=== PATIENT | male | born 1940 | race Caucasian/White ===

== ENCOUNTER 2019-05-12 21:13 | Inpatient (IN) ==
[2019-05-12] MEDS ORDERED: 0.9 % SODIUM CHLORIDE 1,000 ML IV ONE ×2 (21:25→21:49)
--- NOTE | 2019-05-12 21:29 | Emergency Department Note ---
Weakness HPI - General Chief complaint: Weakness Stated complaint: Sudden change is ability to walk Time Seen by Provider: 05/12/19 21:25 - History of Present Illness HPI Narrative: 78-year-old male presents via private vehicle with daughter and spouse. They were eating dinner when he started to have some bizarre behavior. They state he is always kind of sleepy kind of shuffles his gait, and does not move around or get around much. They state all of a sudden it seemed to be worse than usual. Seem to have a little bit of confusion. No weakness. No slurred speech. No facial drooping. Only ate very little of his dinner. Patient states he had 3 beers at dinner but the family states he only had a half of a beer. Denies any drug or marijuana use. Denies tobacco use. No recent cough, cold, or illness. No chest pain or shortness of breath. No abdominal pain. No cold symptoms. Has been eating and drinking as usual although they do state that he does not eat much. Patient feels sleepy but other than that he has no complaints. No dysuria or frequency. No foul odor to urine. - Related Data Home Medications Medication Instructions Recorded Confirmed RX: Aspirin [Adult Low Dose 81 mg PO DAILY 05/12/19 05/13/19 Aspirin EC] RX: Hydrochlorothiazide [Oretic] 25 mg PO DAILY 05/12/19 05/13/19 RX: Memantine HCl 10 mg PO BID 05/12/19 05/13/19 RX: Potassium Chloride [Kdur] 20 meq PO DAILY 05/12/19 05/13/19 RX: QUEtiapine [Seroquel] 100 mg PO DAILY 05/12/19 05/13/19 RX: Tamsulosin [Flomax] 0.4 mg PO DAILY 05/12/19 05/13/19 RX: Vitamin D3 1,000 unit PO DAILY 05/12/19 05/13/19 RX: amLODIPine BESYLATE/BENAZEPRIL 1 cap PO DAILY 05/12/19 05/13/19 [Amlodipine-Benazepril 5-10 mg] RX: cloNIDine HCL [Catapres] 0.1 mg PO BID 05/12/19 05/13/19 RX: metFORMIN HCL [Metformin HCl 1,500 mg PO HS 05/12/19 05/13/19 ER] RX: metFORMIN HCL [Metformin HCl 750 mg PO DAILY 05/12/19 05/13/19 ER] Previous Rx's Medication Instructions Recorded RX: Cephalexin [Keflex] 500 mg PO BID #10 cap 05/14/19 RX: Magnesium Oxide 400 mg PO BID #60 tab 05/14/19 RX: Thiamine HCl 100 mg PO DAILY #100 tab 05/14/19 Allergies Allergy/AdvReac Type Severity Reaction Status Date / Time No Known Drug Allergies Allergy Verified 05/13/19 01:24 Review of Systems All systems ED: reviewed and negative except as stated. Past Medical History - Past Medical History Source: other (Poor historian, limited past medical history available at this time.) - Social History smoking status: Former smoker Alcohol use: Reports: Daily Drug use: Reports: none Physical Exam General appearance: alert (That will be sleepy but easily awakens, opens eyes his eyes to voice and is oriented to person, place, time, and situation.) Head: atraumatic, normocephalic, normal inspection Eye: Present: normal appearance, PERRL, EOMI, conjunctival injection, visual padron intact. Absent: nystagmus ENT: normal exam, normal oropharynx, mucous membranes moist, TM's normal bilaterally, normal external ear exam Neck: Present: normal inspection, trachea midline. Absent: tenderness, lymp hadenopathy Chest: Present: symmetric chest wall rise Respiratory: Present: normal lung sounds bilaterally. Absent: respiratory distress, rales/crackles, wheezes, accessory muscle use Cardiovascular: Present: tachycardia, normal heart sounds Abdominal: Present: soft, normal bowel sounds. Absent: distention, tenderness, guarding, rebound, mass Extremities: Present: normal inspection. Absent: pedal edema Neurological: Present: alert, oriented X3, CN II-XII intact. Absent: motor sensory deficit Psychiatric: Present: normal affect, normal mood Skin: Present: warm, dry, intact, normal color. Absent: rash, diaphoresis, erythema Course Course Narrative: At [address] Naqvi, supervising ER physician who assumes care due to shift change Vital Signs Pulse Rate 126 H 05/12/19 21:15 Respiratory Rate 26 H 05/12/19 21:15 Blood Pressure 95/72 05/12/19 21:15 Pulse Oximetry (%) 91 05/12/19 21:15 Temperature 98 F 05/14/19 14:50 Pulse Rate 99 H 05/14/19 14:50 Respiratory Rate 18 05/14/19 14:50 Blood Pressure 118/91 05/14/19 14:50 Pulse Oximetry (%) 95 05/14/19 14:50 Weakness - Lab Data Result diagrams: 05/14/19 03:45 05/14/19 03:45 Lab Results 05/12/19 05/12/19 05/12/19 Range/Units 21:30 21:30 21:30 WBC 11.6 H (4.5-11.0) K/mcL RBC 4.79 (4.50-5.90) M/mcL Hgb 13.2 L (13.5-16.5) g/dL Hct 40.7 L (41.0-55.0) % POC Hct 40.0 L (41.0-55.0) % MCV 85.1 (80.0-100.0) fL MCH 27.6 (26.0-34.0) pg MCHC 32.4 (31.0-36.0) g/dL RDW 16.2 H (11.5-14.5) % Plt Count 288 (140-440) K/mcL MPV 8.6 (7.4-10.4) fL Gran % 81.5 H (38.0-78.0) % Lymph % (Auto) 10.4 L (15.5-49.0) % [place] % (Auto) 6.5 (1.0-12.0) % Eos % (Auto) 0.9 (0.0-7.0) % Baso % (Auto) 0.7 (0.0-2.0) % Gran # 9.4 H (1.8-8.0) K/mcL Lymph # (Auto) 1.2 L (1.5-4.8) K/mcL [place] # (Auto) 0.8 (0.1-0.9) K/mcL Eos # (Auto) 0.1 (0.0-0.7) K/mcL Baso # (Auto) 0.1 (0.0-0.3) K/mcL D-Dimer (0.00-0.40) ug/ml VBG Lactic Acid 5.9 H* (0.5-2.0) mmol/L POC Sodium 136 (133-145) mmol/L Sodium 135 (133-145) mmol/L POC Potassium 3.5 (3.3-5.1) mmol/L Potassium 3.7 (3.3-5.1) mmol/L POC Chloride 101 (96-108) mmol/L Chloride 94 L (96-108) mmol/L Carbon Dioxide 16 L (22-30) mmol/L POC Total CO2 19 L (22-30) mmol/L Anion Gap 25.0 H (8-16) POC BUN 29 H (8-23) mg/dl BUN 27 H (8-23) mg/dl Creatinine 1.7 H (0.7-1.2) mg/dl POC Creatinine 1.8 H (0.7-1.2) mg/dl GFR Calculation 38 Glucose 214 H (70-105) mg/dL POC Glucose 212 H (70-105) mg/dL Calcium 9.2 (8.6-10.4) mg/dl POC WB Ioniz Calcium 1.16 (1.16-1.32) mmol/L Total Bilirubin 0.3 (0.0-1.0) mg/dL AST 8 (0-37) U/l ALT 7 (0-40) U/l Alkaline Phosphatase 62 (39-117) U/L Total Creatine Kinase (24-195) IU/L CK-MB (CK-2) (0-4.9) ng/ml Troponin T (0-0.03) ng/ml Total Protein 6.6 (5.9-8.4) gm/dL Albumin 3.7 (3.2-5.2) gm/dL Globulin 2.9 (2.2-3.7) gm/dL Albumin/Globulin Ratio 1.3 (1.0-2.3) Urine Color Urine Appearance Urine pH (5.0-9.0) Ur Specific [place] (1.000-1.035) Urine Protein (NEG) mg/dL Urine Glucose (UA) (NEG) mg/dL Urine Ketones (NEG) mg/dL Urine Occult Blood (<0.03) mg/dL Urine Nitrate (NEG) Urine Bilirubin (NEG) mg/dL Urine Urobilinogen (NEG) mg/dL Ur Leukocyte Esterase (NEG) /uL Urine RBC (0-1) /hpf Urine WBC (0-4) /hpf Ur Squamous Epith Cells (0-4) /hpf Ur Transition Epith Cell (0-2) /hpf Amorphous Crystals (0) /hpf Urine Bacteria (0) /hpf Hyaline Casts (0-2) /lpf Urine Mucus (0) /hpf Ur Culture Indicated? 05/12/19 05/12/19 05/12/19 Range/Units 21:30 21:30 21:30 WBC (4.5-11.0) K/mcL RBC (4.50-5.90) M/mcL Hgb (13.5-16.5) g/dL Hct (41.0-55.0) % POC Hct (41.0-55.0) % MCV (80.0-100.0) fL MCH (26.0-34.0) pg MCHC (31.0-36.0) g/dL RDW (11.5-14.5) % Plt Count (140-440) K/mcL MPV (7.4-10.4) fL Gran % (38.0-78.0) % Lymph % (Auto) (15.5-49.0) % [place] % (Auto) (1.0-12.0) % Eos % (Auto) (0.0-7.0) % Baso % (Auto) (0.0-2.0) % Gran # (1.8-8.0) K/mcL Lymph # (Auto) (1.5-4.8) K/mcL [place] # (Auto) (0.1-0.9) K/mcL Eos # (Auto) (0.0-0.7) K/mcL Baso # (Auto) (0.0-0.3) K/mcL D-Dimer 1.49 H (0.00-0.40) ug/ml VBG Lactic Acid (0.5-2.0) mmol/L POC Sodium (133-145) mmol/L Sodium (133-145) mmol/L POC Potassium (3.3-5.1) mmol/L Potassium (3.3-5.1) mmol/L POC Chloride (96-108) mmol/L Chloride (96-108) mmol/L Carbon Dioxide (22-30) mmol/L POC Total CO2 (22-30) mmol/L Anion Gap (8-16) POC BUN (8-23) mg/dl BUN (8-23) mg/dl Creatinine (0.7-1.2) mg/dl POC Creatinine (0.7-1.2) mg/dl GFR Calculation Glucose (70-105) mg/dL POC Glucose (70-105) mg/dL Calcium (8.6-10.4) mg/dl POC WB Ioniz Calcium (1.16-1.32) mmol/L Total Bilirubin (0.0-1.0) mg/dL AST (0-37) U/l ALT (0-40) U/l Alkaline Phosphatase (39-117) U/L Total Creatine Kinase 28 (24-195) IU/L CK-MB (CK-2) < 1.0 (0-4.9) ng/ml Troponin T < 0.01 (0-0.03) ng/ml Total Protein (5.9-8.4) gm/dL Albumin (3.2-5.2) gm/dL Globulin (2.2-3.7) gm/dL Albumin/Globulin Ratio (1.0-2.3) Urine Color Urine Appearance Urine pH (5.0-9.0) Ur Specific [place] (1.000-1.035) Urine Protein (NEG) mg/dL Urine Glucose (UA) (NEG) mg/dL Urine Ketones (NEG) mg/dL Urine Occult Blood (<0.03) mg/dL Urine Nitrate (NEG) Urine Bilirubin (NEG) mg/dL Urine Urobilinogen (NEG) mg/dL Ur Leukocyte Esterase (NEG) /uL Urine RBC (0-1) /hpf Urine WBC (0-4) /hpf Ur Squamous Epith Cells (0-4) /hpf Ur Transition Epith Cell (0-2) /hpf Amorphous Crystals (0) /hpf Urine Bacteria (0) /hpf Hyaline Casts (0-2) /lpf Urine Mucus (0) /hpf Ur Culture Indicated? 05/12/19 Range/Units 22:23 WBC (4.5-11.0) K/mcL RBC (4.50-5.90) M/mcL Hgb (13.5-16.5) g/dL Hct (41.0-55.0) % POC Hct (41.0-55.0) % MCV (80.0-100.0) fL MCH (26.0-34.0) pg MCHC (31.0-36.0) g/dL RDW (11.5-14.5) % Plt Count (140-440) K/mcL MPV (7.4-10.4) fL Gran % (38.0-78.0) % Lymph % (Auto) (15.5-49.0) % [place] % (Auto) (1.0-12.0) % Eos % (Auto) (0.0-7.0) % Baso % (Auto) (0.0-2.0) % Gran # (1.8-8.0) K/mcL Lymph # (Auto) (1.5-4.8) K/mcL [place] # (Auto) (0.1-0.9) K/mcL Eos # (Auto) (0.0-0.7) K/mcL Baso # (Auto) (0.0-0.3) K/mcL D-Dimer (0.00-0.40) ug/ml VBG Lactic Acid (0.5-2.0) mmol/L POC Sodium (133-145) mmol/L Sodium (133-145) mmol/L POC Potassium (3.3-5.1) mmol/L Potassium (3.3-5.1) mmol/L POC Chloride (96-108) mmol/L Chloride (96-108) mmol/L Carbon Dioxide (22-30) mmol/L POC Total CO2 (22-30) mmol/L Anion Gap (8-16) POC BUN (8-23) mg/dl BUN (8-23) mg/dl Creatinine (0.7-1.2) mg/dl POC Creatinine (0.7-1.2) mg/dl GFR Calculation Glucose (70-105) mg/dL POC Glucose (70-105) mg/dL Calcium (8.6-10.4) mg/dl POC WB Ioniz Calcium (1.16-1.32) mmol/L Total Bilirubin (0.0-1.0) mg/dL AST (0-37) U/l ALT (0-40) U/l Alkaline Phosphatase (39-117) U/L Total Creatine Kinase (24-195) IU/L CK-MB (CK-2) (0-4.9) ng/ml Troponin T (0-0.03) ng/ml Total Protein (5.9-8.4) gm/dL Albumin (3.2-5.2) gm/dL Globulin (2.2-3.7) gm/dL Albumin/Globulin Ratio (1.0-2.3) Urine Color Yellow Urine Appearance Clear Urine pH 5.0 (5.0-9.0) Ur Specific [place] 1.017 (1.000-1.035) Urine Protein 30 A (NEG) mg/dL Urine Glucose (UA) Negative (NEG) mg/dL Urine Ketones Neg (NEG) mg/dL Urine Occult Blood 0.03 A (<0.03) mg/dL Urine Nitrate Pos A (NEG) Urine Bilirubin Neg (NEG) mg/dL Urine Urobilinogen Neg (NEG) mg/dL Ur Leukocyte Esterase 250 A (NEG) /uL Urine RBC 1 (0-1) /hpf Urine WBC 18 H (0-4) /hpf Ur Squamous Epith Cells 0 (0-4) /hpf Ur Transition Epith Cell < 1 (0-2) /hpf Amorphous Crystals Few A (0) /hpf Urine Bacteria Mod A (0) /hpf Hyaline Casts 8 H (0-2) /lpf Urine Mucus Mod (0) /hpf Ur Culture Indicated? Yes Disposition Pt seen by APPEALS WRITER/PA only: No Clinical Impression: Complicated UTI (urinary tract infection), Sepsis due to urinary tract infection Disposition: Xfer As Inpt ([facility]) Condition: Fair
[2019-05-12 21:46] LABS: POC Blood Urea Nitrogen 29 mg/dl (8-23); POC CO2 19 mmol/L (22-30); POC Calcium, Ionized 1.16 mmol/L (1.16-1.32); POC Chloride 101 mmol/L (96-108); POC Creatinine 1.8 mg/dl (0.7-1.2); POC Glucose, Random 212 mg/dL (70-105); POC Potassium 3.5 mmol/L (3.3-5.1); POC Sodium 136 mmol/L (133-145)
[2019-05-12] MEDS ORDERED: PIPERACILLIN SODIUM/TAZOBACTAM 3.375 GM in DEXTROSE 5% IN WATER 50 ML IV ONE (21:48)
[2019-05-12 22:32] LABS: Basophils # (Auto) 0.1 K/mcL (0.0-0.3); Basophils % (Auto) 0.7 % (0.0-2.0); Eosinophils # (Auto) 0.1 K/mcL (0.0-0.7); Eosinophils % (Auto) 0.9 % (0.0-7.0); Granulocytes % (Auto) 81.5 % (38.0-78.0); Hematocrit 40.7 % (41.0-55.0); Hemoglobin 13.2 g/dL (13.5-16.5); Lymphocytes # (Auto) 1.2 K/mcL (1.5-4.8); Lymphocytes % (Auto) 10.4 % (15.5-49.0); Mean Cell Volume 85.1 fL (80.0-100.0); Mean Corpuscular HGB Conc 32.4 g/dL (31.0-36.0); Mean Platelet Volume 8.6 fL (7.4-10.4); Monocytes # (Auto) 0.8 K/mcL (0.1-0.9); Monocytes % (Auto) 6.5 % (1.0-12.0); Platelet Count 288 K/mcL (140-440); RBC 4.79 M/mcL (4.50-5.90); Red Cell Distribution Width 16.2 % (11.5-14.5); WBC 11.6 K/mcL (4.5-11.0)
[2019-05-12 22:57] LABS: Creatine Kinase MB < 1.0 ng/ml (0-4.9)
[2019-05-12 22:58] LABS: Creatine Kinase 28 IU/L (24-195)
[2019-05-12 22:59] LABS: ALT/SGPT 7 U/l (0-40); AST/SGOT 8 U/l (0-37); Albumin 3.7 gm/dL (3.2-5.2); Albumin/Globulin Ratio 1.3 (1.0-2.3); Alkaline Phosphatase 62 U/L (39-117); Bilirubin,Total 0.3 mg/dL (0.0-1.0); Blood Urea Nitrogen 27 mg/dl (8-23); Calcium 9.2 mg/dl (8.6-10.4); Carbon Dioxide 16 mmol/L (22-30); Chloride 94 mmol/L (96-108); Globulin 2.9 gm/dL (2.2-3.7); Glomerular Filtration Rate 38; Glucose 214 mg/dL (70-105); Potassium 3.7 mmol/L (3.3-5.1); Sodium 135 mmol/L (133-145)
[2019-05-12] MEDS ORDERED: LACTATED RINGERS 1,000 ML IV ONE (23:04)
[2019-05-12 23:37] LABS: Appearance,Urine CLEAR; Bacteria,Urine MOD /hpf (0); Bilirubin,Urine NEG (NEG); Color,Urine YELLOW; Culture Indicated,Urine YES; Glucose,Urine (UA) NEGATIVE (NEG); Ketones,Urine NEG (NEG); Leukocyte Esterase,Urine 250 /uL (NEG); Mucus,Urine MOD /hpf (0); Nitrate,Urine POS (NEG); Protein,Urine 30 mg/dL (NEG); Specific Gravity,Urine 1.017 (1.000-1.035); Urine Amorphous Crystals FEW /hpf (0); Urine Blood 0.03 mg/dL (<0.03); Urine Hyaline Cast 8 /lpf (0-2); Urine RBC 1 /hpf (0-1); Urine Squamous Epithelial Cell 0 /hpf (0-4); Urine Transitional Epi Cells < 1 /hpf (0-2); Urine WBC 18 /hpf (0-4); Urobilinogen,Urine NEG (NEG)
--- NOTE | 2019-05-12 23:50 | Internal Med History&Physical ---
Medical - H&P: HPI Patient information: Note initiated : 05/12/19 at 11:42 pm Service Date, if different from initiated Date: [] Patient: Kassidy Anthony a 78 y/o M admitted on for Sudden change is ability to walk. Chief Complaint: [] History of present illness: Mr. Anthony is a 78 year old M with history of diabetes dementia, presented to the emergency room today accompanied by his and daughter for evaluation of altered mental status and sudden onset weakness. According to the who provided most of the history the patient was at his baseline status later this afternoon. He usually does not do much activity and is in bed noting that it is always cold. Covering himself with a blanket. They went out for supper this evening, while at supper the patient was noted to be weak, did have some nausea and subjective sensation of throwing up. He drank after beer, was not able to tolerate p.o. diet well, and did not eat much he was unable to walk back to his car at which time he was brought to the hospital. There is no report of any headache and is in vision, any difficulty in swallowing is reported by the , there is no cough reported no chest pain he would did appear short of breath while walking, there was no abdominal pain reported no problems with urination no diarrhea reported, no new joint pains or skin rashes reported. On presenting to the emergency room patient was confused, tachycardic blood pressure as low as 76/62 tachypneic with a respiration around 26 saturating 90% on room air Cultures were done, patient resuscitated with fluids and antibiotics administered, patient's blood pressure improved to more than 100 systolic. Labs show hemoglobin of 13.2, WBC 11.6 platelets 288 sodium 135 potassium 3.5 anion gap 25 bicarbonate 16 creatinine 1.7 glucose 214 troponin is negative ABG shows pH of 7.36 PCO2 30 PO2 61 lactic acid 6.1 on room air Chest x-rays negative for acute infiltrate UA suggestive of a UTI CT chest abdomen pelvis was done, I do not see any acute height on the CT scan All systems: reviewed and no additional remarkable complaints except as stated (As per HPI rest negative) Medical - H&P: PMH Medical history: Chronic kidney disease follows with Dr. Herron Baseline creatinine of 1.6 Diabetes Hypertension Chronic lower extremity edema GERD Obesity Dementia Prostate hypertrophy Chronic tremors Chronic gout Pertinent family history: Mother had a history of Parkinson's disease Social history: Ex-smoker Drinks 3 beers a day Denies any recreational drug Lives with Medical - H&P: Meds Home Medications Medication Instructions Recorded Confirmed Type Aspirin [Adult Low Dose Aspirin EC] 81 mg PO DAILY 05/12/19 05/12/19 History Hydrochlorothiazide [Oretic] 25 mg PO DAILY 05/12/19 05/12/19 History Memantine HCl 10 mg PO BID 05/12/19 05/12/19 History Potassium Chloride [Kdur] 20 meq PO DAILY 05/12/19 05/12/19 History QUEtiapine [SEROquel] 100 mg PO DAILY 05/12/19 05/12/19 History Tamsulosin [Flomax] 0.4 mg PO DAILY 05/12/19 05/12/19 History Vitamin D3 1,000 unit PO DAILY 05/12/19 05/12/19 History amLODIPine BESYLATE/BENAZEPRIL 1 cap PO DAILY 05/12/19 05/12/19 History [Amlodipine-Benazepril 5-10 mg] cloNIDine HCL [Catapres] 0.1 mg PO BID 05/12/19 05/12/19 History metFORMIN HCL [Metformin HCl ER] 1,500 mg PO HS 05/12/19 05/12/19 History metFORMIN HCL [Metformin HCl ER] 750 mg PO DAILY 05/12/19 05/12/19 History Allergies Allergy/AdvReac Type Severity Reaction Status Date / Time No Known Drug Allergies Allergy Verified 05/12/19 21:24 Medical - H&P: Exam - Constitutional Vitals: Pulse Resp BP Pulse Ox 106 H 23 H 106/80 90 05/12/19 22:31 05/12/19 22:31 05/12/19 22:31 05/12/19 22:31 Exam: GENERAL: The patient is a well-developed, well-nourished in no apparent distress. Is alert and oriented x2. VITAL SIGNS: Reviewed and as noted elsewhere. HEENT: Head is normocephalic and atraumatic. Extraocular muscles are intact. Pupils are equal, round, and reactive to light. Nares appeared normal. Mouth appears any without lesions. Mucous membranes are dry. NECK: Normal to inspection, Supple, No lymphadenopathy or thyromegaly. LUNGS: Air entry equal on both sides, no wheezing, crackles or rhonchi noted. No accessory muscles of respiration HEART: Regular rate and rhythm normal, S1 and S2 heard, no Gallop, S3 or Rub Noted, No Gross murmur heard. ABDOMEN: Soft, nontender, and nondistended. Positive bowel sounds. No hepatosplenomegaly was noted. no cva tenderness EXTREMITIES: No cyanosis, clubbing, rash, lesions or edema. NEUROLOGIC: Cranial nerves II through XII are grossly intact. Motor and Sensory System Grossly Intact, no spinal tenderness PSYCHIATRIC: Normal affect, Normal Mood. Appropriate Behavior. SKIN: No ulceration or wounds noted, No jaundice, No rash noted. Medical - H&P: Reslt - Labs CBC & Chem 7: 05/12/19 21:30 05/12/19 21:30 Labs: Short CBC 05/12/19 Range/Units 21:30 WBC 11.6 H (4.5-11.0) K/mcL Hgb 13.2 L (13.5-16.5) g/dL Hct 40.7 L (41.0-55.0) % Plt Count 288 (140-440) K/mcL BMP 05/12/19 21:30 Sodium 135 Potassium 3.7 Chloride 94 L Carbon Dioxide 16 L BUN 27 H Creatinine 1.7 H Glucose 214 H Calcium 9.2 Cardiac Enzymes 05/12/19 05/12/19 Range/Units 21:30 21:30 Total Creatine Kinase 28 (24-195) IU/L CK-MB (CK-2) < 1.0 (0-4.9) ng/ml Troponin T < 0.01 (0-0.03) ng/ml Liver Function 05/12/19 Range/Units 21:30 Total Bilirubin 0.3 (0.0-1.0) mg/dL AST 8 (0-37) U/l ALT 7 (0-40) U/l Alkaline Phosphatase 62 (39-117) U/L Albumin 3.7 (3.2-5.2) gm/dL Urine 05/12/19 Range/Units 22:23 Urine Color Yellow Urine Appearance Clear Urine pH 5.0 (5.0-9.0) Ur Specific [place] 1.017 (1.000-1.035) Urine Protein 30 A (NEG) mg/dL Urine Glucose (UA) Negative (NEG) mg/dL - EKG Data Rate: normal (left axis, low voltage), tachycardia - Impressions cxr neg to acute infiltrate Medical - H&P: A/P - Narrative A/P Narrative: A/P Severe sepsis -qsofa score > 2 -Aggresive fluid resuscitation -IV vancomycin and zosyn for now till culture results are back -Admit to ICU Lactic acidosis -due to sepsis -Fluids, trend lactate Complicated UTI -Broad spectrum coverage for now -I am concerned about rapid progression/decline in patients condition within few hours, CT ordered, did not see any obvious hydronephrosis DM -SSI insulin for glucose control, HTN -Given low bp on presentation, hold bp meds, -resume once bp is stable x 24 hrs HLD -resume home meds once verified, pt on statin Dementia -high risk of delirium, conservative management Chr Gout Obesity BMI 31.9 Tremors -outpatient follow up DVT hep sq Diet carb consistent Full code spent > 60 mins rendering critical care to the patient, yenni gayle, care coordination, family counselling and education.
[2019-05-13] MEDS ORDERED: DEXTROSE 31 GM ORAL.SUSP PO PRN ×3 (00:07→11:04)
[2019-05-13] MEDS ORDERED: DEXTROSE 50% 50 ML VIAL IV PRN ×3 (00:07→11:04)
[2019-05-13] MEDS ORDERED: THIAMINE 100 MG in 0.9 % SODIUM CHLORIDE 50 ML IV ONE ×2 (00:15→00:23)
[2019-05-13] MEDS ORDERED: LACTATED RINGERS 1,000 ML IV ONE (00:23)
[2019-05-13] MEDS ORDERED: HYDROmorphone 2 MG/ML VIAL IV PRN ×2 (00:23→11:04)
[2019-05-13] MEDS ORDERED: ACETAMINOPHEN 325 MG TABLET PO PRN ×2 (00:23→11:04)
[2019-05-13] MEDS ORDERED: NALOXONE HCL 0.4 MG/ML VIAL IV PRN ×2 (00:23→11:04)
[2019-05-13] MEDS ORDERED: VANCOMYCIN PER PHARMACY IV ONE (00:23)
[2019-05-13] MEDS ORDERED: ALBUTEROL SULFATE 2.5 MG/3 ML NEBULIZER NEB PRN ×2 (00:23→11:04)
[2019-05-13] MEDS ORDERED: ONDANSETRON 4 MG/2 ML VIAL IV PRN ×2 (00:23→11:04)
[2019-05-13] MEDS ORDERED: VANCOMYCIN 1,000 MG in 0.9 % SODIUM CHLORIDE 250 ML IV ONE (00:23)
[2019-05-13] MEDS: PIPERACILLIN SODIUM/TAZOBACTAM 3.375 GM in DEXTROSE 5% IN WATER 50 ML IV SCH ×5 (00:59→23:20)
[2019-05-13] MEDS: LACTATED RINGERS 1,000 ML IV SCH ×2 (01:50→10:23)
[2019-05-13 05:40] LABS: Basophils # (Auto) 0 K/mcL (0.0-0.3); Basophils % (Auto) 0.4 % (0.0-2.0); Eosinophils # (Auto) 0 K/mcL (0.0-0.7); Eosinophils % (Auto) 0.5 % (0.0-7.0); Granulocytes % (Auto) 75.6 % (38.0-78.0); Hemoglobin 11.4 g/dL (13.5-16.5); Lymphocytes # (Auto) 1.7 K/mcL (1.5-4.8); Lymphocytes % (Auto) 16.4 % (15.5-49.0); Mean Cell Volume 86.3 fL (80.0-100.0); Mean Corpuscular HGB Conc 32.4 g/dL (31.0-36.0); Mean Platelet Volume 9.1 fL (7.4-10.4); Monocytes # (Auto) 0.7 K/mcL (0.1-0.9); Monocytes % (Auto) 7.1 % (1.0-12.0); Platelet Count 257 K/mcL (140-440); RBC 4.06 M/mcL (4.50-5.90); WBC 10.2 K/mcL (4.5-11.0)
[2019-05-13 05:44] LABS: Prothrombin Time 13.5 sec (11.9-14.5)
[2019-05-13] MEDS ORDERED: 0.9 % SODIUM CHLORIDE 10 ML SYRINGE IV SCH (06:00)
--- NOTE | 2019-05-13 06:00 | Cat Scan Report ---
CLINICAL INFORMATION: Fever. Sepsis. TECHNIQUE: Noncontrast enhanced CT scan of the chest, abdomen, pelvis. Sagittal and coronal reformatted images. MIP reformatted images of the chest COMPARISON: Chest x-ray dated 05/12/2019 FINDINGS: CHEST: No focal pulmonary parenchymal consolidation. No evidence for pneumonia. No centrilobular or paraseptal emphysema. There is no honeycombing. There is no reticular change. Moderate hiatal hernia is present. There is mild diffuse esophageal wall thickening. No discrete mediastinal mass identified. Preeti are negative. There is no pleural fluid. There is no pericardial fluid. There is coronary artery calcification. No axillary or supraclavicular adenopathy. Thoracic spine is negative. No compression fractures. No evidence for discitis. No paraspinal soft tissue mass. ABDOMEN AND PELVIS: Liver is negative. Note focal intrahepatic abnormality. No evidence for hepatic abscess. Gallbladder is present. No calcified gallstones. No dilated bile ducts. There are scattered small calcifications within the pancreas. Some of these may be vascular. Mild chronic pancreatitis is likely. No pancreatitis. No peripancreatic inflammatory change. No pancreatic mass. Negative spleen. There is no splenomegaly. Negative adrenal glands. There is a probable left mid pole cyst. This measures 2 cm. Ultrasound is recommended to exclude a solid mass. There is no hydronephrosis. There are no obstructing or nonobstructing calculi. There is no hydroureter. There is no ureteral stone. Bladder is present. There is a Ty catheter within the urinary bladder. Colon is negative. There is no diverticulitis. No detectable colonic mass. There is no appendicitis. Fecal material somewhat prominent consistent with constipation. No evidence for impaction. There is no pneumatosis. Small bowel is negative. No mechanical small bowel obstruction. There is no retroperitoneal or mesenteric lymphadenopathy. There is calcification of the abdominal aorta. There is no abdominal aortic aneurysm. There is degenerative disc disease in the lumbar spine. No lumbar compression fractures. No evidence for discitis. Sacrum is negative. No sacral or pelvic fracture. Examination was initially interpreted by [facility] IMPRESSION: 1. Moderate hiatal hernia. Generalized esophageal wall thickening may be secondary to reflux 2. Scattered small calcifications within the pancreas suggest chronic pancreatitis. No acute pancreatitis 3. 2 cm low-density mass in the left kidney. This is probably a cyst but ultrasound is recommended to exclude a solid mass 4. Probable constipation Interpreted and Authenticated by: Shaun Johnson 05/13/19
--- NOTE | 2019-05-13 06:04 | XRay Report ---
INDICATION: Weakness. Altered level of consciousness. TECHNIQUE: AP chest x-ray,portable semiupright COMPARISON: None FINDINGS:Lungs are negative. No parenchymal infiltrate or mass. No focal pulmonary parenchymal abnormalities. Heart size and vascularity are normal. Preeti and mediastinum are negative. No acute abnormality. IMPRESSION: Negative AP chest x-ray Interpreted and Authenticated by: Shaun Johnson 05/13/19
--- NOTE | 2019-05-13 06:06 | Cat Scan Report ---
CLINICAL INFORMATION: Altered level of consciousness COMPARISON: None. TECHNIQUE: Axial noncontrast-enhanced images through the brain. Sagittal and coronal reformatted images FINDINGS: No acute intracranial hemorrhage. There is no subdural hematoma. There is no subarachnoid hemorrhage. Basilar cisterns are normal. No intra-axial hemorrhage. No focal intra-axial attenuation abnormality or localized mass effect. There is cerebral atrophy. There are enlarged superficial subarachnoid spaces and enlarged cerebral ventricles. No acute or focal abnormality. No calvarial fracture. There is no lytic lesion. Temporal bones are negative. IMPRESSION: Negative noncontrast enhanced brain CT scan The exam was performed using radiation dose optimization techniques including, but not limited to, automated exposure control, adjustment of the mA and/or kV according to patient size and use of iterative reconstruction technique. Interpreted and Authenticated by: Shaun Johnson 05/13/19
[2019-05-13 06:14] LABS: ALT/SGPT 5 U/l (0-40); AST/SGOT 8 U/l (0-37); Albumin 2.9 gm/dL (3.2-5.2); Albumin/Globulin Ratio 1.1 (1.0-2.3); Alkaline Phosphatase 51 U/L (39-117); Bilirubin,Direct < 0.2 mg/dL (0.0-0.3); Bilirubin,Total 0.3 mg/dL (0.0-1.0); Blood Urea Nitrogen 23 mg/dl (8-23); Calcium 8.4 mg/dl (8.6-10.4); Carbon Dioxide 20 mmol/L (22-30); Chloride 103 mmol/L (96-108); Globulin 2.7 gm/dL (2.2-3.7); Glomerular Filtration Rate 48; Glucose 126 mg/dL (70-105); Lactate Dehydrogenase 152 U/L (94-250); Magnesium 1.2 mg/dL (1.6-2.5); Phosphorous 2.3 mg/dL (2.7-4.5); Potassium 3.5 mmol/L (3.3-5.1); Sodium 139 mmol/L (133-145); Triglycerides 95 mg/dl (<150); Uric Acid 7.3 mg/dL (2.5-8.0)
[2019-05-13] MEDS ORDERED: VANCOMYCIN PER PHARMACY IV SCH (06:15)
[2019-05-13] MEDS ORDERED: INSULIN LISPRO 1 UNIT/0.01 ML UNIT SQ SCH ×2 (07:30)
[2019-05-13] MEDS ORDERED: MAGNESIUM SULFATE 2 GM/50 ML BAG IV ONE (07:49)
--- NOTE | 2019-05-13 08:38 | Emergency Department Note ---
General Adult HPI - General Chief complaint: Weakness Stated complaint: Sudden change is ability to walk Time Seen by Provider: 05/12/19 21:25 - Related Data Home Medications Medication Instructions Recorded Confirmed Aspirin [Adult Low Dose Aspirin EC] 81 mg PO DAILY 05/12/19 05/13/19 Hydrochlorothiazide [Oretic] 25 mg PO DAILY 05/12/19 05/13/19 Memantine HCl 10 mg PO BID 05/12/19 05/13/19 Potassium Chloride [Kdur] 20 meq PO DAILY 05/12/19 05/13/19 QUEtiapine [SEROquel] 100 mg PO DAILY 05/12/19 05/13/19 Tamsulosin [Flomax] 0.4 mg PO DAILY 05/12/19 05/13/19 Vitamin D3 1,000 unit PO DAILY 05/12/19 05/13/19 amLODIPine BESYLATE/BENAZEPRIL 1 cap PO DAILY 05/12/19 05/13/19 [Amlodipine-Benazepril 5-10 mg] cloNIDine HCL [Catapres] 0.1 mg PO BID 05/12/19 05/13/19 metFORMIN HCL [Metformin HCl ER] 1,500 mg PO HS 05/12/19 05/13/19 metFORMIN HCL [Metformin HCl ER] 750 mg PO DAILY 05/12/19 05/13/19 Allergies Allergy/AdvReac Type Severity Reaction Status Date / Time No Known Drug Allergies Allergy Verified 05/13/19 01:24 Past Medical History - Social History smoking status: Never smoker Alcohol use: Reports: Daily Drug use: Reports: none Physical Exam General appearance: alert (That will be sleepy but easily awakens, opens eyes his eyes to voice and is oriented to person, place, time, and situation.) Course Vital Signs Pulse Rate 126 H 05/12/19 21:15 Respiratory Rate 26 H 05/12/19 21:15 Blood Pressure 95/72 05/12/19 21:15 Pulse Oximetry (%) 91 05/12/19 21:15 Temperature 99.0 F 05/13/19 08:01 Pulse Rate 91 H 05/13/19 07:01 Respiratory Rate 20 05/13/19 08:01 Blood Pressure 130/94 05/13/19 08:01 Pulse Oximetry (%) 93 05/13/19 08:01 Medical Decision Making - [facility] Narrative Medical decision making narrative: Patient's white count was elevated at 11,600 to hemoglobin 13.2 hematocrit of 40.7 the lactic acid was elevated at 5.9 sodium is 136 and a potassium 3.7 goes to 14 did show 18 WBCs per high-power field. contacted and patient to be admitted for sepsis blood cultures have been drawn and antibiotics started Zosyn - Lab Data Result diagrams: 05/13/19 03:29 05/13/19 03:35 Lab Results 05/12/19 05/12/19 05/12/19 Range/Units 21:30 21:30 21:30 WBC 11.6 H (4.5-11.0) K/mcL RBC 4.79 (4.50-5.90) M/mcL Hgb 13.2 L (13.5-16.5) g/dL Hct 40.7 L (41.0-55.0) % POC Hct 40.0 L (41.0-55.0) % MCV 85.1 (80.0-100.0) fL MCH 27.6 (26.0-34.0) pg MCHC 32.4 (31.0-36.0) g/dL RDW 16.2 H (11.5-14.5) % Plt Count 288 (140-440) K/mcL MPV 8.6 (7.4-10.4) fL Gran % 81.5 H (38.0-78.0) % Lymph % (Auto) 10.4 L (15.5-49.0) % [place] % (Auto) 6.5 (1.0-12.0) % Eos % (Auto) 0.9 (0.0-7.0) % Baso % (Auto) 0.7 (0.0-2.0) % Gran # 9.4 H (1.8-8.0) K/mcL Lymph # (Auto) 1.2 L (1.5-4.8) K/mcL [place] # (Auto) 0.8 (0.1-0.9) K/mcL Eos # (Auto) 0.1 (0.0-0.7) K/mcL Baso # (Auto) 0.1 (0.0-0.3) K/mcL D-Dimer (0.00-0.40) ug/ml VBG Lactic Acid 5.9 H* (0.5-2.0) mmol/L POC Sodium 136 (133-145) mmol/L Sodium 135 (133-145) mmol/L POC Potassium 3.5 (3.3-5.1) mmol/L Potassium 3.7 (3.3-5.1) mmol/L POC Chloride 101 (96-108) mmol/L Chloride 94 L (96-108) mmol/L Carbon Dioxide 16 L (22-30) mmol/L POC Total CO2 19 L (22-30) mmol/L Anion Gap 25.0 H (8-16) POC BUN 29 H (8-23) mg/dl BUN 27 H (8-23) mg/dl Creatinine 1.7 H (0.7-1.2) mg/dl POC Creatinine 1.8 H (0.7-1.2) mg/dl GFR Calculation 38 Glucose 214 H (70-105) mg/dL POC Glucose 212 H (70-105) mg/dL Calcium 9.2 (8.6-10.4) mg/dl POC WB Ioniz Calcium 1.16 (1.16-1.32) mmol/L Total Bilirubin 0.3 (0.0-1.0) mg/dL AST 8 (0-37) U/l ALT 7 (0-40) U/l Alkaline Phosphatase 62 (39-117) U/L Total Creatine Kinase (24-195) IU/L CK-MB (CK-2) (0-4.9) ng/ml Troponin T (0-0.03) ng/ml Total Protein 6.6 (5.9-8.4) gm/dL Albumin 3.7 (3.2-5.2) gm/dL Globulin 2.9 (2.2-3.7) gm/dL Albumin/Globulin Ratio 1.3 (1.0-2.3) Urine Color Urine Appearance Urine pH (5.0-9.0) Ur Specific [place] (1.000-1.035) Urine Protein (NEG) mg/dL Urine Glucose (UA) (NEG) mg/dL Urine Ketones (NEG) mg/dL Urine Occult Blood (<0.03) mg/dL Urine Nitrate (NEG) Urine Bilirubin (NEG) mg/dL Urine Urobilinogen (NEG) mg/dL Ur Leukocyte Esterase (NEG) /uL Urine RBC (0-1) /hpf Urine WBC (0-4) /hpf Ur Squamous Epith Cells (0-4) /hpf Ur Transition Epith Cell (0-2) /hpf Amorphous Crystals (0) /hpf Urine Bacteria (0) /hpf Hyaline Casts (0-2) /lpf Urine Mucus (0) /hpf Ur Culture Indicated? 05/12/19 05/12/19 05/12/19 Range/Units 21:30 21:30 21:30 WBC (4.5-11.0) K/mcL RBC (4.50-5.90) M/mcL Hgb (13.5-16.5) g/dL Hct (41.0-55.0) % POC Hct (41.0-55.0) % MCV (80.0-100.0) fL MCH (26.0-34.0) pg MCHC (31.0-36.0) g/dL RDW (11.5-14.5) % Plt Count (140-440) K/mcL MPV (7.4-10.4) fL Gran % (38.0-78.0) % Lymph % (Auto) (15.5-49.0) % [place] % (Auto) (1.0-12.0) % Eos % (Auto) (0.0-7.0) % Baso % (Auto) (0.0-2.0) % Gran # (1.8-8.0) K/mcL Lymph # (Auto) (1.5-4.8) K/mcL [place] # (Auto) (0.1-0.9) K/mcL Eos # (Auto) (0.0-0.7) K/mcL Baso # (Auto) (0.0-0.3) K/mcL D-Dimer 1.49 H (0.00-0.40) ug/ml VBG Lactic Acid (0.5-2.0) mmol/L POC Sodium (133-145) mmol/L Sodium (133-145) mmol/L POC Potassium (3.3-5.1) mmol/L Potassium (3.3-5.1) mmol/L POC Chloride (96-108) mmol/L Chloride (96-108) mmol/L Carbon Dioxide (22-30) mmol/L POC Total CO2 (22-30) mmol/L Anion Gap (8-16) POC BUN (8-23) mg/dl BUN (8-23) mg/dl Creatinine (0.7-1.2) mg/dl POC Creatinine (0.7-1.2) mg/dl GFR Calculation Glucose (70-105) mg/dL POC Glucose (70-105) mg/dL Calcium (8.6-10.4) mg/dl POC WB Ioniz Calcium (1.16-1.32) mmol/L Total Bilirubin (0.0-1.0) mg/dL AST (0-37) U/l ALT (0-40) U/l Alkaline Phosphatase (39-117) U/L Total Creatine Kinase 28 (24-195) IU/L CK-MB (CK-2) < 1.0 (0-4.9) ng/ml Troponin T < 0.01 (0-0.03) ng/ml Total Protein (5.9-8.4) gm/dL Albumin (3.2-5.2) gm/dL Globulin (2.2-3.7) gm/dL Albumin/Globulin Ratio (1.0-2.3) Urine Color Urine Appearance Urine pH (5.0-9.0) Ur Specific [place] (1.000-1.035) Urine Protein (NEG) mg/dL Urine Glucose (UA) (NEG) mg/dL Urine Ketones (NEG) mg/dL Urine Occult Blood (<0.03) mg/dL Urine Nitrate (NEG) Urine Bilirubin (NEG) mg/dL Urine Urobilinogen (NEG) mg/dL Ur Leukocyte Esterase (NEG) /uL Urine RBC (0-1) /hpf Urine WBC (0-4) /hpf Ur Squamous Epith Cells (0-4) /hpf Ur Transition Epith Cell (0-2) /hpf Amorphous Crystals (0) /hpf Urine Bacteria (0) /hpf Hyaline Casts (0-2) /lpf Urine Mucus (0) /hpf Ur Culture Indicated? 05/12/19 Range/Units 22:23 WBC (4.5-11.0) K/mcL RBC (4.50-5.90) M/mcL Hgb (13.5-16.5) g/dL Hct (41.0-55.0) % POC Hct (41.0-55.0) % MCV (80.0-100.0) fL MCH (26.0-34.0) pg MCHC (31.0-36.0) g/dL RDW (11.5-14.5) % Plt Count (140-440) K/mcL MPV (7.4-10.4) fL Gran % (38.0-78.0) % Lymph % (Auto) (15.5-49.0) % [place] % (Auto) (1.0-12.0) % Eos % (Auto) (0.0-7.0) % Baso % (Auto) (0.0-2.0) % Gran # (1.8-8.0) K/mcL Lymph # (Auto) (1.5-4.8) K/mcL [place] # (Auto) (0.1-0.9) K/mcL Eos # (Auto) (0.0-0.7) K/mcL Baso # (Auto) (0.0-0.3) K/mcL D-Dimer (0.00-0.40) ug/ml VBG Lactic Acid (0.5-2.0) mmol/L POC Sodium (133-145) mmol/L Sodium (133-145) mmol/L POC Potassium (3.3-5.1) mmol/L Potassium (3.3-5.1) mmol/L POC Chloride (96-108) mmol/L Chloride (96-108) mmol/L Carbon Dioxide (22-30) mmol/L POC Total CO2 (22-30) mmol/L Anion Gap (8-16) POC BUN (8-23) mg/dl BUN (8-23) mg/dl Creatinine (0.7-1.2) mg/dl POC Creatinine (0.7-1.2) mg/dl GFR Calculation Glucose (70-105) mg/dL POC Glucose (70-105) mg/dL Calcium (8.6-10.4) mg/dl POC WB Ioniz Calcium (1.16-1.32) mmol/L Total Bilirubin (0.0-1.0) mg/dL AST (0-37) U/l ALT (0-40) U/l Alkaline Phosphatase (39-117) U/L Total Creatine Kinase (24-195) IU/L CK-MB (CK-2) (0-4.9) ng/ml Troponin T (0-0.03) ng/ml Total Protein (5.9-8.4) gm/dL Albumin (3.2-5.2) gm/dL Globulin (2.2-3.7) gm/dL Albumin/Globulin Ratio (1.0-2.3) Urine Color Yellow Urine Appearance Clear Urine pH 5.0 (5.0-9.0) Ur Specific [place] 1.017 (1.000-1.035) Urine Protein 30 A (NEG) mg/dL Urine Glucose (UA) Negative (NEG) mg/dL Urine Ketones Neg (NEG) mg/dL Urine Occult Blood 0.03 A (<0.03) mg/dL Urine Nitrate Pos A (NEG) Urine Bilirubin Neg (NEG) mg/dL Urine Urobilinogen Neg (NEG) mg/dL Ur Leukocyte Esterase 250 A (NEG) /uL Urine RBC 1 (0-1) /hpf Urine WBC 18 H (0-4) /hpf Ur Squamous Epith Cells 0 (0-4) /hpf Ur Transition Epith Cell < 1 (0-2) /hpf Amorphous Crystals Few A (0) /hpf Urine Bacteria Mod A (0) /hpf Hyaline Casts 8 H (0-2) /lpf Urine Mucus Mod (0) /hpf Ur Culture Indicated? Yes Disposition Pt seen by WOOD TYPE CUTTER/PA only: No Clinical Impression: Complicated UTI (urinary tract infection), Sepsis due to urinary tract infection Disposition: Xfer As Inpt ([facility]) Condition: Fair
[2019-05-13] MEDS ORDERED: POLYETHYLENE GLYCOL 3350 17 GM PACKET PO ONE (08:50)
[2019-05-13] MEDS ORDERED: HEPARIN 5,000 UNIT/ML VIAL SQ SCH (09:00)
[2019-05-13] MEDS ORDERED: QUEtiapine 100 MG TABLET PO SCH ×2 (09:00)
[2019-05-13] MEDS ORDERED: MAGNESIUM OXIDE 400 MG TABLET PO SCH (09:00)
[2019-05-13] MEDS ORDERED: ASPIRIN 81 MG TAB.CHEW PO SCH (09:00)
[2019-05-13] MEDS ORDERED: NON FORMULARY MEDICATION 1 DOSE MISCELL (Aspirin [Adult Low Dose Aspirin Ec] 81 MG) PO SCH (09:00)
[2019-05-13] MEDS ORDERED: TAMSULOSIN 0.4 MG CAPSULE PO SCH ×2 (09:00)
[2019-05-13] MEDS ORDERED: POTASSIUM CHLORIDE 10 MEQ TABLET PO SCH ×2 (09:00)
[2019-05-13] MEDS ORDERED: THIAMINE 100 MG in 0.9 % SODIUM CHLORIDE 50 ML IV SCH (09:00)
[2019-05-13] MEDS ORDERED: POTASSIUM PHOSPHATE 40 MEQ in DEXTROSE 5% IN WATER 500 ML IV ONE (09:00)
[2019-05-13] MEDS ORDERED: MEMANTINE 10 MG TABLET PO SCH ×2 (09:00)
[2019-05-13] MEDS ORDERED: VITAMIN D3 1,000 UNIT TABLET PO SCH ×2 (09:00)
[2019-05-13] MEDS ORDERED: SENNOSIDES/DOCUSATE SODIUM 1 TAB TABLET PO SCH (09:00)
[2019-05-13] MEDS ORDERED: VANCOMYCIN 1,000 MG in 0.9 % SODIUM CHLORIDE 250 ML IV SCH (10:00)
--- NOTE | 2019-05-13 10:56 | Internal Med Progress Note ---
Medical - PN: Subj Patient information: Note initiated : 05/13/19 at 10:53 am Service Date, if different from initiated Date: [] Patient: Kassidy Anthony 78 y/o M admitted on 05/13/19 for Sudden change is ability to walk. Chief Complaint: [] Interval history: Mr. Anthony is a 78 year old M with history of diabetes dementia, presented to the emergency room today accompanied by his and daughter for evaluation of altered mental status and sudden onset weakness. According to the who provided most of the history the patient was at his baseline status later this afternoon. He usually does not do much activity and is in bed noting that it is always cold. Covering himself with a blanket. They went out for supper this evening, while at supper the patient was noted to be weak, did have some nausea and subjective sensation of throwing up. He drank after beer, was not able to tolerate p.o. diet well, and did not eat much he was unable to walk back to his car at which time he was brought to the hospital. There is no report of any headache and is in vision, any difficulty in swallowing is reported by the , there is no cough reported no chest pain he would did appear short of breath while walking, there was no abdominal pain reported no problems with urination no diarrhea reported, no new joint pains or skin rashes reported. On presenting to the emergency room patient was confused, tachycardic blood pressure as low as 76/62 tachypneic with a respiration around 26 saturating 90% on room air Cultures were done, patient resuscitated with fluids and antibiotics administered, patient's blood pressure improved to more than 100 systolic. Labs show hemoglobin of 13.2, WBC 11.6 platelets 288 sodium 135 potassium 3.5 anion gap 25 bicarbonate 16 creatinine 1.7 glucose 214 troponin is negative ABG shows pH of 7.36 PCO2 30 PO2 61 lactic acid 6.1 on room air Chest x-rays negative for acute infiltrate UA suggestive of a UTI CT chest abdomen pelvis was done, I do not see any acute height on the CT scan 05/13 Patient seen and examined, sitting comfortably in chair, family at the bedside. Patient is doing much better compared to yesterday, lactic acidosis has resolved blood pressure is stable patient is tolerating p.o. diet very well. Urine culture is growing gram-negative bacillus Transfer to [facility], discontinue vancomycin. DC Ty Pertinent ROS: Denies headache, dizziness Denies chest pain, palpitations Denies cough or shortness of breath Denies abdominal pain, nausea or vomiting. - Constitutional Vitals: Vital Signs Temp Pulse Resp BP Pulse Ox 99.0 F 109 H 19 137/102 96 05/13/19 08:01 05/13/19 10:01 05/13/19 10:01 05/13/19 10:01 05/13/19 10:01 Period Temp Pulse Resp BP Sys/Petty Pulse Ox Last 24 Hr 99.0 F-99.4 F 91-126 15-42 76-139/62-102 90-96 Intake and Output 05/12/19 05/13/19 05/13/19 21:59 05:59 13:59 Intake Total 4351 751 Output Total 1625 1020 Balance 2726 -269 Weight 216 lb 213 lb 12.8 oz 213 lb 12.8 oz Patient Weight 05/14/19 05:59 Weight 213 lb 12.8 oz Intake & Output: Intake & Output 05/12/19 05/13/19 05/13/19 21:59 05:59 13:59 Intake Total 4351 751 Output Total 1625 1020 Balance 2726 -269 Weight 216 lb 213 lb 12.8 oz 213 lb 12.8 oz Intake: IV 4351 151 Sodium Chloride 0.9% 1,000 ml @ 2000 Wide Open IV BOLUS ONE Rx#: [id number] Lactated Ringers 1,000 ml @ 2000 Wide Open IV BOLUS ONE Rx#: [id number] Zosyn 3.375 gm In Dextrose 5% 50 50 in Water 50 ml @ 100 mls/hr IV Q6H [facility] Rx#:[id number] Vitamin B1 100 mg In Sodium 51 51 Chloride 0.9% 50 ml @ 50 mls/hr IV DAILY [facility] Rx#:[id number] Vancomycin 1,000 mg In Sodium 250 Chloride 0.9% 250 ml @ 250 mls/ hr IV ONCE ONE Rx#:[id number] Oral 600 Output: Urine Catheter Amount 1625 1020 Other: Meal Breakfast Percent of Meal Consumed 100% Feeding Ability Independent Urine Appearance Clear Uretheral (Ty) Clear Urine Color Pale Uretheral (Ty) Light Rupa Pale Exam: Constitutional; Afebrile, cooperative, alert, not in distress. Respiratory system: Air Entry equal on both sides, No crackles or wheezing, no rhonchi. CVS- Rate rhythm regular, S1,S2 heard, no gallop, no rub. 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 Medical - PN: Obj Da - Labs CBC & Chem 7: 05/13/19 03:29 05/13/19 03:35 Labs: Abnormal Lab Results 05/13/19 05/13/19 05/12/19 03:35 03:29 22:23 WBC RBC 4.06 L Hgb 11.4 L Hct 35.0 L POC Hct RDW 17.0 H Gran % Lymph % (Auto) Gran # Lymph # (Auto) D-Dimer VBG Lactic Acid Chloride Carbon Dioxide 20 L POC Total CO2 Anion Gap POC BUN BUN Creatinine 1.4 H POC Creatinine Glucose 126 H POC Glucose Calcium 8.4 L Phosphorus 2.3 L Magnesium 1.2 L Total Protein 5.6 L Albumin 2.9 L Urine Protein 30 A Urine Occult Blood 0.03 A Urine Nitrate Pos A Ur Leukocyte Esterase 250 A Urine WBC 18 H Amorphous Crystals Few A Urine Bacteria Mod A Hyaline Casts 8 H 05/12/19 05/12/19 05/12/19 21:30 21:30 21:30 WBC RBC Hgb Hct POC Hct 40.0 L RDW Gran % Lymph % (Auto) Gran # Lymph # (Auto) D-Dimer 1.49 H VBG Lactic Acid 5.9 H* Chloride 94 L Carbon Dioxide 16 L POC Total CO2 19 L Anion Gap 25.0 H POC BUN 29 H BUN 27 H Creatinine 1.7 H POC Creatinine 1.8 H Glucose 214 H POC Glucose 212 H Calcium Phosphorus Magnesium Total Protein Albumin Urine Protein Urine Occult Blood Urine Nitrate Ur Leukocyte Esterase Urine WBC Amorphous Crystals Urine Bacteria Hyaline Casts 05/12/19 21:30 WBC 11.6 H RBC Hgb 13.2 L Hct 40.7 L POC Hct RDW 16.2 H Gran % 81.5 H Lymph % (Auto) 10.4 L Gran # 9.4 H Lymph # (Auto) 1.2 L D-Dimer VBG Lactic Acid Chloride Carbon Dioxide POC Total CO2 Anion Gap POC BUN BUN Creatinine POC Creatinine Glucose POC Glucose Calcium Phosphorus Magnesium Total Protein Albumin Urine Protein Urine Occult Blood Urine Nitrate Ur Leukocyte Esterase Urine WBC Amorphous Crystals Urine Bacteria Hyaline Casts Meds: Medications Acetaminophen (Tylenol) 650 mg PO Q4-6HP PRN PRN Reason: PAIN/FEVER > 101 Albuterol Sulfate (Ventolin) 2.5 mg NEB Q4HP PRN PRN Reason: Wheezing/short of breath Aspirin (Aspirin) 81 mg PO DAILY [facility] Last Admin: 05/13/19 09:16 Dose: 81 mg Documented by: Dextrose (Dextrose 50%) 0 ml IV UD PRN PRN Reason: Hypoglycemia Diagnostic Test (Pha) (Accu-Chek) 1 each FS ACHS [facility] Last Admin: 05/13/19 07:59 Dose: 1 each Documented by: Famotidine (Pepcid) 20 mg IV HS [facility] Glucose (Insta-Glucose) 15 gm PO PRN PRN PRN Reason: Hypoglycemia Heparin Sodium (Porcine) (Heparin) 5,000 unit SQ Q12 [facility] Last Admin: 05/13/19 09:16 Dose: 5,000 unit Documented by: Hydromorphone HCl (Dilaudid) 0.5 mg IV Q2HP PRN PRN Reason: PAIN LEVEL > 6 Thiamine HCl 100 mg/ Sodium (Chloride) 51 mls @ 50 mls/hr IV DAILY [facility] Stop: 05/15/19 10:02 Last Infusion: 05/13/19 10:22 Dose: Infused Documented by: Lactated Ringer's (Lactated Ringers) 1,000 mls @ 100 mls/hr IV .Q10H [facility] Stop: 05/13/19 20:22 Last Admin: 05/13/19 10:23 Dose: Not Given Documented by: Piperacillin Sod/Tazobactam (Sod 3.375 gm/ Dextrose) 50 mls @ 100 mls/hr IV Q6H [facility]; Protocol Last Infusion: 05/13/19 06:24 Dose: Infused Documented by: Vancomycin HCl 1,000 mg/ (Sodium Chloride) 250 mls @ 250 mls/hr IV Q12H [facility] Last Admin: 05/13/19 09:15 Dose: 250 mls/hr Documented by: Potassium Phosphate 40 meq/ (Dextrose) 509.0909 mls @ 127.273 mls/hr IV ONCE ONE Stop: 05/13/19 12:59 Last Admin: 05/13/19 09:15 Dose: 127.273 mls/hr Documented by: Insulin Human Lispro (Humalog) 0 unit SQ ACHS [facility]; Protocol Last Admin: 05/13/19 07:59 Dose: Not Given Documented by: Magnesium Oxide (Magnesium Oxide) 400 mg PO BID [facility] Last Admin: 05/13/19 09:16 Dose: 400 mg Documented by: Memantine (Namenda) 10 mg PO BID [facility] Last Admin: 05/13/19 09:17 Dose: 10 mg Documented by: Naloxone HCl (Narcan) 0.1 mg IV Q2MIN PRN PRN Reason: Opiate Reversal Ondansetron HCl (Zofran) 4 mg IV Q4-6HP PRN PRN Reason: Nausea And Vomiting Potassium Chloride (Kdur) 20 meq PO DAILY [facility] Last Admin: 05/13/19 09:16 Dose: 20 meq Documented by: Quetiapine Fumarate (Seroquel) 100 mg PO DAILY [facility] Last Admin: 05/13/19 09:17 Dose: 100 mg Documented by: Senna/Docusate Sodium (Senna Plus Tablet) 1 tab PO BID [facility] Last Admin: 05/13/19 09:17 Dose: 1 tab Documented by: Sodium Chloride (Saline Flush) 10 ml IV Q8 [facility] Last Admin: 05/13/19 05:50 Dose: 10 ml Documented by: Tamsulosin HCl (Flomax) 0.4 mg PO DAILY [facility] Last Admin: 05/13/19 09:16 Dose: 0.4 mg Documented by: Vancomycin HCl (Vancomycin Per Pharmacy) 1 order IV UD [facility]; Protocol Vitamin D (Vitamin D3) 1,000 unit PO DAILY [facility] Last Admin: 05/13/19 09:16 Dose: 1,000 unit Documented by: Medical - PN: A/P - Time Spent With Patient Total time spent is greater than 50% in coordination of care (as documented) at patient's floor/unit and/or counseling patient: - Narrative A/P Narrative: A/P Severe sepsis -qsofa score > 2 -Aggresive fluid resuscitation -BP is stable, now, syndrome resolved - Lactic acidosis -due to sepsis -lactate back to baseline, Complicated UTI -CT neg for hydro, -urine is gram neg bacillus, d/c vanco, continue zosyn DM -SSI insulin for glucose control, HTN -Given low bp on presentation, hold bp meds, -resume once bp is stable x 24 hrs HLD -resume home meds once verified, pt on statin Dementia -high risk of delirium, conservative management Chr Gout Obesity BMI 31.9 Tremors -outpatient follow up DVT hep sq Diet carb consistent Full code xfer med surg status Medical - PN: Qual - VTE Deep Vein Thrombosis/Pulmonary Embolism Present on Admission: No
[2019-05-13] MEDS ORDERED: LACTATED RINGERS 1,000 ML IV SCH (11:04)
[2019-05-13] MEDS: INSULIN LISPRO 1 UNIT/0.01 ML UNIT SQ SCH ×3 (11:45→20:47)
[2019-05-13] MEDS: 0.9 % SODIUM CHLORIDE 10 ML SYRINGE IV SCH ×2 (13:54→20:48)
[2019-05-13] MEDS: MAGNESIUM OXIDE 400 MG TABLET PO SCH (20:47)
[2019-05-13] MEDS: HEPARIN 5,000 UNIT/ML VIAL SQ SCH (20:47)
[2019-05-13] MEDS: MEMANTINE 10 MG TABLET PO SCH (20:48)
[2019-05-13] MEDS: SENNOSIDES/DOCUSATE SODIUM 1 TAB TABLET PO SCH (20:48)
[2019-05-13] MEDS ORDERED: FAMOTIDINE/PF 20 MG/2 ML VIAL IV SCH ×2 (21:00)
[2019-05-14] MEDS ORDERED: VANCOMYCIN PER PHARMACY IV ONE (02:01)
[2019-05-14] MEDS ORDERED: VANCOMYCIN 1,000 MG in 0.9 % SODIUM CHLORIDE 250 ML IV ONE (02:01)
[2019-05-14] MEDS: PIPERACILLIN SODIUM/TAZOBACTAM 3.375 GM in DEXTROSE 5% IN WATER 50 ML IV SCH ×2 (05:21→12:54)
[2019-05-14] MEDS: 0.9 % SODIUM CHLORIDE 10 ML SYRINGE IV SCH ×3 (05:25→12:55)
[2019-05-14 05:26] LABS: Basophils # (Auto) 0 K/mcL (0.0-0.3); Basophils % (Auto) 0.4 % (0.0-2.0); Eosinophils # (Auto) 0.1 K/mcL (0.0-0.7); Eosinophils % (Auto) 1.2 % (0.0-7.0); Granulocytes % (Auto) 69.9 % (38.0-78.0); Hematocrit 35.7 % (41.0-55.0); Hemoglobin 11.7 g/dL (13.5-16.5); Lymphocytes # (Auto) 1.7 K/mcL (1.5-4.8); Lymphocytes % (Auto) 18.9 % (15.5-49.0); Mean Cell Volume 85.9 fL (80.0-100.0); Mean Corpuscular HGB Conc 32.9 g/dL (31.0-36.0); Mean Platelet Volume 8.8 fL (7.4-10.4); Monocytes # (Auto) 0.8 K/mcL (0.1-0.9); Monocytes % (Auto) 9.6 % (1.0-12.0); Platelet Count 257 K/mcL (140-440); RBC 4.15 M/mcL (4.50-5.90); Red Cell Distribution Width 17.3 % (11.5-14.5); WBC 8.9 K/mcL (4.5-11.0)
[2019-05-14 06:09] LABS: ALT/SGPT 6 U/l (0-40); AST/SGOT 8 U/l (0-37); Albumin 3.1 gm/dL (3.2-5.2); Albumin/Globulin Ratio 1.1 (1.0-2.3); Alkaline Phosphatase 51 U/L (39-117); Bilirubin,Direct < 0.2 mg/dL (0.0-0.3); Bilirubin,Total 0.6 mg/dL (0.0-1.0); Blood Urea Nitrogen 18 mg/dl (8-23); Calcium 8.4 mg/dl (8.6-10.4); Carbon Dioxide 23 mmol/L (22-30); Chloride 101 mmol/L (96-108); Globulin 2.8 gm/dL (2.2-3.7); Glomerular Filtration Rate 53; Glucose 113 mg/dL (70-105); Lactate Dehydrogenase 159 U/L (94-250); Magnesium 1.5 mg/dL (1.6-2.5); Phosphorous 2.5 mg/dL (2.7-4.5); Potassium 3.4 mmol/L (3.3-5.1); Sodium 137 mmol/L (133-145); Triglycerides 75 mg/dl (<150)
[2019-05-14] MEDS ORDERED: VANCOMYCIN PER PHARMACY IV SCH (07:15)
[2019-05-14] MEDS: INSULIN LISPRO 1 UNIT/0.01 ML UNIT SQ SCH ×2 (07:16→13:01)
[2019-05-14] MEDS ORDERED: VANCOMYCIN 500 MG in 0.9 % SODIUM CHLORIDE 100 ML IV ONE (08:00)
[2019-05-14] MEDS ORDERED: POTASSIUM CHLORIDE 10 MEQ TABLET PO SCH (08:00)
[2019-05-14] MEDS: HEPARIN 5,000 UNIT/ML VIAL SQ SCH (08:12)
[2019-05-14] MEDS: SENNOSIDES/DOCUSATE SODIUM 1 TAB TABLET PO SCH (08:13)
[2019-05-14] MEDS: MAGNESIUM OXIDE 400 MG TABLET PO SCH (08:13)
[2019-05-14] MEDS: MEMANTINE 10 MG TABLET PO SCH (08:14)
[2019-05-14] MEDS ORDERED: POTASSIUM CHLORIDE 20 MEQ PACKET PO ONE (08:52)
[2019-05-14] MEDS ORDERED: MAGNESIUM SULFATE 32.48 MEQ in DEXTROSE 5% IN WATER 100 ML IV ONE (08:52)
[2019-05-14] MEDS ORDERED: MAGNESIUM SULFATE 4 GM/100 ML BAG IV ONE (09:00)
[2019-05-14] MEDS ORDERED: QUEtiapine 100 MG TABLET PO SCH (09:00)
[2019-05-14] MEDS ORDERED: VITAMIN D3 1,000 UNIT TABLET PO SCH (09:00)
[2019-05-14] MEDS ORDERED: TAMSULOSIN 0.4 MG CAPSULE PO SCH (09:00)
[2019-05-14] MEDS ORDERED: ASPIRIN 81 MG TAB.CHEW PO SCH (09:00)
[2019-05-14] MEDS ORDERED: THIAMINE 100 MG in 0.9 % SODIUM CHLORIDE 50 ML IV SCH (09:00)
--- NOTE | 2019-05-14 12:04 | Discharge Summary ---
Medical - DS: Prov Patient information: Note initiated : 05/14/19 at 12:02 pm Service Date, if different from initiated Date: [] Patient: Kassidy Anthony 78 y/o M admitted on 05/13/19 for Sudden change is ability to walk. Chief Complaint: [] Date of admission: 05/13/19 00:09 Discharge date: 05/14/19 Primary care physician: Suzie Duncan Consults: 05/12/19 Consult to Physician [CONS] Stat Comment: Consulting Provider: Solitario Fonseca Reason For Exam: Physician to Consult Discharging clinician: Solitario Fonseca Medical - DS: Meds - Discharge Medications Prescriptions: Cephalexin [Keflex] 500 mg PO BID #10 cap Magnesium Oxide 400 mg PO BID #60 tab Thiamine HCl 100 mg PO DAILY #100 tab Active and Home Medications: Home Medications Aspirin [Adult Low Dose Aspirin EC] 81 mg PO DAILY 05/12/19 [History Confirmed 05/13/19 Last Taken 05/12/19 08:00] Hydrochlorothiazide [Oretic] 25 mg PO DAILY 05/12/19 [History Confirmed 05/13/19 Last Taken 05/12/19 08:00] Memantine HCl 10 mg PO BID 05/12/19 [History Confirmed 05/13/19 Last Taken 05/12/19 19:45] Potassium Chloride [Kdur] 20 meq PO DAILY 05/12/19 [History Confirmed 05/13/19 Last Taken 05/12/19 08:00] QUEtiapine [SEROquel] 100 mg PO DAILY 05/12/19 [History Confirmed 05/13/19 Last Taken 05/12/19 19:45] Tamsulosin [Flomax] 0.4 mg PO DAILY 05/12/19 [History Confirmed 05/13/19 Last Taken 05/12/19 08:00] Vitamin D3 1,000 unit PO DAILY 05/12/19 [History Confirmed 05/13/19 Last Taken 05/12/19 08:00] amLODIPine BESYLATE/BENAZEPRIL [Amlodipine-Benazepril 5-10 mg] 1 cap PO DAILY 05/12/19 [History Confirmed 05/13/19 Last Taken 05/12/19 08:00] cloNIDine HCL [Catapres] 0.1 mg PO BID 05/12/19 [History Confirmed 05/13/19 Last Taken 05/12/19 19:45] metFORMIN HCL [Metformin HCl ER] 1,500 mg PO HS 05/12/19 [History Confirmed 05/13/19 Last Taken 05/12/19 19:45] metFORMIN HCL [Metformin HCl ER] 750 mg PO DAILY 05/12/19 [History Confirmed 05/13/19 Last Taken 05/12/19 08:00] Medical - DS: Hosp Hospital course: Mr. Anthony is a 78 year old M with history of diabetes dementia, presented to the emergency room today accompanied by his and daughter for evaluation of altered mental status and sudden onset weakness. According to the who provided most of the history the patient was at his baseline status later this afternoon. He usually does not do much activity and is in bed noting that it is always cold. Covering himself with a blanket. They went out for supper this evening, while at supper the patient was noted to be weak, did have some nausea and subjective sensation of throwing up. He drank after beer, was not able to tolerate p.o. diet well, and did not eat much he was unable to walk back to his car at which time he was brought to the hospital. There is no report of any headache and is in vision, any difficulty in swallowing is reported by the , there is no cough reported no chest pain he would did appear short of breath while walking, there was no abdominal pain reported no problems with urination no diarrhea reported, no new joint pains or skin rashes reported. On presenting to the emergency room patient was confused, tachycardic blood pressure as low as 76/62 tachypneic with a respiration around 26 saturating 90% on room air Cultures were done, patient resuscitated with fluids and antibiotics administered, patient's blood pressure improved to more than 100 systolic. Labs show hemoglobin of 13.2, WBC 11.6 platelets 288 sodium 135 potassium 3.5 anion gap 25 bicarbonate 16 creatinine 1.7 glucose 214 troponin is negative ABG shows pH of 7.36 PCO2 30 PO2 61 lactic acid 6.1 on room air Chest x-rays negative for acute infiltrate UA suggestive of a UTI CT chest abdomen pelvis was done, I do not see any acute height on the CT scan 05/13 Patient seen and examined, sitting comfortably in chair, family at the bedside. Patient is doing much better compared to yesterday, lactic acidosis has resolved blood pressure is stable patient is tolerating p.o. diet very well. Urine culture is growing gram-negative bacillus Transfer to [facility] status, discontinue vancomycin. REG Ty 05/14 Patient seen and examined, sitting comfortably in the chair, tolerated breakfast fine no complaints or concerns. His blood culture was positive for gram-positive cocci in 1 bottle. Spoke with the lab this is staph epidermidis, patient was given additional dose of vancomycin, repeat blood cultures were sent, I believe that this is a contaminant. I spoke with the lab only one bottle was positive and no growth on the repeat portals that was sent. Urine culture is growing E. coli which is pansensitive. Patient is stable for discharge at home, will start the patient on p.o. Keflex 500 mg twice a day for another 5 days I will also start the patient on magnesium oxide as the patient has had low magnesium levels in the hospital 400 mg twice a day for a month. Given the patient's dementia and difficulty in walking I am also starting the patient on thiamine supplement 100 mg once a day The patient will continue his home medications as scheduled Discharge diagnosis: severe sepsis, UTI - Time Spent with Patient Total time spent providing and/or coordinating discharge services: Greater than 30 minutes Medical - DS: Exam - Constitutional Vitals: Vital Signs Temp Pulse Pulse Resp BP BP Pulse Ox 05/14/19 07:08 99 F 20 142/107 97 05/14/19 03:17 99.6 F H 94 H 22 155/103 95 05/13/19 23:55 99.7 F H 101 H 20 146/100 94 05/13/19 18:57 100.4 F H 102 H 24 H 155/89 96 05/13/19 16:00 98.9 F 110 H 20 151/99 96 05/13/19 12:03 98.1 F 102 H 18 134/93 93 Intake and Output 05/13/19 05/14/19 05/14/19 21:59 05:59 13:59 Intake Total 239.0909 1250 411 Output Total 2024 1850 750 Balance -1785.9091 -600 -339 Intake: IV 239.0909 1100 51 Zosyn 3.375 gm In Dextrose 5% 50 100 in Water 50 ml @ 100 mls/hr IV Q6H REPLACED BY [facility] Rx#:[id number] Vitamin B1 100 mg In Sodium 51 Chloride 0.9% 50 ml @ 50 mls/hr IV DAILY MICHAEL Rx#:[id number] Oral 150 360 Output: Urine Catheter Amount 1250 Void Amount 775 1850 750 # of times incontinent of urine 0 Other: Meal Dinner Breakfast Percent of Meal Consumed 75% 100% Feeding Ability Independent Urine Appearance Clear Clear Clear Urine Color Pale Pale Pale Uretheral (Ty) Pale Urine Odor Normal Normal Stool Size Moderate Stool Color Brown Stool Consistency Formed # Voids 0 # Bowel Movements 1 # of times incontinent of 0 Bowels Weight 214 lb 4.8 oz Additional comments: Constitutional; Afebrile, cooperative, alert, not in distress. Respiratory system: Air Entry equal on both sides, No crackles or wheezing, no rhonchi. CVS- Rate rhythm regular, S1,S2 heard, no gallop, no rub. Abdomen- Soft nontender abdomen, no organomegaly, no tenderness, no guarding or rigidity, BALLING HEAD TENDER- AOOx3, moving all extremities, no gross focal deficit noted. Medical - DS: Data Labs on day of discharge: Labs from last 24 hours 05/14/19 05/14/19 03:45 03:45 WBC 8.9 RBC 4.15 L Hgb 11.7 L Hct 35.7 L MCV 85.9 MCH 28.2 MCHC 32.9 RDW 17.3 H Plt Count 257 MPV 8.8 Gran % 69.9 Lymph % (Auto) 18.9 [place] % (Auto) 9.6 Eos % (Auto) 1.2 Baso % (Auto) 0.4 Gran # 6.2 Lymph # (Auto) 1.7 [place] # (Auto) 0.8 Eos # (Auto) 0.1 Baso # (Auto) 0 Sodium 137 Potassium 3.4 Chloride 101 Carbon Dioxide 23 Anion Gap 13.0 BUN 18 Creatinine 1.3 H GFR Calculation 53 Glucose 113 H Uric Acid 5.0 Calcium 8.4 L Phosphorus 2.5 L Magnesium 1.5 L Total Bilirubin 0.6 Direct Bilirubin < 0.2 GGT 19 AST 8 ALT 6 Alkaline Phosphatase 51 Lactate Dehydrogenase 159 Total Protein 5.9 Albumin 3.1 L Globulin 2.8 Albumin/Globulin Ratio 1.1 Triglycerides 75 Preliminary micro results at discharge 05/12/19 21:32 Blood Culture - Preliminary Blood Gram positive cocci 07/02/19 21:59 Blood Culture - Preliminary Blood Medical - DS: A/P - Patient/Caregiver Discharge Instructions Activity: increase activity as tolerated Diet: Cardiac, Consistent Carbohydrate Additional Instructions: You were admitted to the hospital with a urinary tract infection. Take cephalexin 500 mg twice a day for 5 more days. He also had low magnesium levels while in the hospital I am starting you on magnesium oxide 400 mg twice a day for 1 month to replete your stores. I am also starting you on thiamine supplement 100 mg once a day this is a vitamin, may help you with your memory I have made no changes to the medications prescribed by her regular provider please take them as before. Go to the emergency room if you have fever chills or any other acute concern Follow-up with your primary care provider in 1 week - Follow up Plan Follow up with: Suzie Duncan ARNP [Primary Care Provider] - Disposition: Home, Self-Care Prognosis: Fair Rehab Potential: Fair I certify that the patient requires SNF services: No Overall status at discharge: patient is progressing back to baseline Medical - DS: Qual - VTE Deep Vein Thrombosis/Pulmonary Embolism Present on Admission: No
[2019-05-14] MEDS ORDERED: VANCOMYCIN 1,500 MG in 0.9 % SODIUM CHLORIDE 500 ML IV SCH (21:00)
== END 2019-05-14 15:15 | disposition home or self-care (01) | DRG 872 ==
LOC: ED 21:13 → ICU 05-13 00:09
PROVIDERS: ADMIT Internal Medicine; ATTEND Internal Medicine

== ENCOUNTER 2020-07-18 08:51 | Inpatient (IN) ==
[2020-07-18] MEDS ORDERED: 0.9 % SODIUM CHLORIDE 1,000 ML IV ONE ×2 (08:56→09:45)
[2020-07-18] MEDS ORDERED: cefTRIAXone 1 GM VIAL IV ONE (09:07)
--- NOTE | 2020-07-18 09:20 | Emergency Department Note ---
Altered Mental Status HPI General Chief Complaint: Altered Mental Status Stated Complaint: altered mental status, dementia Time Seen by Provider: 07/18/20 09:07 Source: patient and EMS Mode of arrival: EMS Limitations: altered mental status History of Present Illness HPI Narrative: 79-year-old patient presenting to the emergency department the chief complaint of not feeling well/generally ill. Patient with onset of symptoms at least a week prior to arrival. There are no exacerbating or ameliorating factors for this issue. The symptoms are gradual and progressive with recent visit to the emergency department and gradual decline in functionality over the past week or so. Patient claims altered mentation obtundation, denies warm, flushed skin, cool extremities, cyanosis, mottling, decreased urine output, and restlessness. Patient claims fever and feeling systemically ill, denies cough, dysuria, abdominal pain. Related Data Home Medications Medication Instructions Recorded Confirmed cholecalciferol (vitamin D3) 125 mcg PO DAILY 05/12/19 07/18/20 clonidine HCl 0.1 mg PO QHS 05/12/19 07/18/20 hydrochlorothiazide 25 mg PO DAILY 05/12/19 07/18/20 memantine 10 mg PO BID 05/12/19 07/18/20 metformin 1,500 mg PO QCC 05/12/19 07/18/20 metformin 750 mg PO [facility] 05/12/19 07/18/20 potassium chloride 20 meq PO [facility] 05/12/19 07/18/20 quetiapine 100 mg PO HS 05/12/19 07/18/20 tamsulosin 0.4 mg PO DAILY 05/12/19 07/18/20 amlodipine-benazepril 1 cap PO DAILY 06/18/19 07/18/20 clonazepam 0.5 mg PO QHS 07/16/20 07/18/20 liraglutide [Victoza 2-Tung] 0.6 mg SUBCUT QDAY 07/16/20 07/18/20 sertraline 50 mg PO BID 07/16/20 07/18/20 aspirin [Imelda Chewable Aspirin] 81 mg PO QDAY 07/18/20 07/18/20 magnesium 400 mg PO BID 07/18/20 07/18/20 Previous Rx's Medication Instructions Recorded thiamine HCl (vitamin B1) 100 mg PO DAILY #100 tab 05/14/19 doxycycline hyclate 100 mg PO QDAY #10 tab 07/17/20 Allergies Allergy/AdvReac Type Severity Reaction Status Date / Time No Known Drug Allergies Allergy Verified 07/18/20 08:54 Review of Systems ROS ROS Narrative: Narrative: All systems ED: reviewed and negative except as stated. [facility] Narrative Patient History Narrative: Narrative: Medical/Surgical/Family History All Active Problems (Updated 07/18/20 @ 11:38 by Chano Cartagena MD) Weakness (Acute) Confusion (Acute) Elevated WBC count (Acute) Sinus tachycardia (Acute) SIRS (systemic inflammatory response syndrome) (Acute) Sepsis (Acute) Urinary incontinence (Chronic) Chronic renal failure (Acute) Insomnia (Acute) Diabetes mellitus, type 2 (Acute) Hypertension, essential (Acute) Dementia (Acute) Medical History (Updated 07/18/20 @ 11:38 by Chano Cartagena MD) Acute kidney injury (Inactive) Chronic renal failure (Acute) Complicated UTI (urinary tract infection) (Resolved) Constipation (Inactive) Dehydration (Inactive) Dementia (Acute) Diabetes mellitus, type 2 (Acute) Hypertension, essential (Acute) Insomnia (Acute) Sepsis due to urinary tract infection (Resolved) Severe sepsis with acute organ dysfunction (Inactive) Urinary incontinence (Chronic) intermittent Surgical History (Updated 07/17/20 @ 00:42 by Brennan Darby DO) Status post cataract extraction of both eyes with insertion of intraocular lens (Inactive) Social History Smoking Status: Never smoker Exam Narrative Narrative: Physical exam directed toward trying to find a source for possible infection in this patient. General: Somnolent, poorly responsive Head: Atraumatic, normocephalic Eyes: Extraocular movements intact, sclera anicteric, no conjunctival injection Ears: Pinnae normal, no discharge Mouth: Oral mucosa moist, no acute swelling or evidence of infection Nares: No nasal discharge, patent bilaterally Neck: Trachea midline, full range of motion Chest: Symmetrical chest wall rise, breathing normally; nonlabored respirations Cardiovascular: Patient with excellent perfusion to the extremities; with tachycardia Skin: Patient without area of erythema, patient is without rash, no ascending lymphangitis or lymphadenopathy Extremities: Full range of motion joints, no obvious deformities Neuro: cranial nerves II through XII grossly intact, patient without lateralizing findings such as weakness Psychiatric: Somnolent, poorly responsive General Limitations: altered mental status Course Vital Signs Vital signs: Vital Signs Temperature 98.3 F 09/07/20 08:52 Pulse Rate 104 H 07/18/20 08:52 Respiratory Rate 07/18/20 08:52 Pulse Oximetry (%) 88 L 07/18/20 08:52 Temperature 98.3 F 07/18/20 08:52 Pulse Rate 104 H 07/18/20 08:52 Respiratory Rate 07/18/20 08:52 Pulse Oximetry (%) 88 L 07/18/20 08:52 MDM MDM Narrative Medical decision making narrative: 79-Year-old patient presenting to the emergency department chief complaint of fever/sepsis. Differential diagnosis considered in this case included infectious etiologies and various organ systems, drug fever/medication reaction, malignancy, ICH, NMS, meningococcus, RMSF, endocarditis. Patient has recent visit just a couple of days ago and progression since that time. L in progression of hypoxia as well as elevation of the white blood cell count more than that previous visit. Patient was hypoxic at that time he does have COPD at baseline however at this point he is now in the mid 80s. CT of chest and does reveal atelectasis and evidence of COPD. Patient with history of dementia and this makes interpretation of his mental status difficult however states his verbalizations have decreased. Discussed the case with the hospitalist Dr. Patterson and the consensus medical opinion is to admit the patient for ongoing care. CC TIME Critical Care Time Critical Care Time: Yes Total Critical Care Time: 35 Attestation: This critical care time was direct patient care exclusive of other procedures. Patient with sepsis and altered mental status/acute renal failure without septic shock. Discharge Plan Patient/Caregiver Discharge Instructions Pt seen by CONCRETE GRINDER OPERATOR/PA only: No Clinical Impression: Sepsis Qualifiers: Sepsis type: sepsis due to unspecified organism Sepsis acute organ dysfunction status: with acute organ dysfunction Severe sepsis acute organ dysfunction type: encephalopathy Severe sepsis shock status: without septic shock Qualified Code(s): A41.9 - Sepsis, unspecified organism Patient Disposition: Xfer As Inpt ([facility]) Condition: Critical Follow up with: Suzie Duncan ARNP [Primary Care Provider] - Prescriptions: No Action clonidine HCl 0.1 MG tablet 0.1 mg PO QHS RF: 0 potassium chloride 10 MEQ tablet 20 meq PO QAMCC RF: 0 quetiapine 100 MG tablet 100 mg PO HS RF: 0 tamsulosin 0.4 MG capsule 0.4 mg PO DAILY RF: 0 hydrochlorothiazide 25 MG tablet 25 mg PO DAILY RF: 0 metformin 750 MG tablet extended release 24 hr 750 mg PO QAMCC RF: 0 metformin 750 MG tablet extended release 24 hr 1,500 mg PO QPMCC RF: 0 memantine 10 MG tablet 10 mg PO BID RF: 0 cholecalciferol (vitamin D3) 1,000 UNIT tablet 125 mcg PO DAILY RF: 0 thiamine HCl (vitamin B1) 100 MG tablet 100 mg PO DAILY Qty: 100 RF: 0 amlodipine-benazepril 1 EACH capsule 1 cap PO DAILY RF: 0 clonazepam 0.5 mg Tablet 0.5 mg PO QHS RF: 0 sertraline 50 mg Tablet 50 mg PO BID RF: 0 Victoza 2-Tung 0.6 mg/0.1 mL (18 mg/3 mL) Pen Injector 0.6 mg SUBCUT QDAY RF: 0 doxycycline hyclate 100 mg tablet 100 mg PO QDAY Qty: 10 RF: 0 aspirin [Imelda Chewable Aspirin] 81 mg Tablet,Chewable 81 mg PO QDAY RF: 0 magnesium 200 mg Tablet 400 mg PO BID RF: 0
[2020-07-18 10:06] LABS: Hemoglobin 12.7 g/dL (13.7-17.5); Mean Cell Volume 81.6 fL (80.0-100.0); Mean Corpuscular HGB Conc 32.6 g/dL (31.0-36.0); Mean Platelet Volume 11.1 fL (7.4-10.4); Platelet Count 276 K/mcL (140-440); RBC 4.78 M/mcL (4.63-6.08); Red Cell Distribution Width 19.3 % (11.5-14.5); WBC 24.1 K/mcL (4.50-11.00)
[2020-07-18 10:31] LABS: ALT/SGPT 9 U/l (0-40); AST/SGOT 27 U/l (0-37); Albumin 3.4 gm/dL (3.2-5.2); Albumin/Globulin Ratio 0.9 (1.0-2.3); Alkaline Phosphatase 69 U/L (39-117); Bilirubin,Total 0.6 mg/dL (0.0-1.0); Blood Urea Nitrogen 43 mg/dl (8-23); Calcium 10.5 mg/dl (8.6-10.4); Carbon Dioxide 24 mmol/L (22-30); Chloride 99 mmol/L (96-108); Globulin 3.6 gm/dL (2.2-3.7); Glomerular Filtration Rate 19; Glucose 188 mg/dL (70-105)
[2020-07-18 10:58] LABS: Anisocytosis 2+ (NONE SEEN); Lymphocytes % 9 % (15-49); Monocytes % (Manual) 6 % (1-12); Platelet Estimate NORMAL (NORMAL); RBC Morphology ABNORM (NORMAL); Reactive Lymphocytes 1 % (0-2); Segmented Neutrophils % 84 % (38-78)
[2020-07-18 11:20] LABS: Appearance,Urine CLEAR; Bacteria,Urine 0 /hpf (0); Bilirubin,Urine NEG (NEG); Color,Urine YELLOW; Culture Indicated,Urine NO; Glucose,Urine (UA) 150 mg/dL (NEG); Ketones,Urine NEG (NEG); Leukocyte Esterase,Urine NEG /uL (NEG); Mucus,Urine FEW /hpf (0); Nitrate,Urine NEG (NEG); Protein,Urine 30 mg/dL (NEG); Specific Gravity,Urine 1.018 (1.000-1.035); Urine Blood >=1.0 mg/dL (<0.03); Urine RBC 124 /hpf (0-1); Urine Squamous Epithelial Cell 0 /hpf (0-4); Urine WBC 0 /hpf (0-4); Urobilinogen,Urine NEG (NEG)
--- NOTE | 2020-07-18 12:15 | Internal Med History&Physical ---
HPI History of Present Illness Patient information: Note initiated : 07/18/20 at 12:07 pm Service Date, if different from initiated Date: [] Patient: Kassidy Anthony a 79 y/o M admitted on for altered mental status, dementia. Chief Complaint: [] History of present illness: Mr. Anthony is a 79 year old M Most history is obtained from the as patient is quite somnolent and has underlying dementia. Her about 3 days ago started becoming weaker and more confused than usual. He really has not had any other complaints. She says he did complain of some back pain but that is the only thing he really planed of. He has a occasional cough but nothing really of any significance per the . She did say he looks more labored when he was walking the other day for few hours. She denies any fevers. Denies any nausea vomiting chest pain stomach pain or diarrhea. And he denied this when I talk to him. Was seen in the ED the other day and evaluated with a relatively unremarkable work-up other than a questionable new infiltrate and was sent home with some antibiotics. He went home early Saturday morning and seemed to do okay Saturday day and had a good conversation with family and friends but then at night becoming weaker and confused again. woke up this morning he was very somnolent and poorly responsive. Was told in the ED his oxygen saturations were in the mid 80s. In the ED he was evaluated and found to have a white blood cell count of 2417 the previous check in the ED. Lactate was mildly elevated 2.2. Renal function had worsened with a creatinine that jumped from baseline of 1.5 to 3.0. Procalcitonin elevated 4.21. CT chest done and awaiting official read but appears to have some infiltrates on the right versus scarring. He is afebrile while here. Mildly tachycardic in the 90s to low 100s. No Neck pain. This unremarkable. Review of Systems: Pertinent positives as above. Denies headache/fever/chills/nausea/vomiting/chest or abdominal pain/cough/dyspnea/diarrhea. Remaining 10 point review of system reviewed negative PFSH PFSH All Active Problems (Updated 07/18/20 @ 11:38 by Chano Cartagena MD) Weakness (Acute) Confusion (Acute) Elevated WBC count (Acute) Sinus tachycardia (Acute) SIRS (systemic inflammatory response syndrome) (Acute) Sepsis (Acute) Urinary incontinence (Chronic) Chronic renal failure (Acute) Insomnia (Acute) Diabetes mellitus, type 2 (Acute) Hypertension, essential (Acute) Dementia (Acute) Medical History (Updated 07/18/20 @ 11:38 by Chano Cartagean MD) Acute kidney injury (Inactive) Chronic renal failure (Acute) Complicated UTI (urinary tract infection) (Resolved) Constipation (Inactive) Dehydration (Inactive) Dementia (Acute) Diabetes mellitus, type 2 (Acute) Hypertension, essential (Acute) Insomnia (Acute) Sepsis due to urinary tract infection (Resolved) Severe sepsis with acute organ dysfunction (Inactive) Urinary incontinence (Chronic) intermittent Surgical History (Updated 07/17/20 @ 00:42 by Brennan Darby DO) Status post cataract extraction of both eyes with insertion of intraocular lens (Inactive) Social History (Updated 07/18/20 @ 12:14 by Sergio Ny DO) smoking status: Never smoker additional history: Occasional alcohol and ambulates with a cane and lives with his at home MEDS/ALLERGIES Home Medications and Allergies Home Medications Medication Instructions Recorded Confirmed Type cholecalciferol (vitamin D3) 125 mcg PO DAILY 05/12/19 07/18/20 History clonidine HCl 0.1 mg PO QHS 05/12/19 07/18/20 History hydrochlorothiazide 25 mg PO DAILY 05/12/19 07/18/20 History memantine 10 mg PO BID 05/12/19 07/18/20 History metformin 1,500 mg PO [facility] 05/12/19 07/18/20 History metformin 750 mg PO [facility] 05/12/19 07/18/20 History potassium chloride 20 meq PO [facility] 05/12/19 07/18/20 History quetiapine 100 mg PO HS 05/12/19 07/18/20 History tamsulosin 0.4 mg PO DAILY 05/12/19 07/18/20 History thiamine HCl (vitamin B1) 100 mg PO DAILY #100 tab 05/14/19 07/18/20 Rx amlodipine-benazepril 1 cap PO DAILY 06/18/19 07/18/20 History clonazepam 0.5 mg PO QHS 07/16/20 07/18/20 History liraglutide [Victoza 2-Tung] 0.6 mg SUBCUT QDAY 07/16/20 07/18/20 History sertraline 50 mg PO BID 07/16/20 07/18/20 History doxycycline hyclate 100 mg PO QDAY #10 tab 07/17/20 07/18/20 Rx aspirin [Imelda Chewable Aspirin] 81 mg PO QDAY 07/18/20 07/18/20 History magnesium 400 mg PO BID 07/18/20 07/18/20 History Allergies Allergy/AdvReac Type Severity Reaction Status Date / Time No Known Drug Allergies Allergy Verified 07/18/20 08:54 EXAM Constitutional Vitals: Temp Pulse Resp BP Pulse Ox 98.2 F 90 22 122/82 95 07/18/20 11:50 07/18/20 11:50 07/18/20 11:50 07/18/20 11:50 07/18/20 11:50 Exam: General: somnolent, No acute Distress Eyes/N/T: EOMI, PERRL, dry MM Head/Neck: neck supple no tenderness, normocephalic atraumatic CV: Mildly tacky but regular, No murmurs, normal s1/s2 Pulm: diminished b/l, no wheezing/rhonchi/rales Abd: soft, nontender, +BS x4 Ext: no clubbing/cyanosis/edema Neuro: no focal deficits, follows commands,moves all extremities, CN 2-12 grossly intact, symmetrical weak, sensations intact b/l upper/lower Skin: warm/dry DATA Data Completed and Pending Labs: Labs from last 24 hours 07/18/20 07/18/20 07/18/20 11:54 09:58 09:30 WBC RBC Hgb Hct MCV MCH MCHC RDW Plt Count MPV Total Counted Seg Neutrophils % Band Neutrophils % Lymphocytes % Monocytes % (Manual) Reactive Lymphocytes Platelet Estimate RBC Morphology Anisocytosis VBG Lactic Acid Pending Sodium Potassium Chloride Carbon Dioxide Anion Gap BUN Creatinine POC Creatinine 3.1 H GFR Calculation Glucose Calcium Total Bilirubin AST ALT Alkaline Phosphatase Total Protein Albumin Globulin Albumin/Globulin Ratio Procalcitonin Urine Color Yellow Urine Appearance Clear Urine pH 5.0 Ur Specific [place] 1.018 Urine Protein 30 A Urine Glucose (UA) 150 A Urine Ketones Neg Urine Occult Blood >=1.0 A Urine Nitrate Neg Urine Bilirubin Neg Urine Urobilinogen Neg Ur Leukocyte Esterase Neg Urine RBC 124 H Urine WBC 0 Ur Squamous Epith Cells 0 Urine Bacteria 0 Urine Mucus Few Ur Culture Indicated? No 07/18/20 07/18/20 07/18/20 09:20 09:20 09:19 WBC 24.1 H RBC 4.78 Hgb 12.7 L Hct 39.0 L MCV 81.6 MCH 26.6 MCHC 32.6 RDW 19.3 H Plt Count 276 MPV 11.1 H Total Counted 100 Seg Neutrophils % 84 H Band Neutrophils % Not Reportable Lymphocytes % 9 L Monocytes % (Manual) 6 Reactive Lymphocytes 1 Platelet Estimate Normal RBC Morphology Abnorm A Anisocytosis 2+ A VBG Lactic Acid 2.2 H Sodium Potassium Chloride Carbon Dioxide Anion Gap BUN Creatinine POC Creatinine GFR Calculation Glucose Calcium Total Bilirubin AST ALT Alkaline Phosphatase Total Protein Albumin Globulin Albumin/Globulin Ratio Procalcitonin Pending Urine Color Urine Appearance Urine pH Ur Specific [place] Urine Protein Urine Glucose (UA) Urine Ketones Urine Occult Blood Urine Nitrate Urine Bilirubin Urine Urobilinogen Ur Leukocyte Esterase Urine RBC Urine WBC Ur Squamous Epith Cells Urine Bacteria Urine Mucus Ur Culture Indicated? 07/18/20 09:19 WBC RBC Hgb Hct MCV MCH MCHC RDW Plt Count MPV Total Counted Seg Neutrophils % Band Neutrophils % Lymphocytes % Monocytes % (Manual) Reactive Lymphocytes Platelet Estimate RBC Morphology Anisocytosis VBG Lactic Acid Sodium 140 Potassium 3.9 Chloride 99 Carbon Dioxide 24 Anion Gap 17.0 H BUN 43 H Creatinine 3.0 H POC Creatinine GFR Calculation 19 Glucose 188 H Calcium 10.5 H Total Bilirubin 0.6 AST 27 ALT 9 Alkaline Phosphatase 69 Total Protein 7.0 Albumin 3.4 Globulin 3.6 Albumin/Globulin Ratio 0.9 L Procalcitonin Urine Color Urine Appearance Urine pH Ur Specific [place] Urine Protein Urine Glucose (UA) Urine Ketones Urine Occult Blood Urine Nitrate Urine Bilirubin Urine Urobilinogen Ur Leukocyte Esterase Urine RBC Urine WBC Ur Squamous Epith Cells Urine Bacteria Urine Mucus Ur Culture Indicated? 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 Herron *AMS (somnolence) superimposed on underlying Dementia: *Dementia: Follows with Dr. Garcia -on seroquel, namenda *Depression: on SSRI *DM: *HTN: * P: -IVF's -rocephin/azithro -pending CT chest -CT brain -f/u lactate -ABG -O2 supp, wean -IS/Acapella -covid pending from recent ED visit -hold home ACEI/HCTZ, cont clonidine/norvasc -SSI, hold metformin for SHAMA - -pt/ot -CM for placement needs -ppx: heparin DNR Time Spent With Patient Time: Total time spent is greater than 50% in coordination of care (as documented) at patient's floor/unit and/or counseling patient:
--- NOTE | 2020-07-18 12:55 | XRay Report ---
CLINICAL INFORMATION: low O2 sats COMPARISON: 07/17/2020 FINDINGS: Heart size is accentuated by lordotic positioning, right rotation and suboptimal inspiratory result. It is, at least, mildly enlarged. Mediastinum and pulmonary vessels are normal. Small/moderate right pleural effusion with fluid tracking the minor fissure is new. There is minor bibasilar atelectasis. IMPRESSION: Small/moderate right pleural effusion with fluid trapped in the minor fissure - new. Mild cardiomegaly - stable Interpreted and Authenticated by: Shaun Magaña 07/18/20
--- NOTE | 2020-07-18 13:47 | Cat Scan Report ---
CLINICAL INFORMATION: Dyspnea COMPARISON: None TECHNIQUE: 0.625 mm axial slices were obtained from the lung apices through the bases without intravenous contrast. 2.5 mm Sagittal, coronal and axial reformatted images were processed and reviewed at bone, lung and soft tissue windows. 7 mm axial MIP images were also reconstructed to optimize pulmonary nodule detection.The exam was performed using radiation dose optimization techniques including, but not limited to, automated exposure control, adjustment of the mA and/or kV according to patient size and use of iterative reconstruction technique. FINDINGS: Pulmonary parenchymal windows show suboptimal inspiratory result. There is consolidated atelectasis of the medial basilar segment of the left lower lobe and the medial, posterior and lateral basilar segments of the right lower lobe. There is subsegmental atelectasis rather remaining left lower upper lobe. There are no denzel infiltrates. Small right pleural effusion noted. Mediastinal windows heart is mildly enlarged with minimal scattered calcific plaque in the coronary arteries. The noncontrast rescuer aorta and pulmonary arteries are normal diameter. There is no adenopathy in the mediastinal, hilar or axillary region. Moderate sized hiatal hernia is noted. Thyroid is unremarkable. Images should the superior abdomen the gallbladder is enlarged with increased density throughout the gallbladder lumen possibly representing multiple tiny stones. In addition, the gallbladder wall is thickened and there is marked pericholecystic inflammation. The adjacent noncontrasted liver, spleen, pancreas and adrenal glands are normal. Bone windows show no osseous abnormality IMPRESSION: 1. Probable cholecystitis. Suggest limited ultrasound of the gallbladder, bile ducts and liver to confirm. 2. Segmental atelectasis medial, posterior and lateral basilar segment of the right lower lobe and the medial basilar segment left lower lobe. There is subsegmental atelectasis throughout the draining lower, right middle and upper lobes. No denzel infiltrates. Small right pleural effusion. 3. Mild cardiomegaly. 4. Moderate hiatal hernia - patient is at risk for aspiration. Consider formal swallowing function tests Interpreted and Authenticated by: Shaun Magaña 07/18/20
[2020-07-18] MEDS ORDERED: PIPERACILLIN SODIUM/TAZOBACTAM 4.5 GM in DEXTROSE 5% IN WATER 50 ML IV ONE (14:15)
[2020-07-18] MEDS: 0.9 % SODIUM CHLORIDE 1,000 ML IV SCH ×3 (15:10→23:54)
[2020-07-18] MEDS ORDERED: IPRATROPIUM/ALBUTEROL 3 ML AMPUL.NEB NEB PRN (15:23)
[2020-07-18] MEDS ORDERED: 0.9 % SODIUM CHLORIDE 10 ML SYRINGE IV SCH (15:23)
[2020-07-18] MEDS ORDERED: SENNOSIDES 1 TABLET PO PRN ×2 (15:23)
[2020-07-18] MEDS ORDERED: ONDANSETRON 4 MG/2 ML VIAL IV PRN ×2 (15:23)
[2020-07-18] MEDS ORDERED: ACETAMINOPHEN 325 MG TABLET PO PRN (15:23)
[2020-07-18] MEDS ORDERED: POLYETHYLENE GLYCOL 3350 17 GM PACKET PO PRN (15:23)
[2020-07-18] MEDS ORDERED: LACTULOSE 20 GM/30 ML ORAL.SOL PO PRN (15:23)
[2020-07-18] MEDS ORDERED: POTASSIUM CHLORIDE 20 MEQ TABLET PO PRN ×2 (15:23)
[2020-07-18] MEDS ORDERED: POTASSIUM CHLORIDE 40 MEQ in DEXTROSE 5% IN WATER 500 ML IV PRN (15:23)
[2020-07-18] MEDS ORDERED: DEXTROSE 31 GM ORAL.SUSP PO PRN (15:23)
[2020-07-18] MEDS ORDERED: DEXTROSE 50% 50 ML VIAL IV PRN (15:23)
[2020-07-18] MEDS ORDERED: MAGNESIUM SULFATE 2 GM/50 ML BAG IV PRN (15:23)
[2020-07-18] MEDS: 0.9 % SODIUM CHLORIDE 10 ML SYRINGE IV SCH ×2 (15:49→20:33)
[2020-07-18] MEDS ORDERED: AZITHROMYCIN 500 MG in DEXTROSE 5% IN WATER 250 ML IV SCH (16:00)
--- NOTE | 2020-07-18 17:16 | General Surgery Consult Note ---
HPI Data of Consult Consult date: 07/18/20 Requesting physician: Sergio Ny Primary Care Provider: Suzie Duncan Consult Narrative Patient Information: Note initiated : 07/18/20 at 4:59 pm Service Date, if different from initiated Date: [] Patient: Kassidy Anthony 79 y/o M admitted on 07/18/20 for altered mental status, dementia. Chief Complaint: [] cc:: CC: Sergio Ny 79-year-old male admitted with altered mental status or syncope with evidence of sepsis and worsening renal failure. due to poor mental status history is not obtainable . I was able to get some history from the . The patient has been sick for about 4 days. He had been progressively weak and had 2 falls on 17 July. He also became incontinent and had worsening mental confusion and poor appetite. He also complained of abdominal pain. He was seen in the emergency room on the evening of 17 July with findings of elevated white blood count of 17,300,; BUN and creatinine increased with findings of bibasilar atelectasis on chest x-ray. His pro calcitonin was 0.12. Lactic acid was mildly elevated at 1.6. He was treated and discharged home early this morning. His states that he felt better earlier today but then became progressively weaker and less responsive. They returned to the emergency room for evaluation. It was noted that his O2 sats were in the 80s. A CT of the chest showed bilateral atelectasis with developing infiltrate. There was also suggestion of edema of the wall of the gallbladder. A gallbladder ultrasound was performed but this was a very poor study because of patient movement and poor cooperation. His white count is 24,100. Urine analysis is normal. Lactate is increased to 2.2 and his creatinine has increased to 3.1. Patient is poorly responsive to questioning but does complain of diffuse abdominal pain. The only definitive finding is thickening of the gallbladder wall with q uestionable sludge in the gallbladder. Constitutional Constitutional: Present anorexia, chills, fatigue, frequent falls, lethargy and malaise Respiratory Respiratory: Present dyspnea and other (decrease oxygen saturation on room air) Gastrointestinal Gastrointestinal: Present abdominal pain (diffuse abdominal pain and bilateral upper quadrants and in hypogastrium) Psychiatric Psychiatric: Present irritability and memory loss PFSH PFSH All Active Problems (Updated 07/19/20 @ 12:27 by Dutch Cannon MD) Acute cholecystitis due to biliary calculus (Acute) Acute upper abdominal pain (Acute) Acute on chronic renal failure (Acute) Weakness (Acute) Confusion (Acute) Elevated WBC count (Acute) Sinus tachycardia (Acute) SIRS (systemic inflammatory response syndrome) (Acute) Sepsis (Acute) Urinary incontinence (Chronic) Chronic renal failure (Acute) Insomnia (Acute) Diabetes mellitus, type 2 (Acute) Hypertension, essential (Acute) Dementia (Acute) Medical History Acute kidney injury (Inactive) Chronic renal failure (Acute) Complicated UTI (urinary tract infection) (Resolved) Constipation (Inactive) Dehydration (Inactive) Dementia (Acute) Diabetes mellitus, type 2 (Acute) Hypertension, essential (Acute) Insomnia (Acute) Sepsis due to urinary tract infection (Resolved) Severe sepsis with acute organ dysfunction (Inactive) Urinary incontinence (Chronic) intermittent Surgical History Status post cataract extraction of both eyes with insertion of intraocular lens (Inactive) Social History smoking status: Never smoker additional history: Occasional alcohol and ambulates with a cane and lives with his at home MEDS/ALLERGIES Home Medications and Allergies Home Medications Medication Instructions Recorded Confirmed Type cholecalciferol (vitamin D3) 125 mcg PO DAILY 05/12/19 07/18/20 History clonidine HCl 0.1 mg PO QHS 05/12/19 07/18/20 History hydrochlorothiazide 25 mg PO DAILY 05/12/19 07/18/20 History memantine 10 mg PO BID 05/12/19 07/18/20 History metformin 1,500 mg PO [facility] 05/12/19 07/18/20 History metformin 750 mg PO [facility] 05/12/19 07/18/20 History potassium chloride 20 meq PO [facility] 05/12/19 07/18/20 History quetiapine 100 mg PO HS 05/12/19 07/18/20 History tamsulosin 0.4 mg PO DAILY 05/12/19 07/18/20 History thiamine HCl (vitamin B1) 100 mg PO DAILY #100 tab 05/14/19 07/18/20 Rx amlodipine-benazepril 1 cap PO DAILY 06/18/19 07/18/20 History clonazepam 0.5 mg PO QHS 07/16/20 07/18/20 History liraglutide [Victoza 2-Tung] 0.6 mg SUBCUT QDAY 07/16/20 07/18/20 History sertraline 50 mg PO BID 07/16/20 07/18/20 History aspirin [Imelda Chewable Aspirin] 81 mg PO QDAY 07/18/20 07/18/20 History magnesium 400 mg PO BID 07/18/20 07/18/20 History Allergies Allergy/AdvReac Type Severity Reaction Status Date / Time No Known Drug Allergies Allergy Verified 07/18/20 16:14 Physical Examination Vital Signs Vital signs: Temp Pulse Resp BP Pulse Ox 98.1 F 92 H 22 138/82 96 07/18/20 16:01 07/18/20 16:01 07/18/20 16:01 07/18/20 16:01 07/18/20 16:01 General physical appearance General physical exam: well developed, moderate distress, moderate pain and chronically ill Eyes Eye exam: PERRL and normal ocular movement; negative icteric ENT ENT exam: no hearing loss and no congestion Head Head exam IM: Present atraumatic, normal inspection and normocephalic Neck Neck exam: no masses, no bruits, trachea midline, no lymphadenopathy and no venous distension Cardiovascular Cardiovascular exam IM: Present RRR, +S1, +S2 and tachycardia; Absent JVD Respiratory Respiratory exam: other (moderate hypoventilation with decreased air movement diffusely; much worse in base of lungs bilaterally); negative normal respiratory effort and clear to auscultation Abdomen Abdomen: Present tender (diffusely tender abdomen and epigastrium and bilateral upper quadrants; also tenderness in the hypogastrium and left lower quadrant) Integumentary Integumentary: Present no rash, no growths, no abnormal pigmentation and other Neurologic Neurologic: Present disoriented, confused and other (motor function in upper and lower extremities appears to be intact; no sensory deficit) Musculoskeletal Musculoskeletal: Present other (gait and stance not tested because of weakness) Psychiatric Psychiatric: Present other (patient is not oriented to place or time; he does answer to his name) Results Labs Result diagrams: 07/19/20 04:45 07/19/20 04:45 Labs: Abnormal lab results 07/18/20 07/18/20 07/18/20 Range/Units 09:19 09:20 09:20 WBC 24.1 H (4.50-11.00) K/mcL Hgb 12.7 L (13.7-17.5) g/dL Hct 39.0 L (40.1-51.0) % RDW 19.3 H (11.5-14.5) % MPV 11.1 H (7.4-10.4) fL Seg Neutrophils % 84 H (38-78) % Lymphocytes % 9 L (15-49) % RBC Morphology Abnorm A (NORMAL) Anisocytosis 2+ A (NONE SEEN) VBG Lactic Acid 2.2 H (0.5-2.0) mmol/L Anion Gap 17.0 H (8-16) BUN 43 H (8-23) mg/dl Creatinine 3.0 H (0.7-1.2) mg/dl POC Creatinine (0.7-1.2) mg/dl Glucose 188 H (70-105) mg/dL Calcium 10.5 H (8.6-10.4) mg/dl Albumin/Globulin Ratio 0.9 L (1.0-2.3) Urine Protein (NEG) mg/dL Urine Glucose (UA) (NEG) mg/dL Urine Occult Blood (<0.03) mg/dL Urine RBC (0-1) /hpf 07/18/20 07/18/20 Range/Units 09:30 09:58 WBC (4.50-11.00) K/mcL Hgb (13.7-17.5) g/dL Hct (40.1-51.0) % RDW (11.5-14.5) % MPV (7.4-10.4) fL Seg Neutrophils % (38-78) % Lymphocytes % (15-49) % RBC Morphology (NORMAL) Anisocytosis (NONE SEEN) VBG Lactic Acid (0.5-2.0) mmol/L Anion Gap (8-16) BUN (8-23) mg/dl Creatinine (0.7-1.2) mg/dl POC Creatinine 3.1 H (0.7-1.2) mg/dl Glucose (70-105) mg/dL Calcium (8.6-10.4) mg/dl Albumin/Globulin Ratio (1.0-2.3) Urine Protein 30 A (NEG) mg/dL Urine Glucose (UA) 150 A (NEG) mg/dL Urine Occult Blood >=1.0 A (<0.03) mg/dL Urine RBC 124 H (0-1) /hpf Diabetes panel 07/18/20 Range/Units 09:19 Sodium 140 (133-145) mmol/L Potassium 3.9 (3.3-5.1) mmol/L Chloride 99 (96-108) mmol/L Carbon Dioxide 24 (22-30) mmol/L BUN 43 H (8-23) mg/dl Creatinine 3.0 H (0.7-1.2) mg/dl Glucose 188 H (70-105) mg/dL Calcium 10.5 H (8.6-10.4) mg/dl AST 27 (0-37) U/l ALT 9 (0-40) U/l Alkaline Phosphatase 69 (39-117) U/L Total Protein 7.0 (5.9-8.4) gm/dL Albumin 3.4 (3.2-5.2) gm/dL Calcium panel 07/18/20 Range/Units 09:19 Calcium 10.5 H (8.6-10.4) mg/dl Albumin 3.4 (3.2-5.2) gm/dL Pituitary panel 07/18/20 Range/Units 09:19 Sodium 140 (133-145) mmol/L Potassium 3.9 (3.3-5.1) mmol/L Chloride 99 (96-108) mmol/L Carbon Dioxide 24 (22-30) mmol/L BUN 43 H (8-23) mg/dl Creatinine 3.0 H (0.7-1.2) mg/dl Glucose 188 H (70-105) mg/dL Calcium 10.5 H (8.6-10.4) mg/dl Adrenal panel 07/18/20 Range/Units 09:19 Sodium 140 (133-145) mmol/L Potassium 3.9 (3.3-5.1) mmol/L Chloride 99 (96-108) mmol/L Carbon Dioxide 24 (22-30) mmol/L BUN 43 H (8-23) mg/dl Creatinine 3.0 H (0.7-1.2) mg/dl Glucose 188 H (70-105) mg/dL Calcium 10.5 H (8.6-10.4) mg/dl Total Bilirubin 0.6 (0.0-1.0) mg/dL AST 27 (0-37) U/l ALT 9 (0-40) U/l Alkaline Phosphatase 69 (39-117) U/L Total Protein 7.0 (5.9-8.4) gm/dL Albumin 3.4 (3.2-5.2) gm/dL All other labs normal. A/P Assessment and plan (1) Sepsis: Status: Acute Qualifiers: Sepsis acute organ dysfunction status: with acute organ dysfunction Sepsis type: sepsis due to unspecified organism Severe sepsis acute organ dysfunction type: encephalopathy Severe sepsis shock status: without septic shock Qualified Code(s): A41.9 - Sepsis, unspecified organism; R65.20 - Severe sepsis without septic shock; G93.40 - Encephalopathy, unspecified (2) Acute on chronic renal failure: Status: Acute Qualifiers: Acute renal failure type: unspecified Chronic kidney disease stage: stage 3 (moderate) Qualified Code(s): N17.9 - Acute kidney failure, unsp ecified; N18.3 - Chronic kidney disease, stage 3 (moderate) (3) Diabetes mellitus, type 2: Status: Acute Qualifiers: Chronic kidney disease stage: stage 3 (moderate) Diabetes mellitus vermin exterminator insulin use: without vermin exterminator use (4) Hypertension, essential: Status: Acute (5) Dementia: Status: Acute Qualifiers: Dementia behavioral disturbance: without behavioral disturbance Dementia type: vascular dementia Qualified Code(s): F01.50 - Vascular dementia without behavioral disturbance (6) Acute cholecystitis due to biliary calculus: Status: Acute Narrative A/P Narrative: the only positive finding is thickening of the gallbladder wall. There is probable kelle- cholecystic fluid. must consider acalculus cholecys titis.we'll treat with antibiotics and hydrate tonight and reevaluate tomorrow. A repeat gallbladder ultrasound would be more informative since the present study is very poor. There are no shadowing defects in the gallbladder but there may be sludge. LFTs are normal. Will follow closely and will consider for laparoscopy if he should worsen. Time Spent With Patient Time: Total time spent is greater than 50% in coordination of care (as documented) at patient's floor/unit and/or counseling patient:
[2020-07-18] MEDS: INSULIN LISPRO 1 UNIT/0.01 ML UNIT SQ SCH ×2 (18:01→20:45)
--- NOTE | 2020-07-18 18:35 | Cat Scan Report ---
CLINICAL INFORMATION: Dementia COMPARISON: Head CT 05/12/2019 TECHNIQUE: 2.5 mm helical slices were obtained in the skull base to vertex. Following reconstruction, axial reformatted images were reviewed at bone and parenchymal windows. The exam was performed using radiation dose optimization techniques including, but not limited to, automated exposure control, adjustment of the mA and/or kV according to patient size and use of iterative reconstruction technique. FINDINGS: The ventricles, sulci, fissures, and cisterns are symmetrically enlarged bowel with moderate age-related atrophy. This has progressed from previous study. There is no subdural hemorrhage or other extra-axial fluid collection or mass. Moderate patchy ischemic changes in the deep cerebral white matter are expected for age and show slight increase. There is no intracerebral hemorrhage, edema, mass effect or other acute finding. Bone windows show no osseous abnormality. IMPRESSION: Moderate atrophy with moderate chronic ischemic changes in the the cerebral white matter which have progressed since the comparison CT over one year prior. No acute findings. Interpreted and Authenticated by: Shaun Magaña 07/18/20
--- NOTE | 2020-07-18 18:36 | Ultrasound Report ---
CLINICAL INFORMATION: Sepsis. Increased density in the gallbladder on CT COMPARISON: None. FINDINGS: Gallbladder is mildly enlarged with marked diffuse wall thickening - 9 mm. There are multiple small stones and sludge within the gallbladder and moderate pericholecystic fluid. Unfortunately, the patient was confused and combative and the bile ducts, liver and pancreas could not be evaluated IMPRESSION: Moderately enlarged gallbladder with pericholecystic fluid, diffuse wall thickening and multiple stones all compatible with cholecystitis Interpreted and Authenticated by: Shaun Magaña 07/18/20
[2020-07-18] MEDS: QUEtiapine 100 MG TABLET PO SCH (20:31)
[2020-07-18] MEDS: MEMANTINE 10 MG TABLET PO SCH (20:33)
[2020-07-18] MEDS: FAMOTIDINE 20 MG TABLET PO SCH (20:33)
[2020-07-18] MEDS: cloNIDine HCL 0.1 MG TABLET PO SCH (20:33)
[2020-07-18] MEDS: DOCUSATE SODIUM 100 MG CAPSULE PO SCH (20:33)
[2020-07-18] MEDS: MAGNESIUM OXIDE 400 MG TABLET PO SCH (20:33)
[2020-07-18] MEDS: SERTRALINE 50 MG TABLET PO SCH (20:33)
[2020-07-18] MEDS: HEPARIN 5,000 UNIT/ML VIAL SQ SCH (20:34)
[2020-07-18] MEDS ORDERED: DOCUSATE SODIUM 100 MG CAPSULE PO SCH (21:00)
[2020-07-18] MEDS: PIPERACILLIN SODIUM/TAZOBACTAM 2.25 GM in DEXTROSE 5% IN WATER 50 ML IV SCH (21:29)
[2020-07-19] MEDS: PIPERACILLIN SODIUM/TAZOBACTAM 2.25 GM in DEXTROSE 5% IN WATER 50 ML IV SCH ×3 (05:43→22:00)
[2020-07-19] MEDS: 0.9 % SODIUM CHLORIDE 10 ML SYRINGE IV SCH ×3 (05:46→20:25)
[2020-07-19 06:57] LABS: Basophils # (Auto) 0.03 K/mcL (0.00-0.30); Basophils % (Auto) 0.2 % (0.0-2.0); Eosinophils # (Auto) 0.03 K/mcL (0.00-0.70); Eosinophils % (Auto) 0.2 % (0.0-7.0); Hematocrit 33.6 % (40.1-51.0); Hemoglobin 10.8 g/dL (13.7-17.5); Lymphocytes # (Auto) 1.51 K/mcL (1.50-4.80); Lymphocytes % (Auto) 10.1 % (15.5-49.0); Mean Cell Volume 82.6 fL (80.0-100.0); Mean Corpuscular HGB Conc 32.1 g/dL (31.0-36.0); Mean Platelet Volume 11.3 fL (7.4-10.4); Monocytes # (Auto) 0.82 K/mcL (0.10-0.90); Monocytes % (Auto) 5.5 % (1.0-12.0); Platelet Count 258 K/mcL (140-440); RBC 4.07 M/mcL (4.63-6.08); Red Cell Distribution Width 19.7 % (11.5-14.5); WBC 14.9 K/mcL (4.50-11.00)
[2020-07-19] MEDS: INSULIN LISPRO 1 UNIT/0.01 ML UNIT SQ SCH ×4 (07:20→20:42)
--- NOTE | 2020-07-19 07:30 | Internal Med Progress Note ---
SUBJECTIVE Subjective Patient information: Note initiated : 07/19/20 at 7:23 am Service Date, if different from initiated Date: [] Patient: Kassidy Anthony 79 y/o M admitted on 07/18/20 for altered mental status, dementia. Chief Complaint: [] Interval history: History of present illness: Mr. Anthony is a 79 year old M Most history is obtained from the as patient is quite somnolent and has underlying dementia. Her about 3 days ago started becoming weaker and more confused than usual. He really has not had any other complaints. She says he did complain of some back pain but that is the only thing he really planed of. He has a occasional cough but nothing really of any significance per the . She did say he looks more labored when he was walking the other day for few hours. She denies any fevers. Denies any nausea vomiting chest pain stomach pain or diarrhea. And he denied this when I talk to him. Was seen in the ED the other day and evaluated with a relatively unremarkable work-up other than a questionable new infiltrate and was sent home with some antibiotics. He went home early Saturday morning and seemed to do okay Saturday day and had a good conversation with family and friends but then at night becoming weaker and confused again. woke up this morning he was very somnolent and poorly responsive. Was told in the ED his oxygen saturations were in the mid 80s. In the ED he was evaluated and found to have a white blood cell count of 2417 the previous check in the ED. Lactate was mildly elevated 2.2. Renal function had worsened with a creatinine that jumped from baseline of 1.5 to 3.0. Procalcitonin elevated 4.21. CT chest done and awaiting official read but appears to have some infiltrates on the right versus scarring. He is afebrile while here. Mildly tachycardic in the 90s to low 100s. No Neck pain. This unremarkable. 07/19 No issues overnight. White blood cell count improving. Renal function improved. Review of Systems: denies headache/fever/chills/nausea/vomiting/chest pain/cough/dyspnea/diarrhea. Otherwise see above. Constitutional Vitals: Vital Signs Temp Pulse Resp BP Pulse Ox 99.7 F H 92 H 19 106/73 92 07/19/20 07:08 07/19/20 07:08 07/19/20 07:08 07/19/20 04:00 07/19/20 07:08 Period Temp Pulse Resp BP Sys/Petty Pulse Ox Last 24 Hr 98.1 F-99.7 F 86-104 15-40 97-138/66-89 88-97 Intake and Output 07/18/20 07/19/20 07/19/20 21:59 05:59 13:59 Intake Total 350 873 Output Total 470 370 50 Balance -120 503 -50 Weight 91.58 kg Intake & Output: Intake & Output 07/18/20 07/19/20 07/19/20 21:59 05:59 13:59 Intake Total 350 873 Output Total 470 370 50 Balance -120 503 -50 Weight 91.58 kg Intake: IV 350 873 Sodium Chloride 0.9% 1,000 ml @ 873 100 mls/hr IV .Q10H [facility] Rx#: [id number] Zithromax 500 mg In Dextrose 5% 250 in Water 250 ml @ 250 mls/hr IV Q24H [facility] Rx#:[id number] Zosyn 2.25 gm In Dextrose 5% in 50 Water 50 ml @ 100 mls/hr IV Q8H [facility] Rx#:[id number] Zosyn 4.5 gm In Dextrose 5% in 50 Water 50 ml @ 100 mls/hr IV ONCE ONE Rx#:[id number] Output: Urine Catheter Amount 170 370 50 Void Amount 300 Other: Urine Appearance Clear Clear Clear Uretheral (Ty) Clear Clear Urine Color Dark Yellow Dark Yellow Dark Yellow Uretheral (Ty) Dark Yellow Dark Yellow Exam: General: somnolent, No acute Distress Eyes/N/T: EOMI, Head/Neck: neck supple no tenderness, CV: RRR, No murmurs, normal s1/s2 Pulm: diminished b/l, no wheezing/rhonchi/rales Abd: soft, mild TTP RUQ, +BS x4 Ext: no clubbing/cyanosis/edema Neuro: no focal deficits, follows commands,moves all extremities, Skin: warm/dry OBJ DATA Labs CBC & Chem 7: 07/19/20 04:45 07/19/20 04:45 Labs: Abnormal Lab Results 07/19/20 07/18/20 07/18/20 04:45 09:58 09:30 WBC 14.9 H RBC 4.07 L Hgb 10.8 L Hct 33.6 L RDW 19.7 H MPV 11.3 H Gran % 84.0 H Lymph % (Auto) 10.1 L Gran # 12.54 H Seg Neutrophils % Lymphocytes % RBC Morphology Anisocytosis VBG Lactic Acid Anion Gap BUN Creatinine POC Creatinine 3.1 H Glucose Calcium Albumin/Globulin Ratio Urine Protein 30 A Urine Glucose (UA) 150 A Urine Occult Blood >=1.0 A Urine RBC 124 H 07/18/20 07/18/20 07/18/20 09:20 09:20 09:19 WBC 24.1 H RBC Hgb 12.7 L Hct 39.0 L RDW 19.3 H MPV 11.1 H Gran % Lymph % (Auto) Gran # Seg Neutrophils % 84 H Lymphocytes % 9 L RBC Morphology Abnorm A Anisocytosis 2+ A VBG Lactic Acid 2.2 H Anion Gap 17.0 H BUN 43 H Creatinine 3.0 H POC Creatinine Glucose 188 H Calcium 10.5 H Albumin/Globulin Ratio 0.9 L Urine Protein Urine Glucose (UA) Urine Occult Blood Urine RBC Meds: Medications Acetaminophen (Tylenol) 650 mg PO Q6HP PRN; Protocol PRN Reason: Per Pain Protocol/Fever > 101 Albuterol/Ipratropium (Duoneb) 3 ml NEB Q4HRT PRN PRN Reason: dyspnea Aspirin (Aspirin) 81 mg PO QDAY [facility] Clonidine HCl (Catapres) 0.1 mg PO QHS [facility] Last Admin: 07/18/20 20:33 Dose: 0.1 mg Documented by: Dextrose (Dextrose 50%) 0 ml IV UD PRN PRN Reason: Hypoglycemia Diagnostic Test (Pha) (Accu-Chek) 1 each FS ACHS [facility] Last Admin: 07/18/20 20:43 Dose: 1 each Documented by: Docusate Sodium (Colace) 100 mg PO BID [facility] Last Admin: 07/18/20 20:33 Dose: 100 mg Documented by: Famotidine (Pepcid) 20 mg PO HS [facility] Last Admin: 07/18/20 20:33 Dose: 20 mg Documented by: Glucose (Insta-Glucose) 15 gm PO PRN PRN PRN Reason: Hypoglycemia Heparin Sodium (Porcine) (Heparin) 5,000 unit SQ Q12 [facility] Last Admin: 07/18/20 20:34 Dose: 5,000 unit Documented by: Potassium Chloride 40 meq/ (Dextrose) 520 mls @ 130 mls/hr IV UD PRN PRN Reason: Potassium < 3 Sodium Chloride (Sodium Chloride 0.9%) 1,000 mls @ 100 mls/hr IV .Q10H [facility] Stop: 07/19/20 11:22 Last Admin: 07/18/20 23:54 Dose: 100 mls/hr Documented by: Magnesium Sulfate (Magnesium Sulfate) 2 gm in 50 mls @ 50 mls/hr IV UD PRN PRN Reason: Magnesium </= 1.6 Piperacillin Sod/Tazobactam (Sod 2.25 gm/ Dextrose) 50 mls @ 100 mls/hr IV Q8H [facility]; Protocol Last Admin: 07/19/20 05:43 Dose: 100 mls/hr Documented by: Insulin Human Lispro (Humalog) 0 unit SQ ACHS [facility]; Protocol Last Admin: 07/18/20 20:45 Dose: Not Given Documented by: Lactulose (Cephulac) 20 gm PO DAILYP PRN PRN Reason: Constipation Magnesium Oxide (Magnesium Oxide) 400 mg PO BID [facility] Last Admin: 07/18/20 20:33 Dose: 400 mg Documented by: Memantine (Namenda) 10 mg PO BID [facility] Last Admin: 07/18/20 20:33 Dose: 10 mg Documented by: Ondansetron HCl (Zofran) 4 mg IV Q4HP PRN PRN Reason: Nausea And Vomiting Last Admin: 07/18/20 16:03 Dose: 4 mg Documented by: Polyethylene Glycol (Miralax) 17 gm PO DAILYP PRN PRN Reason: Constipation Potassium Chloride (Kdur) 20 meq PO QAC [facility] Potassium Chloride (Kdur) 40 meq PO UD PRN PRN Reason: Potssium is 3-3.5 Potassium Chloride (Kdur) 40 meq PO UD PRN PRN Reason: Potassium < 3 Quetiapine Fumarate (Seroquel) 100 mg PO HS [facility] Last Admin: 07/18/20 20:31 Dose: 100 mg Documented by: Senna (Senokot) 2 tab PO HSP PRN PRN Reason: Constipation Senna (Senokot) 2 tab PO DAILYP PRN PRN Reason: Constipation Sertraline HCl (Zoloft) 50 mg PO BID [facility] Last Admin: 07/18/20 20:33 Dose: 50 mg Documented by: Sodium Chloride (Saline Flush) 10 ml IV Q8 [facility] Last Admin: 07/19/20 05:46 Dose: 10 ml Documented by: Tamsulosin HCl (Flomax) 0.4 mg PO DAILY [facility] Thiamine HCl (Vitamin B1) 100 mg PO DAILY [facility] Vitamin D (Vitamin D3) 5,000 unit PO DAILY [facility] A/P Narrative A/P Narrative: A: *Sepsis: 2/2 suspected cholecystitis -PCT elevated @4 on admit -leukocytosis improving, lactic acidosis resolved *suspected cholecystitis: *Acute hypoxic respiratory failure, mild: 2/2 significant atelectasis -88% on room air when arrived in ED -COVID neg *Atelectasis: *SHAMA on CKD IIIb: Follows with Dr. Herron *AMS (somnolence) superimposed on underlying Dementia: -no acute findings on CT brain, mod atrophy *Dementia: Follows with Dr. Garcia -on seroquel, namenda *Depression: on SSRI *DM: *HTN: * P: -zosyn -Dr. Cannon following - -O2 supp, wean -IS/Acapella -hold home ACEI/HCTZ, cont clonidine, hold norvasc for low-normal BP -SSI, hold metformin for SHAMA - -pt/ot -CM for placement needs -ppx: heparin DNR Time Spent With Patient Time: Total time spent is greater than 50% in coordination of care (as documented) at patient's floor/unit and/or counseling patient:
[2020-07-19] MEDS: POTASSIUM CHLORIDE 10 MEQ TABLET PO SCH (07:53)
[2020-07-19] MEDS: MEMANTINE 10 MG TABLET PO SCH ×2 (08:07→19:06)
[2020-07-19] MEDS: DOCUSATE SODIUM 100 MG CAPSULE PO SCH ×2 (08:07→19:06)
[2020-07-19] MEDS: TAMSULOSIN 0.4 MG CAPSULE PO SCH (08:08)
[2020-07-19] MEDS: THIAMINE 100 MG TABLET PO SCH (08:08)
[2020-07-19] MEDS: VITAMIN D3 5,000 UNIT CAPSULE PO SCH (08:08)
[2020-07-19 08:09] LABS: ALT/SGPT 11 U/l (0-40); AST/SGOT 38 U/l (0-37); Albumin 2.7 gm/dL (3.2-5.2); Albumin/Globulin Ratio 0.9 (1.0-2.3); Alkaline Phosphatase 57 U/L (39-117); Bilirubin,Direct < 0.2 mg/dL (0.0-0.3); Bilirubin,Total 0.3 mg/dL (0.0-1.0); Blood Urea Nitrogen 49 mg/dl (8-23); Calcium 9.5 mg/dl (8.6-10.4); Carbon Dioxide 22 mmol/L (22-30); Chloride 106 mmol/L (96-108); Globulin 3.1 gm/dL (2.2-3.7); Glomerular Filtration Rate 25; Glucose 105 mg/dL (70-105); Lactate Dehydrogenase 163 U/L (94-250); Phosphorous 3.7 mg/dL (2.7-4.5); Triglycerides 92 mg/dl (<150); Uric Acid 7.9 mg/dL (2.5-8.0)
[2020-07-19] MEDS: MAGNESIUM OXIDE 400 MG TABLET PO SCH ×2 (08:09→19:06)
[2020-07-19] MEDS: SERTRALINE 50 MG TABLET PO SCH ×2 (08:09→19:06)
[2020-07-19] MEDS ORDERED: cefTRIAXone 2 GM in DEXTROSE 5% IN WATER 50 ML IV SCH (09:00)
[2020-07-19] MEDS: ASPIRIN 81 MG TAB.CHEW PO SCH (12:11)
[2020-07-19] MEDS: HEPARIN 5,000 UNIT/ML VIAL SQ SCH ×2 (12:12→20:36)
[2020-07-19] MEDS: 0.9 % SODIUM CHLORIDE 1,000 ML IV SCH (12:14)
--- NOTE | 2020-07-19 12:34 | General Surgery Progress Note ---
SUBJECTIVE Subjective Patient information: Note initiated : 07/19/20 at 12:28 pm Service Date, if different from initiated Date: [] Patient: Kassidy Anthony 79 y/o M admitted on 07/18/20 for altered mental status, dementia. Chief Complaint: [] Principal diagnosis: upper abdominal pain with sepsis Interval history: patient is significantly improved. He is more alert and aware that he was last evening. He has less abdominal pain. He has low-grade temperature and his white count is decreased to 14,900. His LFTs are normal with normal bilirubin and alkaline phosphatase. Renal status is improved with increased GFR and decreased creatinine from 3.1-2.4. Blood cultures showed no growth. Counseled patient and his for laparoscopic cholecystectomy which will be performed tomorrow. Constitutional Vitals: Vital Signs Temp Pulse Resp BP Pulse Ox 99.2 F H 90 19 145/72 92 07/19/20 12:01 07/19/20 12:01 07/19/20 12:01 07/19/20 12:01 07/19/20 12:01 Period Temp Pulse Resp BP Sys/Petty Pulse Ox Last 24 Hr 97.7 F-99.8 F 86-114 18-40 97-145/66-89 90-97 Intake and Output 07/18/20 07/19/20 07/19/20 21:59 05:59 13:59 Intake Total 350 873 Output Total 470 370 370 Balance -120 503 -370 Weight 201 lb 14.4 oz Intake & Output: Intake & Output 07/18/20 07/19/20 07/19/20 21:59 05:59 13:59 Intake Total 350 873 Output Total 470 370 370 Balance -120 503 -370 Weight 201 lb 14.4 oz Intake: IV 350 873 Sodium Chloride 0.9% 1,000 ml @ 873 100 mls/hr IV .Q10H [facility] Rx#: [id number] Zithromax 500 mg In Dextrose 5% 250 in Water 250 ml @ 250 mls/hr IV Q24H [facility] Rx#:[id number] Zosyn 2.25 gm In Dextrose 5% in 50 Water 50 ml @ 100 mls/hr IV Q8H [facility] Rx#:[id number] Zosyn 4.5 gm In Dextrose 5% in 50 Water 50 ml @ 100 mls/hr IV ONCE ONE Rx#:[id number] Output: Urine Catheter Amount 170 370 370 Void Amount 300 Other: Urine Appearance Clear Clear Clear Uretheral (Ty) Clear Clear Clear Urine Color Dark Yellow Dark Yellow Bright Yellow Uretheral (Yt) Dark Yellow Dark Yellow Bright Yellow Head Head exam: Present atraumatic, normal inspection and normocephalic Eye Eye exam: Present EOMI and normal appearance Pupils: Present PERRL ENT ENT exam: Present mucous membranes moist and normal exam Neck Neck exam: Present full ROM; Absent lymphadenopathy and tenderness Respiratory Respiratory exam: Present CTAB and rales (bibasilar rales); Absent rhonchi and wheezes Cardiovascular Cardiovascular exam: Present normal rate and rhythm, RRR, +S1 and +S2; Absent JVD GI/Abdominal GI/Abdominal exam: Present soft, distended and tenderness (epigastric and right upper quadrant tenderness) Extremities Exam Extremities exam: Present full ROM and normal inspection; Absent pedal edema and tenderness Back Exam Back exam: Present normal inspection; Absent CVA tenderness (L) and CVA tenderness (R) Neurological Exam Neurological exam: Present alert and CN II-XII intact; Absent motor sensory deficit Psychiatric Additional comments: patient is more alert and aware. He is able to answer some questions appropriately. Skin Skin exam: Present intact and normal color; Absent rash and urticaria A/P Assessment and plan (1) Acute cholecystitis due to biliary calculus: Status: Acute (2) Acute on chronic renal failure: Status: Acute Qualifiers: Acute renal failure type: unspecified Chronic kidney disease stage: stage 3 (moderate) Qualified Code(s): N17.9 - Acute kidney failure, unspecified; N18.3 - Chronic kidney disease, stage 3 (moderate) (3) Sepsis: Status: Acute Qualifiers: Sepsis acute organ dysfunction status: with acute organ dysfunction Sepsis type: sepsis due to unspecified organism Severe sepsis acute organ dysfunction type: encephalopathy Severe sepsis shock status: without septic shock Qualified Code(s): A41.9 - Sepsis, unspecified organism; R65.20 - Severe sepsis without septic shock; G93.40 - Encephalopathy, unspecified (4) Diabetes mellitus, type 2: Status: Acute Qualifiers: Diabetes mellitus rn long term care insulin use: without senior living use Chronic kidney disease stage: stage 3 (moderate) (5) Dementia: Status: Acute Qualifiers: Dementia type: vascular dementia Dementia behavioral disturbance: without behavioral disturbance Qualified Code(s): F01.50 - Vascular dementia without behavioral disturbance Time Spent With Patient Time: Total time spent is greater than 50% in coordination of care (as documented) at patient's floor/unit and/or counseling patient:
[2020-07-19] MEDS: cloNIDine HCL 0.1 MG TABLET PO SCH (19:06)
[2020-07-19] MEDS: FAMOTIDINE 20 MG TABLET PO SCH (19:06)
[2020-07-19] MEDS: QUEtiapine 100 MG TABLET PO SCH (19:06)
[2020-07-20] MEDS: 0.9 % SODIUM CHLORIDE 1,000 ML IV SCH ×3 (00:12→15:37)
[2020-07-20] MEDS: 0.9 % SODIUM CHLORIDE 10 ML SYRINGE IV SCH ×3 (05:27→20:09)
[2020-07-20] MEDS: PIPERACILLIN SODIUM/TAZOBACTAM 2.25 GM in DEXTROSE 5% IN WATER 50 ML IV SCH ×4 (05:28→22:07)
--- NOTE | 2020-07-20 06:13 | XRay Report ---
CLINICAL INFORMATION: pre-op COMPARISON: 07/18/2020 FINDINGS: Moderate cardiomegaly is unchanged. Mediastinum and pulmonary vessels are normal. Small right pleural effusion with fluid tracking the minor fissure is decreased. Right diaphragm is mildly elevated. IMPRESSION: Small right pleural effusion - decreasing. Interpreted and Authenticated by: Shaun Magaña 07/20/20
[2020-07-20 06:48] LABS: Basophils # (Auto) 0.03 K/mcL (0.00-0.30); Basophils % (Auto) 0.3 % (0.0-2.0); Eosinophils # (Auto) 0.15 K/mcL (0.00-0.70); Eosinophils % (Auto) 1.7 % (0.0-7.0); Granulocytes % (Auto) 73.5 % (38.0-78.0); Hematocrit 33.4 % (40.1-51.0); Hemoglobin 10.6 g/dL (13.7-17.5); Lymphocytes # (Auto) 1.63 K/mcL (1.50-4.80); Lymphocytes % (Auto) 18.2 % (15.5-49.0); Mean Cell Volume 83.9 fL (80.0-100.0); Mean Corpuscular HGB Conc 31.7 g/dL (31.0-36.0); Mean Platelet Volume 10.9 fL (7.4-10.4); Monocytes # (Auto) 0.57 K/mcL (0.10-0.90); Monocytes % (Auto) 6.3 % (1.0-12.0); Platelet Count 261 K/mcL (140-440); RBC 3.98 M/mcL (4.63-6.08); Red Cell Distribution Width 19.9 % (11.5-14.5)
[2020-07-20 07:17] LABS: Calcium 9.6 mg/dl (8.6-10.4); Carbon Dioxide 25 mmol/L (22-30); Chloride 106 mmol/L (96-108); Glucose 105 mg/dL (70-105)
[2020-07-20 07:32] LABS: Blood Urea Nitrogen 39 mg/dl (8-23); Glomerular Filtration Rate 38
--- NOTE | 2020-07-20 07:33 | Internal Med Progress Note ---
SUBJECTIVE Subjective Patient information: Note initiated : 07/20/20 at 7:31 am Service Date, if different from initiated Date: [] Patient: Kassidy Anthony 79 y/o M admitted on 07/18/20 for altered mental status, dementia. Chief Complaint: [] Principal diagnosis: upper abdominal pain with sepsis Interval history: History of present illness: Mr. Anthony is a 79 year old M Most history is obtained from the as patient is quite somnolent and has underlying dementia. Her about 3 days ago started becoming weaker and more confused than usual. He really has not had any other complaints. She says he did complain of some back pain but that is the only thing he really planed of. He has a occasional cough but nothing really of any significance per the . She did say he looks more labored when he was walking the other day for few hours. She denies any fevers. Denies any nausea vomiting chest pain stomach pain or diarrhea. And he denied this when I talk to him. Was seen in the ED the other day and evaluated with a relatively unremarkable work-up other than a questionable new infiltrate and was sent home with some antibiotics. He went home early Saturday morning and seemed to do okay Saturday day and had a good conversation with family and friends but then at night becoming weaker and confused again. woke up this morning he was very somnolent and poorly responsive. Was told in the ED his oxygen saturations were in the mid 80s. In the ED he was evaluated and found to have a white blood cell count of 2417 the previous check in the ED. Lactate was mildly elevated 2.2. Renal function had worsened with a creatinine that jumped from baseline of 1.5 to 3.0. Procalcitonin elevated 4.21. CT chest done and awaiting official read but appears to have some infiltrates on the right versus scarring. He is afebrile while here. Mildly tachycardic in the 90s to low 100s. No Neck pain. This unremarkable. 07/19 No issues overnight. White blood cell count improving. Renal function improved. 07/20 No overnight events or new complaints. States his neck feels little sore but able to rotate left and right and flex without any issues. Leukocytosis resolved and renal function improved. Scheduled to undergo laparoscopic cholecystectomy today. Review of Systems: denies headache/fever/chills/nausea/vomiting/chest or abdominal pain/cough/dyspnea/diarrhea. Otherwise see above. Constitutional Vitals: Vital Signs Temp Pulse Resp BP Pulse Ox 98.8 F 96 H 19 127/74 92 07/20/20 05:52 07/20/20 00:26 07/20/20 05:52 07/20/20 04:40 07/20/20 04:40 Period Temp Pulse Resp BP Sys/Petty Pulse Ox Last 24 Hr 97.7 F-99.8 F 89-114 17-22 104-145/71-83 91-95 Intake and Output 07/19/20 07/20/20 07/20/20 21:59 05:59 13:59 Intake Total 760 1450 Output Total 250 750 Balance 510 700 Weight 93.395 kg Intake & Output: Intake & Output 07/19/20 07/20/20 07/20/20 21:59 05:59 13:59 Intake Total 760 1450 Output Total 250 750 Balance 510 700 Weight 93.395 kg Intake: IV 1050 Sodium Chloride 0.9% 1,000 ml @ 1000 100 mls/hr IV .Q10H [facility] Rx#: [id number] Zosyn 2.25 gm In Dextrose 5% in 50 Water 50 ml @ 100 mls/hr IV Q8H [facility] Rx#:[id number] Oral 760 400 Output: Urine Catheter Amount 250 750 Other: Meal Lunch Percent of Meal Consumed 75% Feeding Ability Independent Urine Appearance Clear Clear Uretheral (Ty) Clear Clear Urine Color Dark Yellow Straw Uretheral (Ty) Dark Yellow Straw Exam: General: somnolent, No acute Distress Eyes/N/T: EOMI, Head/Neck: neck supple no tenderness, CV: RRR, 1/6 SM Pulm: diminished b/l, no wheezing/rhonchi/rales Abd: soft, mild TTP RUQ, +BS x4 Ext: no clubbing/cyanosis/edema Neuro: no focal deficits, follows commands,moves all extremities, Skin: warm/dry OBJ DATA Labs CBC & Chem 7: 07/20/20 04:32 07/20/20 04:32 Labs: Abnormal Lab Results 07/20/20 07/19/20 07/19/20 04:32 04:45 04:45 WBC 14.9 H RBC 3.98 L 4.07 L Hgb 10.6 L 10.8 L Hct 33.4 L 33.6 L RDW 19.9 H 19.7 H MPV 10.9 H 11.3 H Gran % 84.0 H Lymph % (Auto) 10.1 L Gran # 12.54 H Seg Neutrophils % Lymphocytes % RBC Morphology Anisocytosis VBG Lactic Acid Anion Gap BUN 49 H Creatinine 2.4 H POC Creatinine Glucose Calcium AST 38 H Total Protein 5.8 L Albumin 2.7 L Albumin/Globulin Ratio 0.9 L Urine Protein Urine Glucose (UA) Urine Occult Blood Urine RBC 07/18/20 07/18/20 07/18/20 09:58 09:30 09:20 WBC RBC Hgb Hct RDW MPV Gran % Lymph % (Auto) Gran # Seg Neutrophils % Lymphocytes % RBC Morphology Anisocytosis VBG Lactic Acid 2.2 H Anion Gap BUN Creatinine POC Creatinine 3.1 H Glucose Calcium AST Total Protein Albumin Albumin/Globulin Ratio Urine Protein 30 A Urine Glucose (UA) 150 A Urine Occult Blood >=1.0 A Urine RBC 124 H 07/18/20 07/18/20 09:20 09:19 WBC 24.1 H RBC Hgb 12.7 L Hct 39.0 L RDW 19.3 H MPV 11.1 H Gran % Lymph % (Auto) Gran # Seg Neutrophils % 84 H Lymphocytes % 9 L RBC Morphology Abnorm A Anisocytosis 2+ A VBG Lactic Acid Anion Gap 17.0 H BUN 43 H Creatinine 3.0 H POC Creatinine Glucose 188 H Calcium 10.5 H AST Total Protein Albumin Albumin/Globulin Ratio 0.9 L Urine Protein Urine Glucose (UA) Urine Occult Blood Urine RBC Meds: Medications Acetaminophen (Tylenol) 650 mg PO Q6HP PRN; Protocol PRN Reason: Per Pain Protocol/Fever > 101 Last Admin: 07/19/20 10:32 Dose: 650 mg Documented by: Albuterol/Ipratropium (Duoneb) 3 ml NEB Q4HRT PRN PRN Reason: dyspnea Aspirin (Aspirin) 81 mg PO QDAY [facility] Last Admin: 07/19/20 12:11 Dose: 81 mg Documented by: Clonidine HCl (Catapres) 0.1 mg PO QHS [facility] Last Admin: 07/19/20 19:06 Dose: 0.1 mg Documented by: Dextrose (Dextrose 50%) 0 ml IV UD PRN PRN Reason: Hypoglycemia Diagnostic Test (Pha) (Accu-Chek) 1 each FS ACHS [facility] Last Admin: 07/19/20 20:41 Dose: 1 each Documented by: Docusate Sodium (Colace) 100 mg PO BID [facility] Last Admin: 07/19/20 19:06 Dose: 100 mg Documented by: Famotidine (Pepcid) 20 mg PO HS [facility] Last Admin: 07/19/20 19:06 Dose: 20 mg Documented by: Glucose (Insta-Glucose) 15 gm PO PRN PRN PRN Reason: Hypoglycemia Heparin Sodium (Porcine) (Heparin) 5,000 unit SQ Q12 [facility] Last Admin: 07/19/20 20:36 Dose: 5,000 unit Documented by: Potassium Chloride 40 meq/ (Dextrose) 520 mls @ 130 mls/hr IV UD PRN PRN Reason: Potassium < 3 Magnesium Sulfate (Magnesium Sulfate) 2 gm in 50 mls @ 50 mls/hr IV UD PRN PRN Reason: Magnesium </= 1.6 Piperacillin Sod/Tazobactam (Sod 2.25 gm/ Dextrose) 50 mls @ 100 mls/hr IV Q8H [facility]; Protocol Last Admin: 07/20/20 05:28 Dose: 100 mls/hr Documented by: Sodium Chloride (Sodium Chloride 0.9%) 1,000 mls @ 100 mls/hr IV .Q10H [facility] Last Admin: 07/20/20 00:12 Dose: 100 mls/hr Documented by: Insulin Human Lispro (Humalog) 0 unit SQ ACHS [facility]; Protocol Last Admin: 07/19/20 20:42 Dose: 4 units Documented by: Lactulose (Cephulac) 20 gm PO DAILYP PRN PRN Reason: Constipation Magnesium Oxide (Magnesium Oxide) 400 mg PO BID [facility] Last Admin: 07/19/20 19:06 Dose: 400 mg Documented by: Memantine (Namenda) 10 mg PO BID [facility] Last Admin: 07/19/20 19:06 Dose: 10 mg Documented by: Ondansetron HCl (Zofran) 4 mg IV Q4HP PRN PRN Reason: Nausea And Vomiting Last Admin: 07/18/20 16:03 Dose: 4 mg Documented by: Polyethylene Glycol (Miralax) 17 gm PO DAILYP PRN PRN Reason: Constipation Potassium Chloride (Kdur) 20 meq PO QAMCC [facility] Last Admin: 07/19/20 07:53 Dose: 20 meq Documented by: Potassium Chloride (Kdur) 40 meq PO UD PRN PRN Reason: Potssium is 3-3.5 Potassium Chloride (Kdur) 40 meq PO UD PRN PRN Reason: Potassium < 3 Quetiapine Fumarate (Seroquel) 100 mg PO HS [facility] Last Admin: 07/19/20 19:06 Dose: 100 mg Documented by: Senna (Senokot) 2 tab PO HSP PRN PRN Reason: Constipation Sertraline HCl (Zoloft) 50 mg PO BID [facility] Last Admin: 07/19/20 19:06 Dose: 50 mg Documented by: Sodium Chloride (Saline Flush) 10 ml IV Q8 [facility] Last Admin: 07/20/20 05:27 Dose: Not Given Documented by: Tamsulosin HCl (Flomax) 0.4 mg PO DAILY [facility] Last Admin: 07/19/20 08:08 Dose: 0.4 mg Documented by: Thiamine HCl (Vitamin B1) 100 mg PO DAILY [facility] Last Admin: 07/19/20 08:08 Dose: 100 mg Documented by: Vitamin D (Vitamin D3) 5,000 unit PO DAILY [facility] Last Admin: 07/19/20 08:08 Dose: 5,000 unit Documented by: A/P Narrative A/P Narrative: A: *Sepsis: 2/2 cholecystitis. Improved -PCT elevated @4 on admit -leukocytosis resolved, lactic acidosis resolved *acute cholecystitis: *Acute hypoxic respiratory failure, mild: 2/2 significant atelectasis -88% on room air when arrived in ED -COVID neg *Atelectasis: *SHAMA on CKD IIIb: Follows with Dr. Herron -improved with IVF *AMS (somnolence) superimposed on underlying Dementia: -no acute findings on CT brain, mod atrophy *Dementia: Follows with Dr. Garcia -on seroquel, namenda *Depression: on SSRI *DM: *HTN: * P: -zosyn -Dr. Cannon following, alin diamonde today - pending -O2 supp, wean, IS/Acapella -hold home ACEI/HCTZ, cont clonidine, hold norvasc for low-normal BP -SSI, hold metformin for SHAMA - -pt/ot -CM for placement needs -ppx: heparin DNR Time Spent With Patient Time: Total time spent is greater than 50% in coordination of care (as documented) at patient's floor/unit and/or counseling patient:
[2020-07-20] MEDS: INSULIN LISPRO 1 UNIT/0.01 ML UNIT SQ SCH ×4 (07:35→20:24)
[2020-07-20] MEDS: POTASSIUM CHLORIDE 10 MEQ TABLET PO SCH (08:15)
[2020-07-20] MEDS: ASPIRIN 81 MG TAB.CHEW PO SCH (08:31)
[2020-07-20] MEDS: TAMSULOSIN 0.4 MG CAPSULE PO SCH (08:31)
[2020-07-20] MEDS: DOCUSATE SODIUM 100 MG CAPSULE PO SCH ×2 (08:31→20:09)
[2020-07-20] MEDS: THIAMINE 100 MG TABLET PO SCH (08:32)
[2020-07-20] MEDS: MAGNESIUM OXIDE 400 MG TABLET PO SCH ×2 (08:32→20:09)
[2020-07-20] MEDS: VITAMIN D3 5,000 UNIT CAPSULE PO SCH (08:32)
[2020-07-20] MEDS: MEMANTINE 10 MG TABLET PO SCH ×2 (08:32→20:09)
[2020-07-20] MEDS: SERTRALINE 50 MG TABLET PO SCH ×2 (08:33→20:09)
[2020-07-20 09:43] LABS: Prothrombin Time 13.6 sec (11.9-14.5)
[2020-07-20] MEDS ORDERED: FLU VACC QS2020-21(6MOS UP)/PF 60 MCG/0.5 ML SYRINGE IM ONE (10:00)
[2020-07-20] MEDS ORDERED: LIDOCAINE HCL/PF 100 MG/5 ML SYRINGE IV ONE (11:43)
[2020-07-20] MEDS ORDERED: SUGAMMADEX SODIUM 200 MG/2 ML VIAL IV ONE (11:43)
[2020-07-20] MEDS ORDERED: fentaNYL 100 MCG/2 ML VIAL IV ONE (11:43)
[2020-07-20] MEDS ORDERED: DEXAMETHASONE 10 MG/ML VIAL ONE (11:43)
[2020-07-20] MEDS ORDERED: MIDAZOLAM 2 MG/2 ML VIAL ONE (11:43)
[2020-07-20] MEDS ORDERED: ROCURONIUM 10 MG/ML ML IV ONE (11:43)
[2020-07-20] MEDS ORDERED: PROPOFOL 200 MG/20 ML VIAL IV ONE (11:43)
[2020-07-20] MEDS: HEPARIN 5,000 UNIT/ML VIAL SQ SCH (11:49)
[2020-07-20] MEDS ORDERED: MEPERIDINE 25 MG/ML SYRINGE IV PRN (12:46)
[2020-07-20] MEDS ORDERED: FLUMAZENIL 0.1 MG/ML ML IV PRN (12:46)
[2020-07-20] MEDS ORDERED: ACETAMINOPHEN 1,000 MG/100 ML BOTTLE IV ONE (12:46)
[2020-07-20] MEDS ORDERED: fentaNYL 100 MCG/2 ML VIAL IV PRN (12:46)
[2020-07-20] MEDS ORDERED: NALOXONE HCL 0.4 MG/ML VIAL IV PRN (12:46)
[2020-07-20] MEDS ORDERED: IPRATROPIUM/ALBUTEROL 3 ML AMPUL.NEB NEB PRN ×2 (12:46→15:31)
--- NOTE | 2020-07-20 13:54 | Brief Operative Note ---
Brief Operative Note Date of procedure: 07/20/20 Pre-op diagnosis: ACUTE CHOLECYSTITIS Post-op diagnosis: other (ACUTE NECROTIZING CHOLECYSTITIS) Procedure: LAPAROSCOPIC CHOLECYSTECTOMY Grafts/Implants: No (#10 CECIL DRAIN) Anesthesia: GETA Findings: ACUTE SEVERE HEMORRHAGIC NECROTIZING CHOLECYSTITIS Complications: none Surgeon: Dutch Cannon Estimated blood loss (cc): 100 Specimens Removed/Pathology: other (GALLBLADDER) Condition: stable Disposition: PACU
[2020-07-20] MEDS ORDERED: POTASSIUM CHLORIDE 40 MEQ in DEXTROSE 5% IN WATER 500 ML IV PRN (15:31)
[2020-07-20] MEDS ORDERED: ONDANSETRON 4 MG/2 ML VIAL IV PRN (15:31)
[2020-07-20] MEDS ORDERED: DEXTROSE 31 GM ORAL.SUSP PO PRN (15:31)
[2020-07-20] MEDS ORDERED: LACTULOSE 20 GM/30 ML ORAL.SOL PO PRN (15:31)
[2020-07-20] MEDS ORDERED: SENNOSIDES 1 TABLET PO PRN (15:31)
[2020-07-20] MEDS ORDERED: POLYETHYLENE GLYCOL 3350 17 GM PACKET PO PRN (15:31)
[2020-07-20] MEDS ORDERED: POTASSIUM CHLORIDE 20 MEQ TABLET PO PRN ×2 (15:31)
[2020-07-20] MEDS ORDERED: DEXTROSE 50% 50 ML VIAL IV PRN (15:31)
[2020-07-20 16:17] LABS: ALT/SGPT 26 U/l (0-40); AST/SGOT 47 U/l (0-37); Albumin/Globulin Ratio 0.8 (1.0-2.3); Alkaline Phosphatase 76 U/L (39-117); Bilirubin,Direct 0.2 mg/dL (0.0-0.3); Bilirubin,Total 0.4 mg/dL (0.0-1.0); Blood Urea Nitrogen 35 mg/dl (8-23); Calcium 9.7 mg/dl (8.6-10.4); Carbon Dioxide 20 mmol/L (22-30); Chloride 103 mmol/L (96-108); Globulin 3.8 gm/dL (2.2-3.7); Glomerular Filtration Rate 38; Glucose 206 mg/dL (70-105); Lactate Dehydrogenase 212 U/L (94-250); Triglycerides 135 mg/dl (<150)
[2020-07-20] MEDS: QUEtiapine 100 MG TABLET PO SCH (20:09)
[2020-07-20] MEDS: cloNIDine HCL 0.1 MG TABLET PO SCH (20:09)
[2020-07-20] MEDS: ACETAMINOPHEN 325 MG TABLET PO PRN (20:11)
[2020-07-21] MEDS: 0.9 % SODIUM CHLORIDE 1,000 ML IV SCH ×2 (02:40→13:37)
[2020-07-21] MEDS: ACETAMINOPHEN 325 MG TABLET PO PRN (03:59)
[2020-07-21] MEDS: 0.9 % SODIUM CHLORIDE 10 ML SYRINGE IV SCH ×3 (05:30→20:53)
[2020-07-21] MEDS: PIPERACILLIN SODIUM/TAZOBACTAM 2.25 GM in DEXTROSE 5% IN WATER 50 ML IV SCH ×3 (05:30→21:46)
[2020-07-21 06:05] LABS: Basophils # (Auto) 0.01 K/mcL (0.00-0.30); Basophils % (Auto) 0.1 % (0.0-2.0); Eosinophils # (Auto) 0 K/mcL (0.00-0.70); Eosinophils % (Auto) 0 % (0.0-7.0); Granulocytes % (Auto) 87.4 % (38.0-78.0); Hematocrit 37.1 % (40.1-51.0); Hemoglobin 11.5 g/dL (13.7-17.5); Lymphocytes # (Auto) 0.94 K/mcL (1.50-4.80); Lymphocytes % (Auto) 7.6 % (15.5-49.0); Mean Cell Volume 84.5 fL (80.0-100.0); Mean Platelet Volume 10.7 fL (7.4-10.4); Monocytes # (Auto) 0.61 K/mcL (0.10-0.90); Monocytes % (Auto) 4.9 % (1.0-12.0); Platelet Count 282 K/mcL (140-440); RBC 4.39 M/mcL (4.63-6.08); Red Cell Distribution Width 19.2 % (11.5-14.5); WBC 12.4 K/mcL (4.50-11.00)
[2020-07-21 06:20] LABS: ALT/SGPT 21 U/l (0-40); AST/SGOT 30 U/l (0-37); Albumin 2.7 gm/dL (3.2-5.2); Albumin/Globulin Ratio 0.8 (1.0-2.3); Alkaline Phosphatase 85 U/L (39-117); Bilirubin,Total 0.5 mg/dL (0.0-1.0); Blood Urea Nitrogen 28 mg/dl (8-23); Calcium 9.3 mg/dl (8.6-10.4); Carbon Dioxide 23 mmol/L (22-30); Chloride 102 mmol/L (96-108); Globulin 3.6 gm/dL (2.2-3.7); Glomerular Filtration Rate 44; Glucose 179 mg/dL (70-105); Lactate Dehydrogenase 190 U/L (94-250); Phosphorous 2.5 mg/dL (2.7-4.5); Triglycerides 97 mg/dl (<150)
[2020-07-21 06:26] LABS: Bilirubin,Direct < 0.2 mg/dL (0.0-0.3)
[2020-07-21] MEDS: INSULIN LISPRO 1 UNIT/0.01 ML UNIT SQ SCH ×4 (08:16→20:52)
[2020-07-21] MEDS: POTASSIUM CHLORIDE 10 MEQ TABLET PO SCH (08:17)
--- NOTE | 2020-07-21 09:46 | Internal Med Progress Note ---
SUBJECTIVE Subjective Patient information: Note initiated : 07/21/20 at 9:41 am Service Date, if different from initiated Date: [] Patient: Kassidy Anthony 79 y/o M admitted on 07/18/20 for altered mental status, dementia. Chief Complaint: [] Principal diagnosis: upper abdominal pain with sepsis Interval history: History of present illness: Mr. Anthony is a 79 year old M Most history is obtained from the as patient is quite somnolent and has underlying dementia. Her about 3 days ago started becoming weaker and more confused than usual. He really has not had any other complaints. She says he did complain of some back pain but that is the only thing he really planed of. He has a occasional cough but nothing really of any significance per the . She did say he looks more labored when he was walking the other day for few hours. She denies any fevers. Denies any nausea vomiting chest pain stomach pain or diarrhea. And he denied this when I talk to him. Was seen in the ED the other day and evaluated with a relatively unremarkable work-up other than a questionable new infiltrate and was sent home with some antibiotics. He went home early Saturday morning and seemed to do okay Saturday day and had a good conversation with family and friends but then at night becoming weaker and confused again. woke up this morning he was very somnolent and poorly responsive. Was told in the ED his oxygen saturations were in the mid 80s. In the ED he was evaluated and found to have a white blood cell count of 2417 the previous check in the ED. Lactate was mildly elevated 2.2. Renal function had worsened with a creatinine that jumped from baseline of 1.5 to 3.0. Procalcitonin elevated 4.21. CT chest done and awaiting official read but appears to have some infiltrates on the right versus scarring. He is afebrile while here. Mildly tachycardic in the 90s to low 100s. No Neck pain. This unremarkable. 07/19 No issues overnight. White blood cell count improving. Renal function improved. 07/20 No overnight events or new complaints. States his neck feels little sore but able to rotate left and right and flex without any issues. Leukocytosis resolved and renal function improved. Scheduled to undergo laparoscopic cholecystectomy today. 07/21-postop day 1. Started on clears per surgery. Abdominal pain improved. Restarted on home medication including antihypertensives. Systolics around 160s. White count 12.2. Afebrile. No additional concerns per nursing staff Constitutional Vitals: Vital Signs Temp Pulse Resp BP Pulse Ox 97.8 F 74 15 174/112 91 07/21/20 08:01 07/21/20 02:00 07/21/20 08:01 07/21/20 08:01 07/21/20 08:01 Period Temp Pulse Resp BP Sys/Petty Pulse Ox Last 24 Hr 95.9 F-98.6 F 74-93 - 123-174/76-114 88-100 Intake and Output 07/20/20 07/21/20 07/21/20 21:59 05:59 13:59 Intake Total 510 1410 290 Output Total 1015 750 Balance -505 660 290 Weight 92.578 kg Alert and oriented No anxiety No telemetry events Nonlabored breathing Intake & Output: Intake & Output 07/20/20 07/21/20 07/21/20 21:59 05:59 13:59 Intake Total 510 1410 290 Output Total 1015 750 Balance -505 660 290 Weight 92.578 kg Intake: IV 150 1050 50 Sodium Chloride 0.9% 1,000 ml @ 1000 100 mls/hr IV .Q10H MICHAEL Rx#: [id number] Zosyn 2.25 gm In Dextrose 5% in 50 50 50 Water 50 ml @ 100 mls/hr IV Q8H MICHAEL Rx#:[id number] Oral 360 360 240 Output: Urine Catheter Amount 1015 750 Other: Meal Breakfast Percent of Meal Consumed 75% Urine Appearance Clear Clear Uretheral (Ty) Clear Clear Urine Color Pale Pale Uretheral (Ty) Bright Yellow Bright Yellow Urine Odor Normal Exam: General: somnolent, No acute Distress Eyes/N/T: EOMI, Head/Neck: neck supple no tenderness, CV: RRR, 1/6 SM Pulm: diminished b/l, no wheezing/rhonchi/rales Abd: soft, mild TTP RUQ, +BS x4 Ext: no clubbing/cyanosis/edema Neuro: no focal deficits, follows commands,moves all extremities, Skin: warm/dry OBJ DATA Labs CBC & Chem 7: 07/21/20 04:35 07/21/20 04:35 Labs: Abnormal Lab Results 07/21/20 07/21/20 07/20/20 04:35 04:35 14:39 WBC 12.4 H RBC 4.39 L Hgb 11.5 L Hct 37.1 L RDW 19.2 H MPV 10.7 H Gran % 87.4 H Lymph % (Auto) 7.6 L Gran # 10.79 H Lymph # (Auto) 0.94 L Seg Neutrophils % Lymphocytes % RBC Morphology Anisocytosis VBG Lactic Acid Carbon Dioxide 20 L Anion Gap 18.0 H BUN 28 H 35 H Creatinine 1.5 H 1.7 H POC Creatinine Glucose 179 H 206 H Calcium Phosphorus 2.5 L AST 47 H Total Protein Albumin 2.7 L 3.0 L Globulin 3.8 H Albumin/Globulin Ratio 0.8 L 0.8 L Urine Protein Urine Glucose (UA) Urine Occult Blood Urine RBC 07/20/20 07/20/20 07/19/20 04:32 04:32 04:45 WBC RBC 3.98 L Hgb 10.6 L Hct 33.4 L RDW 19.9 H MPV 10.9 H Gran % Lymph % (Auto) Gran # Lymph # (Auto) Seg Neutrophils % Lymphocytes % RBC Morphology Anisocytosis VBG Lactic Acid Carbon Dioxide Anion Gap BUN 39 H 49 H Creatinine 1.7 H 2.4 H POC Creatinine Glucose Calcium Phosphorus AST 38 H Total Protein 5.8 L Albumin 2.7 L Globulin Albumin/Globulin Ratio 0.9 L Urine Protein Urine Glucose (UA) Urine Occult Blood Urine RBC 07/19/20 07/18/20 07/18/20 04:45 09:58 09:30 WBC 14.9 H RBC 4.07 L Hgb 10.8 L Hct 33.6 L RDW 19.7 H MPV 11.3 H Gran % 84.0 H Lymph % (Auto) 10.1 L Gran # 12.54 H Lymph # (Auto) Seg Neutrophils % Lymphocytes % RBC Morphology Anisocytosis VBG Lactic Acid Carbon Dioxide Anion Gap BUN Creatinine POC Creatinine 3.1 H Glucose Calcium Phosphorus AST Total Protein Albumin Globulin Albumin/Globulin Ratio Urine Protein 30 A Urine Glucose (UA) 150 A Urine Occult Blood >=1.0 A Urine RBC 124 H 07/18/20 07/18/20 07/18/20 09:20 09:20 09:19 WBC 24.1 H RBC Hgb 12.7 L Hct 39.0 L RDW 19.3 H MPV 11.1 H Gran % Lymph % (Auto) Gran # Lymph # (Auto) Seg Neutrophils % 84 H Lymphocytes % 9 L RBC Morphology Abnorm A Anisocytosis 2+ A VBG Lactic Acid 2.2 H Carbon Dioxide Anion Gap 17.0 H BUN 43 H Creatinine 3.0 H POC Creatinine Glucose 188 H Calcium 10.5 H Phosphorus AST Total Protein Albumin Globulin Albumin/Globulin Ratio 0.9 L Urine Protein Urine Glucose (UA) Urine Occult Blood Urine RBC Meds: Medications Acetaminophen (Tylenol) 650 mg PO Q6HP PRN; Protocol PRN Reason: Per Pain Protocol/Fever > 101 Last Admin: 07/21/20 03:59 Dose: 650 mg Documented by: Albuterol/Ipratropium (Duoneb) 3 ml NEB Q4HRT PRN PRN Reason: dyspnea Amlodipine Besylate (Norvasc) 10 mg PO DAILY [facility] Clonazepam (Klonopin) 0.5 mg PO HS [facility] Clonidine HCl (Catapres) 0.1 mg PO QHS [facility] Last Admin: 07/20/20 20:09 Dose: 0.1 mg Documented by: Dextrose (Dextrose 50%) 0 ml IV UD PRN PRN Reason: Hypoglycemia Diagnostic Test (Pha) (Accu-Chek) 1 each FS ACHS [facility] Last Admin: 07/21/20 07:36 Dose: 1 each Documented by: Docusate Sodium (Colace) 100 mg PO BID [facility] Last Admin: 07/20/20 20:09 Dose: 100 mg Documented by: Glucose (Insta-Glucose) 15 gm PO PRN PRN PRN Reason: Hypoglycemia Hydrochlorothiazide (Oretic) 25 mg PO DAILY [facility] Sodium Chloride (Sodium Chloride 0.9%) 1,000 mls @ 100 mls/hr IV .Q10H [facility] Last Admin: 07/21/20 02:40 Dose: 100 mls/hr Documented by: Magnesium Sulfate (Magnesium Sulfate) 2 gm in 50 mls @ 50 mls/hr IV UD PRN PRN Reason: Magnesium </= 1.6 Piperacillin Sod/Tazobactam (Sod 2.25 gm/ Dextrose) 50 mls @ 100 mls/hr IV Q8H [facility]; Protocol Last Infusion: 07/21/20 06:00 Dose: Infused Documented by: Potassium Chloride 40 meq/ (Dextrose) 520 mls @ 130 mls/hr IV UD PRN PRN Reason: Potassium < 3 Insulin Human Lispro (Humalog) 0 unit SQ ACHS [facility]; Protocol Last Admin: 07/21/20 08:16 Dose: 2 units Documented by: Lactulose (Cephulac) 20 gm PO DAILYP PRN PRN Reason: Constipation Lisinopril (Zestril) 20 mg PO DAILY [facility] Magnesium Oxide (Magnesium Oxide) 400 mg PO BID [facility] Last Admin: 07/20/20 20:09 Dose: 400 mg Documented by: Memantine (Namenda) 10 mg PO BID [facility] Last Admin: 07/20/20 20:09 Dose: 10 mg Documented by: Ondansetron HCl (Zofran) 4 mg IV Q4HP PRN PRN Reason: Nausea And Vomiting Liraglutide [Victoza (2-Tung] 0.6 Mg) 1 dose SC DAILY [facility] Polyethylene Glycol (Miralax) 17 gm PO DAILYP PRN PRN Reason: Constipation Potassium Chloride (Kdur) 20 meq PO QAMCC [facility] Last Admin: 07/21/20 08:17 Dose: 20 meq Documented by: Potassium Chloride (Kdur) 40 meq PO UD PRN PRN Reason: Potssium is 3-3.5 Potassium Chloride (Kdur) 40 meq PO UD PRN PRN Reason: Potassium < 3 Quetiapine Fumarate (Seroquel) 100 mg PO HS [facility] Last Admin: 07/20/20 20:09 Dose: 100 mg Documented by: Senna (Senokot) 2 tab PO HSP PRN PRN Reason: Constipation Last Admin: 07/20/20 20:09 Dose: 2 tab Documented by: Sertraline HCl (Zoloft) 50 mg PO BID [facility] Last Admin: 07/20/20 20:09 Dose: 50 mg Documented by: Sodium Chloride (Saline Flush) 10 ml IV Q8 [facility] Last Admin: 07/21/20 05:30 Dose: 10 ml Documented by: Tamsulosin HCl (Flomax) 0.4 mg PO DAILY [facility] Thiamine HCl (Vitamin B1) 100 mg PO DAILY [facility] Vitamin D (Vitamin D3) 5,000 unit PO DAILY [facility] A/P Assessment and plan (1) Sepsis: Status: Acute Qualifiers: Sepsis acute organ dysfunction status: with acute organ dysfunction Sepsis type: sepsis due to unspecified organism Severe sepsis acute organ dysfunction type: encephalopathy Severe sepsis shock status: without septic shock Qualified Code(s): A41.9 - Sepsis, unspecified organism; R65.20 - Severe sepsis without septic shock; G93.40 - Encephalopathy, unspecified (2) Acute on chronic renal failure: Status: Acute Qualifiers: Acute renal failure type: unspecified Chronic kidney disease stage: stage 3 (moderate) Qualified Code(s): N17.9 - Acute kidney failure, unspecified; N18.3 - Chronic kidney disease, stage 3 (moderate) (3) Diabetes mellitus, type 2: Status: Acute Qualifiers: 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 Improved. On antibiotic coverage. Status post cholecystectomy. *acute cholecystitis: Status post cholecystectomy. Postop care management per surgery. *Acute hypoxic respiratory failure, mild: 2/2 significant atelectasi-resolved. Kovic negative *SHAMA on CKD IIIb: Follows with Dr. Herron, sepsis endorgan dysfunction,improved with IVF *AMS (somnolence) superimposed on underlying Dementia: Resolved with improvement in sepsis. Neuroimaging unremarkable. *Dementia: Follows with Dr. Garcia -on moriah christiansen *Depression: Continue SSRI *DM: Continue sliding-scale insulin/CC diet *HTN: Restart home medications Plan -Continue antibiotics -O2 supp, wean, IS/Acapella -Restart antihypertensives -SSI, CC diet -pt/ot -CM for placement needs -ppx: heparin DNR Time Spent With Patient Time: Total time spent is greater than 50% in coordination of care (as documented) at patient's floor/unit and/or counseling patient:
[2020-07-21] MEDS: SERTRALINE 50 MG TABLET PO SCH ×2 (09:54→20:52)
[2020-07-21] MEDS: TAMSULOSIN 0.4 MG CAPSULE PO SCH (09:54)
[2020-07-21] MEDS: THIAMINE 100 MG TABLET PO SCH (09:54)
[2020-07-21] MEDS: MAGNESIUM OXIDE 400 MG TABLET PO SCH ×2 (09:54→20:52)
[2020-07-21] MEDS: DOCUSATE SODIUM 100 MG CAPSULE PO SCH ×2 (09:54→20:53)
[2020-07-21] MEDS ORDERED: FLU VACC QS2020-21(6MOS UP)/PF 60 MCG/0.5 ML SYRINGE IM ONE (10:00)
[2020-07-21] MEDS: LISINOPRIL 20 MG TABLET PO SCH (10:18)
[2020-07-21] MEDS: HYDROCHLOROTHIAZIDE 25 MG TABLET PO SCH (10:18)
[2020-07-21] MEDS: VITAMIN D3 5,000 UNIT CAPSULE PO SCH (10:18)
[2020-07-21] MEDS: MEMANTINE 10 MG TABLET PO SCH ×2 (10:18→20:52)
[2020-07-21] MEDS: amLODIPine 10 MG TABLET PO SCH (10:19)
[2020-07-21] MEDS: ACETAMINOPHEN 650 MG/65 ML BOTTLE IV PRN ×2 (10:44→21:06)
--- NOTE | 2020-07-21 13:03 | Surgical Pathology Report ---
HISTOLOGY SPECIMEN MICROSCOPIC DIAGNOSIS GALLBLADDER, CHOLECYSTECTOMY: -- ACUTE NECROTIZING CHOLECYSTITIS WITH CHOLELITHIASIS. (RLF:sln) PROCEDURAL IMPRESSION Acute cholecystitis due to biliary calculus. GROSS DESCRIPTION Received in formalin designated gallbladder, is a purle-nevarez disrupted gallbladder and an additional purple-mulligan fragment. The gallbladder measures 9 x 4.8 x 3 cm with a 1.8 cm staple line; this is inked black. Present in the container and specimen are a few small crystalline mulligan stones ranging in diameter from less than 0.1 to 0.7 cm. The mucosa is dusky nevarez-mulligan and necrotic. The wall ranges in thickness from 0.2-0.6 cm with up to 0.8 cm of attached mulligan fat. The additional fragment measures 1.5 x 1.5 x 1.3 cm. Bruise Trimmer sections submitted in two cassettes. (SCB:sln) Electronically Signed by: Irena Valdez M.D.
[2020-07-21 15:53] LABS: Bilirubin,Direct < 0.2 mg/dL (0.0-0.3); Chloride 100 mmol/L (96-108)
[2020-07-21 15:54] LABS: ALT/SGPT 21 U/l (0-40); AST/SGOT 30 U/l (0-37); Albumin 2.8 gm/dL (3.2-5.2); Albumin/Globulin Ratio 0.8 (1.0-2.3); Alkaline Phosphatase 77 U/L (39-117); Bilirubin,Total 0.4 mg/dL (0.0-1.0); Blood Urea Nitrogen 24 mg/dl (8-23); Calcium 8.8 mg/dl (8.6-10.4); Carbon Dioxide 24 mmol/L (22-30); Globulin 3.3 gm/dL (2.2-3.7); Glomerular Filtration Rate 48; Glucose 203 mg/dL (70-105); Lactate Dehydrogenase 215 U/L (94-250); Phosphorous 1.4 mg/dL (2.7-4.5); Triglycerides 121 mg/dl (<150); Uric Acid 4.4 mg/dL (2.5-8.0)
[2020-07-21] MEDS: MAGNESIUM SULFATE 2 GM/50 ML BAG IV PRN (16:55)
[2020-07-21] MEDS ORDERED: POTASSIUM PHOSPHATE 40 MEQ in DEXTROSE 5% IN WATER 500 ML IV ONE ×2 (17:00→21:00)
--- NOTE | 2020-07-21 17:29 | General Surgery Progress Note ---
SUBJECTIVE Subjective Patient information: Note initiated : 07/21/20 at 5:29 pm Service Date, if different from initiated Date: [] Patient: Kassidy Anthony 79 y/o M admitted on 07/18/20 for altered mental status, dementia. Chief Complaint: [] Principal diagnosis: acute necrotizing cholecystitis Interval history: patient is gradually improving. He is alert and is able to converse appropriately. He is afebrile. He is tolerating diet without difficulty. Abdominal drain is still bloody but is much thinner than on yesterday. White blood count 12.4, hemoglobin 11.5, hematocrit 37.1, potassium 3.8, BUN 28, creatinine 1.5, phosphorus 2.5, magnesium 1.7. Constitutional Vitals: Vital Signs Temp Pulse Resp BP Pulse Ox 98.5 F 97 H 18 158/100 93 07/21/20 16:16 07/21/20 14:00 07/21/20 16:16 07/21/20 16:16 07/21/20 16:16 Period Temp Pulse Resp BP Sys/Petty Pulse Ox Last 24 Hr 95.9 F-99.2 F 74-97 13-22 103-174/81-118 90-100 Intake and Output 07/21/20 07/21/20 07/21/20 05:59 13:59 21:59 Intake Total 1410 1755 50 Output Total 750 660 945 Balance 660 1095 -895 Intake & Output: Intake & Output 07/21/20 07/21/20 07/21/20 05:59 13:59 21:59 Intake Total 1410 1755 50 Output Total 750 660 945 Balance 660 1095 -895 Intake: IV 1050 1115 50 Sodium Chloride 0.9% 1,000 ml @ 1000 1000 100 mls/hr IV .Q10H MICHAEL Rx#: [id number] Zosyn 2.25 gm In Dextrose 5% in 50 50 50 Water 50 ml @ 100 mls/hr IV Q8H MICHAEL Rx#:[id number] Oral 360 640 Output: Drainage 160 45 Lower Abdomen 160 45 Urine Catheter Amount 750 500 900 Other: Meal Lunch Percent of Meal Consumed 75% Feeding Ability Assist with Tray Set Up Urine Appearance Clear Clear Clear Uretheral (Ty) Clear Clear Clear Urine Color Pale Pale Pale Uretheral (Ty) Bright Yellow Bright Yellow Bright Yellow Urine Odor Normal Normal Uretheral (Ty) Normal Normal Stool Size Copious Copious Stool Color Brown Brown Stool Consistency Formed Loose Loose # Bowel Movements 1 1 # of times incontinent of 0 Bowels Head Head exam: Present atraumatic, normal inspection and normocephalic Eye Eye exam: Present EOMI and normal appearance Pupils: Present PERRL ENT ENT exam: Present mucous membranes moist and normal exam Neck Neck exam: Present full ROM; Absent lymphadenopathy and tenderness Respiratory Respiratory exam: Present CTAB and rales (bibasilar rales); Absent rhonchi and wheezes Cardiovascular Cardiovascular exam: Present normal rate and rhythm, RRR, +S1 and +S2; Absent JVD GI/Abdominal GI/Abdominal exam: Present soft, distended and tenderness (epigastric and right upper quadrant tenderness) Extremities Exam Extremities exam: Present full ROM and normal inspection; Absent pedal edema and tenderness Neurological Exam Neurological exam: Present alert and CN II-XII intact; Absent motor sensory deficit Psychiatric Psychiatric exam: Present anxious and flat affect Additional comments: patient is more alert and aware. He is able to answer some questions appropriately. Skin Skin exam: Present intact and normal color; Absent rash and urticaria A/P Assessment and plan (1) Acute gangrenous cholecystitis: Status: Acute (2) Sepsis: Status: Acute Qualifiers: Sepsis acute organ dysfunction status: with acute organ dysfunction Sepsis type: sepsis due to unspecified organism Severe sepsis acute organ dysfunction type: encephalopathy Severe sepsis shock status: without septic shock Qualified Code(s): A41.9 - Sepsis, unspecified organism; R65.20 - Severe sepsis without septic shock; G93.40 - Encephalopathy, unspecified (3) Acute on chronic renal failure: Status: Acute Qualifiers: Acute renal failure type: unspecified Chronic kidney disease stage: stage 3 (moderate) Qualified Code(s): N17.9 - Acute kidney failure, unspecified; N18.3 - Chronic kidney disease, stage 3 (moderate) (4) Diabetes mellitus, type 2: Status: Acute Qualifiers: Diabetes mellitus skilled nursing 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 His sepsis syndrome is controlled. Renal status is much improved urinary output is increasing. He'll need phosphorus and magnesium replacement. Time Spent With Patient Time: Total time spent is greater than 50% in coordination of care (as documented) at patient's floor/unit and/or counseling patient:
[2020-07-21] MEDS: clonazePAM 0.5 MG TABLET PO SCH (20:52)
[2020-07-21] MEDS: QUEtiapine 100 MG TABLET PO SCH (20:52)
[2020-07-21] MEDS: cloNIDine HCL 0.1 MG TABLET PO SCH (20:53)
[2020-07-22 06:02] LABS: Basophils # (Auto) 0.02 K/mcL (0.00-0.30); Basophils % (Auto) 0.2 % (0.0-2.0); Eosinophils # (Auto) 0.23 K/mcL (0.00-0.70); Eosinophils % (Auto) 2.1 % (0.0-7.0); Granulocytes % (Auto) 73.3 % (38.0-78.0); Hematocrit 32.6 % (40.1-51.0); Hemoglobin 10.6 g/dL (13.7-17.5); Lymphocytes # (Auto) 1.92 K/mcL (1.50-4.80); Lymphocytes % (Auto) 17.2 % (15.5-49.0); Mean Cell Volume 80.5 fL (80.0-100.0); Mean Corpuscular HGB Conc 32.5 g/dL (31.0-36.0); Mean Platelet Volume 10.2 fL (7.4-10.4); Monocytes # (Auto) 0.81 K/mcL (0.10-0.90); Monocytes % (Auto) 7.2 % (1.0-12.0); Platelet Count 301 K/mcL (140-440); RBC 4.05 M/mcL (4.63-6.08); Red Cell Distribution Width 18.6 % (11.5-14.5); WBC 11.2 K/mcL (4.50-11.00)
[2020-07-22] MEDS: PIPERACILLIN SODIUM/TAZOBACTAM 2.25 GM in DEXTROSE 5% IN WATER 50 ML IV SCH ×3 (06:14→23:09)
[2020-07-22] MEDS: 0.9 % SODIUM CHLORIDE 10 ML SYRINGE IV SCH ×3 (06:15→23:10)
[2020-07-22 06:30] LABS: ALT/SGPT 18 U/l (0-40); AST/SGOT 21 U/l (0-37); Albumin 2.5 gm/dL (3.2-5.2); Albumin/Globulin Ratio 0.8 (1.0-2.3); Alkaline Phosphatase 74 U/L (39-117); Bilirubin,Direct < 0.2 mg/dL (0.0-0.3); Bilirubin,Total 0.4 mg/dL (0.0-1.0); Calcium 8.5 mg/dl (8.6-10.4); Carbon Dioxide 25 mmol/L (22-30); Chloride 101 mmol/L (96-108); Glomerular Filtration Rate 53; Glucose 151 mg/dL (70-105); Lactate Dehydrogenase 164 U/L (94-250); Triglycerides 94 mg/dl (<150)
[2020-07-22 06:31] LABS: Blood Urea Nitrogen 18 mg/dl (8-23); Phosphorous 3.4 mg/dL (2.7-4.5)
[2020-07-22] MEDS ORDERED: HYDROCHLOROTHIAZIDE 25 MG TABLET PO SCH (09:00)
[2020-07-22] MEDS ORDERED: LISINOPRIL 20 MG TABLET PO SCH (09:00)
[2020-07-22] MEDS ORDERED: amLODIPine 10 MG TABLET PO SCH (09:00)
[2020-07-22] MEDS: INSULIN LISPRO 1 UNIT/0.01 ML UNIT SQ SCH ×4 (09:03→20:27)
[2020-07-22] MEDS: VITAMIN D3 5,000 UNIT CAPSULE PO SCH (09:04)
[2020-07-22] MEDS: MEMANTINE 10 MG TABLET PO SCH ×2 (09:04→20:28)
[2020-07-22] MEDS: amLODIPine 10 MG TABLET PO SCH (09:04)
[2020-07-22] MEDS: SERTRALINE 50 MG TABLET PO SCH ×2 (09:04→20:28)
[2020-07-22] MEDS: MAGNESIUM OXIDE 400 MG TABLET PO SCH ×2 (09:04→20:27)
[2020-07-22] MEDS: POTASSIUM CHLORIDE 10 MEQ TABLET PO SCH (09:05)
[2020-07-22] MEDS: LISINOPRIL 20 MG TABLET PO SCH (09:05)
[2020-07-22] MEDS: THIAMINE 100 MG TABLET PO SCH (09:05)
[2020-07-22] MEDS: HYDROCHLOROTHIAZIDE 25 MG TABLET PO SCH (09:05)
[2020-07-22] MEDS: TAMSULOSIN 0.4 MG CAPSULE PO SCH (09:05)
[2020-07-22] MEDS: MAGNESIUM SULFATE 2 GM/50 ML BAG IV PRN (09:06)
[2020-07-22] MEDS: DOCUSATE SODIUM 100 MG CAPSULE PO SCH ×2 (09:06→20:28)
--- NOTE | 2020-07-22 09:21 | Internal Med Progress Note ---
SUBJECTIVE Subjective Patient information: Note initiated : 07/22/20 at 9:17 am Service Date, if different from initiated Date: [] Patient: Kassidy Anthony 79 y/o M admitted on 07/18/20 for altered mental status, dementia. Chief Complaint: [] Principal diagnosis: upper abdominal pain with sepsis Interval history: History of present illness: Mr. Anthony is a 79 year old M Most history is obtained from the as patient is quite somnolent and has underlying dementia. Her about 3 days ago started becoming weaker and more confused than usual. He really has not had any other complaints. She says he did complain of some back pain but that is the only thing he really planed of. He has a occasional cough but nothing really of any significance per the . She did say he looks more labored when he was walking the other day for few hours. She denies any fevers. Denies any nausea vomiting chest pain stomach pain or diarrhea. And he denied this when I talk to him. Was seen in the ED the other day and evaluated with a relatively unremarkable work-up other than a questionable new infiltrate and was sent home with some antibiotics. He went home early Saturday morning and seemed to do okay Saturday day and had a good conversation with family and friends but then at night becoming weaker and confused again. woke up this morning he was very somnolent and poorly responsive. Was told in the ED his oxygen saturations were in the mid 80s. In the ED he was evaluated and found to have a white blood cell count of 2417 the previous check in the ED. Lactate was mildly elevated 2.2. Renal function had worsened with a creatinine that jumped from baseline of 1.5 to 3.0. Procalcitonin elevated 4.21. CT chest done and awaiting official read but appears to have some infiltrates on the right versus scarring. He is afebrile while here. Mildly tachycardic in the 90s to low 100s. No Neck pain. This unremarkable. 07/19 No issues overnight. White blood cell count improving. Renal function improved. 07/20 No overnight events or new complaints. States his neck feels little sore but able to rotate left and right and flex without any issues. Leukocytosis resolved and renal function improved. Scheduled to undergo laparoscopic cholecystectomy today. 07/21-postop day 1. Started on clears per surgery. Abdominal pain improved. Restarted on home medication including antihypertensives. Systolics around 160s. White count 12.2. Afebrile. No additional concerns per nursing staff 07/22-patient doing a lot better. Diuresing well. Ty is draining clear urine. Alert oriented. Denies abdominal discomfort. Minimal tachycardia on exertion. EKG reviewed from admission. No significant changes. On diet advancement per surgery. White count down to 11.2. Creatinine back at baseline at 1.3. Stable hemodynamics. Constitutional Vitals: Vital Signs Temp Pulse Resp BP Pulse Ox 98.6 F 97 H 30 H 153/108 94 07/22/20 08:01 07/21/20 14:00 07/22/20 08:01 07/22/20 08:01 07/22/20 08:01 Period Temp Pulse Resp BP Sys/Petty Pulse Ox Last 24 Hr 97.2 F-99.2 F 97 15-30 103-177/90-118 93-96 Intake and Output 07/21/20 07/22/20 07/22/20 21:59 05:59 13:59 Intake Total 1372.0909 50 240 Output Total 2205 1530 Balance -832.9091 -1480 240 Weight 93.621 kg alert oriented nonlabored breathing Telemetry tachycardia Ty is draining clear urine Intake & Output: Intake & Output 07/21/20 07/22/20 07/22/20 21:59 05:59 13:59 Intake Total 1372.0909 50 240 Output Total 2205 1530 Balance -832.9091 -1480 240 Weight 93.621 kg Intake: IV 1012.0909 50 Sodium Chloride 0.9% 1,000 ml @ 338 100 mls/hr IV .Q10H MICHAEL Rx#: [id number] Zosyn 2.25 gm In Dextrose 5% in 50 50 Water 50 ml @ 100 mls/hr IV Q8H MICHA[facility] Rx#:[id number] Potassium Phosphate 40 Meq In 509.0909 Dextrose 5% in Water 500 ml @ 127.273 mls/hr IV ONCE ONE Rx#: [id number] Oral 360 240 Output: Drainage 90 Lower Abdomen 90 Urine Catheter Amount 2112 1180 Void Amount 350 Other: Meal Dinner Percent of Meal Consumed 100% Feeding Ability Assist with Tray Set Up Urine Appearance Clear Clear Uretheral (Ty) Clear Clear Urine Color Pale Pale Uretheral (Ty) Bright Yellow Pale Urine Odor Normal Normal Uretheral (Ty) Normal Stool Size Copious Stool Color Brown Stool Consistency Loose # Bowel Movements 1 Exam: General: somnolent, No acute Distress Eyes/N/T: EOMI, Head/Neck: neck supple no tenderness, CV: RRR, 1/6 SM Pulm: diminished b/l, no wheezing/rhonchi/rales Abd: soft, mild TTP RUQ, +BS x4 Ext: no clubbing/cyanosis/edema Neuro: no focal deficits, follows commands,moves all extremities, Skin: warm/dry OBJ DATA Labs CBC & Chem 7: 07/22/20 04:58 07/22/20 04:58 Labs: Abnormal Lab Results 07/22/20 07/22/20 07/21/20 04:58 04:58 14:20 WBC 11.2 H RBC 4.05 L Hgb 10.6 L Hct 32.6 L RDW 18.6 H MPV Gran % Lymph % (Auto) Gran # 8.21 H Lymph # (Auto) Carbon Dioxide Anion Gap BUN 24 H Creatinine 1.3 H 1.4 H Glucose 151 H 203 H Calcium 8.5 L Phosphorus 1.4 L Magnesium 1.5 L AST Total Protein 5.5 L Albumin 2.5 L 2.8 L Globulin Albumin/Globulin Ratio 0.8 L 0.8 L 07/21/20 07/21/20 07/20/20 04:35 04:35 14:39 WBC 12.4 H RBC 4.39 L Hgb 11.5 L Hct 37.1 L RDW 19.2 H MPV 10.7 H Gran % 87.4 H Lymph % (Auto) 7.6 L Gran # 10.79 H Lymph # (Auto) 0.94 L Carbon Dioxide 20 L Anion Gap 18.0 H BUN 28 H 35 H Creatinine 1.5 H 1.7 H Glucose 179 H 206 H Calcium Phosphorus 2.5 L Magnesium AST 47 H Total Protein Albumin 2.7 L 3.0 L Globulin 3.8 H Albumin/Globulin Ratio 0.8 L 0.8 L 07/20/20 07/20/20 04:32 04:32 WBC RBC 3.98 L Hgb 10.6 L Hct 33.4 L RDW 19.9 H MPV 10.9 H Gran % Lymph % (Auto) Gran # Lymph # (Auto) Carbon Dioxide Anion Gap BUN 39 H Creatinine 1.7 H Glucose Calcium Phosphorus Magnesium AST Total Protein Albumin Globulin Albumin/Globulin Ratio Meds: Medications Acetaminophen (Tylenol) 650 mg PO Q6HP PRN; Protocol PRN Reason: Per Pain Protocol/Fever > 101 Last Admin: 07/21/20 03:59 Dose: 650 mg Documented by: Albuterol/Ipratropium (Duoneb) 3 ml NEB Q4HRT PRN PRN Reason: dyspnea Amlodipine Besylate (Norvasc) 10 mg PO DAILY [facility] Last Admin: 07/22/20 09:04 Dose: 10 mg Documented by: Clonazepam (Klonopin) 0.5 mg PO HS [facility] Last Admin: 07/21/20 20:52 Dose: 0.5 mg Documented by: Clonidine HCl (Catapres) 0.1 mg PO QHS [facility] Last Admin: 07/21/20 20:53 Dose: 0.1 mg Documented by: Dextrose (Dextrose 50%) 0 ml IV UD PRN PRN Reason: Hypoglycemia Diagnostic Test (Pha) (Accu-Chek) 1 each FS ACHS [facility] Last Admin: 07/22/20 08:15 Dose: 1 each Documented by: Docusate Sodium (Colace) 100 mg PO BID [facility] Last Admin: 07/22/20 09:06 Dose: Not Given Documented by: Glucose (Insta-Glucose) 15 gm PO PRN PRN PRN Reason: Hypoglycemia Heparin Sodium (Porcine) (Heparin) 5,000 unit SQ Q12 [facility] Hydrochlorothiazide (Oretic) 25 mg PO DAILY [facility] Last Admin: 07/22/20 09:05 Dose: 25 mg Documented by: Magnesium Sulfate (Magnesium Sulfate) 2 gm in 50 mls @ 50 mls/hr IV UD PRN PRN Reason: Magnesium </= 1.6 Last Admin: 07/22/20 09:06 Dose: 50 mls/hr Documented by: Piperacillin Sod/Tazobactam (Sod 2.25 gm/ Dextrose) 50 mls @ 100 mls/hr IV Q8H [facility]; Protocol Last Admin: 07/22/20 06:14 Dose: 100 mls/hr Documented by: Potassium Chloride 40 meq/ (Dextrose) 520 mls @ 130 mls/hr IV UD PRN PRN Reason: Potassium < 3 Acetaminophen (Ofirmev) 650 mg in 65 mls @ 130 mls/hr IV Q6HP PRN; Protocol PRN Reason: PAIN/FEVER > 101 Last Infusion: 07/21/20 21:47 Dose: Infused Documented by: Insulin Human Lispro (Humalog) 0 unit SQ ACHS [facility]; Protocol Last Admin: 07/22/20 09:03 Dose: 2 units Documented by: Lactulose (Cephulac) 20 gm PO DAILYP PRN PRN Reason: Constipation Lisinopril (Zestril) 20 mg PO DAILY [facility] Last Admin: 07/22/20 09:05 Dose: 20 mg Documented by: Magnesium Oxide (Magnesium Oxide) 400 mg PO BID [facility] Last Admin: 07/22/20 09:04 Dose: 400 mg Documented by: Memantine (Namenda) 10 mg PO BID [facility] Last Admin: 07/22/20 09:04 Dose: 10 mg Documented by: Ondansetron HCl (Zofran) 4 mg IV Q4HP PRN PRN Reason: Nausea And Vomiting Liraglutide [Victoza (2-Tung] 0.6 Mg) 1 dose SC DAILY [facility] Polyethylene Glycol (Miralax) 17 gm PO DAILYP PRN PRN Reason: Constipation Last Admin: 07/21/20 10:23 Dose: 17 gm Documented by: Potassium Chloride (Kdur) 20 meq PO QAMCC [facility] Last Admin: 07/22/20 09:05 Dose: 20 meq Documented by: Potassium Chloride (Kdur) 40 meq PO UD PRN PRN Reason: Potssium is 3-3.5 Potassium Chloride (Kdur) 40 meq PO UD PRN PRN Reason: Potassium < 3 Quetiapine Fumarate (Seroquel) 100 mg PO HS [facility] Last Admin: 07/21/20 20:52 Dose: 100 mg Documented by: Senna (Senokot) 2 tab PO HSP PRN PRN Reason: Constipation Last Admin: 07/20/20 20:09 Dose: 2 tab Documented by: Sertraline HCl (Zoloft) 50 mg PO BID [facility] Last Admin: 07/22/20 09:04 Dose: 50 mg Documented by: Sodium Chloride (Saline Flush) 10 ml IV Q8 [facility] Last Admin: 07/22/20 06:15 Dose: 10 ml Documented by: Tamsulosin HCl (Flomax) 0.4 mg PO DAILY [facility] Last Admin: 07/22/20 09:05 Dose: 0.4 mg Documented by: Thiamine HCl (Vitamin B1) 100 mg PO DAILY [facility] Last Admin: 07/22/20 09:05 Dose: 100 mg Documented by: Vitamin D (Vitamin D3) 5,000 unit PO DAILY [facility] Last Admin: 07/22/20 09:04 Dose: 5,000 unit Documented by: A/P Assessment and plan (1) Sepsis: Status: Acute Qualifiers: Sepsis acute organ dysfunction status: with acute organ dysfunction Sepsis type: sepsis due to unspecified organism Severe sepsis acute organ dysfunction type: encephalopathy Severe sepsis shock status: without septic shock Qualified Code(s): A41.9 - Sepsis, unspecified organism; R65.20 - Severe sepsis without septic shock; G93.40 - Encephalopathy, unspecified (2) Acute on chronic renal failure: Status: Acute Qualifiers: Acute renal failure type: unspecified Chronic kidney disease stage: stage 3 (moderate) Qualified Code(s): N17.9 - Acute kidney failure, unspecified; N18.3 - Chronic kidney disease, stage 3 (moderate) (3) Diabetes mellitus, type 2: Status: Acute Qualifiers: Diabetes mellitus half-way insulin use: without half-way use Chronic kidney disease stage: stage 3 (moderate) (4) Hypertension, essential: Status: Acute (5) Dementia: Status: Acute Qualifiers: Dementia type: vascular dementia Dementia behavioral disturbance: without behavioral disturbance Qualified Code(s): F01.50 - Vascular dementia without behavioral disturbance (6) Acute cholecystitis due to biliary calculus: Status: Acute Narrative A/P Narrative: *Sepsis: 2/2 cholecystitis. Clinically resolved with normalization of white count. Continuing antibiotic coverage. Status post cholecystectomy postop day 2. *acute cholecystitis: Postop day 2. Ongoing management per surgery. Diet advancement per surgery. *Acute hypoxic respiratory failure-clinically resolved now on room air. COVID- 19 negative *SHAMA on CKD IIIb:sepsis endorgan dysfunction,improved with IVF. Creatinine back at baseline 1.3. Follows with Dr. Herron as outpatient. *AMS (somnolence) superimposed on underlying Dementia: Resolved now at baseline *Dementia: Follows with Dr. Garcia -on moriah christiansen *Depression: Continue SSRI *DM: Continue sliding-scale insulin/CC diet *HTN: Restart home medications Plan -Continue antibiotics -O2 supp, wean, IS/Acapella -Prior medical condition management and home meds -SSI, CC diet -pt/ot -Discharge planning per case management -ppx: heparin DNR Time Spent With Patient Time: Total time spent is greater than 50% in coordination of care (as documented) at patient's floor/unit and/or counseling patient:
[2020-07-22] MEDS: Liraglutide [Victoza 2-Pak] 0.6 MG SC SCH (09:25)
[2020-07-22] MEDS: HEPARIN 5,000 UNIT/ML VIAL SQ SCH ×2 (13:05→20:27)
--- NOTE | 2020-07-22 13:05 | General Surgery Progress Note ---
SUBJECTIVE Subjective Patient information: Note initiated : 07/22/20 at 1:01 pm Service Date, if different from initiated Date: [] Patient: Kassidy Anthony 79 y/o M admitted on 07/18/20 for altered mental status, dementia. Chief Complaint: [] Principal diagnosis: acute necrotizing cholecystitis Interval history: patient is stabilized. His sepsis has resolved. He is alert and answers questions appropriately. White blood count 11.2, hemoglobin 10.6, hematocrit 32.6, BUN 18, creatinine 1.3, potassium 3.6. Constitutional Vitals: Vital Signs Temp Pulse Resp BP Pulse Ox 99.0 F 97 H 21 138/114 94 07/22/20 12:32 07/21/20 14:00 07/22/20 12:32 07/22/20 12:01 07/22/20 08:01 Period Temp Pulse Resp BP Sys/Petty Pulse Ox Last 24 Hr 97.2 F-99.2 F 97 15-30 128-177/90-118 93-96 Intake and Output 07/21/20 07/22/20 07/22/20 21:59 05:59 13:59 Intake Total 1372.0909 50 530 Output Total 2205 1530 450 Balance -832.9091 -1480 80 Weight 206 lb 6.4 oz Intake & Output: Intake & Output 07/21/20 07/22/20 07/22/20 21:59 05:59 13:59 Intake Total 1372.0909 50 530 Output Total 2205 1530 450 Balance -832.9091 -1480 80 Weight 206 lb 6.4 oz Intake: IV 1012.0909 50 50 Sodium Chloride 0.9% 1,000 ml @ 338 100 mls/hr IV .Q10H MICHAEL Rx#: [id number] Zosyn 2.25 gm In Dextrose 5% in 50 50 50 Water 50 ml @ 100 mls/hr IV Q8H MICHAEL Rx#:[id number] Potassium Phosphate 40 Meq In 509.0909 Dextrose 5% in Water 500 ml @ 127.273 mls/hr IV ONCE ONE Rx#: [id number] Oral 360 480 Output: Drainage 90 Lower Abdomen 90 Urine Catheter Amount 2115 1180 450 Void Amount 350 Other: Meal Dinner Lunch Percent of Meal Consumed 100% 50% Feeding Ability Assist with Tray Set Up Assist with Tray Set Up Urine Appearance Clear Clear Clear Uretheral (Ty) Clear Clear Urine Color Pale Pale Pale Uretheral (Ty) Bright Yellow Pale Urine Odor Normal Normal Uretheral (Ty) Normal Stool Size Copious Large Stool Color Brown Brown Stool Consistency Loose Liquid # Bowel Movements 1 Head Head exam: Present atraumatic, normal inspection and normocephalic Eye Eye exam: Present EOMI and normal appearance Pupils: Present PERRL ENT ENT exam: Present mucous membranes moist and normal exam Neck Neck exam: Present full ROM; Absent lymphadenopathy and tenderness Respiratory Respiratory exam: Present CTAB and rales (bibasilar rales); Absent rhonchi and wheezes Cardiovascular Cardiovascular exam: Present normal rate and rhythm, RRR, +S1 and +S2; Absent JVD GI/Abdominal GI/Abdominal exam: Present soft, distended and tenderness (epigastric and right upper quadrant tenderness) Additional comments: CECIL drainage remains serosanguineous but in decreased volumes Extremities Exam Extremities exam: Present full ROM and normal inspection; Absent pedal edema and tenderness Neurological Exam Neurological exam: Present alert and CN II-XII intact; Absent motor sensory deficit Psychiatric Psychiatric exam: Present anxious and flat affect Additional comments: patient is more alert and aware. He is able to answer some questions appropriately. Skin Skin exam: Present intact and normal color; Absent rash and urticaria A/P Assessment and plan (1) Acute gangrenous cholecystitis: Status: Acute (2) Sepsis: Status: Acute Qualifiers: Sepsis acute organ dysfunction status: with acute organ dysfunction Sepsis type: sepsis due to unspecified organism Severe sepsis acute organ dysfunction type: encephalopathy Severe sepsis shock status: without septic shock Qualified Code(s): A41.9 - Sepsis, unspecified organism; R65.20 - Severe sepsis without septic shock; G93.40 - Encephalopathy, unspecified (3) Acute on chronic renal failure: Status: Acute Qualifiers: Acute renal failure type: unspecified Chronic kidney disease stage: stage 3 (moderate) Qualified Code(s): N17.9 - Acute kidney failure, unspecified; N18.3 - Chronic kidney disease, stage 3 (moderate) (4) Diabetes mellitus, type 2: Status: Acute Qualifiers: 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 He is stable for transfer to half-way facility tomorrow. His CECIL drain and rosalina are to remain in place. He can be followed up with me in the office in 2 weeks. Time Spent With Patient Time: Total time spent is greater than 50% in coordination of care (as documented) at patient's floor/unit and/or counseling patient:
--- NOTE | 2020-07-22 13:06 | Discharge Plan ---
Discharge Plan Patient/Caregiver Discharge Instructions Prescriptions: No Action clonidine HCl 0.1 MG tablet 0.1 mg PO QHS RF: 0 potassium chloride 10 MEQ tablet 20 meq PO QAMCC RF: 0 quetiapine 100 MG tablet 100 mg PO HS RF: 0 tamsulosin 0.4 MG capsule 0.4 mg PO DAILY RF: 0 hydrochlorothiazide 25 MG tablet 25 mg PO DAILY RF: 0 metformin 750 MG tablet extended release 24 hr 750 mg PO QAMCC RF: 0 metformin 750 MG tablet extended release 24 hr 1,500 mg PO QPMCC RF: 0 memantine 10 MG tablet 10 mg PO BID RF: 0 cholecalciferol (vitamin D3) 1,000 UNIT tablet 125 mcg PO DAILY RF: 0 thiamine HCl (vitamin B1) 100 MG tablet 100 mg PO DAILY Qty: 100 RF: 0 amlodipine-benazepril 1 EACH capsule 1 cap PO DAILY RF: 0 clonazepam 0.5 mg Tablet 0.5 mg PO QHS RF: 0 sertraline 50 mg Tablet 50 mg PO BID RF: 0 Victoza 2-Tung 0.6 mg/0.1 mL (18 mg/3 mL) Pen Injector 0.6 mg SUBCUT QDAY RF: 0 aspirin [Imelda Chewable Aspirin] 81 mg Tablet,Chewable 81 mg PO QDAY RF: 0 magnesium 200 mg Tablet 400 mg PO BID RF: 0 Follow Up Plan Follow up with: Suzie Duncan ARNP [Primary Care Provider] - Dutch Cannon MD [Physician] - (follow-up with me in the office in 2 weeks; staff to contact the office to confirm appointment date and time before d ischarge to nursing care facility) Prognosis: Critical
[2020-07-22] MEDS: ACETAMINOPHEN 325 MG TABLET PO PRN (15:04)
[2020-07-22] MEDS: QUEtiapine 100 MG TABLET PO SCH (20:27)
[2020-07-22] MEDS: cloNIDine HCL 0.1 MG TABLET PO SCH (20:28)
[2020-07-22] MEDS: clonazePAM 0.5 MG TABLET PO SCH (20:28)
[2020-07-23] MEDS: PIPERACILLIN SODIUM/TAZOBACTAM 2.25 GM in DEXTROSE 5% IN WATER 50 ML IV SCH (05:38)
[2020-07-23] MEDS: 0.9 % SODIUM CHLORIDE 10 ML SYRINGE IV SCH ×3 (05:38→20:32)
[2020-07-23 06:49] LABS: Basophils # (Auto) 0.06 K/mcL (0.00-0.30); Basophils % (Auto) 0.6 % (0.0-2.0); Eosinophils # (Auto) 0.33 K/mcL (0.00-0.70); Eosinophils % (Auto) 3.3 % (0.0-7.0); Granulocytes % (Auto) 63.7 % (38.0-78.0); Hematocrit 33.5 % (40.1-51.0); Hemoglobin 10.8 g/dL (13.7-17.5); Lymphocytes % (Auto) 24.6 % (15.5-49.0); Mean Cell Volume 81.5 fL (80.0-100.0); Mean Corpuscular HGB Conc 32.2 g/dL (31.0-36.0); Mean Platelet Volume 10.5 fL (7.4-10.4); Monocytes # (Auto) 0.79 K/mcL (0.10-0.90); Monocytes % (Auto) 7.8 % (1.0-12.0); Platelet Count 325 K/mcL (140-440); RBC 4.11 M/mcL (4.63-6.08); Red Cell Distribution Width 18.9 % (11.5-14.5); WBC 10.2 K/mcL (4.50-11.00)
[2020-07-23 07:06] LABS: ALT/SGPT 20 U/l (0-40); AST/SGOT 22 U/l (0-37); Albumin 2.7 gm/dL (3.2-5.2); Albumin/Globulin Ratio 0.9 (1.0-2.3); Alkaline Phosphatase 76 U/L (39-117); Bilirubin,Direct < 0.2 mg/dL (0.0-0.3); Bilirubin,Total 0.3 mg/dL (0.0-1.0); Blood Urea Nitrogen 19 mg/dl (8-23); Calcium 9.3 mg/dl (8.6-10.4); Carbon Dioxide 27 mmol/L (22-30); Chloride 100 mmol/L (96-108); Globulin 3.1 gm/dL (2.2-3.7); Glomerular Filtration Rate 58; Glucose 136 mg/dL (70-105); Lactate Dehydrogenase 168 U/L (94-250); Phosphorous 3.3 mg/dL (2.7-4.5); Triglycerides 120 mg/dl (<150); Uric Acid 4.8 mg/dL (2.5-8.0)
[2020-07-23] MEDS: INSULIN LISPRO 1 UNIT/0.01 ML UNIT SQ SCH ×4 (08:58→20:29)
[2020-07-23] MEDS: HEPARIN 5,000 UNIT/ML VIAL SQ SCH ×2 (09:26→20:30)
[2020-07-23] MEDS: amLODIPine 10 MG TABLET PO SCH (09:27)
[2020-07-23] MEDS: MEMANTINE 10 MG TABLET PO SCH ×2 (09:27→20:31)
[2020-07-23] MEDS: LISINOPRIL 20 MG TABLET PO SCH (09:27)
[2020-07-23] MEDS: VITAMIN D3 5,000 UNIT CAPSULE PO SCH (09:27)
[2020-07-23] MEDS: POTASSIUM CHLORIDE 10 MEQ TABLET PO SCH (09:27)
[2020-07-23] MEDS: SERTRALINE 50 MG TABLET PO SCH ×2 (09:27→20:31)
[2020-07-23] MEDS: HYDROCHLOROTHIAZIDE 25 MG TABLET PO SCH (09:28)
[2020-07-23] MEDS: TAMSULOSIN 0.4 MG CAPSULE PO SCH (09:28)
[2020-07-23] MEDS: MAGNESIUM OXIDE 400 MG TABLET PO SCH ×2 (09:28→20:31)
[2020-07-23] MEDS: Liraglutide [Victoza 2-Pak] 0.6 MG SC SCH (09:28)
[2020-07-23] MEDS: THIAMINE 100 MG TABLET PO SCH (09:28)
[2020-07-23] MEDS: DOCUSATE SODIUM 100 MG CAPSULE PO SCH ×2 (09:28→20:31)
[2020-07-23] MEDS: ACETAMINOPHEN 325 MG TABLET PO PRN (09:30)
--- NOTE | 2020-07-23 11:11 | General Surgery Progress Note ---
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 He is slowly recovering with resolution of his septic physiology and now normalization of WBC. Has source control. no evidence of bile leak. Plan: Agree with reg carb diet I have stopped his pip/tax and transitioned to Amox/Clav today is day 3/7 of abx. (stop 07/27) OK to d/c to SNF per hospitalist team. Will keep rosalina until outpt appt Plan to remove abdominal surgical drain upon discharge Pilo Rojas MD - Trauma/General Surgery Coverage for Dr Cannon Principal diagnosis: acute necrotizing cholecystitis Constitutional Vitals: Vital Signs Temp Pulse Resp BP Pulse Ox 37.1 C 97 H 15 145/114 93 07/23/20 08:01 07/21/20 14:00 07/23/20 08:01 07/23/20 08:01 07/23/20 04:01 Period Temp Pulse Resp BP Sys/Petty Pulse Ox Last 24 Hr 36.5 C-37.2 C 15-21 126-159/87-114 93-97 Intake and Output 07/22/20 07/23/20 07/23/20 21:59 05:59 13:59 Intake Total 50 50 770 Output Total 560 490 450 Balance -510 -440 320 Weight 90.809 kg Intake & Output: Intake & Output 07/22/20 07/23/20 07/23/20 21:59 05:59 13:59 Intake Total 50 50 770 Output Total 560 490 450 Balance -510 -440 320 Weight 90.809 kg Intake: Nourishment/Supplement quantity 240 (ml) IV 50 50 50 Zosyn 2.25 gm In Dextrose 5% in 50 50 50 Water 50 ml @ 100 mls/hr IV Q8H [facility] Rx#:[id number] Oral 480 Output: Drainage 85 Lower Abdomen 85 Urine Catheter Amount 475 490 450 Other: Meal Breakfast Percent of Meal Consumed 25% Feeding Ability Assist with Tray Set Up Urine Appearance Clear Clear Urine Color Pale Bright Yellow Pale A/P Time Spent With Patient Time: Total time spent is greater than 50% in coordination of care (as documented) at patient's floor/unit and/or counseling patient:
--- NOTE | 2020-07-23 11:14 | Internal Med Progress Note ---
SUBJECTIVE Subjective Patient information: Note initiated : 07/23/20 at 11:11 am Service Date, if different from initiated Date: [] Patient: Kassidy Anthony 79 y/o M admitted on 07/18/20 for altered mental status, dementia. Chief Complaint: [] Mr. Anthony is a 79 year old M Most history is obtained from the as patient is quite somnolent and has underlying dementia. Her about 3 days ago started becoming weaker and more confused than usual. He really has not had any other complaints. She says he did complain of some back pain but that is the only thing he really planed of. He has a occasional cough but nothing really of any significance per the . She did say he looks more labored when he was walking the other day for few hours. She denies any fevers. Denies any nausea vomiting chest pain stomach pain or diarrhea. And he denied this when I talk to him. Was seen in the ED the other day and evaluated with a relatively unremarkable work-up other than a questionable new infiltrate and was sent home with some antibiotics. He went home early Saturday morning and seemed to do okay Saturday and had a good conversation with family and friends but then at night becoming weaker and confused again. woke up this morning he was very somnolent and poorly responsive. Was told in the ED his oxygen saturations were in the mid 80s. In the ED he was evaluated and found to have a white blood cell count of 2417 the previous check in the ED. Lactate was mildly elevated 2.2. Renal function had worsened with a creatinine that jumped from baseline of 1.5 to 3.0. Procalcitonin elevated 4.21. CT chest done and awaiting official read but appears to have some infiltrates on the right versus scarring. He is afebrile while here. Mildly tachycardic in the 90s to low 100s. No Neck pain. This unremarkable. 07/19 No issues overnight. White blood cell count improving. Renal function improved. 07/20 No overnight events or new complaints. States his neck feels little sore but able to rotate left and right and flex without any issues. Leukocytosis resolved and renal function improved. Scheduled to undergo laparoscopic cholecystectomy today. 07/21-postop day 1. Started on clears per surgery. Abdominal pain improved. Restarted on home medication including antihypertensives. Systolics around 160s. White count 12.2. Afebrile. No additional concerns per nursing staff 07/22-patient doing a lot better. Diuresing well. Ty is draining clear urine. Alert oriented. Denies abdominal discomfort. Minimal tachycardia on exertion. EKG reviewed from admission. No significant changes. On diet advancement per surgery. White count down to 11.2. Creatinine back at baseline at 1.3. Stable hemodynamics. 07/23-patient doing well. No overnight events. Discussed with surgery. Antibiotics changed to Augmentin. CECIL drain will be removed per surgeon. On diet advancement per surgery. Will likely discharge to SNF on Saturday. No overnight fever chills. Principal diagnosis: acute necrotizing cholecystitis Constitutional Vitals: Vital Signs Temp Pulse Resp BP Pulse Ox 98.8 F 97 H 15 145/114 93 07/23/20 08:01 07/21/20 14:00 07/23/20 08:01 07/23/20 08:01 07/23/20 04:01 Period Temp Pulse Resp BP Sys/Petty Pulse Ox Last 24 Hr 97.7 F-99.0 F 15- 126-159/87-114 93-97 Intake and Output 07/22/20 07/23/20 07/23/20 21:59 05:59 13:59 Intake Total 50 50 770 Output Total 560 490 450 Balance -510 -440 320 Weight 90.809 kg alert oriented Nonlabored breathing No anxiety Nondistended abdomen CECIL drain minimal output Intake & Output: Intake & Output 07/22/20 07/23/20 07/23/20 21:59 05:59 13:59 Intake Total 50 50 770 Output Total 560 490 450 Balance -510 -440 320 Weight 90.809 kg Intake: Nourishment/Supplement quantity 240 (ml) IV 50 50 50 Zosyn 2.25 gm In Dextrose 5% in 50 50 50 Water 50 ml @ 100 mls/hr IV Q8H [facility] Rx#:[id number] Oral 480 Output: Drainage 85 Lower Abdomen 85 Urine Catheter Amount 475 490 450 Other: Meal Breakfast Percent of Meal Consumed 25% Feeding Ability Assist with Tray Set Up Urine Appearance Clear Clear Urine Color Pale Bright Yellow Pale OBJ DATA Labs CBC & Chem 7: 07/23/20 05:15 07/23/20 04:26 Labs: Abnormal Lab Results 07/23/20 07/23/20 07/22/20 05:15 04:26 04:58 WBC RBC 4.11 L Hgb 10.8 L Hct 33.5 L RDW 18.9 H MPV 10.5 H Gran % Lymph % (Auto) Gran # Lymph # (Auto) Carbon Dioxide Anion Gap BUN Creatinine 1.3 H Glucose 136 H 151 H Calcium 8.5 L Phosphorus Magnesium AST Total Protein 5.8 L 5.5 L Albumin 2.7 L 2.5 L Globulin Albumin/Globulin Ratio 0.9 L 0.8 L 07/22/20 07/21/20 07/21/20 04:58 14:20 04:35 WBC 11.2 H 12.4 H RBC 4.05 L 4.39 L Hgb 10.6 L 11.5 L Hct 32.6 L 37.1 L RDW 18.6 H 19.2 H MPV 10.7 H Gran % 87.4 H Lymph % (Auto) 7.6 L Gran # 8.21 H 10.79 H Lymph # (Auto) 0.94 L Carbon Dioxide Anion Gap BUN 24 H Creatinine 1.4 H Glucose 203 H Calcium Phosphorus 1.4 L Magnesium 1.5 L AST Total Protein Albumin 2.8 L Globulin Albumin/Globulin Ratio 0.8 L 07/21/20 07/20/20 04:35 14:39 WBC RBC Hgb Hct RDW MPV Gran % Lymph % (Auto) Gran # Lymph # (Auto) Carbon Dioxide 20 L Anion Gap 18.0 H BUN 28 H 35 H Creatinine 1.5 H 1.7 H Glucose 179 H 206 H Calcium Phosphorus 2.5 L Magnesium AST 47 H Total Protein Albumin 2.7 L 3.0 L Globulin 3.8 H Albumin/Globulin Ratio 0.8 L 0.8 L Meds: Medications Acetaminophen (Tylenol) 650 mg PO Q6HP PRN; Protocol PRN Reason: Per Pain Protocol/Fever > 101 Last Admin: 07/23/20 09:30 Dose: 650 mg Documented by: Albuterol/Ipratropium (Duoneb) 3 ml NEB Q4HRT PRN PRN Reason: dyspnea Amlodipine Besylate (Norvasc) 10 mg PO DAILY MICHAEL Last Admin: 07/23/20 09:27 Dose: 10 mg Documented by: Amoxicillin/Clavulanate Potassium (Augmentin) 875 mg PO BIDCC [facility]; Protocol Stop: 07/27/20 12:55 Clonazepam (Klonopin) 0.5 mg PO HS [facility] Last Admin: 07/22/20 20:28 Dose: 0.5 mg Documented by: Clonidine HCl (Catapres) 0.1 mg PO QHS [facility] Last Admin: 07/22/20 20:28 Dose: 0.1 mg Documented by: Dextrose (Dextrose 50%) 0 ml IV UD PRN PRN Reason: Hypoglycemia Diagnostic Test (Pha) (Accu-Chek) 1 each FS ACHS [facility] Last Admin: 07/23/20 08:30 Dose: 1 each Documented by: Docusate Sodium (Colace) 100 mg PO BID [facility] Last Admin: 07/23/20 09:28 Dose: Not Given Documented by: Glucose (Insta-Glucose) 15 gm PO PRN PRN PRN Reason: Hypoglycemia Heparin Sodium (Porcine) (Heparin) 5,000 unit SQ Q12 [facility] Last Admin: 07/23/20 09:26 Dose: 5,000 unit Documented by: Hydrochlorothiazide (Oretic) 25 mg PO DAILY [facility] Last Admin: 07/23/20 09:28 Dose: 25 mg Documented by: Magnesium Sulfate (Magnesium Sulfate) 2 gm in 50 mls @ 50 mls/hr IV UD PRN PRN Reason: Magnesium </= 1.6 Last Admin: 07/22/20 09:06 Dose: 50 mls/hr Documented by: Potassium Chloride 40 meq/ (Dextrose) 520 mls @ 130 mls/hr IV UD PRN PRN Reason: Potassium < 3 Acetaminophen (Ofirmev) 650 mg in 65 mls @ 130 mls/hr IV Q6HP PRN; Protocol PRN Reason: PAIN/FEVER > 101 Last Infusion: 07/21/20 21:47 Dose: Infused Documented by: Insulin Human Lispro (Humalog) 0 unit SQ [facility]; Protocol Last Admin: 07/23/20 08:58 Dose: Not Given Documented by: Lactulose (Cephulac) 20 gm PO DAILYP PRN PRN Reason: Constipation Lisinopril (Zestril) 20 mg PO DAILY [facility] Last Admin: 07/23/20 09:27 Dose: 20 mg Documented by: Magnesium Oxide (Magnesium Oxide) 400 mg PO BID [facility] Last Admin: 07/23/20 09:28 Dose: 400 mg Documented by: Memantine (Namenda) 10 mg PO BID [facility] Last Admin: 07/23/20 09:27 Dose: 10 mg Documented by: Ondansetron HCl (Zofran) 4 mg IV Q4HP PRN PRN Reason: Nausea And Vomiting Liraglutide [Victoza (2-Tung] 0.6 Mg) 1 dose SC DAILY [facility] Last Admin: 07/23/20 09:28 Dose: 1 dose Documented by: Polyethylene Glycol (Miralax) 17 gm PO DAILYP PRN PRN Reason: Constipation Last Admin: 07/21/20 10:23 Dose: 17 gm Documented by: Potassium Chloride (Kdur) 20 meq PO QAC [facility] Last Admin: 07/23/20 09:27 Dose: 20 meq Documented by: Potassium Chloride (Kdur) 40 meq PO UD PRN PRN Reason: Potssium is 3-3.5 Potassium Chloride (Kdur) 40 meq PO UD PRN PRN Reason: Potassium < 3 Quetiapine Fumarate (Seroquel) 100 mg PO HS [facility] Last Admin: 07/22/20 20:27 Dose: 100 mg Documented by: Senna (Senokot) 2 tab PO HSP PRN PRN Reason: Constipation Last Admin: 07/20/20 20:09 Dose: 2 tab Documented by: Sertraline HCl (Zoloft) 50 mg PO BID [facility] Last Admin: 07/23/20 09:27 Dose: 50 mg Documented by: Sodium Chloride (Saline Flush) 10 ml IV Q8 [facility] Last Admin: 07/23/20 05:38 Dose: 10 ml Documented by: Tamsulosin HCl (Flomax) 0.4 mg PO DAILY [facility] Last Admin: 07/23/20 09:28 Dose: 0.4 mg Documented by: Thiamine HCl (Vitamin B1) 100 mg PO DAILY [facility] Last Admin: 07/23/20 09:28 Dose: 100 mg Documented by: Vitamin D (Vitamin D3) 5,000 unit PO DAILY [facility] Last Admin: 07/23/20 09:27 Dose: 5,000 unit Documented by: A/P Narrative A/P Narrative: *Sepsis: 2/2 cholecystitis. Clinically resolved with normalization of white count. Continuing antibiotic coverage per surgery. Status post cholecystectomy postop day 3. Await SNF placement *Acute hypoxic respiratory failure-clinically resolved now on room air. COVID- 19 negative *SHAMA on CKD IIIb:sepsis endorgan dysfunction,improved with IVF. Creatinine back at baseline 1.3. Follows with Dr. Herron as outpatient. *AMS (somnolence) superimposed on underlying Dementia: Resolved now at baseline *Dementia: Follows with Dr. Garcia -on moriah christiansen *Depression: Continue SSRI *DM: Continue sliding-scale insulin/CC diet *HTN: Continue home medications Plan -Continue antibiotics per surgery -Prior medical condition management and home meds -SSI, CC diet -Anticipate SNF transfer Saturday -ppx: heparin DNR Time Spent With Patient Time: Total time spent is greater than 50% in coordination of care (as documented) at patient's floor/unit and/or counseling patient:
[2020-07-23] MEDS ORDERED: ACETAMINOPHEN 650 MG/65 ML BOTTLE IV PRN (12:04)
[2020-07-23] MEDS ORDERED: POTASSIUM CHLORIDE 20 MEQ TABLET PO PRN ×2 (12:04)
[2020-07-23] MEDS ORDERED: SENNOSIDES 1 TABLET PO PRN (12:04)
[2020-07-23] MEDS ORDERED: SUGAMMADEX SODIUM 200 MG/2 ML VIAL IV ONE (12:04)
[2020-07-23] MEDS ORDERED: ACETAMINOPHEN 325 MG TABLET PO PRN (12:04)
[2020-07-23] MEDS ORDERED: DEXTROSE 31 GM ORAL.SUSP PO PRN (12:04)
[2020-07-23] MEDS ORDERED: PROPOFOL 200 MG/20 ML VIAL IV ONE (12:04)
[2020-07-23] MEDS ORDERED: ONDANSETRON 4 MG/2 ML VIAL IV PRN (12:04)
[2020-07-23] MEDS ORDERED: ROCURONIUM 10 MG/ML ML IV ONE (12:04)
[2020-07-23] MEDS ORDERED: MAGNESIUM SULFATE 2 GM/50 ML BAG IV PRN (12:04)
[2020-07-23] MEDS ORDERED: MIDAZOLAM 2 MG/2 ML VIAL ONE (12:04)
[2020-07-23] MEDS ORDERED: LIDOCAINE HCL/PF 100 MG/5 ML SYRINGE IV ONE (12:04)
[2020-07-23] MEDS ORDERED: POTASSIUM CHLORIDE 40 MEQ in DEXTROSE 5% IN WATER 500 ML IV PRN (12:04)
[2020-07-23] MEDS ORDERED: LACTULOSE 20 GM/30 ML ORAL.SOL PO PRN (12:04)
[2020-07-23] MEDS ORDERED: IPRATROPIUM/ALBUTEROL 3 ML AMPUL.NEB NEB PRN (12:04)
[2020-07-23] MEDS ORDERED: DEXTROSE 50% 50 ML VIAL IV PRN (12:04)
[2020-07-23] MEDS ORDERED: POLYETHYLENE GLYCOL 3350 17 GM PACKET PO PRN (12:04)
[2020-07-23] MEDS ORDERED: DEXAMETHASONE 10 MG/ML VIAL ONE (12:04)
[2020-07-23] MEDS ORDERED: fentaNYL 100 MCG/2 ML VIAL IV ONE (12:04)
[2020-07-23] MEDS: AMOXICILLIN/POTASSIUM CLAV 875 MG TABLET PO SCH (17:17)
[2020-07-23] MEDS ORDERED: AMOXICILLIN/POTASSIUM CLAV 875 MG TABLET PO SCH (17:30)
[2020-07-23] MEDS: cloNIDine HCL 0.1 MG TABLET PO SCH (20:30)
[2020-07-23] MEDS: clonazePAM 0.5 MG TABLET PO SCH (20:31)
[2020-07-23] MEDS: QUEtiapine 100 MG TABLET PO SCH (20:32)
[2020-07-24] MEDS: 0.9 % SODIUM CHLORIDE 10 ML SYRINGE IV SCH ×4 (05:01→22:55)
[2020-07-24 05:44] LABS: Basophils # (Auto) 0.05 K/mcL (0.00-0.30); Basophils % (Auto) 0.5 % (0.0-2.0); Eosinophils # (Auto) 0.44 K/mcL (0.00-0.70); Granulocytes % (Auto) 63.8 % (38.0-78.0); Hematocrit 33.4 % (40.1-51.0); Hemoglobin 10.8 g/dL (13.7-17.5); Lymphocytes # (Auto) 2.74 K/mcL (1.50-4.80); Lymphocytes % (Auto) 25.1 % (15.5-49.0); Mean Cell Volume 81.3 fL (80.0-100.0); Mean Corpuscular HGB Conc 32.3 g/dL (31.0-36.0); Mean Platelet Volume 10.2 fL (7.4-10.4); Monocytes # (Auto) 0.72 K/mcL (0.10-0.90); Monocytes % (Auto) 6.6 % (1.0-12.0); Platelet Count 333 K/mcL (140-440); RBC 4.11 M/mcL (4.63-6.08); Red Cell Distribution Width 18.8 % (11.5-14.5); WBC 10.9 K/mcL (4.50-11.00)
[2020-07-24] MEDS: INSULIN LISPRO 1 UNIT/0.01 ML UNIT SQ SCH ×4 (07:38→19:24)
[2020-07-24] MEDS: HYDROCHLOROTHIAZIDE 25 MG TABLET PO SCH (09:15)
[2020-07-24] MEDS: POTASSIUM CHLORIDE 10 MEQ TABLET PO SCH (09:15)
[2020-07-24] MEDS: MEMANTINE 10 MG TABLET PO SCH ×2 (09:16→19:24)
[2020-07-24] MEDS: LISINOPRIL 20 MG TABLET PO SCH (09:16)
[2020-07-24] MEDS: SERTRALINE 50 MG TABLET PO SCH ×2 (09:16→19:25)
[2020-07-24] MEDS: amLODIPine 10 MG TABLET PO SCH (09:16)
[2020-07-24] MEDS: AMOXICILLIN/POTASSIUM CLAV 875 MG TABLET PO SCH ×2 (09:17→16:50)
[2020-07-24] MEDS: DOCUSATE SODIUM 100 MG CAPSULE PO SCH ×2 (09:17→19:25)
[2020-07-24] MEDS: THIAMINE 100 MG TABLET PO SCH (09:17)
[2020-07-24] MEDS: VITAMIN D3 5,000 UNIT CAPSULE PO SCH (09:17)
[2020-07-24] MEDS: HEPARIN 5,000 UNIT/ML VIAL SQ SCH ×2 (09:18→19:24)
[2020-07-24] MEDS: Liraglutide [Victoza 2-Pak] 0.6 MG SC SCH ×2 (09:22→12:11)
[2020-07-24] MEDS: TAMSULOSIN 0.4 MG CAPSULE PO SCH (09:23)
[2020-07-24] MEDS: MAGNESIUM OXIDE 400 MG TABLET PO SCH ×2 (09:24→19:25)
--- NOTE | 2020-07-24 10:50 | Internal Med Progress Note ---
SUBJECTIVE Subjective Patient information: Note initiated : 07/24/20 at 10:47 am Service Date, if different from initiated Date: [] Patient: Kassidy Anthony 79 y/o M admitted on 07/18/20 for altered mental status, dementia. Chief Complaint: [] Mr. Anthony is a 79 year old M Most history is obtained from the as patient is quite somnolent and has underlying dementia. Her about 3 days ago started becoming weaker and more confused than usual. He really has not had any other complaints. She says he did complain of some back pain but that is the only thing he really planed of. He has a occasional cough but nothing really of any significance per the . She did say he looks more labored when he was walking the other day for few hours. She denies any fevers. Denies any nausea vomiting chest pain stomach pain or diarrhea. And he denied this when I talk to him. Was seen in the ED the other day and evaluated with a relatively unremarkable work-up other than a questionable new infiltrate and was sent home with some antibiotics. He went home early Saturday morning and seemed to do okay Saturday and had a good conversation with family and friends but then at night becoming weaker and confused again. woke up this morning he was very somnolent and poorly responsive. Was told in the ED his oxygen saturations were in the mid 80s. In the ED he was evaluated and found to have a white blood cell count of 2417 the previous check in the ED. Lactate was mildly elevated 2.2. Renal function had worsened with a creatinine that jumped from baseline of 1.5 to 3.0. Procalcitonin elevated 4.21. CT chest done and awaiting official read but appears to have some infiltrates on the right versus scarring. He is afebrile while here. Mildly tachycardic in the 90s to low 100s. No Neck pain. This unremarkable. 07/19 No issues overnight. White blood cell count improving. Renal function improved. 07/20 No overnight events or new complaints. States his neck feels little sore but able to rotate left and right and flex without any issues. Leukocytosis resolved and renal function improved. Scheduled to undergo laparoscopic cholecystectomy today. 07/21-postop day 1. Started on clears per surgery. Abdominal pain improved. Restarted on home medication including antihypertensives. Systolics around 160s. White count 12.2. Afebrile. No additional concerns per nursing staff 07/22-patient doing a lot better. Diuresing well. Ty is draining clear urine. Alert oriented. Denies abdominal discomfort. Minimal tachycardia on exertion. EKG reviewed from admission. No significant changes. On diet advancement per surgery. White count down to 11.2. Creatinine back at baseline at 1.3. Stable hemodynamics. 07/23-patient doing well. No overnight events. Discussed with surgery. Antibiotics changed to Augmentin. CECIL drain will be removed per surgeon. On diet advancement per surgery. Will likely discharge to SNF on Saturday. No overnight fever chills. 07/24-patient doing well. Await transfer to SNF in 24 hours. No overnight fever chills. Creatinine 1.2 down from 3.1. On oral antibiotics per surgery. Tolerating diet and advancing as per surgery. Principal diagnosis: acute necrotizing cholecystitis Constitutional Vitals: Vital Signs Temp Pulse Resp BP Pulse Ox 98.7 F 91 H 18 147/94 91 07/24/20 07:40 07/24/20 07:40 07/24/20 07:40 07/24/20 07:40 07/24/20 07:40 Period Temp Pulse Resp BP Sys/Petty Pulse Ox Last 24 Hr 97.7 F-99.0 F 91-105 16-24 110-164/80-108 91-97 Intake and Output 07/23/20 07/24/20 07/24/20 21:59 05:59 13:59 Intake Total 300 100 460 Output Total 151 31 2 Balance 149 69 458 Weight 90.832 kg Alert oriented no anxiety Ty is discontinued Nonlabored breathing Intake & Output: Intake & Output 07/23/20 07/24/20 07/24/20 21:59 05:59 13:59 Intake Total 300 100 460 Output Total 151 31 2 Balance 149 69 458 Weight 90.832 kg Intake: Oral 300 100 460 Output: Drainage 50 Lower Abdomen 50 Drainage 30 Lower Abdomen 30 Void Amount 100 # of times incontinent of urine 1 1 2 Other: Meal Dinner Breakfast Percent of Meal Consumed 100% 100% Feeding Ability Assist with Tray Set Up Independent Urine Appearance Clear Urine Color Light Rupa Urine Odor Normal Exam: General: somnolent, No acute Distress Eyes/N/T: EOMI, Head/Neck: neck supple no tenderness, CV: RRR, 1/6 SM Pulm: diminished b/l, no wheezing/rhonchi/rales Abd: soft, mild TTP RUQ, +BS x4 Ext: no clubbing/cyanosis/edema Neuro: no focal deficits, follows commands,moves all extremities, Skin: warm/dry OBJ DATA Labs CBC & Chem 7: 07/24/20 04:31 07/23/20 04:26 Labs: Abnormal Lab Results 07/24/20 07/23/20 07/23/20 04:31 05:15 04:26 WBC RBC 4.11 L 4.11 L Hgb 10.8 L 10.8 L Hct 33.4 L 33.5 L RDW 18.8 H 18.9 H MPV 10.5 H Gran # BUN Creatinine Glucose 136 H Calcium Phosphorus Magnesium Total Protein 5.8 L Albumin 2.7 L Albumin/Globulin Ratio 0.9 L 07/22/20 07/22/20 07/21/20 04:58 04:58 14:20 WBC 11.2 H RBC 4.05 L Hgb 10.6 L Hct 32.6 L RDW 18.6 H MPV Gran # 8.21 H BUN 24 H Creatinine 1.3 H 1.4 H Glucose 151 H 203 H Calcium 8.5 L Phosphorus 1.4 L Magnesium 1.5 L Total Protein 5.5 L Albumin 2.5 L 2.8 L Albumin/Globulin Ratio 0.8 L 0.8 L Meds: Medications Acetaminophen (Tylenol) 650 mg PO Q6HP PRN; Protocol PRN Reason: Per Pain Protocol/Fever > 101 Albuterol/Ipratropium (Duoneb) 3 ml NEB Q4HRT PRN PRN Reason: dyspnea Amlodipine Besylate (Norvasc) 10 mg PO DAILY [facility] Last Admin: 07/24/20 09:16 Dose: 10 mg Documented by: Amoxicillin/[facility]; Protocol Stop: 07/27/20 12:55 Last Admin: 07/24/20 09:17 Dose: 875 mg Documented by: Clonazepam (Klonopin) 0.5 mg PO [facility] Last Admin: 07/23/20 20:31 Dose: 0.5 mg Documented by: Clonidine HCl (Catapres) 0.1 mg PO QHS [facility] Last Admin: 07/23/20 20:30 Dose: 0.1 mg Documented by: Dextrose (Dextrose 50%) 0 ml IV UD PRN PRN Reason: Hypoglycemia Diagnostic Test (Pha) (Accu-Chek) 1 each FS ACHS [facility] Last Admin: 07/24/20 07:37 Dose: 1 each Documented by: Docusate Sodium (Colace) 100 mg PO BID [facility] Last Admin: 07/24/20 09:17 Dose: 100 mg Documented by: Glucose (Insta-Glucose) 15 gm PO PRN PRN PRN Reason: Hypoglycemia Heparin Sodium (Porcine) (Heparin) 5,000 unit SQ Q12 [facility] Last Admin: 07/24/20 09:18 Dose: 5,000 unit Documented by: Hydrochlorothiazide (Oretic) 25 mg PO DAILY [facility] Last Admin: 07/24/20 09:15 Dose: 25 mg Documented by: Acetaminophen (Ofirmev) 650 mg in 65 mls @ 130 mls/hr IV Q6HP PRN; Protocol PRN Reason: PAIN/FEVER > 101 Magnesium Sulfate (Magnesium Sulfate) 2 gm in 50 mls @ 50 mls/hr IV UD PRN PRN Reason: Magnesium </= 1.6 Potassium Chloride 40 meq/ (Dextrose) 520 mls @ 130 mls/hr IV UD PRN PRN Reason: Potassium < 3 Insulin Human Lispro (Humalog) 0 unit SQ ACHS [facility]; Protocol Last Admin: 07/24/20 07:38 Dose: Not Given Documented by: Lactulose (Cephulac) 20 gm PO DAILYP PRN PRN Reason: Constipation Lisinopril (Zestril) 20 mg PO DAILY [facility] Last Admin: 07/24/20 09:16 Dose: 20 mg Documented by: Magnesium Oxide (Magnesium Oxide) 400 mg PO BID [facility] Last Admin: 07/24/20 09:24 Dose: 400 mg Documented by: Memantine (Namenda) 10 mg PO BID [facility] Last Admin: 07/24/20 09:16 Dose: 10 mg Documented by: Ondansetron HCl (Zofran) 4 mg IV Q4HP PRN PRN Reason: Nausea And Vomiting Liraglutide [Victoza (2-Tung] 0.6 Mg) 1 dose SC DAILY [facility] Last Admin: 07/24/20 09:22 Dose: Not Given Documented by: Polyethylene Glycol (Miralax) 17 gm PO DAILYP PRN PRN Reason: Constipation Potassium Chloride (Kdur) 20 meq PO QAMCC [facility] Last Admin: 07/24/20 09:15 Dose: 20 meq Documented by: Potassium Chloride (Kdur) 40 meq PO UD PRN PRN Reason: Potssium is 3-3.5 Potassium Chloride (Kdur) 40 meq PO UD PRN PRN Reason: Potassium < 3 Quetiapine Fumarate (Seroquel) 100 mg PO HS [facility] Last Admin: 07/23/20 20:32 Dose: 100 mg Documented by: Senna (Senokot) 2 tab PO HSP PRN PRN Reason: Constipation Sertraline HCl (Zoloft) 50 mg PO BID [facility] Last Admin: 07/24/20 09:16 Dose: 50 mg Documented by: Sodium Chloride (Saline Flush) 10 ml IV Q8 [facility] Last Admin: 07/24/20 05:01 Dose: 10 ml Documented by: Tamsulosin HCl (Flomax) 0.4 mg PO DAILY [facility] Last Admin: 07/24/20 09:23 Dose: 0.4 mg Documented by: Thiamine HCl (Vitamin B1) 100 mg PO DAILY [facility] Last Admin: 07/24/20 09:17 Dose: 100 mg Documented by: Vitamin D (Vitamin D3) 5,000 unit PO DAILY [facility] Last Admin: 07/24/20 09:17 Dose: 5,000 unit Documented by: A/P Assessment and plan (1) Acute gangrenous cholecystitis: Status: Acute (2) Sepsis: Status: Acute Qualifiers: Sepsis acute organ dysfunction status: with acute organ dysfunction Sepsis type: sepsis due to unspecified organism Severe sepsis acute organ dysfunction type: encephalopathy Severe sepsis shock status: without septic shock Qualified Code(s): A41.9 - Sepsis, unspecified organism; R65.20 - Severe sepsis without septic shock; G93.40 - Encephalopathy, unspecified (3) Acute on chronic renal failure: Status: Acute Qualifiers: Acute renal failure type: unspecified Chronic kidney disease stage: stage 3 (moderate) Qualified Code(s): N17.9 - Acute kidney failure, unspecified; N18.3 - Chronic kidney disease, stage 3 (moderate) (4) Diabetes mellitus, type 2: Status: Acute Qualifiers: Diabetes mellitus chcf insulin use: without chcf use Chronic kidney disease stage: stage 3 (moderate) (5) Hypertension, essential: Status: Acute Narrative A/P Narrative: * *Sepsis: 2/2 cholecystitis. Clinically resolved with normalization of white count. Continuing oral antibiotic coverage per surgery. Status post cholecystectomy postop day 4. Await SNF placement * *Acute hypoxic respiratory failure-clinically resolved now on room air. COVID-19 negative * *SHAMA on CKD IIIb:sepsis endorgan dysfunction,improved with IVF. Creatinine back at baseline 1.3. Follows with Dr. Herron as outpatient. * *AMS (somnolence) superimposed on underlying Dementia: Resolved now at baseline * *Dementia: Follows with Dr. Garcia -on moriah christiansen * *Depression: Continue SSRI * *DM: Continue sliding-scale insulin/CC diet * *HTN: Continue home medications Plan -Anticipate SNF transfer in 24 hours -Prior medical condition management and home meds -Diet/antibiotics per surgery -Prophylaxis heparin DNR Time Spent With Patient Time: Total time spent is greater than 50% in coordination of care (as documented) at patient's floor/unit and/or counseling patient:
--- NOTE | 2020-07-24 15:33 | General Surgery Progress Note ---
SUBJECTIVE Subjective Patient information: Note initiated : 07/24/20 at 3:29 pm Service Date, if different from initiated Date: [] Patient: Kassidy Anthony 79 y/o M admitted on 07/18/20 for altered mental status, dementia. Chief Complaint: post op S: pt feeling well denies abdomial pain O: VSs abd soft nontender nondistended - drain with minimal non bilious serosang output WBC remains nml A/P 79 yo man POD4 s/p difficult lap chylecystectomy for gangrenous cholecysitis with sepsis. he continues to recover Plans for dispo to SNF tomorrow morning Plan: Agree with SNF discharge Now on Amox/Clav day 4/7 of abx. (stop 07/27) I have removed his abdominal drain Follow up in General surgery clinic in about 2 weeks General surgery will sign off - please call for any questions Pilo Rojas MD - Trauma/General Surgery Coverage for Dr Cannon Principal diagnosis: acute necrotizing cholecystitis Constitutional Vitals: Vital Signs Temp Pulse Resp BP Pulse Ox 36.6 C 96 H 18 151/92 94 07/24/20 12:00 07/24/20 12:00 07/24/20 12:00 07/24/20 12:00 07/24/20 12:00 Period Temp Pulse Resp BP Sys/Petty Pulse Ox Last 24 Hr 36.5 C-37.2 C 91-105 16-24 110-151/80-97 91-97 Intake and Output 07/24/20 07/24/20 07/24/20 05:59 13:59 21:59 Intake Total 100 700 100 Output Total 31 2 Balance 69 698 100 Intake & Output: Intake & Output 07/24/20 07/24/20 07/24/20 05:59 13:59 21:59 Intake Total 100 700 100 Output Total 31 2 Balance 69 698 100 Intake: Oral 100 700 100 Output: Drainage 30 Lower Abdomen 30 # of times incontinent of urine 1 2 Other: Meal Lunch Percent of Meal Consumed 75% Feeding Ability Independent Stool Size Moderate Stool Color Brown Stool Consistency Soft # Voids 1 # Bowel Movements 1 A/P Time Spent With Patient Time: Total time spent is greater than 50% in coordination of care (as documented) at patient's floor/unit and/or counseling patient:
[2020-07-24] MEDS: cloNIDine HCL 0.1 MG TABLET PO SCH (19:24)
[2020-07-24] MEDS: clonazePAM 0.5 MG TABLET PO SCH (19:25)
[2020-07-24] MEDS: QUEtiapine 100 MG TABLET PO SCH (19:25)
[2020-07-25] MEDS: 0.9 % SODIUM CHLORIDE 10 ML SYRINGE IV SCH (05:58)
[2020-07-25] MEDS: INSULIN LISPRO 1 UNIT/0.01 ML UNIT SQ SCH ×2 (07:46→12:16)
[2020-07-25] MEDS: AMOXICILLIN/POTASSIUM CLAV 875 MG TABLET PO SCH (08:36)
[2020-07-25] MEDS: VITAMIN D3 5,000 UNIT CAPSULE PO SCH (08:36)
[2020-07-25] MEDS: amLODIPine 10 MG TABLET PO SCH (08:37)
[2020-07-25] MEDS: MEMANTINE 10 MG TABLET PO SCH (08:37)
[2020-07-25] MEDS: SERTRALINE 50 MG TABLET PO SCH (08:38)
[2020-07-25] MEDS: LISINOPRIL 20 MG TABLET PO SCH (08:38)
[2020-07-25] MEDS: HYDROCHLOROTHIAZIDE 25 MG TABLET PO SCH (08:39)
[2020-07-25] MEDS: TAMSULOSIN 0.4 MG CAPSULE PO SCH (08:40)
[2020-07-25] MEDS: MAGNESIUM OXIDE 400 MG TABLET PO SCH (08:40)
[2020-07-25] MEDS: POTASSIUM CHLORIDE 10 MEQ TABLET PO SCH (08:41)
[2020-07-25] MEDS: DOCUSATE SODIUM 100 MG CAPSULE PO SCH (08:44)
[2020-07-25] MEDS: HEPARIN 5,000 UNIT/ML VIAL SQ SCH (08:45)
[2020-07-25] MEDS: THIAMINE 100 MG TABLET PO SCH (08:45)
--- NOTE | 2020-07-25 09:06 | Discharge Summary ---
Discharge Provider Provider Patient information: Note initiated : 07/25/20 at 9:03 am Service Date, if different from initiated Date: [] Patient: Kassidy Anthony 79 y/o M admitted on 07/18/20 for altered mental status, dementia. Chief Complaint: [] Discharge diagnosis *Sepsis: 2/2 cholecystitis. Clinically resolved. Continue oral Augmentin through 07/27 per surgery. Transferring to SNF *Acute cholecystitis postop day 5. Managed per surgery. Follow-up with surgery in 2 weeks *Acute hypoxic respiratory failure-clinically resolved now on room air. COVID- 19 negative *SHAMA on CKD IIIb:sepsis endorgan dysfunction,improved with IVF. Creatinine back at baseline 1.3. Follows with Dr. Herron as outpatient. *AMS (somnolence) superimposed on underlying Dementia: Resolved now at baseline *Dementia: Follows with Dr. Garcia -on moriah christiansen *Depression: Continue SSRI *DM: Continue sliding-scale insulin/CC diet *HTN: Continue home medications Brief hospital course Most history is obtained from the as patient is quite somnolent and has underlying dementia. Her about 3 days ago started becoming weaker and more confused than usual. He really has not had any other complaints. She says he did complain of some back pain but that is the only thing he really planed of. He has a occasional cough but nothing really of any significance per the . She did say he looks more labored when he was walking the other day for few hours. She denies any fevers. Denies any nausea vomiting chest pain stomach pain or diarrhea. And he denied this when I talk to him. Was seen in the ED the other day and evaluated with a relatively unremarkable work-up other than a questionable new infiltrate and was sent home with some antibiotics. He went home early Saturday morning and seemed to do okay Saturday day and had a good conversation with family and friends but then at night becoming weaker and confused again. woke up this morning he was very somnolent and poorly responsive. Was told in the ED his oxygen saturations were in the mid 80s. In the ED he was evaluated and found to have a white blood cell count of 2417 the previous check in the ED. Lactate was mildly elevated 2.2. Renal function had worsened with a creatinine that jumped from baseline of 1.5 to 3.0. Procalcitonin elevated 4.21. CT chest done and awaiting official read but appears to have some infiltrates on the right versus scarring. He is afebrile while here. Mildly tachycardic in the 90s to low 100s. No Neck pain. This unremarkable. 07/19 No issues overnight. White blood cell count improving. Renal function improved. 07/20 No overnight events or new complaints. States his neck feels little sore but able to rotate left and right and flex without any issues. Leukocytosis resolved and renal function improved. Scheduled to undergo laparoscopic cholecystectomy today. 07/21-postop day 1. Started on clears per surgery. Abdominal pain improved. Restarted on home medication including antihypertensives. Systolics around 160 s. White count 12.2. Afebrile. No additional concerns per nursing staff 07/22-patient doing a lot better. Diuresing well. Ty is draining clear urine. Alert oriented. Denies abdominal discomfort. Minimal tachycardia on exertion. EKG reviewed from admission. No significant changes. On diet advancement per surgery. White count down to 11.2. Creatinine back at baseline at 1.3. Stable hemodynamics. 07/23-patient doing well. No overnight events. Discussed with surgery. Antibiotics changed to Augmentin. CECIL drain will be removed per surgeon. On diet advancement per surgery. Will likely discharge to SNF on Saturday. No overnight fever chills. 07/24-patient doing well. Await transfer to SNF in 24 hours. No overnight fever chills. Creatinine 1.2 down from 3.1. On oral antibiotics per surgery. Tolerating diet and advancing as per surgery. Principal diagnosis: acute necrotizing cholecystitis 07/25 patient doing well. Discharging home with home health. Continue antibioti cs till 07/27 oral Augmentin as per surgery recommendation. Follow with surgeon in 2 weeks. No overnight events. No concerns per staff. Date of admission: 07/18/20 15:09 Discharge date: 07/25/20 Primary care physician: Suzie Duncan Consults: 07/18/20 Consult to Physician [CONS] Stat Comment: Consulting Provider: Sergio Ny Reason For Exam: Physician to Consult Consult to Physician [CONS] Stat Comment: Consulting Provider: Dutch Cannon Reason For Exam: Physician to Consult Discharge Meds Discharge Medications Home Medications cholecalciferol (vitamin D3) 125 mcg PO DAILY 05/12/19 [History Confirmed 07/18/20 Last Taken 07/17/20 08:00] clonidine HCl 0.1 mg PO QHS 05/12/19 [History Confirmed 07/18/20 Last Taken 07/17/20 21:00] hydrochlorothiazide 25 mg PO DAILY 05/12/19 [History Confirmed 07/18/20 Last Taken 07/17/20 08:00] memantine 10 mg PO BID 05/12/19 [History Confirmed 07/18/20 Last Taken 07/17/20 21:00] metformin 1,500 mg PO QCC 05/12/19 [History Confirmed 07/18/20 Last Taken 07/17/20 17:00] metformin 750 mg PO [facility] 05/12/19 [History Confirmed 07/18/20 Last Taken 07/17/20 08:00] potassium chloride 20 meq PO [facility] 05/12/19 [History Confirmed 07/18/20 Last Taken 07/17/20 08:00] quetiapine 100 mg PO HS 05/12/19 [History Confirmed 07/18/20 Last Taken 07/17/20 21:00] tamsulosin 0.4 mg PO DAILY 05/12/19 [History Confirmed 07/18/20 Last Taken 07/17/20 08:00] thiamine HCl (vitamin B1) 100 mg PO DAILY #100 tab 05/14/19 [Rx Confirmed 07/18/20 Last Taken 07/17/20 08:00] amlodipine-benazepril 1 cap PO DAILY 06/18/19 [History Confirmed 07/18/20 Last Taken 07/17/20 08:00] Victoza 2-Tung 0.6 mg SUBCUT QDAY 07/16/20 [History Confirmed 07/18/20 Last Taken 07/18/20 08:00] clonazepam 0.5 mg PO QHS 07/16/20 [History Confirmed 07/18/20 Last Taken 07/17/20 21:00] sertraline 50 mg PO BID 07/16/20 [History Confirmed 07/18/20 Last Taken 07/17/20 21:00] aspirin [Imelda Chewable Aspirin] 81 mg PO QDAY 07/18/20 [History Confirmed 07/18/20 Last Taken 07/17/20 08:00] magnesium 400 mg PO BID 07/18/20 [History Confirmed 07/18/20 Last Taken 07/17/20 08:00] amoxicillin-pot clavulanate 1 tab PO BID #6 tab 07/25/20 [Rx Last Taken Unknown] COURSE Hospital Course Hospital course: . Discharge diagnosis: . Time Spent with Patient Time attestation: Total time spent providing and/or coordinating discharge serv ices: EXAM Constitutional Vitals: Temp Pulse Resp BP Pulse Ox 97.7 F 107 H 18 110/78 93 07/25/20 08:00 07/25/20 08:00 07/25/20 08:00 07/25/20 08:00 07/25/20 08:00 Discharge Plan Patient/Caregiver Discharge Instructions Activity: increase activity as tolerated Diet: Regular Diet Activity Restrictions/Additional Instructions: Continue oral Augmentin through 07/27 Follow-up with surgery in 2 weeks Continue diet as per surgery recommendations Return to ER if worsening abdominal pain fever noted Prescriptions: New amoxicillin-pot clavulanate 875-125 mg Tablet 1 tab PO BID Qty: 6 RF: 0 Continued clonidine HCl 0.1 MG tablet 0.1 mg PO QHS RF: 0 potassium chloride 10 MEQ tablet 20 meq PO QAMCC RF: 0 quetiapine 100 MG tablet 100 mg PO HS RF: 0 tamsulosin 0.4 MG capsule 0.4 mg PO DAILY RF: 0 hydrochlorothiazide 25 MG tablet 25 mg PO DAILY RF: 0 metformin 750 MG tablet extended release 24 hr 750 mg PO QAMCC RF: 0 metformin 750 MG tablet extended release 24 hr 1,500 mg PO QPMCC RF: 0 memantine 10 MG tablet 10 mg PO BID RF: 0 cholecalciferol (vitamin D3) 1,000 UNIT tablet 125 mcg PO DAILY RF: 0 thiamine HCl (vitamin B1) 100 MG tablet 100 mg PO DAILY Qty: 100 RF: 0 amlodipine-benazepril 1 EACH capsule 1 cap PO DAILY RF: 0 clonazepam 0.5 mg Tablet 0.5 mg PO QHS RF: 0 sertraline 50 mg Tablet 50 mg PO BID RF: 0 Victoza 2-Tung 0.6 mg/0.1 mL (18 mg/3 mL) Pen Injector 0.6 mg SUBCUT QDAY RF: 0 aspirin [Imelda Chewable Aspirin] 81 mg Tablet,Chewable 81 mg PO QDAY RF: 0 magnesium 200 mg Tablet 400 mg PO BID RF: 0 Follow Up Plan Follow up with: Suzie Duncan ARNP [Primary Care Provider] - Dutch Cannon MD [Physician] - (follow-up with me in the office in 2 weeks; staff to contact the office to confirm appointment date and time before discharge to nursing care facility) Patient Disposition: Home Health Service Prognosis: Critical Rehab Potential: Fair I certify that the patient requires SNF services: No Overall status at discharge: patient is progressing back to baseline Discharge Orders: Discharge Order (Routine); Ordered 07/25/20 Ordered By: Antnoi Luna
[2020-07-25] MEDS: Liraglutide [Victoza 2-Pak] 0.6 MG SC SCH (12:17)
[2020-07-25] MEDS ORDERED: PATIENTS OWN MEDICATION 1 DOSE MISCELL SC SCH (13:00)
[2020-07-25] MEDS ORDERED: Liraglutide [Victoza 2-Pak] 1.2 MG SC SCH (14:00)
--- NOTE | 2020-08-08 09:10 | Operative Note ---
DATE OF OPERATION: 07/20/2020 PREOPERATIVE DIAGNOSIS: Acute cholecystitis. POSTOPERATIVE DIAGNOSIS: Acute necrotizing cholecystitis. PROCEDURE PERFORMED: Laparoscopic cholecystectomy. SURGEON: Dutch Cannon M.D. FINDINGS: Acute severe hemorrhagic necrotizing cholecystitis. DESCRIPTION OF PROCEDURE: Under general anesthesia, the patient's abdomen was prepped and draped in the sterile field. A supraumbilical incision was made and Veress needle was inserted. Peritoneal cavity was insufflated with 3 liters of CO2. A 12 mm port was placed. Laparoscope was placed. There was severe inflammatory reaction around the gallbladder. Under videoscopic guidance, a 12 mm port and two 5 mm ports were placed in the right subcostal region. The omentum and colon were from the gallbladder. The gallbladder was decompressed with a Weck needle. It was then able to be grasped and positioned. The cystic duct and cystic artery were carefully dissected and followed back to the gallbladder. Once they were definitively identified, the cystic duct was transected using the using the Endo-IAIN stapler. Cystic artery was clipped with five clips and divided on the wall of the gallbladder. Because of the severe inflammation, most of the separation from the gallbladder was carried out using a Kitner dissector. There were two ducts exiting from the bed of the gallbladder into the back wall of the gallbladder. These were clipped and divided. The gallbladder was then removed. It was placed in an Endopouch and retrieved. There was oozing from the bed, which was controlled with electrocautery and dissection. Three Surgicel large size gauzes were placed over the bed. A #10 Kyree-Valerio drain was placed over this and brought out through the most lateral incision. CO2 was allowed to escape from the abdomen, and then the ports were removed. Fascia at the umbilicus was closed with 0 Vicryl. Drain was secured with 2-0 nylon. Skin incisions were closed with rosalina. The patient tolerated the procedure well. He was awakened from anesthesia, transferred to a bed and taken to the postanesthetic care unit in stable, satisfactory condition. LCS:annmarie Job ID: [id number] Doc ID: [id number] Dutch Cannon M.D.
== END 2020-07-25 15:15 | DRG 853 ==
LOC: ED 08:51 → ICU 15:09 → MEDSUR 07-23 18:01
PROVIDERS: ADMIT Internal Medicine; ATTEND Internal Medicine

== ENCOUNTER 2021-03-22 18:31 | Inpatient (IN) ==
[2021-03-22] MEDS ORDERED: 0.9 % SODIUM CHLORIDE 2,000 ML IV ONE (18:46)
[2021-03-22] MEDS ORDERED: ACETAMINOPHEN 325 MG TABLET PO ONE (18:46)
--- NOTE | 2021-03-22 18:52 | Emergency Department Note ---
Altered Mental Status HPI General Chief Complaint: Altered Mental Status Stated Complaint: weakness, fever, altered LOC Time Seen by Provider: 03/22/21 18:40 Source: patient and family Mode of arrival: wheelchair Limitations: altered mental status History of Present Illness HPI Narrative: Narrative: The patient is brought in for altered level of consciousness. He has had a fever all day. History is from the . He has baseline dementia but she says that he has been more confused than normal for "quite some time. He vomited once today and had a couple episodes of loose stool, but has had no other GI issues in the last several days. She denies him having a cough or any apparent difficulty breathing. Patient denies having any pain. No complaint of any urinary issue. Further history from the patient is difficult to get. Related Data Home Medications Medication Instructions Recorded Confirmed clonidine HCl 0.1 mg PO BID 05/12/19 03/22/21 memantine 10 mg PO BID 05/12/19 03/22/21 potassium chloride 20 meq PO QAMCC 05/12/19 03/22/21 quetiapine 125 mg PO HS 05/12/19 03/22/21 tamsulosin 0.4 mg PO DAILY 05/12/19 03/22/21 clonazepam 0.5 mg PO QHS 07/16/20 03/22/21 sertraline 50 mg PO BID 07/16/20 03/22/21 metformin 750 mg tablet,extended 750 mg PO QPMCC tab 08/04/20 03/22/21 release 24 hr amlodipine-benazepril 1 cap PO DAILY 03/22/21 03/22/21 quetiapine 25 mg PO QAM 03/22/21 03/22/21 Allergies Allergy/AdvReac Type Severity Reaction Status Date / Time No Known Drug Allergies Allergy Verified 03/22/21 18:34 Review of Systems ROS ROS Narrative: Narrative: Please note that ROS is from the as I am unable to do ROS from the patient due to dementia and acute encephalopathy All systems ED: reviewed and negative except as stated. [facility] Narrative Patient History Narrative: Narrative: Medical/Surgical/Family History All Active Problems (Updated 03/22/21 @ 21:44 by Mehul Horn MD) Pneumonia (Acute) Sepsis (Acute) Encephalopathy acute (Acute) Acute gangrenous cholecystitis (Acute) Acute cholecystitis due to biliary calculus (Acute) Acute upper abdominal pain (Acute) Acute on chronic renal failure (Acute) Weakness (Acute) Confusion (Acute) Elevated WBC count (Acute) Sinus tachycardia (Acute) SIRS (systemic inflammatory response syndrome) (Acute) Sepsis (Acute) Urinary incontinence (Chronic) Chronic renal failure (Acute) Insomnia (Acute) Diabetes mellitus, type 2 (Acute) Hypertension, essential (Acute) Dementia (Acute) Medical History (Updated 03/22/21 @ 21:44 by Mehul Horn MD) Acute kidney injury Chronic renal failure Complicated UTI (urinary tract infection) Constipation Dehydration Dementia Diabetes mellitus, type 2 Hypertension, essential Insomnia Sepsis due to urinary tract infection Severe sepsis with acute organ dysfunction Urinary incontinence intermittent Surgical History History of laparoscopic cholecystectomy 07/20/2020 Status post cataract extraction of both eyes with insertion of intraocular lens Social History Smoking Status: Never smoker Exam Narrative Narrative: Narrative: General Limitations: altered mental status General appearance: Present alert and in no apparent distress Head Head: Present atraumatic and normal inspection Eye Eye: Present normal appearance, PERRL and EOMI ENT ENT: Present mucous membranes dry; Absent mucous membranes moist Neck Neck: Present normal inspection, full ROM and trachea midline; Absent meningismus Chest Chest: Present normal inspection and symmetric chest wall rise Respiratory Respiratory: Present normal lung sounds bilaterally; Absent respiratory distress Cardiovascular Cardiovascular: Present regular rate and normal rhythm Adbominal Abdominal: Present soft; Absent distention, tenderness, guarding, rebound and rigidity Extremities Extremities: Present normal inspection and full ROM; Absent tenderness, pedal edema and calf tenderness Back Back: Present full ROM; Absent CVA tenderness (R) and CVA tenderness (L) Neurological Neurological: Present alert and CN II-XII intact; Absent oriented X3 and motor sensory deficit Expanded Neurological Patient oriented to: Present person and place; Absent time Speech: Present fluid speech CRANIAL NERVES: EOM function (II, III, IV, ): Normal, facial palsy (VII): Normal and tongue deviation (XII): Normal Motor strength - LUE: 5/5 Motor strength - RUE: 5/5 Motor strength - LLE: 5/5 Motor strength - RLE: 5/5 Psychiatric Psychiatric: Present normal affect and normal mood Skin Skin: Present warm (WNL) and dry Course Reevaluation(s) Reevaluation #1: I have placed a call through the electrician [employer] to the hospitalist to discuss this patient for local admission Time: 20:38 Reevaluation #2: I talked to the hospitalist, Dr. Lopez. He asked me to order an MRSA screen but agreed to evaluate the patient Time: 21:42 Vital Signs Vital signs: Vital Signs Temperature 101.7 F H 03/22/21 18:32 Pulse Rate 97 H 03/22/21 18:32 Respiratory Rate 24 H 03/22/21 18:32 Blood Pressure 133/93 03/22/21 18:32 Pulse Oximetry (%) 98 03/22/21 18:32 Temperature 99.2 F H 03/22/21 20:53 Pulse Rate 92 H 03/22/21 20:32 Respiratory Rate 15 03/22/21 20:54 Blood Pressure 136/84 03/22/21 20:46 Pulse Oximetry (%) 94 03/22/21 20:32 MDM MDM Narrative Medical decision making narrative: Narrative: The patient presents altered. He has a baseline dementia. He is febrile with SIRS criteria. He is not hypotensive. I suspect infection as the cause of his acute encephalopathy. Plan to do a chest x-ray, urinalysis, and Covid swab. We will obtain blood cultures and a lactic acid. We will give 2 L of fluid and acetaminophen. Lab Data Lab results reviewed: Yes I reviewed the patient's lab results. Result diagrams: 03/22/21 18:44 03/22/21 18:44 Labs: Lab Results 03/22/21 03/22/21 03/22/21 Range/Units 18:44 18:44 18:44 WBC 15.4 H (4.5-11.0) K/mcL RBC 4.74 (4.50-5.90) M/mcL Hgb 12.3 L (13.5-16.5) g/dL Hct 38.6 L (41.0-55.0) % MCV 81.4 (80.0-100.0) fL MCH 25.9 L (26.0-34.0) pg MCHC 31.9 (31.0-36.0) g/dL RDW 16.5 H (11.5-14.5) % Plt Count 275 (140-440) K/mcL MPV 11.3 H (7.4-10.4) fL Seg Neutrophils % 87 H (38-78) % Lymphocytes % 6 L (15-49) % Monocytes % (Manual) 7 (1-12) % Platelet Estimate Normal (Normal) RBC Morphology Normal (Normal) VBG Lactic Acid 2.3 H (0.5-2.0) mmol/L Sodium 137 (133-145) mmol/L Potassium 3.7 (3.3-5.1) mmol/L Chloride 100 (96-108) mmol/L Carbon Dioxide 26 (22-30) mmol/L Anion Gap 11.0 (8.0-16.0) BUN 31 H (8-23) mg/dL Creatinine 1.8 H (0.7-1.2) mg/dL GFR Calculation 35 Glucose 210 H (70-105) mg/dL Calcium 9.7 (8.6-10.4) mg/dL Total Bilirubin 0.3 (0.1-1.0) mg/dL AST 10 (<40) U/L ALT 6 (<40) U/L Alkaline Phosphatase 81 (39-117) U/L Troponin T (<0.03) ng/mL Total Protein 6.8 (5.9-8.4) gm/dL Albumin 3.7 (3.2-5.2) gm/dL Globulin 3.1 (2.2-3.7) gm/dL Albumin/Globulin Ratio 1.2 (1.0-2.3) Urine Color Urine Appearance (Clear) Urine pH (5.0-9.0) Ur Specific [place] (1.000-1.035) Urine Protein (Negative) mg/dL Urine Glucose (UA) (Negative) mg/dL Urine Ketones (Negative) mg/dL Urine Occult Blood (Negative) mg/dL Urine Nitrate (Negative) Urine Bilirubin (Negative) mg/dL Urine Urobilinogen mg/dL Ur Leukocyte Esterase (Negative) /ug Urine RBC (0-3) /hpf Urine WBC (0-4) /hpf Ur Squamous Epith Cells (0-4) /hpf Urine Bacteria (0) /hpf Urine Mucus (None) /hpf Ur Culture Indicated? Urine Opiates Screen Ur Opiates Confirm Ur Oxycodone Screen Urine Methadone Screen Ur Methadone Confirm Ur Barbiturates Screen Ur Barbiturate Confirm Ur Phencyclidine Scrn Urine PCP Confirm Ur Amphetamines Screen U Amphetamines Confirm U Benzodiazepines Scrn Urine Cocaine Screen Urine Cocaine Confirm U Cannabinoids Confirm U Marijuana (THC) Screen Ethyl Alcohol (<0.010) gm/dL 03/22/21 03/22/21 03/22/21 Range/Units 18:44 19:15 20:12 WBC (4.5-11.0) K/mcL RBC (4.50-5.90) M/mcL Hgb (13.5-16.5) g/dL Hct (41.0-55.0) % MCV (80.0-100.0) fL MCH (26.0-34.0) pg MCHC (31.0-36.0) g/dL RDW (11.5-14.5) % Plt Count (140-440) K/mcL MPV (7.4-10.4) fL Seg Neutrophils % (38-78) % Lymphocytes % (15-49) % Monocytes % (Manual) (1-12) % Platelet Estimate (Normal) RBC Morphology (Normal) VBG Lactic Acid (0.5-2.0) mmol/L Sodium (133-145) mmol/L Potassium (3.3-5.1) mmol/L Chloride (96-108) mmol/L Carbon Dioxide (22-30) mmol/L Anion Gap (8.0-16.0) BUN (8-23) mg/dL Creatinine (0.7-1.2) mg/dL GFR Calculation Glucose (70-105) mg/dL Calcium (8.6-10.4) mg/dL Total Bilirubin (0.1-1.0) mg/dL AST (<40) U/L ALT (<40) U/L Alkaline Phosphatase (39-117) U/L Troponin T < 0.01 (<0.03) ng/mL Total Protein (5.9-8.4) gm/dL Albumin (3.2-5.2) gm/dL Globulin (2.2-3.7) gm/dL Albumin/Globulin Ratio (1.0-2.3) Urine Color Urine Appearance (Clear) Urine pH (5.0-9.0) Ur Specific [place] (1.000-1.035) Urine Protein (Negative) mg/dL Urine Glucose (UA) (Negative) mg/dL Urine Ketones (Negative) mg/dL Urine Occult Blood (Negative) mg/dL Urine Nitrate (Negative) Urine Bilirubin (Negative) mg/dL Urine Urobilinogen mg/dL Ur Leukocyte Esterase (Negative) /ug Urine RBC (0-3) /hpf Urine WBC (0-4) /hpf Ur Squamous Epith Cells (0-4) /hpf Urine Bacteria (0) /hpf Urine Mucus (None) /hpf Ur Culture Indicated? Urine Opiates Screen None detected Ur Opiates Confirm TNP Ur Oxycodone Screen None detected Urine Methadone Screen None detected Ur Methadone Confirm TNP Ur Barbiturates Screen None detected Ur Barbiturate Confirm TNP Ur Phencyclidine Scrn None detected Urine PCP Confirm TNP Ur Amphetamines Screen None detected U Amphetamines Confirm TNP U Benzodiazepines Scrn Suspect positive A Urine Cocaine Screen None detected Urine Cocaine Confirm TNP U Cannabinoids Confirm TNP U Marijuana (THC) Screen None detected Ethyl Alcohol < 0.010 (<0.010) gm/dL 03/22/21 Range/Units 20:12 WBC (4.5-11.0) K/mcL RBC (4.50-5.90) M/mcL Hgb (13.5-16.5) g/dL Hct (41.0-55.0) % MCV (80.0-100.0) fL MCH (26.0-34.0) pg MCHC (31.0-36.0) g/dL RDW (11.5-14.5) % Plt Count (140-440) K/mcL MPV (7.4-10.4) fL Seg Neutrophils % (38-78) % Lymphocytes % (15-49) % Monocytes % (Manual) (1-12) % Platelet Estimate (Normal) RBC Morphology (Normal) VBG Lactic Acid (0.5-2.0) mmol/L Sodium (133-145) mmol/L Potassium (3.3-5.1) mmol/L Chloride (96-108) mmol/L Carbon Dioxide (22-30) mmol/L Anion Gap (8.0-16.0) BUN (8-23) mg/dL Creatinine (0.7-1.2) mg/dL GFR Calculation Glucose (70-105) mg/dL Calcium (8.6-10.4) mg/dL Total Bilirubin (0.1-1.0) mg/dL AST (<40) U/L ALT (<40) U/L Alkaline Phosphatase (39-117) U/L Troponin T (<0.03) ng/mL Total Protein (5.9-8.4) gm/dL Albumin (3.2-5.2) gm/dL Globulin (2.2-3.7) gm/dL Albumin/Globulin Ratio (1.0-2.3) Urine Color Yellow Urine Appearance Clear (Clear) Urine pH 5.0 (5.0-9.0) Ur Specific [place] 1.017 (1.000-1.035) Urine Protein Negative (Negative) mg/dL Urine Glucose (UA) Negative (Negative) mg/dL Urine Ketones Negative (Negative) mg/dL Urine Occult Blood Negative (Negative) mg/dL Urine Nitrate Negative (Negative) Urine Bilirubin Negative (Negative) mg/dL Urine Urobilinogen Negative mg/dL Ur Leukocyte Esterase Negative (Negative) /ug Urine RBC 1 (0-3) /hpf Urine WBC < 1 (0-4) /hpf Ur Squamous Epith Cells 0 (0-4) /hpf Urine Bacteria Few A (0) /hpf Urine Mucus Few A (None) /hpf Ur Culture Indicated? Yes Urine Opiates Screen Ur Opiates Confirm Ur Oxycodone Screen Urine Methadone Screen Ur Methadone Confirm Ur Barbiturates Screen Ur Barbiturate Confirm Ur Phencyclidine Scrn Urine PCP Confirm Ur Amphetamines Screen U Amphetamines Confirm U Benzodiazepines Scrn Urine Cocaine Screen Urine Cocaine Confirm U Cannabinoids Confirm U Marijuana (THC) Screen Ethyl Alcohol (<0.010) gm/dL ED POC Tests ED POC Tests: SAMUEL - Influenza A Negative SAMUEL - Influenza B Negative SAMUEL - SARS Antigen Negative Radiology Data Radiology results reviewed: Yes I reviewed the patient's radiology results. EKG Data EKG #1: EKG attestation: Yes I reviewed and interpreted this EKG. and Yes There are no EKG findings of acute coronary syndrome EKG results narrative: Sinus, rate 89, normal axis, QTC 468, UT 172, possible early right bundle branch pattern, no acute ST or T changes worrisome for acute infarction CC TIME Critical Care Time Critical Care Time: Yes Total Critical Care Time: 85 Discharge Plan Patient/Caregiver Discharge Instructions Pt seen by GRAPHIC ARTS INSTRUCTOR/PA only: No Clinical Impression: Encephalopathy acute Pneumonia Qualifiers: Pneumonia type: due to unspecified organism Laterality: right Lung location: lower lobe of lung Qualified Code(s): J18.9 - Pneumonia, unspecified organism Sepsis Qualifiers: Sepsis type: sepsis due to unspecified organism Sepsis acute organ dysfunction status: without acute organ dysfunction Qualified Code(s): A41.9 - Sepsis, unspecified organism Patient Disposition: Xfer As Inpt ([facility]) Condition: Fair Follow up with: Suzie Duncan ARNP [Primary Care Provider] - Prescriptions: No Action clonidine HCl 0.1 MG tablet 0.1 mg PO BID RF: 0 potassium chloride 10 MEQ tablet 20 meq PO QAMCC RF: 0 quetiapine 100 MG tablet 125 mg PO HS RF: 0 tamsulosin 0.4 MG capsule 0.4 mg PO DAILY RF: 0 memantine 10 MG tablet 10 mg PO BID RF: 0 metformin 750 mg tablet extended release 24 hr 750 mg PO QPMCC RF: 0 clonazepam 0.5 mg Tablet 0.5 mg PO QHS RF: 0 sertraline 50 mg Tablet 50 mg PO BID RF: 0 quetiapine 25 mg tablet 25 mg PO QAM RF: 0 amlodipine-benazepril 10-20 mg capsule 1 cap PO DAILY RF: 0
--- NOTE | 2021-03-22 19:05 | XRay Report ---
HISTORY: Fever weakness and altered mental status FINDINGS: There is a mild streaky infiltrate in the right lower lobe extending up to the hilum. Thin band of scar or discoid atelectasis is present at the left costophrenic sulcus. The heart size is normal. No pleural effusion is present. Comparison with the prior exam done on 07/20/20 shows the right-sided pleural effusion and discoid atelectasis in right lower thorax have resolved. The alveolar infiltrate is new. IMPRESSION: Mild right lower lobe pneumonia Interpreted and Authenticated by: Bogdan Campos 03/22/21
[2021-03-22] MEDS ORDERED: cefTRIAXone 1 GM VIAL IV ONE (19:07)
[2021-03-22] MEDS ORDERED: AZITHROMYCIN 500 MG in DEXTROSE 5% IN WATER 250 ML IV ONE (19:07)
[2021-03-22 20:06] LABS: Hematocrit 38.6 % (41.0-55.0); Hemoglobin 12.3 g/dL (13.5-16.5); Mean Cell Volume 81.4 fL (80.0-100.0); Mean Corpuscular HGB Conc 31.9 g/dL (31.0-36.0); Mean Platelet Volume 11.3 fL (7.4-10.4); Platelet Count 275 K/mcL (140-440); RBC 4.74 M/mcL (4.50-5.90); Red Cell Distribution Width 16.5 % (11.5-14.5); WBC 15.4 K/mcL (4.5-11.0)
[2021-03-22 20:30] LABS: Alcohol, Blood < 10.0 mg/dL; Alcohol,Blood < 0.010 gm/dL (<0.010)
[2021-03-22 20:31] LABS: ALT/SGPT 6 U/L (<40); AST/SGOT 10 U/L (<40); Albumin 3.7 gm/dL (3.2-5.2); Albumin/Globulin Ratio 1.2 (1.0-2.3); Alkaline Phosphatase 81 U/L (39-117); Bilirubin,Total 0.3 mg/dL (0.1-1.0); Blood Urea Nitrogen 31 mg/dL (8-23); Calcium 9.7 mg/dL (8.6-10.4); Carbon Dioxide 26 mmol/L (22-30); Chloride 100 mmol/L (96-108); Globulin 3.1 gm/dL (2.2-3.7); Glomerular Filtration Rate 35; Glucose 210 mg/dL (70-105)
[2021-03-22 20:56] LABS: Lymphocytes % 6 % (15-49); Monocytes % (Manual) 7 % (1-12); Platelet Estimate NORMAL (Normal); RBC Morphology NORMAL (Normal); Segmented Neutrophils % 87 % (38-78)
[2021-03-22 21:06] LABS: Appearance,Urine CLEAR (Clear); Bacteria,Urine FEW /hpf (0); Bilirubin,Urine Negative (Negative); Color,Urine YELLOW; Culture Indicated,Urine Yes; Glucose,Urine (UA) Negative (Negative); Ketones,Urine Negative (Negative); Leukocyte Esterase,Urine Negative /ug (Negative); Mucus,Urine FEW /hpf; Nitrate,Urine Negative (Negative); Protein,Urine Negative (Negative); Specific Gravity,Urine 1.017 (1.000-1.035); Urine Blood Negative (Negative); Urine RBC 1 /hpf (0-3); Urine Squamous Epithelial Cell 0 /hpf (0-4); Urine WBC < 1 /hpf (0-4); Urobilinogen,Urine Negative
[2021-03-22 21:23] LABS: Amphetamine Screen,Urine None detected; Barbiturate Screen,Urine None detected; Benzodiazepines Screen,Urine Suspect positive; Cannabinoid Screen,Urine None detected; Cocaine Screen,Urine None detected; Opiate Screen,Urine None detected; Oxycodone, Urine Screen None detected; Phencyclidine Screen,Urine None detected
--- NOTE | 2021-03-22 22:59 | Internal Med History&Physical ---
HPI History of Present Illness Patient information: Note initiated : 03/22/21 at 10:55 pm Service Date, if different from initiated Date: [] Patient: Kassidy Anthony 80 y/o M admitted on for weakness, fever, altered LOC. Chief Complaint: [] History of present illness: Mr. Anthony is a 80 year old male with a history of hypertension, chronic kidney disease stage III, chronic anemia, diabetes mellitus type 2, moderate dementia who lives at home with his who is his caregiver. The patient presents to the ED after multiple falls and worsening confusion. He fell again on the day of presentation, she called EMS and they found that he had a fever was taken to the emergency department. In the emergency department, patient met SIRS criteria with fever and tachycardia. Infectious work-up included CBC showing new leukocytosis and chest x-ray which showed a right lower lobe pneumonia. The patient has an acute on chronic kidney disease injury. Patient is saturating well on room air, blood pressure is stable and he is in no apparent distress. Lactic acid was mildly elevated at 2.3. Patient received IV fluid, ceftriaxone and azithromycin and was admitted for further management. Goals of care was discussed with his who is his medical decision maker, she stated the patient's code status is DNR. Constitutional: positive for fever Eyes: no vision changes or pain Cardiovascular: no chest pain, no palpitations Respiratory: shortness of breath with exertion Gastrointestinal: no abdominal pain, no nausea, vomiting, or diarrhea Genitourinary: no dysuria or difficulty voiding Musculoskeletal: bilateral elbow pain Integumentary: no skin lesion or wound Neurological: no focal weakness or numbness Psychiatric: no anxiety or depression Head: Atraumatic, normal inspection. Eyes: normal appearance, no scleral icterus. Neck: full ROM Respiratory: no respiratory distress, postive for right lower lung field rales Cardiovascular: normal rate and rhythm, S1, S2. GI/Abdominal: soft, nontender, no guarding. Extremities: bilateral elbow swelling consistent with bursitis (likely chronic) Neurological: CN II-XII intact, intact motor, intact sensation. Psychiatric: normal mood, impaired cognition Skin: warm, normal color PFSH PFSH All Active Problems (Updated 03/22/21 @ 21:44 by Mehul Horn MD) Pneumonia (Acute) Sepsis (Acute) Encephalopathy acute (Acute) Acute gangrenous cholecystitis (Acute) Acute cholecystitis due to biliary calculus (Acute) Acute upper abdominal pain (Acute) Acute on chronic renal failure (Acute) Weakness (Acute) Confusion (Acute) Elevated WBC count (Acute) Sinus tachycardia (Acute) SIRS (systemic inflammatory response syndrome) (Acute) Sepsis (Acute) Urinary incontinence (Chronic) Chronic renal failure (Acute) Insomnia (Acute) Diabetes mellitus, type 2 (Acute) Hypertension, essential (Acute) Dementia (Acute) Medical History (Updated 03/22/21 @ 21:44 by Mehul Horn MD) Acute kidney injury Chronic renal failure Complicated UTI (urinary tract infection) Constipation Dehydration Dementia Diabetes mellitus, type 2 Hypertension, essential Insomnia Sepsis due to urinary tract infection Severe sepsis with acute organ dysfunction Urinary incontinence intermittent Surgical History History of laparoscopic cholecystectomy 07/20/2020 Status post cataract extraction of both eyes with insertion of intraocular lens Social History additional history: Occasional alcohol and ambulates with a cane and lives with his at home MEDS/ALLERGIES Home Medications and Allergies Home Medications Medication Instructions Recorded Confirmed Type clonidine HCl 0.1 mg PO BID 05/12/19 03/22/21 History memantine 10 mg PO BID 05/12/19 03/22/21 History potassium chloride 20 meq PO QAMCC 05/12/19 03/22/21 History quetiapine 125 mg PO HS 05/12/19 03/22/21 History tamsulosin 0.4 mg PO DAILY 05/12/19 03/22/21 History clonazepam 0.5 mg PO QHS 07/16/20 03/22/21 History sertraline 50 mg PO BID 07/16/20 03/22/21 History metformin 750 mg tablet,extended 750 mg PO QPMCC tab 08/04/20 03/22/21 History release 24 hr amlodipine-benazepril 1 cap PO DAILY 03/22/21 03/22/21 History quetiapine 25 mg PO QAM 03/22/21 03/22/21 History Allergies Allergy/AdvReac Type Severity Reaction Status Date / Time No Known Drug Allergies Allergy Verified 03/22/21 18:34 EXAM Constitutional Vitals: Temp Pulse Resp BP Pulse Ox 99.2 F H 81 18 121/85 93 05/12/21 20:53 03/22/21 21:46 03/22/21 21:46 03/22/21 21:46 03/22/21 21:46 DATA Data Completed and Pending Labs: Labs from last 24 hours 03/22/21 03/22/21 03/22/21 20:12 20:12 19:15 WBC RBC Hgb Hct MCV MCH MCHC RDW Plt Count MPV Seg Neutrophils % Lymphocytes % Monocytes % (Manual) Platelet Estimate RBC Morphology VBG Lactic Acid Sodium Potassium Chloride Carbon Dioxide Anion Gap BUN Creatinine GFR Calculation Glucose Calcium Total Bilirubin AST ALT Alkaline Phosphatase Troponin T Total Protein Albumin Globulin Albumin/Globulin Ratio Urine Color Yellow Urine Appearance Clear Urine pH 5.0 Ur Specific [place] 1.017 Urine Protein Negative Urine Glucose (UA) Negative Urine Ketones Negative Urine Occult Blood Negative Urine Nitrate Negative Urine Bilirubin Negative Urine Urobilinogen Negative Ur Leukocyte Esterase Negative Urine RBC 1 Urine WBC < 1 Ur Squamous Epith Cells 0 Urine Bacteria Few A Urine Mucus Few A Ur Culture Indicated? Yes Urine Opiates Screen None detected Ur Opiates Confirm TNP Ur Oxycodone Screen None detected Urine Methadone Screen None detected Ur Methadone Confirm TNP Ur Barbiturates Screen None detected Ur Barbiturate Confirm TNP Ur Phencyclidine Scrn None detected Urine PCP Confirm TNP Ur Amphetamines Screen None detected U Amphetamines Confirm TNP U Benzodiazepines Scrn Suspect positive A U Benzodiazepine Confm Pending Urine Cocaine Screen None detected Urine Cocaine Confirm TNP U Cannabinoids Confirm TNP U Marijuana (THC) Screen None detected Ethyl Alcohol < 0.010 03/22/21 03/22/21 03/22/21 18:44 18:44 18:44 WBC RBC Hgb Hct MCV MCH MCHC RDW Plt Count MPV Seg Neutrophils % Lymphocytes % Monocytes % (Manual) Platelet Estimate RBC Morphology VBG Lactic Acid 2.3 H Sodium 137 Potassium 3.7 Chloride 100 Carbon Dioxide 26 Anion Gap 11.0 BUN 31 H Creatinine 1.8 H GFR Calculation 35 Glucose 210 H Calcium 9.7 Total Bilirubin 0.3 AST 10 ALT 6 Alkaline Phosphatase 81 Troponin T < 0.01 Total Protein 6.8 Albumin 3.7 Globulin 3.1 Albumin/Globulin Ratio 1.2 Urine Color Urine Appearance Urine pH Ur Specific [place] Urine Protein Urine Glucose (UA) Urine Ketones Urine Occult Blood Urine Nitrate Urine Bilirubin Urine Urobilinogen Ur Leukocyte Esterase Urine RBC Urine WBC Ur Squamous Epith Cells Urine Bacteria Urine Mucus Ur Culture Indicated? Urine Opiates Screen Ur Opiates Confirm Ur Oxycodone Screen Urine Methadone Screen Ur Methadone Confirm Ur Barbiturates Screen Ur Barbiturate Confirm Ur Phencyclidine Scrn Urine PCP Confirm Ur Amphetamines Screen U Amphetamines Confirm U Benzodiazepines Scrn U Benzodiazepine Confm Urine Cocaine Screen Urine Cocaine Confirm U Cannabinoids Confirm U Marijuana (THC) Screen Ethyl Alcohol 03/22/21 18:44 WBC 15.4 H RBC 4.74 Hgb 12.3 L Hct 38.6 L MCV 81.4 MCH 25.9 L MCHC 31.9 RDW 16.5 H Plt Count 275 MPV 11.3 H Seg Neutrophils % 87 H Lymphocytes % 6 L Monocytes % (Manual) 7 Platelet Estimate Normal RBC Morphology Normal VBG Lactic Acid Sodium Potassium Chloride Carbon Dioxide Anion Gap BUN Creatinine GFR Calculation Glucose Calcium Total Bilirubin AST ALT Alkaline Phosphatase Troponin T Total Protein Albumin Globulin Albumin/Globulin Ratio Urine Color Urine Appearance Urine pH Ur Specific [place] Urine Protein Urine Glucose (UA) Urine Ketones Urine Occult Blood Urine Nitrate Urine Bilirubin Urine Urobilinogen Ur Leukocyte Esterase Urine RBC Urine WBC Ur Squamous Epith Cells Urine Bacteria Urine Mucus Ur Culture Indicated? Urine Opiates Screen Ur Opiates Confirm Ur Oxycodone Screen Urine Methadone Screen Ur Methadone Confirm Ur Barbiturates Screen Ur Barbiturate Confirm Ur Phencyclidine Scrn Urine PCP Confirm Ur Amphetamines Screen U Amphetamines Confirm U Benzodiazepines Scrn U Benzodiazepine Confm Urine Cocaine Screen Urine Cocaine Confirm U Cannabinoids Confirm U Marijuana (THC) Screen Ethyl Alcohol A/P Narrative A/P Narrative: Assessment: 80-year-old male with a history of hypertension, diabetes mellitus type 2, chronic anemia, CKD stage III, dementia admitted for severe sepsis likely secondary to pneumonia. #Severe sepsis #Community acquired pneumonia #Acute on chronic kidney disease injury #Encephalopathy likely due to infection #Hypertension #Diabetes mellitus type II #Recurrent falls #Dementia Plan -Ceftriaxone and Azithromycin. -IV fluid bolus for goal 30 ml/kg -Repeat lactic acid. -Follow blood cultures x2 -MRSA nasal PCR -Monitor respiratory status. -Lantus and SSI. -Continue home Sertraline, Memantine, Flomax. -Hold home metformin, amlodipine-benazepril, seroquel, clonazepam. -PT consult -DVT ppx: heparin -Code status: DNR -Disposition: TBD Time Spent With Patient Time: Total time spent is greater than 50% in coordination of care (as documented) at patient's floor/unit and/or counseling patient:
[2021-03-22] MEDS ORDERED: ONDANSETRON 4 MG/2 ML VIAL IV PRN (23:11)
[2021-03-22] MEDS ORDERED: DEXTROSE 31 GM ORAL.SUSP PO PRN (23:11)
[2021-03-22] MEDS ORDERED: 0.9 % SODIUM CHLORIDE 1,000 ML IV ONE (23:11)
[2021-03-22] MEDS ORDERED: LACTULOSE 20 GM/30 ML ORAL.SOL PO PRN (23:11)
[2021-03-22] MEDS ORDERED: SENNOSIDES 1 TABLET PO PRN (23:11)
[2021-03-22] MEDS ORDERED: DEXTROSE 50% 50 ML VIAL IV PRN (23:11)
[2021-03-22] MEDS ORDERED: QUEtiapine 25 MG TABLET PO PRN (23:22)
[2021-03-22] MEDS: AZITHROMYCIN 500 MG in DEXTROSE 5% IN WATER 250 ML IV SCH (23:25)
[2021-03-22] MEDS: cefTRIAXone 2 GM in DEXTROSE 5% IN WATER 50 ML IV SCH (23:25)
[2021-03-22] MEDS: 0.9 % SODIUM CHLORIDE 10 ML SYRINGE IV SCH (23:37)
[2021-03-22] MEDS: INSULIN GLARGINE, HUMAN 1 UNIT/0.01 ML SQ SCH (23:50)
[2021-03-23 02:25] LABS: ALT/SGPT < 5 U/L (<40); AST/SGOT 9 U/L (<40); Albumin 3.3 gm/dL (3.2-5.2); Albumin/Globulin Ratio 1.2 (1.0-2.3); Alkaline Phosphatase 71 U/L (39-117); Bilirubin,Direct < 0.2 mg/dL (0-0.3); Bilirubin,Total 0.3 mg/dL (0.1-1.0); Blood Urea Nitrogen 27 mg/dL (8-23); Calcium 8.8 mg/dL (8.6-10.4); Carbon Dioxide 25 mmol/L (22-30); Chloride 105 mmol/L (96-108); Globulin 2.7 gm/dL (2.2-3.7); Glomerular Filtration Rate 38; Glucose 129 mg/dL (70-105); Lactate Dehydrogenase 144 U/L (135-225); Phosphorous 2.3 mg/dL (2.5-4.5); Triglycerides 85 mg/dL (<150)
[2021-03-23] MEDS: 0.9 % SODIUM CHLORIDE 10 ML SYRINGE IV SCH ×3 (05:28→20:32)
[2021-03-23 07:35] LABS: Hematocrit 35.6 % (41.0-55.0); Hemoglobin 11.5 g/dL (13.5-16.5); Mean Cell Volume 81.1 fL (80.0-100.0); Mean Corpuscular HGB Conc 32.3 g/dL (31.0-36.0); Mean Platelet Volume 10.8 fL (7.4-10.4); Platelet Count 234 K/mcL (140-440); RBC 4.39 M/mcL (4.50-5.90); Red Cell Distribution Width 16.5 % (11.5-14.5); WBC 11.5 K/mcL (4.5-11.0)
[2021-03-23] MEDS: INSULIN LISPRO 1 UNIT/0.01 ML UNIT SQ SCH ×4 (07:39→20:29)
[2021-03-23] MEDS: DOCUSATE SODIUM 100 MG CAPSULE PO SCH ×2 (08:01→20:33)
[2021-03-23 08:03] LABS: ALT/SGPT < 5 U/L (<40); AST/SGOT 12 U/L (<40); Albumin 3.3 gm/dL (3.2-5.2); Albumin/Globulin Ratio 1.1 (1.0-2.3); Alkaline Phosphatase 67 U/L (39-117); Bilirubin,Direct < 0.2 mg/dL (0-0.3); Bilirubin,Total 0.4 mg/dL (0.1-1.0); Blood Urea Nitrogen 22 mg/dL (8-23); Carbon Dioxide 27 mmol/L (22-30); Chloride 104 mmol/L (96-108); Glomerular Filtration Rate 48; Glucose 123 mg/dL (70-105); Lactate Dehydrogenase 197 U/L (135-225); Phosphorous 2.1 mg/dL (2.5-4.5); Triglycerides 73 mg/dL (<150); Uric Acid 7.7 mg/dL (2.5-8.0)
[2021-03-23] MEDS: TAMSULOSIN 0.4 MG CAPSULE PO SCH (08:22)
[2021-03-23] MEDS: MEMANTINE 10 MG TABLET PO SCH ×2 (08:22→20:31)
[2021-03-23] MEDS: SERTRALINE 50 MG TABLET PO SCH ×2 (08:22→20:31)
[2021-03-23] MEDS: HEPARIN 5,000 UNIT/ML VIAL SQ SCH ×2 (08:29→20:30)
[2021-03-23] MEDS: cefTRIAXone 2 GM in DEXTROSE 5% IN WATER 50 ML IV SCH (08:32)
[2021-03-23 08:35] LABS: Anisocytosis 1+ (None Seen); Lymphocytes % 19 % (15-49); Microcytosis FEW (None Seen); Monocytes % (Manual) 6 % (1-12); Platelet Estimate NORMAL (Normal); RBC Morphology ABNORMAL (Normal); Segmented Neutrophils % 75 % (38-78)
[2021-03-23] MEDS ORDERED: MAGNESIUM SULFATE 2 GM/50 ML BAG IV ONE (10:19)
[2021-03-23] MEDS: ACETAMINOPHEN 500 MG TABLET PO PRN ×2 (10:45→20:30)
--- NOTE | 2021-03-23 13:20 | Internal Med Progress Note ---
SUBJECTIVE Subjective Patient information: Note initiated : 03/23/21 at 1:11 pm Service Date, if different from initiated Date: [] Patient: Kassidy Anthony 80 y/o M admitted on 03/22/21 for weakness, fever, altered LOC. Chief Complaint: [] Interval history: Mr. Anthony is a 80 year old male with a history of hypertension, chronic kidney disease stage III, chronic anemia, diabetes mellitus type 2, moderate dementia who lives at home with his who is his caregiver. The patient presents to the ED after multiple falls and worsening confusion. He fell again on the day of presentation, she called EMS and they found that he had a fever was taken to the emergency department. In the emergency department, patient met SIRS criteria with fever and tachycardia. Infectious work-up included CBC showing new leukocytosis and chest x-ray which s howed a right lower lobe pneumonia. The patient has an acute on chronic kidney disease injury. Patient is saturating well on room air, blood pressure is stable and he is in no apparent distress. Lactic acid was mildly elevated at 2.3. Patient received IV fluid, ceftriaxone and azithromycin and was admitted for further management. Goals of care was discussed with his who is his medical decision maker, she stated the patient's code status is DNR. 03/23-continues on room air, working with therapies. Right elbow is slightly red but doubt infectious bursitis. The patient has had chronic bilateral bursitis for years according to his . Renal function improved. Replacing magnesium and phosphorus. Head: Atraumatic, normal inspection. Eyes: normal appearance, no scleral icterus. Neck: full ROM Respiratory: no respiratory distress. Cardiovascular: normal rate and rhythm, S1, S2. GI/Abdominal: soft, nontender, no guarding. Extremities: bilateral elbow swelling likely bursitis Neurological: CN II-XII intact, intact motor, intact sensation. Psychiatric: memory impairment, normal mood. Skin: warm, redness right elbow Constitutional Vitals: Vital Signs Temp Pulse Resp BP Pulse Ox 100.2 F H 82 21 139/97 96 03/23/21 11:53 03/23/21 11:53 03/23/21 11:53 03/23/21 11:53 03/23/21 11:53 Period Temp Pulse Resp BP Sys/Petty Pulse Ox Last 24 Hr 98.9 F-101.7 F 75-102 14-40 93-150/71-98 88-98 Intake and Output 03/22/21 03/23/21 03/23/21 21:59 05:59 13:59 Intake Total 250 3000 50 Output Total 851 681 Balance 250 2149 631 Weight 88.451 kg 88.587 kg Intake & Output: Intake & Output 03/22/21 03/23/21 03/23/21 21:59 05:59 13:59 Intake Total 250 3000 50 Output Total 851 681 Balance 250 2149 -631 Weight 88.451 kg 88.587 kg Intake: IV 250 3000 50 Sodium Chloride 0.9% 1,000 ml @ 3000 Wide Open IV BOLUS ONE Rx#: [id number] Zithromax 500 mg In Dextrose 5% 250 in Water 250 ml @ 250 mls/hr IV ONCE ONE Rx#:[id number] Rocephin 2 gm In Dextrose 5% in 50 Water 50 ml @ 100 mls/hr IV Q24H [facility] Rx#:[id number] Output: Urine Catheter Amount 160 Void Amount 850 520 # of times incontinent of urine 1 1 Other: Urine Appearance Clear Clear Straight Clear Urine Color Pale Pale Straight Bright Yellow Urine Odor Normal Normal OBJ DATA Labs CBC & Chem 7: 03/23/21 07:07 03/23/21 07:06 Labs: Abnormal Lab Results 03/23/21 03/23/21 03/23/21 07:07 07:06 01:12 WBC 11.5 H RBC 4.39 L Hgb 11.5 L Hct 35.6 L MCH RDW 16.5 H MPV 10.8 H Seg Neutrophils % Lymphocytes % RBC Morphology Abnormal A Anisocytosis 1+ A Microcytosis Few A VBG Lactic Acid Anion Gap 6.0 L 7.0 L BUN 27 H Creatinine 1.4 H 1.7 H Glucose 123 H 129 H Phosphorus 2.1 L 2.3 L Magnesium 1.5 L Urine Bacteria Urine Mucus U Benzodiazepines Scrn 03/22/21 03/22/21 03/22/21 20:12 20:12 18:44 WBC RBC Hgb Hct MCH RDW MPV Seg Neutrophils % Lymphocytes % RBC Morphology Anisocytosis Microcytosis VBG Lactic Acid 2.3 H Anion Gap BUN Creatinine Glucose Phosphorus Magnesium Urine Bacteria Few A Urine Mucus Few A U Benzodiazepines Scrn Suspect positive A 03/22/21 03/22/21 18:44 18:44 WBC 15.4 H RBC Hgb 12.3 L Hct 38.6 L MCH 25.9 L RDW 16.5 H MPV 11.3 H Seg Neutrophils % 87 H Lymphocytes % 6 L RBC Morphology Anisocytosis Microcytosis VBG Lactic Acid Anion Gap BUN 31 H Creatinine 1.8 H Glucose 210 H Phosphorus Magnesium Urine Bacteria Urine Mucus U Benzodiazepines Scrn Meds: Medications Acetaminophen (Acetaminophen 500 Mg Tablet) 500 mg PO Q6HP PRN; Protocol PRN Reason: Per Pain Protocol Last Admin: 03/23/21 10:45 Dose: 500 mg Documented by: Dextrose (Dextrose 50% 50 Ml Vial) 0 ml IV UD PRN PRN Reason: Hypoglycemia Diagnostic Test (Pha) (Accu-Chek 1 Each Strip) 1 each FS ACHS [facility] Last Admin: 03/23/21 11:21 Dose: 1 each Documented by: Docusate Sodium (Docusate Sodium 100 Mg Capsule) 100 mg PO BID MICHAEL Last Admin: 03/23/21 08:01 Dose: Not Given Documented by: Glucose (Dextrose 31 Gm Oral.Susp) 15 gm PO PRN PRN PRN Reason: Hypoglycemia Heparin Sodium (Porcine) (Heparin 5,000 Unit/Ml Vial) 5,000 unit SQ Q12 MICHAEL Last Admin: 03/23/21 08:29 Dose: 5,000 unit Documented by: Ceftriaxone Sodium 2 gm/ (Dextrose) 50 mls @ 100 mls/hr IV Q24H [facility]; Protocol Last Infusion: 03/23/21 09:05 Dose: Infused Documented by: Azithromycin 500 mg/ Dextrose 250 mls @ 250 mls/hr IV Q24H [facility]; Protocol Stop: 03/25/21 00:10 Last Admin: 03/22/21 23:25 Dose: Not Given Documented by: Insulin Glargine (Insulin Glargine, Human 1 Unit/0.01 Ml) 5 unit SQ [facility] Last Admin: 03/22/21 23:50 Dose: Not Given Documented by: Insulin Human Lispro (Insulin Lispro 1 Unit/0.01 Ml Unit) 0 unit SQ ACHS [facility]; Protocol Last Admin: 03/23/21 11:21 Dose: Not Given Documented by: Lactulose (Lactulose 20 Gm/30 Ml Oral.Carlota) 10 gm PO DAILYP PRN PRN Reason: Constipation Memantine (Memantine 10 Mg Tablet) 10 mg PO BID [facility] Last Admin: 03/23/21 08:22 Dose: 10 mg Documented by: Ondansetron HCl (Ondansetron 4 Mg/2 Ml Vial) 4 mg IV Q4HP PRN; Protocol PRN Reason: Nausea And Vomiting Quetiapine Fumarate (Quetiapine 25 Mg Tablet) 25 mg PO QDAY PRN PRN Reason: Agitation Senna (Sennosides 1 Tablet) 2 tab PO HSP PRN PRN Reason: Constipation Sertraline HCl (Sertraline 50 Mg Tablet) 50 mg PO BID [facility] Last Admin: 03/23/21 08:22 Dose: 50 mg Documented by: Sodium Chloride (0.9 % Sodium Chloride 10 Ml Syringe) 10 ml IV Q8 [facility] Last Admin: 03/23/21 05:28 Dose: 10 ml Documented by: Tamsulosin HCl (Tamsulosin 0.4 Mg Capsule) 0.4 mg PO DAILY [facility] Last Admin: 03/23/21 08:22 Dose: 0.4 mg Documented by: A/P Narrative A/P Narrative: Assessment: 80-year-old male with a history of hypertension, diabetes mellitus type 2, chronic anemia, CKD stage III, dementia admitted for severe sepsis likely secondary to pneumonia. #Severe sepsis #Community acquired pneumonia #Acute on chronic kidney disease injury #Encephalopathy likely due to infection #Hypertension #Diabetes mellitus type II #Recurrent falls #Dementia Plan -Ceftriaxone and Azithromycin. -Follow blood cultures x2 -Lantus and SSI. -Continue home Sertraline, Memantine, Flomax. -Seroquel prn, not scheduled. -Hold home metformin, amlodipine-benazepril, seroquel, clonazepam. -Could consider aspirating/culturing right elbow bursa. -PT consult -Advance diet as tolerated -DVT ppx: heparin -Code status: DNR -Disposition: TBD Time Spent With Patient Time: Total time spent is greater than 50% in coordination of care (as documented) at patient's floor/unit and/or counseling patient: QUALITY VTE Deep Vein Thrombosis/Pulmonary Embolism Present on Admission: No
[2021-03-23] MEDS: AZITHROMYCIN 500 MG in DEXTROSE 5% IN WATER 250 ML IV SCH (14:47)
[2021-03-23] MEDS ORDERED: amLODIPine 10 MG TABLET PO ONE (20:04)
[2021-03-23] MEDS ORDERED: LABETALOL 5 MG/ML ML IV PRN (20:06)
[2021-03-23] MEDS: INSULIN GLARGINE, HUMAN 1 UNIT/0.01 ML SQ SCH (20:29)
[2021-03-24] MEDS: 0.9 % SODIUM CHLORIDE 10 ML SYRINGE IV SCH ×3 (05:37→21:30)
[2021-03-24 06:16] LABS: Hematocrit 37.1 % (41.0-55.0); Hemoglobin 11.8 g/dL (13.5-16.5); Mean Cell Volume 81.4 fL (80.0-100.0); Mean Corpuscular HGB Conc 31.8 g/dL (31.0-36.0); Mean Platelet Volume 10.7 fL (7.4-10.4); Platelet Count 249 K/mcL (140-440); RBC 4.56 M/mcL (4.50-5.90); Red Cell Distribution Width 16.6 % (11.5-14.5); WBC 9.3 K/mcL (4.5-11.0)
[2021-03-24 07:01] LABS: ALT/SGPT 5 U/L (<40); AST/SGOT 10 U/L (<40); Albumin 3.4 gm/dL (3.2-5.2); Albumin/Globulin Ratio 1.1 (1.0-2.3); Alkaline Phosphatase 74 U/L (39-117); Bilirubin,Direct < 0.2 mg/dL (0-0.3); Bilirubin,Total 0.4 mg/dL (0.1-1.0); Blood Urea Nitrogen 22 mg/dL (8-23); Calcium 9.4 mg/dL (8.6-10.4); Carbon Dioxide 26 mmol/L (22-30); Chloride 101 mmol/L (96-108); Globulin 3.2 gm/dL (2.2-3.7); Glomerular Filtration Rate 40; Glucose 127 mg/dL (70-105); Lactate Dehydrogenase 197 U/L (135-225); Phosphorous 2.5 mg/dL (2.5-4.5); Triglycerides 79 mg/dL (<150); Uric Acid 7.5 mg/dL (2.5-8.0)
[2021-03-24 08:01] LABS: Anisocytosis 1+ (None Seen); Lymphocytes % 15 % (15-49); Microcytosis FEW (None Seen); Monocytes % (Manual) 16 % (1-12); Platelet Estimate NORMAL (Normal); RBC Morphology ABNORMAL (Normal); Reactive Lymphocytes 1 % (0-2); Segmented Neutrophils % 68 % (38-78)
[2021-03-24] MEDS: INSULIN LISPRO 1 UNIT/0.01 ML UNIT SQ SCH ×4 (08:17→21:23)
[2021-03-24] MEDS: DOCUSATE SODIUM 100 MG CAPSULE PO SCH ×2 (08:18→21:14)
[2021-03-24] MEDS: HEPARIN 5,000 UNIT/ML VIAL SQ SCH ×2 (08:25→21:15)
[2021-03-24] MEDS: SERTRALINE 50 MG TABLET PO SCH ×2 (08:30→21:15)
[2021-03-24] MEDS: MEMANTINE 10 MG TABLET PO SCH ×2 (08:30→21:14)
[2021-03-24] MEDS: TAMSULOSIN 0.4 MG CAPSULE PO SCH (08:30)
[2021-03-24] MEDS: cefTRIAXone 2 GM in DEXTROSE 5% IN WATER 50 ML IV SCH (08:36)
[2021-03-24] MEDS ORDERED: amLODIPine 10 MG TABLET PO SCH (09:00)
[2021-03-24] MEDS: ACETAMINOPHEN 500 MG TABLET PO PRN ×3 (09:45→23:57)
--- NOTE | 2021-03-24 12:46 | Internal Med Progress Note ---
SUBJECTIVE Subjective Patient information: Note initiated : 03/24/21 at 12:40 pm Service Date, if different from initiated Date: [] Patient: Kassidy Anthony 80 y/o M admitted on 03/22/21 for weakness, fever, altered LOC. Chief Complaint: [] Interval history: Mr. Anthony is a 80 year old male with a history of hypertension, chronic kidney disease stage III, chronic anemia, diabetes mellitus type 2, moderate dementia who lives at home with his who is his caregiver. The patient presents to the ED after multiple falls and worsening confusion. He fell again on the day of presentation, she called EMS and they found that he had a fever was taken to the emergency department. In the emergency department, patient met SIRS criteria with fever and tachycardia. Infectious work-up included CBC showing new leukocytosis and chest x-ray which showed a right lower lobe pneumonia. The patient has an acute on chronic kidney disease injury. Patient is saturating well on room air, blood pressure is stable and he is in no apparent distress. Lactic acid was mildly elevated at 2.3. Patient received IV fluid, ceftriaxone and azithromycin and was admitted for further management. Goals of care was discussed with his who is his medical decision maker, she stated the patient's code status is DNR. 03/23-continues on room air, working with therapies. Right elbow is slightly red but doubt infectious bursitis. The patient has had chronic bilateral bursitis for years according to his . Renal function improved. Replacing magnesium and phosphorus. 03/24-overall improved, still having high grade temps. Right elbow redness in area of what appears to be chronic bursitis. Elbow ultrasound to evaluate for drainable fluid collection. Transfer to med/surg. Discharge planning. Head: Atraumatic, normal inspection. Eyes: normal appearance, no scleral icterus. Neck: full ROM Respiratory: no respiratory distress. Cardiovascular: normal rate and rhythm, S1, S2. GI/Abdominal: soft, nontender, no guarding. Extremities: bilateral elbow swelling likely bursitis, right elbow erythema, warmth. and tenderness. Neurological: CN II-XII intact, intact motor, intact sensation. Psychiatric: memory impairment, normal mood. Skin: warm, redness right elbow Constitutional Vitals: Vital Signs Temp Pulse Resp BP Pulse Ox 99.9 F H 95 H 20 145/93 96 03/24/21 08:01 03/24/21 04:02 03/24/21 04:01 03/24/21 08:01 03/24/21 08:40 Period Temp Pulse Resp BP Sys/Petty Pulse Ox Last 24 Hr 99.5 F-100.9 F 38-106 17- 114-156/69-112 81-99 Intake and Output 03/23/21 03/24/21 03/24/21 21:59 05:59 13:59 Intake Total 1070 530 Output Total 261 1101 Balance 809 -1101 530 Weight 88.723 kg Intake & Output: Intake & Output 03/23/21 03/24/21 03/24/21 21:59 05:59 13:59 Intake Total 1070 530 Output Total 261 1101 Balance 809 -1101 530 Weight 88.723 kg Intake: IV 250 50 Zithromax 500 mg In Dextrose 5% 250 in Water 250 ml @ 250 mls/hr IV Q24H [facility] Rx#:[id number] Rocephin 2 gm In Dextrose 5% in 50 Water 50 ml @ 100 mls/hr IV Q24H [facility] Rx#:[id number] Oral 820 480 Output: Void Amount 260 1100 # of times incontinent of urine 1 1 Other: Meal Dinner Breakfast Percent of Meal Consumed 100% 100% Feeding Ability Assist with Tray Set Up Independent Urine Appearance Clear Clear Urine Color Bright Yellow Straw Urine Odor Normal Stool Size Large Stool Color Brown Stool Consistency Soft # Voids 1 # Bowel Movements 0 OBJ DATA Labs CBC & Chem 7: 03/24/21 04:44 03/24/21 04:44 Labs: Abnormal Lab Results 03/24/21 03/24/21 03/23/21 04:44 04:44 07:07 WBC 11.5 H RBC 4.39 L Hgb 11.8 L 11.5 L Hct 37.1 L 35.6 L MCH 25.9 L RDW 16.6 H 16.5 H MPV 10.7 H 10.8 H Seg Neutrophils % Lymphocytes % Monocytes % (Manual) 16 H RBC Morphology Abnormal A Abnormal A Anisocytosis 1+ A 1+ A Microcytosis Few A Few A VBG Lactic Acid Anion Gap BUN Creatinine 1.6 H Glucose 127 H Phosphorus Magnesium Urine Bacteria Urine Mucus U Benzodiazepines Scrn 03/23/21 03/23/21 03/22/21 07:06 01:12 20:12 WBC RBC Hgb Hct MCH RDW MPV Seg Neutrophils % Lymphocytes % Monocytes % (Manual) RBC Morphology Anisocytosis Microcytosis VBG Lactic Acid Anion Gap 6.0 L 7.0 L BUN 27 H Creatinine 1.4 H 1.7 H Glucose 123 H 129 H Phosphorus 2.1 L 2.3 L Magnesium 1.5 L Urine Bacteria Few A Urine Mucus Few A U Benzodiazepines Scrn 03/22/21 03/22/21 03/22/21 20:12 18:44 18:44 WBC RBC Hgb Hct MCH RDW MPV Seg Neutrophils % Lymphocytes % Monocytes % (Manual) RBC Morphology Anisocytosis Microcytosis VBG Lactic Acid 2.3 H Anion Gap BUN 31 H Creatinine 1.8 H Glucose 210 H Phosphorus Magnesium Urine Bacteria Urine Mucus U Benzodiazepines Scrn Suspect positive A 03/22/21 18:44 WBC 15.4 H RBC Hgb 12.3 L Hct 38.6 L MCH 25.9 L RDW 16.5 H MPV 11.3 H Seg Neutrophils % 87 H Lymphocytes % 6 L Monocytes % (Manual) RBC Morphology Anisocytosis Microcytosis VBG Lactic Acid Anion Gap BUN Creatinine Glucose Phosphorus Magnesium Urine Bacteria Urine Mucus U Benzodiazepines Scrn Meds: Medications Acetaminophen (Acetaminophen 500 Mg Tablet) 500 mg PO Q6HP PRN; Protocol PRN Reason: Per Pain Protocol Last Admin: 03/24/21 09:45 Dose: 500 mg Documented by: Amlodipine Besylate (Amlodipine 10 Mg Tablet) 10 mg PO DAILY [facility] Last Admin: 03/24/21 08:31 Dose: 10 mg Documented by: Dextrose (Dextrose 50% 50 Ml Vial) 0 ml IV UD PRN PRN Reason: Hypoglycemia Diagnostic Test (Pha) (Accu-Chek 1 Each Strip) 1 each FS ACHS [facility] Last Admin: 03/24/21 12:38 Dose: 1 each Documented by: Docusate Sodium (Docusate Sodium 100 Mg Capsule) 100 mg PO BID [facility] Last Admin: 03/24/21 08:18 Dose: Not Given Documented by: Glucose (Dextrose 31 Gm Oral.Susp) 15 gm PO PRN PRN PRN Reason: Hypoglycemia Heparin Sodium (Porcine) (Heparin 5,000 Unit/Ml Vial) 5,000 unit SQ Q12 [facility] Last Admin: 03/24/21 08:25 Dose: 5,000 unit Documented by: Ceftriaxone Sodium 2 gm/ (Dextrose) 50 mls @ 100 mls/hr IV Q24H [facility]; Protocol Last Infusion: 03/24/21 09:09 Dose: Infused Documented by: Azithromycin 500 mg/ Dextrose 250 mls @ 250 mls/hr IV Q24H [facility]; Protocol Stop: 03/25/21 00:10 Last Infusion: 03/23/21 15:50 Dose: Infused Documented by: Insulin Glargine (Insulin Glargine, Human 1 Unit/0.01 Ml) 5 unit SQ HS [facility] Last Admin: 03/23/21 20:29 Dose: 5 units Documented by: Insulin Human Lispro (Insulin Lispro 1 Unit/0.01 Ml Unit) 0 unit SQ ACHS [facility]; Protocol Last Admin: 03/24/21 12:38 Dose: Not Given Documented by: Labetalol HCl (Labetalol 5 Mg/Ml Ml) 20 mg IV Q2HP PRN PRN Reason: Hypertension Lactulose (Lactulose 20 Gm/30 Ml Oral.Carlota) 10 gm PO DAILYP PRN PRN Reason: Constipation Memantine (Memantine 10 Mg Tablet) 10 mg PO BID [facility] Last Admin: 03/24/21 08:30 Dose: 10 mg Documented by: Ondansetron HCl (Ondansetron 4 Mg/2 Ml Vial) 4 mg IV Q4HP PRN; Protocol PRN Reason: Nausea And Vomiting Quetiapine Fumarate (Quetiapine 25 Mg Tablet) 25 mg PO QDAY PRN PRN Reason: Agitation Last Admin: 03/23/21 20:31 Dose: 25 mg Documented by: Senna (Sennosides 1 Tablet) 2 tab PO HSP PRN PRN Reason: Constipation Sertraline HCl (Sertraline 50 Mg Tablet) 50 mg PO BID [facility] Last Admin: 03/24/21 08:30 Dose: 50 mg Documented by: Sodium Chloride (0.9 % Sodium Chloride 10 Ml Syringe) 10 ml IV Q8 [facility] Last Admin: 03/24/21 05:37 Dose: 10 ml Documented by: Tamsulosin HCl (Tamsulosin 0.4 Mg Capsule) 0.4 mg PO DAILY [facility] Last Admin: 03/24/21 08:30 Dose: 0.4 mg Documented by: A/P Narrative A/P Narrative: Assessment: 80-year-old male with a history of hypertension, diabetes mellitus type 2, chronic anemia, CKD stage III, dementia admitted for severe sepsis likely secondary to pneumonia. #Community acquired pneumonia #Right elbow tenderness #Resolved severe sepsis: likely secondary to pneumonia #Resolved acute on chronic kidney disease injury #Encephalopathy likely due to infection #Hypertension #Diabetes mellitus type II #Bilateral elbow swelling, probably chronic bursitis #Recurrent falls #Dementia Plan -Transfer to med/surg -Ceftriaxone and Azithromycin, probably transition to oral abx tomorrow. . -Follow blood cultures x2 -Lantus and SSI. -Continue home Sertraline, Memantine, Flomax. -Seroquel prn, not scheduled. -Hold home metformin, amlodipine-benazepril, seroquel, clonazepam. -US of right elbow for drainable fluid collection. -PT consult -Advance diet as tolerated -DVT ppx: heparin SQ -Code status: DNR -Disposition: TBD Time Spent With Patient Time: Total time spent is greater than 50% in coordination of care (as documented) at patient's floor/unit and/or counseling patient: QUALITY VTE Deep Vein Thrombosis/Pulmonary Embolism Present on Admission: No
[2021-03-24] MEDS: AZITHROMYCIN 500 MG in DEXTROSE 5% IN WATER 250 ML IV SCH (15:37)
[2021-03-24] MEDS ORDERED: ONDANSETRON 4 MG/2 ML VIAL IV PRN (15:38)
[2021-03-24] MEDS ORDERED: DEXTROSE 50% 50 ML VIAL IV PRN (15:38)
[2021-03-24] MEDS ORDERED: DEXTROSE 31 GM ORAL.SUSP PO PRN (15:38)
[2021-03-24] MEDS ORDERED: LACTULOSE 20 GM/30 ML ORAL.SOL PO PRN (15:38)
[2021-03-24] MEDS ORDERED: LABETALOL 5 MG/ML ML IV PRN (15:38)
[2021-03-24] MEDS ORDERED: QUEtiapine 25 MG TABLET PO PRN (15:38)
[2021-03-24] MEDS ORDERED: SENNOSIDES 1 TABLET PO PRN (15:38)
[2021-03-24] MEDS: INSULIN GLARGINE, HUMAN 1 UNIT/0.01 ML SQ SCH (21:22)
[2021-03-25] MEDS: 0.9 % SODIUM CHLORIDE 10 ML SYRINGE IV SCH ×3 (05:24→21:27)
[2021-03-25 06:39] LABS: ALT/SGPT 6 U/L (<40); AST/SGOT 12 U/L (<40); Albumin 3.3 gm/dL (3.2-5.2); Albumin/Globulin Ratio 1.1 (1.0-2.3); Alkaline Phosphatase 76 U/L (39-117); Bilirubin,Direct < 0.2 mg/dL (0-0.3); Bilirubin,Total 0.3 mg/dL (0.1-1.0); Blood Urea Nitrogen 22 mg/dL (8-23); Calcium 9.2 mg/dL (8.6-10.4); Carbon Dioxide 25 mmol/L (22-30); Chloride 102 mmol/L (96-108); Glomerular Filtration Rate 48; Glucose 114 mg/dL (70-105); Lactate Dehydrogenase 223 U/L (135-225); Phosphorous 2.5 mg/dL (2.5-4.5); Triglycerides 90 mg/dL (<150); Uric Acid 6.8 mg/dL (2.5-8.0)
[2021-03-25] MEDS: INSULIN LISPRO 1 UNIT/0.01 ML UNIT SQ SCH ×4 (07:22→21:25)
[2021-03-25] MEDS: SERTRALINE 50 MG TABLET PO SCH ×2 (07:32→21:26)
[2021-03-25] MEDS: DOCUSATE SODIUM 100 MG CAPSULE PO SCH ×2 (07:32→21:28)
[2021-03-25] MEDS: HEPARIN 5,000 UNIT/ML VIAL SQ SCH ×2 (07:32→21:25)
[2021-03-25] MEDS: MEMANTINE 10 MG TABLET PO SCH ×2 (07:32→21:26)
[2021-03-25] MEDS: TAMSULOSIN 0.4 MG CAPSULE PO SCH (07:33)
[2021-03-25] MEDS: amLODIPine 10 MG TABLET PO SCH (07:33)
--- NOTE | 2021-03-25 07:59 | Internal Med Progress Note ---
SUBJECTIVE Subjective Patient information: Note initiated : 03/25/21 at 7:47 am Service Date, if different from initiated Date: [] Patient: Kassidy Anthony 80 y/o M admitted on 03/22/21 for weakness, fever, altered LOC. Chief Complaint: [] Interval history: Mr. Anthony is a 80 year old male with a history of hypertension, chronic kidney disease stage III, chronic anemia, diabetes mellitus type 2, moderate dementia who lives at home with his who is his caregiver. The patient presents to the ED after multiple falls and worsening confusion. He fell again on the day of presentation, she called EMS and they found that he had a fever was taken to the emergency department. In the emergency department, patient met SIRS criteria with fever and tachycardia. Infectious work-up included CBC showing new leukocytosis and chest x-ray which s howed a right lower lobe pneumonia. The patient has an acute on chronic kidney disease injury. Patient is saturating well on room air, blood pressure is stable and he is in no apparent distress. Lactic acid was mildly elevated at 2.3. Patient received IV fluid, ceftriaxone and azithromycin and was admitted for further management. Goals of care was discussed with his who is his medical decision maker, she stated the patient's code status is DNR. 03/23-continues on room air, working with therapies. Right elbow is slightly red could be infectious bursitis vs gout? The patient has had chronic bilateral bursitis for years according to his . Renal function improved. Replacing magnesium and phosphorus. 03/24-overall improved, still having high grade temps. Right elbow redness in ar ea of what appears to be chronic bursitis. Elbow ultrasound to evaluate for drainable fluid collection. Transfer to med/surg. Discharge planning. 03/25-right elbow ultrasound pending, suspect this to the reason for persistent fevers. On Ceftriaxone and overall appears to have improved since admission, doubt MRSA is causing this. Ceftriaxone should cover most other infectious possibilities. Could be septic bursitis vs gout, awaiting ultrasound results, maybe able to aspirate for a workup. Continue Ceftriaxone for now. Head: Atraumatic, normal inspection. Eyes: normal appearance, no scleral icterus. Neck: full ROM Respiratory: no respiratory distress. Cardiovascular: normal rate and rhythm, S1, S2. GI/Abdominal: soft, nontender, no guarding. Extremities: bilateral elbow swelling likely bursitis, right elbow erythema, warmth. and tenderness. Neurological: CN II-XII intact, intact motor, intact sensation. Psychiatric: memory impairment, normal mood. Skin: warm, redness right elbow Constitutional Vitals: Vital Signs Temp Pulse Resp BP Pulse Ox 100.0 F H 91 H 18 169/94 93 03/25/21 04:30 03/25/21 04:30 03/25/21 00:04 03/25/21 04:30 03/25/21 04:30 Period Temp Pulse Resp BP Sys/Petty Pulse Ox Last 24 Hr 99.2 F-100.8 F 78-95 16-18 126-169/75-107 92-96 Intake and Output 03/24/21 03/25/21 03/25/21 21:59 05:59 13:59 Intake Total 730 240 Output Total 752 528 Balance -22 -288 Weight 87.589 kg Intake & Output: Intake & Output 03/24/21 03/25/21 03/25/21 21:59 05:59 13:59 Intake Total 730 240 Output Total 752 528 Balance -22 -288 Weight 87.589 kg Intake: IV 250 Zithromax 500 mg In Dextrose 5% 250 in Water 250 ml @ 250 mls/hr IV Q24H [facility] Rx#:[id number] Oral 480 240 Output: Void Amount 750 525 # of times incontinent of urine 2 3 Other: Meal Dinner Percent of Meal Consumed 100% Feeding Ability Assist with Tray Set Up Urine Appearance Clear Clear Urine Color Bright Yellow Bright Yellow Urine Odor Normal OBJ DATA Labs CBC & Chem 7: 03/25/21 04:49 03/25/21 04:49 Labs: Abnormal Lab Results 03/25/21 03/25/21 03/24/21 04:49 04:49 04:44 WBC RBC Hgb Hct MCH RDW MPV Seg Neutrophils % Lymphocytes % Monocytes % (Manual) RBC Morphology Anisocytosis Microcytosis VBG Lactic Acid Anion Gap BUN Creatinine 1.4 H 1.6 H Glucose 114 H 127 H Phosphorus Magnesium 1.5 L C-Reactive Protein 10.70 H Urine Bacteria Urine Mucus U Benzodiazepines Scrn 03/24/21 03/23/21 03/23/21 04:44 07:07 07:06 WBC 11.5 H RBC 4.39 L Hgb 11.8 L 11.5 L Hct 37.1 L 35.6 L MCH 25.9 L RDW 16.6 H 16.5 H MPV 10.7 H 10.8 H Seg Neutrophils % Lymphocytes % Monocytes % (Manual) 16 H RBC Morphology Abnormal A Abnormal A Anisocytosis 1+ A 1+ A Microcytosis Few A Few A VBG Lactic Acid Anion Gap 6.0 L BUN Creatinine 1.4 H Glucose 123 H Phosphorus 2.1 L Magnesium 1.5 L C-Reactive Protein Urine Bacteria Urine Mucus U Benzodiazepines Scrn 03/23/21 03/22/21 03/22/21 01:12 20:12 20:12 WBC RBC Hgb Hct MCH RDW MPV Seg Neutrophils % Lymphocytes % Monocytes % (Manual) RBC Morphology Anisocytosis Microcytosis VBG Lactic Acid Anion Gap 7.0 L BUN 27 H Creatinine 1.7 H Glucose 129 H Phosphorus 2.3 L Magnesium C-Reactive Protein Urine Bacteria Few A Urine Mucus Few A U Benzodiazepines Scrn Suspect positive A 03/22/21 03/22/21 03/22/21 18:44 18:44 18:44 WBC 15.4 H RBC Hgb 12.3 L Hct 38.6 L MCH 25.9 L RDW 16.5 H MPV 11.3 H Seg Neutrophils % 87 H Lymphocytes % 6 L Monocytes % (Manual) RBC Morphology Anisocytosis Microcytosis VBG Lactic Acid 2.3 H Anion Gap BUN 31 H Creatinine 1.8 H Glucose 210 H Phosphorus Magnesium C-Reactive Protein Urine Bacteria Urine Mucus U Benzodiazepines Scrn Meds: Medications Acetaminophen (Acetaminophen 500 Mg Tablet) 500 mg PO Q6HP PRN; Protocol PRN Reason: Per Pain Protocol Last Admin: 03/24/21 23:57 Dose: 500 mg Documented by: Amlodipine Besylate (Amlodipine 10 Mg Tablet) 10 mg PO DAILY [facility] Last Admin: 03/25/21 07:33 Dose: 10 mg Documented by: Dextrose (Dextrose 50% 50 Ml Vial) 0 ml IV UD PRN PRN Reason: Hypoglycemia Diagnostic Test (Pha) (Accu-Chek 1 Each Strip) 1 each FS ACHS [facility] Last Admin: 03/25/21 07:22 Dose: 1 each Documented by: Docusate Sodium (Docusate Sodium 100 Mg Capsule) 100 mg PO BID [facility] Last Admin: 03/25/21 07:32 Dose: 100 mg Documented by: Glucose (Dextrose 31 Gm Oral.Susp) 15 gm PO PRN PRN PRN Reason: Hypoglycemia Heparin Sodium (Porcine) (Heparin 5,000 Unit/Ml Vial) 5,000 unit SQ Q12 [facility] Last Admin: 03/25/21 07:32 Dose: 5,000 unit Documented by: Azithromycin 500 mg/ Dextrose 250 mls @ 250 mls/hr IV Q24H [facility]; Protocol Stop: 03/25/21 10:59 Ceftriaxone Sodium 2 gm/ (Dextrose) 50 mls @ 100 mls/hr IV Q24H [facility]; Protocol Insulin Glargine (Insulin Glargine, Human 1 Unit/0.01 Ml) 5 unit SQ HS [facility] Last Admin: 03/24/21 21:22 Dose: 5 units Documented by: Insulin Human Lispro (Insulin Lispro 1 Unit/0.01 Ml Unit) 0 unit SQ ACHS [facility]; Protocol Last Admin: 03/25/21 07:22 Dose: Not Given Documented by: Labetalol HCl (Labetalol 5 Mg/Ml Ml) 20 mg IV Q2HP PRN PRN Reason: Hypertension Lactulose (Lactulose 20 Gm/30 Ml Oral.Carlota) 10 gm PO DAILYP PRN PRN Reason: Constipation Memantine (Memantine 10 Mg Tablet) 10 mg PO BID [facility] Last Admin: 03/25/21 07:32 Dose: 10 mg Documented by: Ondansetron HCl (Ondansetron 4 Mg/2 Ml Vial) 4 mg IV Q4HP PRN; Protocol PRN Reason: Nausea And Vomiting Quetiapine Fumarate (Quetiapine 25 Mg Tablet) 25 mg PO QDAY PRN PRN Reason: Agitation Senna (Sennosides 1 Tablet) 2 tab PO HSP PRN PRN Reason: Constipation Sertraline HCl (Sertraline 50 Mg Tablet) 50 mg PO BID [facility] Last Admin: 03/25/21 07:32 Dose: 50 mg Documented by: Sodium Chloride (0.9 % Sodium Chloride 10 Ml Syringe) 10 ml IV Q8 [facility] Last Admin: 03/25/21 05:24 Dose: 10 ml Documented by: Tamsulosin HCl (Tamsulosin 0.4 Mg Capsule) 0.4 mg PO DAILY [facility] Last Admin: 03/25/21 07:33 Dose: 0.4 mg Documented by: A/P Narrative A/P Narrative: Assessment: 80-year-old male with a history of hypertension, diabetes mellitus type 2, chronic anemia, CKD stage III, dementia admitted for severe sepsis likely secondary to pneumonia. #Community acquired pneumonia #Persistent low grade temps/fevers -suspect right elbow to be the cause #Right elbow erythema/tenderness of uncertain cause -infectious vs crystal related? -nonpurulent cellulitis #Resolved severe sepsis: probably secondary to pneumonia #Resolved acute on chronic kidney disease injury #Resolved encephalopathy -encephalopathy was secondary to sepsis #Hypertension #Diabetes mellitus type II #Chronic bilateral elbow swelling #Recurrent falls #Dementia Plan -Continue Ceftriaxone and Azithromycin, still spiking temp suspect right elbow could consider escalating abx but will wait for US results. -Follow blood cultures x2 -Follow urine cx -Repeat chest xray -Waiting for US elbow-if fluid collection present will ask radilogy to aspirate for cell cnt/gm stain/culture/crystals -Lantus and SSI. -Continue home Sertraline, Memantine, Flomax. -Seroquel prn, not scheduled. -Hold home metformin, amlodipine-benazepril, seroquel, clonazepam. -PT consult -DVT ppx: heparin SQ -Code status: DNR -Disposition: Probably SNF. Time Spent With Patient Time: Total time spent is greater than 50% in coordination of care (as documented) at patient's floor/unit and/or counseling patient: QUALITY VTE Deep Vein Thrombosis/Pulmonary Embolism Present on Admission: No
[2021-03-25 08:02] LABS: Basophils # (Auto) 0.05 K/mcL (0.00-0.20); Basophils % (Auto) 0.6 % (0.0-2.0); Eosinophils # (Auto) 0.12 K/mcL (0.00-0.70); Eosinophils % (Auto) 1.4 % (0.0-7.0); Hemoglobin 11.9 g/dL (13.5-16.5); Mean Cell Volume 80.2 fL (80.0-100.0); Mean Corpuscular HGB Conc 33.1 g/dL (31.0-36.0); Mean Platelet Volume 10.8 fL (7.4-10.4); Monocytes # (Auto) 0.88 K/mcL (0.10-0.90); Monocytes % (Auto) 10.5 % (1.0-12.0); Neutrophils % (Auto) 68.5 % (38.0-78.0); Platelet Count 267 K/mcL (140-440); RBC 4.49 M/mcL (4.50-5.90); Red Cell Distribution Width 16.3 % (11.5-14.5); WBC 8.4 K/mcL (4.5-11.0)
--- NOTE | 2021-03-25 08:41 | Ultrasound Report ---
History: Fever, soft tissue swelling around the right elbow, evaluate for fluid collection FINDINGS: Posterior to the elbow there is a complex heterogeneous irregularly shaped structure which measures 2.2 x 4.4 x 2.5 cm. This is either solid material or very thick complex fluid. There is some flow along the periphery but it is not hypervascular. The central component is avascular. There is surrounding subcutaneous edema. IMPRESSION: Complex mass/fluid collection posterior to the elbow. This could be a hematoma or infection. This is unlikely a neoplasm. Needle aspiration should be considered. Interpreted and Authenticated by: Bogdan Campos 03/25/21
[2021-03-25] MEDS: cefTRIAXone 2 GM in DEXTROSE 5% IN WATER 50 ML IV SCH (09:27)
--- NOTE | 2021-03-25 09:31 | XRay Report ---
HISTORY: Fever weakness and altered level of consciousness FINDINGS: Heart size is upper limits of normal with left ventricular prominence. There is a vague haziness in the lung parenchyma bilaterally, most apparent in the right lower lobe. The small infiltrate seen medially in the right lower lobe on 03/22/21 has improved. There is no pleural effusion. Patient has a retrocardiac density behind the left heart border which corresponds to the hiatus hernia seen on a prior CT scan. IMPRESSION: Resolving right lower lobe pneumonia Borderline pulmonary vascular congestion Interpreted and Authenticated by: Bogdan Campos 03/25/21
[2021-03-25] MEDS ORDERED: AZITHROMYCIN 500 MG in DEXTROSE 5% IN WATER 250 ML IV SCH (10:00)
[2021-03-25] MEDS ORDERED: MAGNESIUM SULFATE 2 GM/50 ML BAG IV ONE (10:42)
--- NOTE | 2021-03-25 13:34 | Internal Med Progress Note ---
SUBJECTIVE Subjective Patient information: Note initiated : 03/25/21 at 1:30 pm Service Date, if different from initiated Date: [] Patient: Kassidy Anthony 80 y/o M admitted on 03/22/21 for weakness, fever, altered LOC. Chief Complaint: [] Interval history: Mr. Anthony is a 80 year old male with a history of hypertension, chronic kidney disease stage III, chronic anemia, diabetes mellitus type 2, moderate dementia who lives at home with his who is his caregiver. The patient presents to the ED after multiple falls and worsening confusion. He fell again on the day of presentation, she called EMS and they found that he had a fever was taken to the emergency department. In the emergency department, patient met SIRS criteria with fever and tachycardia. Infectious work-up included CBC showing new leukocytosis and chest x-ray which s howed a right lower lobe pneumonia. The patient has an acute on chronic kidney disease injury. Patient is saturating well on room air, blood pressure is stable and he is in no apparent distress. Lactic acid was mildly elevated at 2.3. Patient received IV fluid, ceftriaxone and azithromycin and was admitted for further management. Goals of care was discussed with his who is his medical decision maker, she stated the patient's code status is DNR. 03/23-continues on room air, working with therapies. Right elbow is slightly red could be infectious bursitis vs gout? The patient has had chronic bilateral bursitis for years according to his . Renal function improved. Replacing magnesium and phosphorus. 03/24-overall improved, still having high grade temps. Right elbow redness in ar ea of what appears to be chronic bursitis. Elbow ultrasound to evaluate for drainable fluid collection. Transfer to med/surg. Discharge planning. 03/25-right elbow ultrasound pending, suspect this to the reason for persistent fevers. On Ceftriaxone and overall appears to have improved since admission, doubt MRSA is causing this. Ceftriaxone should cover most other infectious possibilities. Could be septic bursitis vs gout, awaiting ultrasound results, maybe able to aspirate for a workup. Continue Ceftriaxone for now. *The right elbow ultrasound is showing a complex mass/fluid collection posterior to the elbow. Spoke with Dr. Campos in radiology regarding an aspiration, he said he could to is this afternoon. Cell count, gram stain and culture, and crystals ordered. Patient still having high grade temperatures and fevers so may be prudent to start Vancomycin after aspiration to cover for MRSA while following workup. Neurology drained fluid from the right elbow appear to have the appearance of tophaceous gout, with crystal analysis subsequently coming back as monosodium urate crystals. 03/26 Constitutional Vitals: Vital Signs Temp Pulse Resp BP Pulse Ox 97.5 F 91 H 16 133/91 93 03/25/21 12:00 03/25/21 04:30 03/25/21 12:00 03/25/21 12:00 03/25/21 12:00 Period Temp Pulse Resp BP Sys/Petty Pulse Ox Last 24 Hr 97.5 F-100.8 F 88-95 16-20 130-169/75-107 91-96 Intake and Output 03/24/21 03/25/21 03/25/21 21:59 05:59 13:59 Intake Total 730 240 890 Output Total 752 528 500 Balance -22 -288 390 Weight 87.589 kg Intake & Output: Intake & Output 03/24/21 03/25/21 03/25/21 21:59 05:59 13:59 Intake Total 730 240 890 Output Total 752 528 500 Balance -22 -288 390 Weight 87.589 kg Intake: IV 250 350 Zithromax 500 mg In Dextrose 5% 250 250 in Water 250 ml @ 250 mls/hr IV Q24H [facility]HAEL Rx#:[id number] Rocephin 2 gm In Dextrose 5% in 50 Water 50 ml @ 100 mls/hr IV Q24H MICHAEL Rx#:[id number] Oral 480 240 540 Output: Void Amount 750 525 500 # of times incontinent of urine 2 3 Other: Meal Dinner Breakfast Percent of Meal Consumed 100% 25% Feeding Ability Assist with Tray Set Up Independent Urine Appearance Clear Clear Clear Urine Color Bright Yellow Bright Yellow Bright Yellow Urine Odor Normal Normal Exam: General: Alert, Awake, No acute Distress Eyes/N/T: EOMI, Head/Neck: neck supple, CV: RRR, No murmurs, Pulm: Clear b/l, no wheezing/rhonchi/rales Abd: soft, nontender, +BS x4 Ext: no clubbing/cyanosis/edema LE, bilateral elbow swelling likely bursitis, right elbow erythema, warmth. and tenderness. Neuro: Alert, no focal deficits, moves all extremities Skin: warm/dry OBJ DATA Labs CBC & Chem 7: 03/25/21 07:22 03/25/21 04:49 Labs: Abnormal Lab Results 03/25/21 03/25/21 03/25/21 07:22 04:49 04:49 WBC RBC 4.49 L Hgb 11.9 L Hct 36.0 L MCH RDW 16.3 H MPV 10.8 H Seg Neutrophils % Lymphocytes % Monocytes % (Manual) RBC Morphology Anisocytosis Microcytosis VBG Lactic Acid Anion Gap BUN Creatinine 1.4 H Glucose 114 H Phosphorus Magnesium 1.5 L C-Reactive Protein 10.70 H Urine Bacteria Urine Mucus U Benzodiazepines Scrn 03/24/21 03/24/21 03/23/21 04:44 04:44 07:07 WBC 11.5 H RBC 4.39 L Hgb 11.8 L 11.5 L Hct 37.1 L 35.6 L MCH 25.9 L RDW 16.6 H 16.5 H MPV 10.7 H 10.8 H Seg Neutrophils % Lymphocytes % Monocytes % (Manual) 16 H RBC Morphology Abnormal A Abnormal A Anisocytosis 1+ A 1+ A Microcytosis Few A Few A VBG Lactic Acid Anion Gap BUN Creatinine 1.6 H Glucose 127 H Phosphorus Magnesium C-Reactive Protein Urine Bacteria Urine Mucus U Benzodiazepines Scrn 03/23/21 03/23/21 03/22/21 07:06 01:12 20:12 WBC RBC Hgb Hct MCH RDW MPV Seg Neutrophils % Lymphocytes % Monocytes % (Manual) RBC Morphology Anisocytosis Microcytosis VBG Lactic Acid Anion Gap 6.0 L 7.0 L BUN 27 H Creatinine 1.4 H 1.7 H Glucose 123 H 129 H Phosphorus 2.1 L 2.3 L Magnesium 1.5 L C-Reactive Protein Urine Bacteria Few A Urine Mucus Few A U Benzodiazepines Scrn 03/22/21 03/22/21 03/22/21 20:12 18:44 18:44 WBC RBC Hgb Hct MCH RDW MPV Seg Neutrophils % Lymphocytes % Monocytes % (Manual) RBC Morphology Anisocytosis Microcytosis VBG Lactic Acid 2.3 H Anion Gap BUN 31 H Creatinine 1.8 H Glucose 210 H Phosphorus Magnesium C-Reactive Protein Urine Bacteria Urine Mucus U Benzodiazepines Scrn Suspect positive A 03/22/21 18:44 WBC 15.4 H RBC Hgb 12.3 L Hct 38.6 L MCH 25.9 L RDW 16.5 H MPV 11.3 H Seg Neutrophils % 87 H Lymphocytes % 6 L Monocytes % (Manual) RBC Morphology Anisocytosis Microcytosis VBG Lactic Acid Anion Gap BUN Creatinine Glucose Phosphorus Magnesium C-Reactive Protein Urine Bacteria Urine Mucus U Benzodiazepines Scrn Meds: Medications Acetaminophen (Acetaminophen 500 Mg Tablet) 500 mg PO Q6HP PRN; Protocol PRN Reason: Per Pain Protocol Last Admin: 03/24/21 23:57 Dose: 500 mg Documented by: Amlodipine Besylate (Amlodipine 10 Mg Tablet) 10 mg PO DAILY [facility] Last Admin: 03/25/21 07:33 Dose: 10 mg Documented by: Dextrose (Dextrose 50% 50 Ml Vial) 0 ml IV UD PRN PRN Reason: Hypoglycemia Diagnostic Test (Pha) (Accu-Chek 1 Each Strip) 1 each FS [facility] Last Admin: 03/25/21 12:24 Dose: 1 each Documented by: Docusate Sodium (Docusate Sodium 100 Mg Capsule) 100 mg PO BID [facility] Last Admin: 03/25/21 07:32 Dose: 100 mg Documented by: Glucose (Dextrose 31 Gm Oral.Susp) 15 gm PO PRN PRN PRN Reason: Hypoglycemia Heparin Sodium (Porcine) (Heparin 5,000 Unit/Ml Vial) 5,000 unit SQ Q12 [facility] Last Admin: 03/25/21 07:32 Dose: 5,000 unit Documented by: Ceftriaxone Sodium 2 gm/ (Dextrose) 50 mls @ 100 mls/hr IV Q24H [facility]; Protocol Last Infusion: 03/25/21 10:00 Dose: Infused Documented by: Insulin Glargine (Insulin Glargine, Human 1 Unit/0.01 Ml) 5 unit SQ [facility] Last Admin: 03/24/21 21:22 Dose: 5 units Documented by: Insulin Human Lispro (Insulin Lispro 1 Unit/0.01 Ml Unit) 0 unit SQ [facility]; Protocol Last Admin: 03/25/21 12:24 Dose: 3 units Documented by: Labetalol HCl (Labetalol 5 Mg/Ml Ml) 20 mg IV Q2HP PRN PRN Reason: Hypertension Lactulose (Lactulose 20 Gm/30 Ml Oral.Carlota) 10 gm PO DAILYP PRN PRN Reason: Constipation Memantine (Memantine 10 Mg Tablet) 10 mg PO BID [facility] Last Admin: 03/25/21 07:32 Dose: 10 mg Documented by: Ondansetron HCl (Ondansetron 4 Mg/2 Ml Vial) 4 mg IV Q4HP PRN; Protocol PRN Reason: Nausea And Vomiting Quetiapine Fumarate (Quetiapine 25 Mg Tablet) 25 mg PO QDAY PRN PRN Reason: Agitation Senna (Sennosides 1 Tablet) 2 tab PO HSP PRN PRN Reason: Constipation Sertraline HCl (Sertraline 50 Mg Tablet) 50 mg PO BID [facility] Last Admin: 03/25/21 07:32 Dose: 50 mg Documented by: Sodium Chloride (0.9 % Sodium Chloride 10 Ml Syringe) 10 ml IV Q8 [facility] Last Admin: 03/25/21 05:24 Dose: 10 ml Documented by: Tamsulosin HCl (Tamsulosin 0.4 Mg Capsule) 0.4 mg PO DAILY [facility] Last Admin: 03/25/21 07:33 Dose: 0.4 mg Documented by: A/P Narrative A/P Narrative: A: #Community acquired pneumonia: on room air -f/u CXR improved #Persistent low grade temps/fevers: -suspect right elbow to be the cause. CXR improved #Right elbow tophaceous gout #Severe sepsis: probably secondary to pneumonia. Resolved #SHAMA on CKD: Resolved #Resolved encephalopathy: -encephalopathy was secondary to sepsis #Hypertension #Diabetes mellitus type II #Chronic bilateral elbow swelling #Recurrent falls #Dementia Plan -Continue Ceftriaxone and Azithromycin, -Follow blood cultures x2; Follow urine cx -prednisone course/taper for gout, start allopurinol when flare resolves -Lantus and SSI -Continue home Sertraline, Memantine, Flomax. -Seroquel prn, not scheduled. -Hold home metformin, amlodipine-benazepril, seroquel, clonazepam. -PT consult -Disposition: Probably SNF. -DVT ppx: heparin SQ Code status: DNR Time Spent With Patient Time: Total time spent is greater than 50% in coordination of care (as documented) at patient's floor/unit and/or counseling patient: QUALITY VTE Deep Vein Thrombosis/Pulmonary Embolism Present on Admission: No
--- NOTE | 2021-03-25 15:04 | Ultrasound Report ---
History: Sepsis, bilateral percutaneous elbow masses PROCEDURE: The procedure and risks were explained and the patient consented. The skin over the right elbow was prepped with ChloraPrep then anesthetized with 1% lidocaine. Using ultrasound guidance a Yueh needle was inserted into the liquefied component of the large subcutaneous mass. 13 cc of thick creamy pus was aspirated. There is still some gelatinous like material within the structure which cannot be drained. Most of the mass is solid. The pus was sent to laboratory for analysis as ordered. He tolerated the procedure well without complication. IMPRESSION: Successful aspiration of 13 cc of pus from a large subcutaneous mass posterior to the right elbow Interpreted and Authenticated by: Bogdan Campos 03/25/21
[2021-03-25 17:46] LABS: Appearance,Synovial Fluid Turbid; Color,Synovial Fluid White; Lymphocytes,Synovial Fluid 1 %; Neutrophils,Synovial Fluid 98 % (0-25); Nucleated Cells,Synovial Fld 5552 /cumm; Other Cells,Synovial Fluid 1 %
[2021-03-25] MEDS: predniSONE 20 MG TABLET PO SCH (18:52)
[2021-03-25] MEDS: INSULIN GLARGINE, HUMAN 1 UNIT/0.01 ML SQ SCH (21:26)
[2021-03-26] MEDS: 0.9 % SODIUM CHLORIDE 10 ML SYRINGE IV SCH ×3 (06:07→20:52)
[2021-03-26 07:01] LABS: ALT/SGPT 7 U/L (<40); AST/SGOT 10 U/L (<40); Albumin 3.4 gm/dL (3.2-5.2); Alkaline Phosphatase 74 U/L (39-117); Bilirubin,Direct < 0.2 mg/dL (0-0.3); Bilirubin,Total 0.3 mg/dL (0.1-1.0); Blood Urea Nitrogen 23 mg/dL (8-23); Calcium 9.5 mg/dL (8.6-10.4); Carbon Dioxide 25 mmol/L (22-30); Chloride 101 mmol/L (96-108); Globulin 3.5 gm/dL (2.2-3.7); Glomerular Filtration Rate 64; Glucose 217 mg/dL (70-105); Lactate Dehydrogenase 189 U/L (135-225); Phosphorous 2.6 mg/dL (2.5-4.5); Triglycerides 61 mg/dL (<150); Uric Acid 6.5 mg/dL (2.5-8.0)
--- NOTE | 2021-03-26 07:32 | Internal Med Progress Note ---
SUBJECTIVE Subjective Patient information: Note initiated : 03/26/21 at 7:29 am Service Date, if different from initiated Date: [] Patient: Kassidy Anthony 80 y/o M admitted on 03/22/21 for weakness, fever, altered LOC. Chief Complaint: [] Interval history: Mr. Anthony is a 80 year old male with a history of hypertension, chronic kidney disease stage III, chronic anemia, diabetes mellitus type 2, moderate dementia who lives at home with his who is his caregiver. The patient presents to the ED after multiple falls and worsening confusion. He fell again on the day of presentation, she called EMS and they found that he had a fever was taken to the emergency department. In the emergency department, patient met SIRS criteria with fever and tachycardia. Infectious work-up included CBC showing new leukocytosis and chest x-ray which s howed a right lower lobe pneumonia. The patient has an acute on chronic kidney disease injury. Patient is saturating well on room air, blood pressure is stable and he is in no apparent distress. Lactic acid was mildly elevated at 2.3. Patient received IV fluid, ceftriaxone and azithromycin and was admitted for further management. Goals of care was discussed with his who is his medical decision maker, she stated the patient's code status is DNR. 03/23-continues on room air, working with therapies. Right elbow is slightly red could be infectious bursitis vs gout? The patient has had chronic bilateral bursitis for years according to his . Renal function improved. Replacing magnesium and phosphorus. 03/24-overall improved, still having high grade temps. Right elbow redness in ar ea of what appears to be chronic bursitis. Elbow ultrasound to evaluate for drainable fluid collection. Transfer to med/surg. Discharge planning. 03/25-right elbow ultrasound pending, suspect this to the reason for persistent fevers. On Ceftriaxone and overall appears to have improved since admission, doubt MRSA is causing this. Ceftriaxone should cover most other infectious possibilities. Could be septic bursitis vs gout, awaiting ultrasound results, maybe able to aspirate for a workup. Continue Ceftriaxone for now. *The right elbow ultrasound is showing a complex mass/fluid collection posterior to the elbow. Spoke with Dr. Campos in radiology regarding an aspiration, he said he could to is this afternoon. Cell count, gram stain and culture, and crystals ordered. Patient still having high grade temperatures and fevers so may be prudent to start Vancomycin after aspiration to cover for MRSA while following workup. Radiology drained fluid from the right elbow appear to have the appearance of tophaceous gout, with crystal analysis subsequently coming back as monosodium urate crystals. 03/26 No overnight event or new complaints. CRP slightly better. Creatinine better. Review of Systems: denies headache/fever/chills/nausea/vomiting/chest or abdominal pain/cough/dyspnea/diarrhea. Otherwise see above. Constitutional Vitals: Vital Signs Temp Pulse Resp BP Pulse Ox 98.1 F 87 18 153/93 93 03/26/21 06:57 03/26/21 06:57 03/26/21 06:57 03/26/21 06:57 03/26/21 06:57 Period Temp Pulse Resp BP Sys/Petty Pulse Ox Last 24 Hr 97.5 F-98.6 F 87-103 16-20 129-169/85-106 91-99 Intake and Output 03/25/21 03/26/21 03/26/21 21:59 05:59 13:59 Intake Total 580 Output Total 152 451 Balance 428 -451 Weight 86.381 kg Intake & Output: Intake & Output 03/25/21 03/26/21 03/26/21 21:59 05:59 13:59 Intake Total 580 Output Total 152 451 Balance 428 -451 Weight 86.381 kg Intake: Oral 580 Output: Void Amount 150 450 # of times incontinent of urine 2 1 Other: Meal Dinner Percent of Meal Consumed 75% Feeding Ability Independent Urine Appearance Clear Urine Color Bright Yellow Bright Yellow Straw Stool Size Smear Stool Color Brown Stool Consistency Loose # Voids 1 Exam: General: Alert, Awake, No acute Distress Eyes/N/T: EOMI, Head/Neck: neck supple, CV: RRR, No murmurs, Pulm: Clear b/l, no wheezing/rhonchi/rales Abd: soft, nontender, +BS x4 Ext: no clubbing/cyanosis/edema LE, bilateral elbow swelling 2/2 gout, right elbow erythema. Neuro: Alert, no focal deficits, moves all extremities Skin: warm/dry OBJ DATA Labs CBC & Chem 7: 03/25/21 07:22 03/26/21 05:23 Labs: Abnormal Lab Results 03/26/21 03/26/21 03/25/21 05:23 05:22 16:29 WBC RBC Hgb Hct MCH RDW MPV Monocytes % (Manual) RBC Morphology Anisocytosis Microcytosis Anion Gap Creatinine Glucose 217 H Phosphorus Magnesium C-Reactive Protein 8.80 H Fluid Crystals Synovial Neutrophils 98 H 03/25/21 03/25/21 03/25/21 14:58 07:22 04:49 WBC RBC 4.49 L Hgb 11.9 L Hct 36.0 L MCH RDW 16.3 H MPV 10.8 H Monocytes % (Manual) RBC Morphology Anisocytosis Microcytosis Anion Gap Creatinine Glucose Phosphorus Magnesium C-Reactive Protein 10.70 H Fluid Crystals Monosodium urate A Synovial Neutrophils 03/25/21 03/24/21 03/24/21 04:49 04:44 04:44 WBC RBC Hgb 11.8 L Hct 37.1 L MCH 25.9 L RDW 16.6 H MPV 10.7 H Monocytes % (Manual) 16 H RBC Morphology Abnormal A Anisocytosis 1+ A Microcytosis Few A Anion Gap Creatinine 1.4 H 1.6 H Glucose 114 H 127 H Phosphorus Magnesium 1.5 L C-Reactive Protein Fluid Crystals Synovial Neutrophils 03/23/21 03/23/21 07:07 07:06 WBC 11.5 H RBC 4.39 L Hgb 11.5 L Hct 35.6 L MCH RDW 16.5 H MPV 10.8 H Monocytes % (Manual) RBC Morphology Abnormal A Anisocytosis 1+ A Microcytosis Few A Anion Gap 6.0 L Creatinine 1.4 H Glucose 123 H Phosphorus 2.1 L Magnesium 1.5 L C-Reactive Protein Fluid Crystals Synovial Neutrophils Meds: Medications Acetaminophen (Acetaminophen 500 Mg Tablet) 500 mg PO Q6HP PRN; Protocol PRN Reason: Per Pain Protocol Last Admin: 03/24/21 23:57 Dose: 500 mg Documented by: Amlodipine Besylate (Amlodipine 10 Mg Tablet) 10 mg PO DAILY [facility] Last Admin: 03/25/21 07:33 Dose: 10 mg Documented by: Dextrose (Dextrose 50% 50 Ml Vial) 0 ml IV UD PRN PRN Reason: Hypoglycemia Diagnostic Test (Pha) (Accu-Chek 1 Each Strip) 1 each FS ACHS [facility] Last Admin: 03/25/21 21:18 Dose: 1 each Documented by: Docusate Sodium (Docusate Sodium 100 Mg Capsule) 100 mg PO BID [facility] Last Admin: 03/25/21 21:28 Dose: Not Given Documented by: Glucose (Dextrose 31 Gm Oral.Susp) 15 gm PO PRN PRN PRN Reason: Hypoglycemia Heparin Sodium (Porcine) (Heparin 5,000 Unit/Ml Vial) 5,000 unit SQ Q12 [facility] Last Admin: 03/25/21 21:25 Dose: 5,000 unit Documented by: Ceftriaxone Sodium 2 gm/ (Dextrose) 50 mls @ 100 mls/hr IV Q24H [facility]; Protocol Last Infusion: 03/25/21 10:00 Dose: Infused Documented by: Insulin Glargine (Insulin Glargine, Human 1 Unit/0.01 Ml) 5 unit SQ HS [facility] Last Admin: 03/25/21 21:26 Dose: 5 units Documented by: Insulin Human Lispro (Insulin Lispro 1 Unit/0.01 Ml Unit) 0 unit SQ ACHS [facility]; Protocol Last Admin: 03/25/21 21:25 Dose: 3 units Documented by: Labetalol HCl (Labetalol 5 Mg/Ml Ml) 20 mg IV Q2HP PRN PRN Reason: Hypertension Lactulose (Lactulose 20 Gm/30 Ml Oral.Carlota) 10 gm PO DAILYP PRN PRN Reason: Constipation Memantine (Memantine 10 Mg Tablet) 10 mg PO BID [facility] Last Admin: 03/25/21 21:26 Dose: 10 mg Documented by: Ondansetron HCl (Ondansetron 4 Mg/2 Ml Vial) 4 mg IV Q4HP PRN; Protocol PRN Reason: Nausea And Vomiting Prednisone (Prednisone 20 Mg Tablet) 40 mg PO [facility] Last Admin: 03/25/21 18:52 Dose: 40 mg Documented by: Quetiapine Fumarate (Quetiapine 25 Mg Tablet) 25 mg PO QDAY PRN PRN Reason: Agitation Senna (Sennosides 1 Tablet) 2 tab PO HSP PRN PRN Reason: Constipation Sertraline HCl (Sertraline 50 Mg Tablet) 50 mg PO BID [facility] Last Admin: 03/25/21 21:26 Dose: 50 mg Documented by: Sodium Chloride (0.9 % Sodium Chloride 10 Ml Syringe) 10 ml IV Q8 [facility] Last Admin: 03/26/21 06:07 Dose: 10 ml Documented by: Tamsulosin HCl (Tamsulosin 0.4 Mg Capsule) 0.4 mg PO DAILY [facility] Last Admin: 03/25/21 07:33 Dose: 0.4 mg Documented by: A/P Narrative A/P Narrative: A: #Community acquired pneumonia: on room air -f/u CXR improved #Persistent low grade temps/fevers: afebrile o/n. -suspect right elbow to be the cause. 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 Resolved #SHAMA on CKD: Resolved #Resolved encephalopathy superimposed on underlying dementia: -encephalopathy was secondary to sepsis, likely near baseline #Dementia, moderate: #Hypertension #Diabetes mellitus type II #Recurrent falls Plan -finish course of Ceftriaxone and Azithromycin, -Follow blood cultures x2; Follow urine cx -prednisone course/taper for gout, start allopurinol when flare resolves -Lantus and SSI -Continue home Sertraline, Memantine, Flomax. -Seroquel prn, not scheduled. -Hold home metformin, benazepril, seroquel, clonazepam. -PT consult -Disposition: Probably SNF. -DVT ppx: heparin SQ Code status: DNR Time Spent With Patient Time: Total time spent is greater than 50% in coordination of care (as documented) at patient's floor/unit and/or counseling patient: QUALITY VTE Deep Vein Thrombosis/Pulmonary Embolism Present on Admission: No
[2021-03-26] MEDS: HEPARIN 5,000 UNIT/ML VIAL SQ SCH ×2 (08:10→20:52)
[2021-03-26] MEDS: amLODIPine 10 MG TABLET PO SCH (08:10)
[2021-03-26] MEDS: TAMSULOSIN 0.4 MG CAPSULE PO SCH (08:10)
[2021-03-26] MEDS: cefTRIAXone 2 GM in DEXTROSE 5% IN WATER 50 ML IV SCH (08:10)
[2021-03-26] MEDS: SERTRALINE 50 MG TABLET PO SCH ×2 (08:10→20:52)
[2021-03-26] MEDS: MEMANTINE 10 MG TABLET PO SCH ×2 (08:10→20:52)
[2021-03-26] MEDS: INSULIN LISPRO 1 UNIT/0.01 ML UNIT SQ SCH ×4 (08:11→20:53)
[2021-03-26] MEDS: predniSONE 20 MG TABLET PO SCH (08:11)
[2021-03-26] MEDS: DOCUSATE SODIUM 100 MG CAPSULE PO SCH ×2 (08:11→20:53)
--- NOTE | 2021-03-26 10:02 | Discharge Summary ---
Discharge Provider Provider Patient information: Note initiated : 03/26/21 at 10:00 am Service Date, if different from initiated Date: [] Patient: Kassidy Anthony 80 y/o M admitted on 03/22/21 for weakness, fever, altered LOC. Chief Complaint: [] Date of admission: 03/22/21 22:57 Discharge date: 03/27/21 Primary care physician: Suzie Duncan Consults: 03/22/21 Consult to Physician [CONS] Stat Comment: Consulting Provider: Rubén Lopez Reason For Exam: Physician to Consult Discharge Meds Discharge Medications Home Medications clonidine HCl 0.1 mg PO BID 05/12/19 [History Confirmed 03/23/21 Last Taken 07/17/20 21:00] memantine 10 mg PO BID 05/12/19 [History Confirmed 03/23/21 Last Taken 07/17/20 21:00] potassium chloride 20 meq PO QAMCC 05/12/19 [History Confirmed 03/23/21 Last Taken 07/17/20 08:00] quetiapine 125 mg PO HS 05/12/19 [History Confirmed 03/23/21 Last Taken 07/17/20 21:00] tamsulosin 0.4 mg PO DAILY 05/12/19 [History Confirmed 03/23/21 Last Taken 07/17/20 08:00] sertraline 50 mg PO BID 07/16/20 [History Confirmed 03/23/21 Last Taken 03/22/21 08:00] metformin 750 mg tablet,extended release 24 hr 750 mg PO BIDCC tab 08/04/20 [History Confirmed 03/23/21 Last Taken Unknown] Victoza 2-Tung 1.2 mg SUBCUT QDAY 03/22/21 [History Confirmed 03/23/21 Last Taken 03/22/21 08:00] amlodipine-benazepril 1 cap PO DAILY 03/22/21 [History Confirmed 03/23/21 Last Taken 03/22/21 08:00] quetiapine 25 mg PO QAM 03/22/21 [History Confirmed 03/23/21 Last Taken Unknown] prednisone 40 mg PO QDAY #1 tab 03/26/21 [Rx Last Taken Unknown] clonazepam 1 mg PO QHS #10 tab 03/27/21 [Rx Last Taken Unknown] COURSE Hospital Course Hospital course: Interval history: Mr. Anthony is a 80 year old male with a history of hypertension, chronic kidney disease stage III, chronic anemia, diabetes mellitus type 2, moderate dementia who lives at home with his who is his caregiver. The patient presents to the ED after multiple falls and worsening confusion. He fell again on the day of presentation, she called EMS and they found that he had a fever was taken to the emergency department. In the emergency department, patient met SIRS criteria with fever and tachycardia. Infectious work-up included CBC showing new leukocytosis and chest x-ray which showed a right lower lobe pneumonia. The patient has an acute on chronic kidney disease injury. Patient is saturating well on room air, blood pressure is stable and he is in no apparent distress. Lactic acid was mildly elevated at 2.3. Patient received IV fluid, ceftriaxone and azithromycin and was admitted for further management. Goals of care was discussed with his who is his medical decision maker, she stated the patient's code status is DNR. 03/23-continues on room air, working with therapies. Right elbow is slightly red could be infectious bursitis vs gout? The patient has had chronic bilateral bursitis for years according to his . Renal function improved. Replacing magnesium and phosphorus. 03/24-overall improved, still having high grade temps. Right elbow redness in area of what appears to be chronic bursitis. Elbow ultrasound to evaluate for drainable fluid collection. Transfer to med/surg. Discharge planning. 03/25-right elbow ultrasound pending, suspect this to the reason for persistent fevers. On Ceftriaxone and overall appears to have improved since admission, doubt MRSA is causing this. Ceftriaxone should cover most other infectious possibilities. Could be septic bursitis vs gout, awaiting ultrasound results, maybe able to aspirate for a workup. Continue Ceftriaxone for now. *The right elbow ultrasound is showing a complex mass/fluid collection posterior to the elbow. Spoke with Dr. Campos in radiology regarding an aspiration, he said he could to is this afternoon. Cell count, gram stain and culture, and crystals ordered. Patient still having high grade temperatures and fevers so may be prudent to start Vancomycin after aspiration to cover for MRSA while following workup. Radiology drained fluid from the right elbow appear to have the appearance of tophaceous gout, with crystal analysis subsequently coming back as monosodium urate crystals. 03/26 No overnight event or new complaints. CRP slightly better. Creatinine better. 03/27 Doing well. No overnight event or new complaints. A: #Community acquired pneumonia: on room air -f/u CXR improved #Persistent low grade temps/fevers: afebrile o/n. -suspect right elbow to be the cause. 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 Resolved #SHAMA on CKD: Resolved #Resolved encephalopathy superimposed on underlying dementia: -encephalopathy was secondary to sepsis, likely near baseline #Dementia, moderate: #Hypertension #Diabetes mellitus type II #Recurrent falls Discharge diagnosis: Acute acquired pneumonia sepsis tophaceous gout acute kidney injury encepha Secondary discharge diagnosis: Dementia hypertension diabetes recurrent falls Time Spent with Patient Time attestation: Total time spent providing and/or coordinating discharge services: Time spent: Greater than 30 minutes EXAM Constitutional Vitals: Temp Pulse Resp BP Pulse Ox 98.1 F 87 18 153/93 93 03/26/21 06:57 03/26/21 06:57 03/26/21 06:57 03/26/21 06:57 03/26/21 08:00 Discharge Data Data Completed and Pending Labs on day of discharge: Labs from last 24 hours 03/26/21 03/26/21 03/25/21 05:23 05:22 16:29 Sodium 137 Potassium 3.8 Chloride 101 Carbon Dioxide 25 Anion Gap 11.0 BUN 23 Creatinine 1.1 GFR Calculation 64 Glucose 217 H Uric Acid 6.5 Calcium 9.5 Phosphorus 2.6 Magnesium 1.8 Total Bilirubin 0.3 Direct Bilirubin < 0.2 GGT 14 AST 10 ALT 7 Alkaline Phosphatase 74 Lactate Dehydrogenase 189 C-Reactive Protein 8.80 H Total Protein 6.9 Albumin 3.4 Globulin 3.5 Albumin/Globulin Ratio 1.0 Triglycerides 61 Fluid Source Fluid Color Fluid Appearance Fluid RBC Fluid Diff Comment Fluid Tot Cell Count Fluid Nucleated Cells Fluid Neutrophils Fluid Lymphocytes Fluid Monocytes Fluid Eosinophils Fluid Basophils Fluid Plasma Cells Fld Mesothelial Cells Fluid Crystals Synovial Source Right elbow Synovial Color White Synovial Appearance Turbid Synovial Nuc Cells 5552 Synovial Neutrophils 98 H Synovial Lymphocytes 1 Synovial Other Cells 1 03/25/21 03/25/21 14:59 14:58 Sodium Potassium Chloride Carbon Dioxide Anion Gap BUN Creatinine GFR Calculation Glucose Uric Acid Calcium Phosphorus Magnesium Total Bilirubin Direct Bilirubin GGT AST ALT Alkaline Phosphatase Lactate Dehydrogenase C-Reactive Protein Total Protein Albumin Globulin Albumin/Globulin Ratio Triglycerides Fluid Source TNP Fluid Color TNP Fluid Appearance TNP Fluid RBC TNP Fluid Diff Comment TNP Fluid Tot Cell Count TNP Fluid Nucleated Cells TNP Fluid Neutrophils TNP Fluid Lymphocytes TNP Fluid Monocytes TNP Fluid Eosinophils TNP Fluid Basophils TNP Fluid Plasma Cells TNP Fld Mesothelial Cells TNP Fluid Crystals Monosodium urate A Synovial Source Synovial Color Synovial Appearance Synovial Nuc Cells Synovial Neutrophils Synovial Lymphocytes Synovial Other Cells Preliminary micro results at discharge 03/25/21 14:59 Gram Stain - Preliminary Aspirate - Elbow Body Fluid Culture - Preliminary 03/22/21 19:24 Blood Culture - Preliminary Blood 03/22/21 19:15 Blood Culture - Preliminary Blood Discharge Plan Patient/Caregiver Discharge Instructions Activity: increase activity as tolerated Diet: Regular Diet Instructions: Prednisone (By mouth), Sepsis (IP) Prescriptions: New prednisone 10 mg tablet 40 mg PO QDAY Qty: 1 RF: 0 Continued clonidine HCl 0.1 MG tablet 0.1 mg PO BID RF: 0 potassium chloride 10 MEQ tablet 20 meq PO QAMCC RF: 0 quetiapine 100 MG tablet 125 mg PO HS RF: 0 tamsulosin 0.4 MG capsule 0.4 mg PO DAILY RF: 0 memantine 10 MG tablet 10 mg PO BID RF: 0 metformin 750 mg tablet extended release 24 hr 750 mg PO BIDCC RF: 0 sertraline 50 mg Tablet 50 mg PO BID RF: 0 quetiapine 25 mg tablet 25 mg PO QAM RF: 0 amlodipine-benazepril 10-20 mg capsule 1 cap PO DAILY RF: 0 Victoza 2-Tung 0.6 mg/0.1 mL (18 mg/3 mL) pen injector 1.2 mg SUBCUT QDAY RF: 0 clonazepam 0.5 mg Tablet 1 mg PO QHS Qty: 10 RF: 0 Follow Up Plan Follow up with: Suzie Duncan ARNP [Primary Care Provider] - Patient Disposition: Xfer SNF Prognosis: Fair Rehab Potential: Fair I certify that the patient requires SNF services: Yes Overall status at discharge: patient is progressing back to baseline Discharge Orders: Discharge Order (Routine); Ordered 03/27/21 Ordered By: Sergio Ny [facility] VTE Deep Vein Thrombosis/Pulmonary Embolism Present on Admission: No
[2021-03-26] MEDS: INSULIN GLARGINE, HUMAN 1 UNIT/0.01 ML SQ SCH (20:53)
[2021-03-27] MEDS: 0.9 % SODIUM CHLORIDE 10 ML SYRINGE IV SCH (07:02)
[2021-03-27] MEDS: TAMSULOSIN 0.4 MG CAPSULE PO SCH (07:04)
[2021-03-27] MEDS: DOCUSATE SODIUM 100 MG CAPSULE PO SCH (07:04)
[2021-03-27] MEDS: predniSONE 20 MG TABLET PO SCH (07:04)
[2021-03-27] MEDS: HEPARIN 5,000 UNIT/ML VIAL SQ SCH (07:05)
[2021-03-27] MEDS: SERTRALINE 50 MG TABLET PO SCH (07:05)
[2021-03-27] MEDS: amLODIPine 10 MG TABLET PO SCH (07:05)
[2021-03-27] MEDS: MEMANTINE 10 MG TABLET PO SCH (07:05)
[2021-03-27] MEDS: cefTRIAXone 2 GM in DEXTROSE 5% IN WATER 50 ML IV SCH (08:03)
[2021-03-27] MEDS: INSULIN LISPRO 1 UNIT/0.01 ML UNIT SQ SCH (08:03)
--- NOTE | 2021-03-28 14:26 | Non-GYN Cytology Report ---
Non Skinner Pelts Cytology NG Diagnosis ELBOW, RIGHT BURSA FLUID, ASPIRATION: --- NEUTROPHILS AND CRYSTALLINE MATERIAL. --- NO ATYPICAL OR MALIGNANT CELLS IDENTIFIED. (RLF:bmw) NG Micro Description ThinPrep, cytospin and cell block slides are examined and demonstrate neutrophils, acellular debris and crystalline material. No atypical or malignant cells are identified. NG Gross Description Received 3 mL white cloudy fresh fluid. Electronically Signed Irena Valdez MD, FCAP Electronically Signed 03/28/2021 14:25
== END 2021-03-27 11:20 | DRG 871 ==
LOC: ED 18:31 → ICU 22:57 → MEDSUR 03-25 14:10
PROVIDERS: ADMIT Internal Medicine; ATTEND Internal Medicine

== ENCOUNTER 2022-04-12 10:48 | Inpatient (IN) ==
[2022-04-12] MEDS ORDERED: 0.9 % SODIUM CHLORIDE 1,000 ML IV ONE (11:01)
--- NOTE | 2022-04-12 11:01 | Emergency Department Note ---
HPI General Chief complaint: Neuro Symptoms/Deficit Stated complaint: decreased LOC Time Seen by Provider: 04/12/22 11:01 Source: family () and EMS Mode of arrival: EMS Limitations: altered mental status History of Present Illness HPI Narrative: Narrative: Patient is unable to provide any history. Patient has dementia. All history comes from the . states that the patient entered [facility] on March 26. He walked in and he was eating fine for the next few days. Over the past few days he stopped walking and he stopped eating. Dr. Carver saw him yesterday and was concerned and had him sent here today for further evaluation. Patient had a course of sepsis in 2018 and in 2019. 2020 patient had infected elbow. Related Data Home Medications Medication Instructions Recorded Confirmed clonidine HCl 0.1 mg tablet 0.1 mg PO BID 05/12/19 03/23/21 memantine 10 mg tablet 10 mg PO BID 05/12/19 03/23/21 potassium chloride 10 mEq 20 meq PO QAMCC 05/12/19 03/23/21 tablet,extended release tamsulosin 0.4 mg capsule 0.4 mg PO DAILY 05/12/19 03/23/21 sertraline 50 mg tablet 50 mg PO BID 07/16/20 03/23/21 metformin 750 mg tablet,extended 750 mg PO BIDCC tab 08/04/20 03/23/21 release 24 hr amlodipine 10 mg-benazepril 20 mg 1 cap PO DAILY 03/22/21 03/23/21 capsule liraglutide 0.6 mg/0.1 mL (18 mg/3 1.2 mg SUBCUT QDAY 03/22/21 03/23/21 mL) subcutaneous pen injector (Victoza 2-Tung) Previous Rx's Medication Instructions Recorded prednisone 10 mg tablet 40 mg PO QDAY #1 tab 03/26/21 clonazepam 0.5 mg tablet 1 mg PO QHS #10 tab 03/27/21 quetiapine 100 mg tablet 125 mg PO HS #10 tab 03/27/21 quetiapine 25 mg tablet 25 mg PO QAM #10 tab 03/27/21 Allergies Allergy/AdvReac Type Severity Reaction Status Date / Time No Known Drug Allergies Allergy Verified 03/22/21 18:34 Review of Systems ROS ROS Narrative: Narrative: Limitations: ROS unobtainable due to patients medical condition (Dementia) PFSH Narrative Patient History Narrative: Narrative: Medical/Surgical/Family History All Active Problems (Updated 04/12/22 @ 17:50 by Rachid Dorsey MD) Pneumonia (Acute) Sepsis (Acute) Encephalopathy acute (Acute) Acute hypernatremia (Acute) Acute dehydration (Acute) Dementia (Acute) Acute gangrenous cholecystitis (Acute) Acute cholecystitis due to biliary calculus (Acute) Acute upper abdominal pain (Acute) Acute on chronic renal failure (Acute) Weakness (Acute) Confusion (Acute) Elevated WBC count (Acute) Sinus tachycardia (Acute) SIRS (systemic inflammatory response syndrome) (Acute) Sepsis (Acute) Urinary incontinence (Chronic) Chronic renal failure (Acute) Insomnia (Acute) Diabetes mellitus, type 2 (Acute) Hypertension, essential (Acute) Dementia (Acute) Medical History (Updated 04/12/22 @ 17:50 by Rachid Dorsey MD) Acute kidney injury Chronic renal failure Complicated UTI (urinary tract infection) Constipation Dehydration Dementia Diabetes mellitus, type 2 Hypertension, essential Insomnia Sepsis due to urinary tract infection Severe sepsis with acute organ dysfunction Urinary incontinence intermittent Surgical History History of laparoscopic cholecystectomy 07/20/2020 Status post cataract extraction of both eyes with insertion of intraocular lens Social History Smoking Status: Never smoker Exam Narrative Narrative: Narrative: Nonverbal elderly male lying in bed responsive to pain appearing in poor health. General Limitations: altered mental status General appearance: Present alert and in distress Head Head: Present atraumatic and normocephalic Eye Eye: Present normal appearance Neck Neck: Present trachea midline Respiratory Respiratory: Present normal lung sounds bilaterally; Absent respiratory distress Cardiovascular Cardiovascular: Present regular rate and normal rhythm Adbominal Abdominal: Present soft; Absent tenderness Extremities Extremities: Present normal inspection Back Back: Absent tenderness Neurological Neurological: Present alert; Absent oriented X3 Psychiatric Psychiatric: Present normal affect and normal mood Skin Skin: Present warm (WNL) and dry Course Vital Signs Vital signs: Vital Signs Temperature 99.3 F H 04/12/22 10:48 Pulse Rate 119 H 04/12/22 10:48 Respiratory Rate 16 04/12/22 10:48 Blood Pressure 143/91 04/12/22 10:48 Pulse Oximetry (%) 89 L 04/12/22 10:48 Temperature 99.3 F H 04/12/22 10:48 Pulse Rate 116 H 04/12/22 11:04 Respiratory Rate 23 H 04/12/22 16:31 Blood Pressure 104/68 04/12/22 16:31 Pulse Oximetry (%) 93 04/12/22 11:04 MDM MDM Narrative Medical decision making narrative: elderly male with altered mental status after entering a care facility [facility]. Differential diagnosis includes pneumonia, sepsis, bacterial versus viral infection, urinary tract infection, pyelonephritis, electrolyte abnormality, dehydration, other IV was established and patient was bolused a liter of normal saline. White count of 12.3 with a left shift 86 neutrophils and 8 lymphs. Hemoglobin normal at 14.6. Lactic acid normal at 1.6. Sodium was high at BUN was 104 with a creatinine of 3.0. Glucose was markedly elevated at 326. Urinalysis showed trace occult blood but no nitrites no leukocytes. 159 with a potassium normal at 5.0 and a chloride high at 121. White count of 12.3 with a left shift 86 neutrophils and 8 lymphs. Hemoglobin normal at 14.6. Lactic acid normal at 1.6. Sodium was high at BUN was 104 with a creatinine of 3.0. Glucose was markedly elevated at 326. Urinalysis showed trace occult blood but no nitrites no leukocytes. 159 with a potassium normal at 5.0 and a chloride high at 121. Urine did not show infection. Chest x-ray showed findings consistent with a moderate hiatal hernia but no acute abnormality. Right wrist x-ray showed no fracture but there was degenerative joint disease and chondrocalcinosis. CT scan showed cerebral atro phy but no acute findings Patient with severe dehydration and hypernatremia. Patient was bolused a liter normal saline initially and then given 500 mL an hour for 2 hours. Case was discussed with Dr. Sung who came down to the emerge department to admit the patient for further care. Lab Data Result diagrams: 04/12/22 11:01 04/12/22 11:01 Labs: Lab Results 04/12/22 04/12/22 04/12/22 Range/Units 11:01 11:01 11:15 WBC 12.3 H (4.5-11.0) K/mcL RBC 4.88 (4.63-6.08) M/mcL Hgb 14.6 (13.7-17.5) g/dL Hct 46.3 (40.1-51.0) % POC Hct (41-55) MCV 94.9 (80.0-100.0) fL MCH 29.9 (26.0-34.0) pg MCHC 31.5 (31.0-36.0) g/dL RDW 16.8 H (11.5-14.5) % Plt Count 313 (140-440) K/mcL MPV 12.1 H (7.4-10.4) fL Neut % (Auto) 85.5 H (38.0-78.0) % Lymph % (Auto) 7.9 L (15.5-49.0) % [place] % (Auto) 6.3 (1.0-12.0) % Eos % (Auto) 0.1 (0.0-7.0) % Baso % (Auto) 0.2 (0.0-2.0) % Lymph # (Auto) 0.97 L (1.50-4.80) K/mcL [place] # (Auto) 0.78 (0.10-0.90) K/mcL Eos # (Auto) 0.01 (0.00-0.70) K/mcL Baso # (Auto) 0.03 (0.00-0.30) K/mcL Absolute Neutrophils 10.53 H (1.80-8.00) K/mcL VBG Lactic Acid 1.6 (0.5-2.0) mmol/L POC Sodium (133-145) Sodium 159 H (133-145) mmol/L POC Potassium (3.3-5.1) Potassium 5.0 (3.3-5.1) mmol/L POC Chloride (96-108) Chloride 121 H (96-108) mmol/L Carbon Dioxide 25 (22-30) mmol/L POC Total CO2 (22-30) Anion Gap 13.0 (8.0-16.0) POC BUN (6-20) BUN 104 H* (8-23) mg/dL Creatinine 3.0 H (0.7-1.2) mg/dL POC Creatinine (0.6-1.2) GFR Calculation 19 Glucose 326 H (70-105) mg/dL POC Glucose (70-105) Calcium 10.7 H (8.6-10.4) mg/dL POC WB Ioniz Calcium (1.16-1.32) Total Bilirubin 0.4 (0.1-1.0) mg/dL AST 35 (<40) U/L ALT 35 (<40) U/L Alkaline Phosphatase 96 (39-117) U/L Total Protein 6.8 (5.9-8.4) gm/dL Albumin 2.7 L (3.2-5.2) gm/dL Globulin 4.1 H (2.2-3.7) gm/dL Albumin/Globulin Ratio 0.7 L (1.0-2.3) Urine Color Urine Appearance (Clear) Urine pH (5.0-9.0) Ur Specific [place] (1.000-1.035) Urine Protein (Negative) mg/dL Urine Glucose (UA) (Negative) mg/dL Urine Ketones (Negative) mg/dL Urine Occult Blood (Negative) vianca/mcL Urine Nitrate (Negative) Urine Bilirubin (Negative) mg/dL Urine Urobilinogen mg/dL Ur Leukocyte Esterase (Negative) /uL Urine RBC (0-3) /hpf Urine WBC (0-4) /hpf Ur Squamous Epith Cells (0-4) /hpf Urine Bacteria (0) /hpf Urine Mucus (None) /hpf Ur Culture Indicated? 04/12/22 04/12/22 Range/Units 11:22 15:43 WBC (4.5-11.0) K/mcL RBC (4.63-6.08) M/mcL Hgb (13.7-17.5) g/dL Hct (40.1-51.0) % POC Hct 37.0 L (41-55) MCV (80.0-100.0) fL MCH (26.0-34.0) pg MCHC (31.0-36.0) g/dL RDW (11.5-14.5) % Plt Count (140-440) K/mcL MPV (7.4-10.4) fL Neut % (Auto) (38.0-78.0) % Lymph % (Auto) (15.5-49.0) % [place] % (Auto) (1.0-12.0) % Eos % (Auto) (0.0-7.0) % Baso % (Auto) (0.0-2.0) % Lymph # (Auto) (1.50-4.80) K/mcL [place] # (Auto) (0.10-0.90) K/mcL Eos # (Auto) (0.00-0.70) K/mcL Baso # (Auto) (0.00-0.30) K/mcL Absolute Neutrophils (1.80-8.00) K/mcL VBG Lactic Acid (0.5-2.0) mmol/L POC Sodium 161 H (133-145) Sodium (133-145) mmol/L POC Potassium 4.3 (3.3-5.1) Potassium (3.3-5.1) mmol/L POC Chloride 126 H (96-108) Chloride (96-108) mmol/L Carbon Dioxide (22-30) mmol/L POC Total CO2 26.0 (22-30) Anion Gap (8.0-16.0) POC BUN 97 H (6-20) BUN (8-23) mg/dL Creatinine (0.7-1.2) mg/dL POC Creatinine 3.0 H (0.6-1.2) GFR Calculation Glucose (70-105) mg/dL POC Glucose 199 H (70-105) Calcium (8.6-10.4) mg/dL POC WB Ioniz Calcium 1.32 (1.16-1.32) Total Bilirubin (0.1-1.0) mg/dL AST (<40) U/L ALT (<40) U/L Alkaline Phosphatase (39-117) U/L Total Protein (5.9-8.4) gm/dL Albumin (3.2-5.2) gm/dL Globulin (2.2-3.7) gm/dL Albumin/Globulin Ratio (1.0-2.3) Urine Color Yellow Urine Appearance Clear (Clear) Urine pH 6.0 (5.0-9.0) Ur Specific [place] 1.015 (1.000-1.035) Urine Protein Negative (Negative) mg/dL Urine Glucose (UA) Negative (Negative) mg/dL Urine Ketones Negative (Negative) mg/dL Urine Occult Blood Trace-intact A (Negative) vianca/mcL Urine Nitrate Negative (Negative) Urine Bilirubin Negative (Negative) mg/dL Urine Urobilinogen Normal mg/dL Ur Leukocyte Esterase Negative (Negative) /uL Urine RBC 1 (0-3) /hpf Urine WBC 2 (0-4) /hpf Ur Squamous Epith Cells 0 (0-4) /hpf Urine Bacteria None (0) /hpf Urine Mucus Few A (None) /hpf Ur Culture Indicated? No ED POC Tests ED POC Tests: SAMUEL - SARS Antigen Negative Discharge Plan Patient/Caregiver Discharge Instructions Pt seen by BUSINESS DEVELOPER/PA only: No Clinical Impression: Acute hypernatremia, Acute dehydration Dementia Qualifiers: Dementia type: unspecified type Dementia behavioral disturbance: without behavioral disturbance Qualified Code(s): F03.90 - Unspecified dementia without behavioral disturbance Patient Disposition: Xfer As Inpt ([facility]) Follow up with: Suzie Duncan ARNP [Primary Care Provider] - Prescriptions: No Action clonidine HCl 0.1 MG tablet 0.1 mg PO BID 0RF potassium chloride 10 MEQ tablet 20 meq PO QAMCC 0RF tamsulosin 0.4 MG capsule 0.4 mg PO DAILY 0RF memantine 10 MG tablet 10 mg PO BID 0RF metformin 750 mg tablet extended release 24 hr 750 mg PO BIDCC 0RF sertraline 50 mg Tablet 50 mg PO BID 0RF amlodipine-benazepril 10-20 mg capsule 1 cap PO DAILY 0RF Victoza 2-Tung 0.6 mg/0.1 mL (18 mg/3 mL) pen injector 1.2 mg SUBCUT QDAY 0RF prednisone 10 mg tablet 40 mg PO QDAY Qty: 1 0RF Rx Instructions: take 40mg once daily for 2 days then 20mg daily x3 days then 10mg daily x2 days then 5mg daily x2 days then stop clonazepam 0.5 mg Tablet 1 mg PO QHS Qty: 10 0RF quetiapine 25 mg tablet 25 mg PO QAM Qty: 10 0RF quetiapine 100 MG tablet 125 mg PO HS Qty: 10 0RF
--- NOTE | 2022-04-12 11:19 | XRay Report ---
INDICATION: Chest pain TECHNIQUE: AP portable chest x-ray COMPARISON: Previous chest x-rays dated 03/25/2021, 03/22/2021, 07/20/2020 FINDINGS: Lungs:Lungs are negative. No focal pulmonary parenchymal infiltrate or mass Heart, vascular:No significant cardiomegaly. Pulmonary vascularity is normal. No pulmonary edema or pulmonary congestion Mediastinum, randa:Appearance consistent with moderate hiatal hernia Pleura:No pleural fluid. No pleural-based mass or calcification Skeletal:Degenerative joint disease in the right glenohumeral joint. IMPRESSION: 1. Findings consistent with moderate hiatal hernia 2. No acute abnormality Interpreted and Authenticated by: Shaun Johnson 04/12/22
[2022-04-12] MEDS ORDERED: morphine 2 MG/ML VIAL IV ONE ×2 (12:24→15:33)
[2022-04-12] MEDS ORDERED: ONDANSETRON 4 MG/2 ML VIAL IV ONE (12:24)
[2022-04-12 12:33] LABS: Basophils # (Auto) 0.03 K/mcL (0.00-0.30); Basophils % (Auto) 0.2 % (0.0-2.0); Eosinophils # (Auto) 0.01 K/mcL (0.00-0.70); Eosinophils % (Auto) 0.1 % (0.0-7.0); Hematocrit 46.3 % (40.1-51.0); Hemoglobin 14.6 g/dL (13.7-17.5); Lymphocytes # (Auto) 0.97 K/mcL (1.50-4.80); Lymphocytes % (Auto) 7.9 % (15.5-49.0); Mean Cell Volume 94.9 fL (80.0-100.0); Mean Corpuscular HGB Conc 31.5 g/dL (31.0-36.0); Mean Platelet Volume 12.1 fL (7.4-10.4); Monocytes # (Auto) 0.78 K/mcL (0.10-0.90); Monocytes % (Auto) 6.3 % (1.0-12.0); Neutrophils % (Auto) 85.5 % (38.0-78.0); Platelet Count 313 K/mcL (140-440); RBC 4.88 M/mcL (4.63-6.08); Red Cell Distribution Width 16.8 % (11.5-14.5); WBC 12.3 K/mcL (4.5-11.0)
[2022-04-12] MEDS ORDERED: cefTRIAXone 1 GM VIAL IV ONE (12:44)
--- NOTE | 2022-04-12 12:59 | XRay Report ---
INDICATION: nonverbal but painful and swollen. TECHNIQUE: PA, lateral, oblique right hand COMPARISON: None. FINDINGS: Suboptimal evaluation. The fingers were flexed and this patient is unable to cooperate for better positioning Degenerative joint disease in the radiocarpal joint. There is chondrocalcinosis with calcification of the triangular fibrocartilage. Metacarpals are negative. Digits are not optimally visualized but there is no definite fracture. No soft tissue gas or radiopaque foreign body IMPRESSION: 1. Limited evaluation 2. No fracture identified. 3. Degenerative joint disease and chondrocalcinosis Interpreted and Authenticated by: Shaun Johnson 04/12/22
[2022-04-12 13:16] LABS: Appearance,Urine Clear (Clear); Bilirubin,Urine Negative (Negative); Color,Urine Yellow; Culture Indicated,Urine No; Glucose,Urine (UA) Negative (Negative); Ketones,Urine Negative (Negative); Leukocyte Esterase,Urine Negative /uL (Negative); Mucus,Urine FEW /hpf; Nitrate,Urine Negative (Negative); Protein,Urine Negative (Negative); Specific Gravity,Urine 1.015 (1.000-1.035); Urine Blood Trace-intact ery/mcL (Negative); Urine RBC 1 /hpf (0-3); Urine Squamous Epithelial Cell 0 /hpf (0-4); Urine WBC 2 /hpf (0-4); Urobilinogen,Urine Normal
[2022-04-12 13:17] LABS: ALT/SGPT 35 U/L (<40); AST/SGOT 35 U/L (<40); Albumin 2.7 gm/dL (3.2-5.2); Albumin/Globulin Ratio 0.7 (1.0-2.3); Alkaline Phosphatase 96 U/L (39-117); Bilirubin,Total 0.4 mg/dL (0.1-1.0); Blood Urea Nitrogen 104 mg/dL (8-23); Calcium 10.7 mg/dL (8.6-10.4); Carbon Dioxide 25 mmol/L (22-30); Chloride 121 mmol/L (96-108); Globulin 4.1 gm/dL (2.2-3.7); Glomerular Filtration Rate 19; Glucose 326 mg/dL (70-105)
[2022-04-12] MEDS ORDERED: INSULIN REGULAR, HUMAN 1 UNIT/0.01 ML UNIT IV ONE (14:16)
[2022-04-12] MEDS ORDERED: 0.9 % SODIUM CHLORIDE 1,000 ML IV SCH (14:30)
--- NOTE | 2022-04-12 15:19 | Internal Med History&Physical ---
HPI History of Present Illness Patient information: Note initiated : 04/12/22 at 3:06 pm Service Date, if different from initiated Date: [] Patient: Kassidy Anthony a 81 y/o M admitted on for decreased LOC. Chief Complaint: [] History of present illness: Mr. Anthony is a 81 year old M Presents to the ED from [place] for decreased level of consciousness and lethargy. Per the he did not [facility] care on March 26 because his dementia was worsening and patient felt to be unsafe at home. He walked in with a walker. About a week later patient was not eating as much but was drinking and they were giving him nutritional shakes. He also started walking less. said last time she is able to have conversation with him was probably a week ago. Has increasing lethargy over the past couple days. In the ED he was minimally responsive. His sodium was 159 BUN/creatinine 104/3.0. Elevated glucose of 326. Lactic acid was within normal limits and bicarb was within normal limits. Urinalysis no ketones or infection signs. Chest x-ray unremarkable. Also complained of right wrist pain x-ray was unremarkable for anything acute but did show arthritis. Review of system: Unable to obtain given his Encephalopathy PFSH PFSH All Active Problems (Updated 03/22/21 @ 21:44 by Mehul Horn MD) Pneumonia (Acute) Sepsis (Acute) Encephalopathy acute (Acute) Acute gangrenous cholecystitis (Acute) Acute cholecystitis due to biliary calculus (Acute) Acute upper abdominal pain (Acute) Acute on chronic renal failure (Acute) Weakness (Acute) Confusion (Acute) Elevated WBC count (Acute) Sinus tachycardia (Acute) SIRS (systemic inflammatory response syndrome) (Acute) Sepsis (Acute) Urinary incontinence (Chronic) Chronic renal failure (Acute) Insomnia (Acute) Diabetes mellitus, type 2 (Acute) Hypertension, essential (Acute) Dementia (Acute) Medical History (Updated 03/22/21 @ 21:44 by Mehul Horn MD) Acute kidney injury Chronic renal failure Complicated UTI (urinary tract infection) Constipation Dehydration Dementia Diabetes mellitus, type 2 Hypertension, essential Insomnia Sepsis due to urinary tract infection Severe sepsis with acute organ dysfunction Urinary incontinence intermittent Surgical History History of laparoscopic cholecystectomy 07/20/2020 Status post cataract extraction of both eyes with insertion of intraocular lens Social History additional history: Occasional alcohol and ambulates with a cane and lives with his at home MEDS/ALLERGIES Home Medications and Allergies Home Medications Medication Instructions Recorded Confirmed Type clonidine HCl 0.1 mg tablet 0.1 mg PO BID 05/12/19 03/23/21 History memantine 10 mg tablet 10 mg PO BID 05/12/19 03/23/21 History potassium chloride 10 mEq 20 meq PO QAMCC 05/12/19 03/23/21 History tablet,extended release tamsulosin 0.4 mg capsule 0.4 mg PO DAILY 05/12/19 03/23/21 History sertraline 50 mg tablet 50 mg PO BID 07/16/20 03/23/21 History metformin 750 mg tablet,extended 750 mg PO BIDCC tab 08/04/20 03/23/21 History release 24 hr amlodipine 10 mg-benazepril 20 mg 1 cap PO DAILY 03/22/21 03/23/21 History capsule liraglutide 0.6 mg/0.1 mL (18 mg/3 1.2 mg SUBCUT QDAY 03/22/21 03/23/21 History mL) subcutaneous pen injector (CourseHorseza 2-Tung) prednisone 10 mg tablet 40 mg PO QDAY #1 tab 03/26/21 Rx clonazepam 0.5 mg tablet 1 mg PO QHS #10 tab 03/27/21 Rx quetiapine 100 mg tablet 125 mg PO HS #10 tab 03/27/21 Rx quetiapine 25 mg tablet 25 mg PO QAM #10 tab 03/27/21 Rx Allergies Allergy/AdvReac Type Severity Reaction Status Date / Time No Known Drug Allergies Allergy Verified 03/22/21 18:34 EXAM Constitutional Vitals: Temp Pulse Resp BP Pulse Ox 99.3 F H 116 H 23 H 104/71 93 04/12/22 10:48 04/12/22 11:04 04/12/22 14:46 04/12/22 14:46 04/12/22 11:04 Exam: General: Awakens to touch, No acute Distress Eyes/N/T: EOMI, PERRL, dry MM Head/Neck: neck supple, normocephalic atraumatic CV: RRR, No murmurs, normal s1/s2 Pulm: Clear b/l, no wheezing/rhonchi/rales Abd: soft, nontender, +BS x4 Ext: no clubbing/cyanosis/edema Neuro: Lethargic and sleeping but will awaken to touch, but does not follow commands or answer questions, moves extremities spontaneously Skin: warm/dry DATA Data Completed and Pending Labs: Labs from last 24 hours 04/12/22 04/12/22 04/12/22 11:22 11:15 11:01 WBC RBC Hgb Hct MCV MCH MCHC RDW Plt Count MPV Neut % (Auto) Lymph % (Auto) Campbell % (Auto) Eos % (Auto) Baso % (Auto) Lymph # (Auto) Campbell # (Auto) Eos # (Auto) Baso # (Auto) Absolute Neutrophils VBG Lactic Acid 1.6 Sodium 159 H Potassium 5.0 Chloride 121 H Carbon Dioxide 25 Anion Gap 13.0 BUN 104 H* Creatinine 3.0 H GFR Calculation 19 Glucose 326 H Calcium 10.7 H Total Bilirubin 0.4 AST 35 ALT 35 Alkaline Phosphatase 96 Total Protein 6.8 Albumin 2.7 L Globulin 4.1 H Albumin/Globulin Ratio 0.7 L Urine Color Yellow Urine Appearance Clear Urine pH 6.0 Ur Specific Evangeline 1.015 Urine Protein Negative Urine Glucose (UA) Negative Urine Ketones Negative Urine Occult Blood Trace-intact A Urine Nitrate Negative Urine Bilirubin Negative Urine Urobilinogen Normal Ur Leukocyte Esterase Negative Urine RBC 1 Urine WBC 2 Ur Squamous Epith Cells 0 Urine Bacteria None Urine Mucus Few A Ur Culture Indicated? No 04/12/22 11:01 WBC 12.3 H RBC 4.88 Hgb 14.6 Hct 46.3 MCV 94.9 MCH 29.9 MCHC 31.5 RDW 16.8 H Plt Count 313 MPV 12.1 H Neut % (Auto) 85.5 H Lymph % (Auto) 7.9 L Campbell % (Auto) 6.3 Eos % (Auto) 0.1 Baso % (Auto) 0.2 Lymph # (Auto) 0.97 L Campbell # (Auto) 0.78 Eos # (Auto) 0.01 Baso # (Auto) 0.03 Absolute Neutrophils 10.53 H VBG Lactic Acid Sodium Potassium Chloride Carbon Dioxide Anion Gap BUN Creatinine GFR Calculation Glucose Calcium Total Bilirubin AST ALT Alkaline Phosphatase Total Protein Albumin Globulin Albumin/Globulin Ratio Urine Color Urine Appearance Urine pH Ur Specific Evangeline Urine Protein Urine Glucose (UA) Urine Ketones Urine Occult Blood Urine Nitrate Urine Bilirubin Urine Urobilinogen Ur Leukocyte Esterase Urine RBC Urine WBC Ur Squamous Epith Cells Urine Bacteria Urine Mucus Ur Culture Indicated? A/P Narrative A/P Narrative: A: *Metabolic encephalopathy, superimposed on underlying dementia: *Hypernatremia, severe: -sodium 159 on admit *Dehydration/volume depletion: *Electrolyte d/o (Chloride/calcium): 2/2 above *SHAMA on CKD III: 104/30 on admit, 2/2 above *DM w/Hyperglycemia: Precipitant vs compounding the issue *Anemia, chronic: Currently hemoconcentrated likely *Dementia, advanced: *Anxiety: *HTN: P: -Hypotonic IVF to replete pure water stores -monitor sodium closely, goal 10-12 per 24 hours -Neuro status monitoring -Follow-up renal function and monitor UOP -Follow-up electrolytes -check A1c -CT brain pending -SSI -hold ACEI for SHAMA, start norvasc/clonidine if BP permits -PT/OT -Home medication reconciliation -ppx: Heparin DNR Time Spent With Patient Time: Total time spent is greater than 50% in coordination of care (as documented) at patient's floor/unit and/or counseling patient: Total time spent with greater than 50% in coordination of care (as documented) at patient's floor/unit and/or counseling patient:: 35 - 50 minutes Critical Care Time: Yes Total Critical Care Time: 35
[2022-04-12 15:48] LABS: POC Calcium, Ionized 1.32 (1.16-1.32); POC Potassium 4.3 (3.3-5.1)
[2022-04-12] MEDS ORDERED: DEXTROSE 5% IN WATER 1,000 ML IV SCH ×2 (16:00→18:10)
--- NOTE | 2022-04-12 16:05 | Cat Scan Report ---
INDICATION: encephalopathy COMPARISON: Previous CT scans dated 07/18/2020, 05/12/2019 TECHNIQUE: Axial noncontrast-enhanced images through the brain. Sagittally and coronally reformatted images. FINDINGS: Cerebral hemispheres:No intra-axial hemorrhage There is severe atrophy with prominent superficial subarachnoid spaces and ventricles. There is severe white matter abnormality consistent with small vessel ischemic change in this 81-year-old patient No acute intra-axial abnormality. No interval change Brainstem and cerebellum:No focal intra-axial abnormality. There is atrophy Extra-axial:No acute hemorrhage. No subdural or epidural hematoma. No subarachnoid hemorrhage. Basilar cisterns are normal Calvarial:No calvarial fracture. No lytic lesion Temporal bones are negative. No destructive lesions Soft tissue, orbits, sinuses:There is mucoperiosteal thickening within the sphenoid sinuses and posterior ethmoid sinuses. Mild mucosal thickening within maxillary sinuses IMPRESSION: 1. Cerebral atrophy. White matter abnormality consistent with small vessel ischemic change 2. No acute or focal intra-axial abnormality 3. No acute intracranial hemorrhage 4. Mild inflammatory disease of the paranasal sinuses The exam was performed using radiation dose optimization techniques including, but not limited to, automated exposure control, adjustment of the mA and/or kV according to patient size and use of iterative reconstruction technique. Interpreted and Authenticated by: Shaun Johnson 04/12/22
[2022-04-12] MEDS ORDERED: PROMETHAZINE 25 MG/ML VIAL IV PRN (18:10)
[2022-04-12] MEDS ORDERED: DEXTROSE 50% 50 ML VIAL IV PRN (18:10)
[2022-04-12] MEDS ORDERED: DEXTROSE 31 GM ORAL.SUSP PO PRN (18:10)
[2022-04-12] MEDS ORDERED: ONDANSETRON 4 MG/2 ML VIAL IV PRN (18:10)
[2022-04-12] MEDS ORDERED: hydrALAZINE 20 MG/ML VIAL IV PRN (18:10)
[2022-04-12] MEDS ORDERED: IPRATROPIUM/ALBUTEROL 3 ML AMPUL.NEB NEB PRN (18:10)
[2022-04-12] MEDS ORDERED: POTASSIUM CHLORIDE 40 MEQ in DEXTROSE 5% IN WATER 500 ML IV PRN (18:10)
[2022-04-12] MEDS ORDERED: POTASSIUM CHLORIDE 20 MEQ TABLET PO PRN ×2 (18:10)
[2022-04-12] MEDS ORDERED: METOCLOPRAMIDE 10 MG/2 ML VIAL IV PRN (18:10)
[2022-04-12] MEDS ORDERED: MAGNESIUM SULFATE 2 GM/50 ML BAG IV PRN (18:10)
[2022-04-12 18:51] LABS: Hemoglobin A1C 6.5 % Hgb (4.0-6.0)
[2022-04-12 20:05] LABS: POC Calcium, Ionized 1.38 (1.16-1.32); POC Creatinine 2.9 (0.6-1.2); POC Potassium 5.1 (3.3-5.1)
[2022-04-12] MEDS: INSULIN LISPRO 1 UNIT/0.01 ML UNIT SQ SCH ×2 (20:26→20:38)
[2022-04-12] MEDS: CHLORHEXIDINE GLUCONATE 1 ML ORAL.SOL SWABMOUTH SCH (20:27)
[2022-04-12] MEDS: 0.9 % SODIUM CHLORIDE 10 ML SYRINGE IV SCH (20:27)
[2022-04-12] MEDS: DOCUSATE SODIUM 100 MG CAPSULE PO SCH (20:27)
[2022-04-12] MEDS: HEPARIN 5,000 UNIT/ML VIAL SQ SCH (20:38)
[2022-04-12] MEDS: DEXTROSE 5% IN WATER 1,000 ML IV SCH (20:39)
[2022-04-13] MEDS: INSULIN LISPRO 1 UNIT/0.01 ML UNIT SQ SCH ×6 (00:28→20:32)
[2022-04-13] MEDS: ACETAMINOPHEN 650 MG/65 ML BAG IV PRN ×2 (01:16→08:24)
[2022-04-13 01:47] LABS: POC Calcium, Ionized 1.43 (1.16-1.32); POC Creatinine 2.9 (0.6-1.2); POC Potassium 4.7 (3.3-5.1)
[2022-04-13] MEDS: DEXTROSE 5% IN WATER 1,000 ML IV SCH ×3 (03:20→19:57)
[2022-04-13] MEDS: 0.9 % SODIUM CHLORIDE 10 ML SYRINGE IV SCH ×3 (05:31→20:35)
[2022-04-13 07:16] LABS: Hematocrit 40.7 % (40.1-51.0); Hemoglobin 12.6 g/dL (13.7-17.5); Mean Cell Volume 96.7 fL (80.0-100.0); Mean Platelet Volume 12.4 fL (7.4-10.4); Platelet Count 276 K/mcL (140-440); RBC 4.21 M/mcL (4.63-6.08); Red Cell Distribution Width 17.1 % (11.5-14.5); WBC 13.1 K/mcL (4.5-11.0)
[2022-04-13] MEDS ORDERED: DEXTROSE 5% IN WATER 1,000 ML IV SCH ×2 (07:39→10:16)
--- NOTE | 2022-04-13 07:39 | Internal Med Progress Note ---
SUBJECTIVE Subjective Patient information: Note initiated : 04/13/22 at 7:29 am Service Date, if different from initiated Date: [] Patient: Kassidy Anthony 81 y/o M admitted on 04/12/22 for decreased LOC. Chief Complaint: [] Interval history: History of present illness: Mr. Anthony is a 81 year old M Presents to the ED from [place] for decreased level of consciousness and lethargy. Per the he did not [place] care on March 26 because his dementia was worsening and patient felt to be unsafe at home. He walked in with a walker. About a week later patient was not eating as much but was drinking and they were giving him nutritional shakes. He also started walking less. said last time she is able to have conversation with him was probably a week ago. Has increasing lethargy over the past couple days. In the ED he was minimally responsive. His sodium was 159 BUN/creatinine 104/3.0. Elevated glucose of 326. Lactic acid was within normal limits and bicarb was within normal limits. Urinalysis no ketones or infection signs. Chest x-ray unremarkable. Also complained of right wrist pain x-ray was unremarkable for anything acute but did show arthritis. 04/13 Patient is still drowsy with some lethargy but appears to have more energy and makes more eye contact today. Leukocytosis, no source of infection at this point monitor. Monitor sodium continue hypotonic solution. Creatinine slowly improving. Urine output now finally improving. Elevated mag and liver enzymes. proCalcitonin elevated. For source of infection. Review of systems: Unable to obtain as patient is nonverbal Constitutional Vitals: Vital Signs Temp Pulse Resp BP Pulse Ox 97.0 F 73 18 100/73 88 L 04/13/22 00:01 04/13/22 04:10 04/13/22 04:10 04/13/22 04:01 04/13/22 04:10 Period Temp Pulse Resp BP Sys/Petty Pulse Ox Last 24 Hr 97.0 F-99.3 F 73-119 12-30 96-144/64-114 79-98 Intake and Output 04/12/22 04/13/22 04/13/22 21:59 05:59 13:59 Intake Total 1248 817 Output Total 635 Balance 1248 182 Weight 74.117 kg Intake & Output: Intake & Output 04/12/22 04/13/22 04/13/22 21:59 05:59 13:59 Intake Total 1248 817 Output Total 635 Balance 1248 182 Weight 74.117 kg Intake: IV 1248 817 Sodium Chloride 0.9% 1,000 ml @ 1000 500 mls/hr IV .Q2H MICHAEL Rx#: [id number] Dextrose 5% in Water 1,000 ml @ 248 752 100 mls/hr IV .Q10H MICHAEL Rx#: [id number] Output: Urine Catheter Amount 635 Other: Urine Appearance Clear Urine Color Pale Urine Odor Normal Exam: General: Awakens to touch, No acute Distress Eyes/N/T: EOMI, Head/Neck: neck supple, CV: RRR, No murmurs, Pulm: Clear b/l, no wheezing/rhonchi/rales Abd: soft, nontender, +BS x4 Ext: no clubbing/cyanosis/edema Neuro: Drowsy but responds much more today and makes eye contact, does not follow commands or answer questions, moves extremities spontaneously Skin: warm/dry OBJ DATA Labs CBC & Chem 7: 04/13/22 05:29 04/13/22 05:28 Labs: Abnormal Lab Results 04/13/22 04/13/22 04/12/22 05:29 01:42 20:02 WBC 13.1 H RBC 4.21 L Hgb 12.6 L POC Hct 36.0 L 38.0 L RDW 17.1 H MPV 12.4 H Neut % (Auto) Lymph % (Auto) Lymph # (Auto) Absolute Neutrophils POC Sodium 160 H 160 H Sodium POC Chloride 123 H 125 H Chloride POC BUN 90 H 97 H BUN Creatinine POC Creatinine 2.9 H 2.9 H Glucose POC Glucose 196 H 253 H Hemoglobin A1c Calcium POC WB Ioniz Calcium 1.43 H 1.38 H Albumin Globulin Albumin/Globulin Ratio Urine Occult Blood Urine Mucus 04/12/22 04/12/22 04/12/22 15:43 11:22 11:01 WBC RBC Hgb POC Hct 37.0 L RDW MPV Neut % (Auto) Lymph % (Auto) Lymph # (Auto) Absolute Neutrophils POC Sodium 161 H Sodium POC Chloride 126 H Chloride POC BUN 97 H BUN Creatinine POC Creatinine 3.0 H Glucose POC Glucose 199 H Hemoglobin A1c 6.5 H Calcium POC WB Ioniz Calcium Albumin Globulin Albumin/Globulin Ratio Urine Occult Blood Trace-intact A Urine Mucus Few A 04/12/22 04/12/22 11:01 11:01 WBC 12.3 H RBC Hgb POC Hct RDW 16.8 H MPV 12.1 H Neut % (Auto) 85.5 H Lymph % (Auto) 7.9 L Lymph # (Auto) 0.97 L Absolute Neutrophils 10.53 H POC Sodium Sodium 159 H POC Chloride Chloride 121 H POC BUN BUN 104 H* Creatinine 3.0 H POC Creatinine Glucose 326 H POC Glucose Hemoglobin A1c Calcium 10.7 H POC WB Ioniz Calcium Albumin 2.7 L Globulin 4.1 H Albumin/Globulin Ratio 0.7 L Urine Occult Blood Urine Mucus Meds: Medications Albuterol/Ipratropium (Ipratropium/Albuterol 3 Ml Ampul.Neb) 3 ml NEB Q4HP PRN PRN Reason: Shortness Of Breath Allopurinol (Allopurinol 100 Mg Tablet) 50 mg PO DAILY [facility] Aspirin (Aspirin 81 Mg Tab.Chew) 81 mg PO DAILY [facility] Chlorhexidine Gluconate (Chlorhexidine Gluconate 1 Ml Oral.Carlota) 15 ml [place] BID [facility] Last Admin: 04/12/22 20:27 Dose: 15 ml Documented by: Dextrose (Dextrose 50% 50 Ml Vial) 0 ml IV UD PRN PRN Reason: Per Sliding Scale Diagnostic Test (Pha) (Accu-Chek 1 Each Strip) 1 each FS Q4 [facility] Last Admin: 04/13/22 05:31 Dose: 1 each Documented by: Docusate Sodium (Docusate Sodium 100 Mg Capsule) 100 mg PO BID [facility] Last Admin: 04/12/22 20:27 Dose: Not Given Documented by: Glucose (Dextrose 31 Gm Oral.Susp) 15 gm PO PRN PRN PRN Reason: Hypoglycemia Heparin Sodium (Porcine) (Heparin 5,000 Unit/Ml Vial) 5,000 unit SQ Q12 [facility] Last Admin: 04/12/22 20:38 Dose: 5,000 unit Documented by: Hydralazine HCl (Hydralazine 20 Mg/Ml Vial) 0 mg IV Q2HP PRN PRN Reason: Hypertension Potassium Chloride 40 meq/ (Dextrose) 520 mls @ 130 mls/hr IV UD PRN PRN Reason: K+ < 3.0 Magnesium Sulfate (Magnesium Sulfate) 2 gm in 50 mls @ 25 mls/hr IV UD PRN PRN Reason: Magnesium </= 1.6 Dextrose (Dextrose 5% In Water) 1,000 mls @ 125 mls/hr IV .Q8H [facility] Last Admin: 04/13/22 03:20 Dose: 125 mls/hr Documented by: Acetaminophen (Ofirmev) 650 mg in 65 mls @ 130 mls/hr IV Q6HP PRN; Protocol PRN Reason: PAIN/FEVER > 101 Last Infusion: 04/13/22 03:23 Dose: Infused Documented by: Insulin Human Lispro (Insulin Lispro 1 Unit/0.01 Ml Unit) 0 unit SQ Q4 [facility]; Protocol Last Admin: 04/13/22 05:30 Dose: 9 units Documented by: Metoclopramide HCl (Metoclopramide 10 Mg/2 Ml Vial) 10 mg IV Q6HP PRN PRN Reason: Nausea Morphine Sulfate (Morphine 2 Mg/Ml Vial) 1 - 3 mg IV Q3HP PRN; Protocol PRN Reason: Per Pain Protocol Ondansetron HCl (Ondansetron 4 Mg/2 Ml Vial) 4 mg IV Q4-6HP PRN PRN Reason: Nausea And Vomiting Pantoprazole Sodium (Pantoprazole 40 Mg Vial) 40 mg IV QAMAC MICHAEL Potassium Chloride (Potassium Chloride 20 Meq Tablet) 20 meq PO UD PRN PRN Reason: K+ < 3.0 Potassium Chloride (Potassium Chloride 20 Meq Tablet) 40 meq PO UD PRN PRN Reason: K+ = 3-3.5 Promethazine HCl (Promethazine 25 Mg/Ml Vial) 12.5 mg IV Q4-6HP PRN PRN Reason: Nausea And Vomiting Sertraline HCl (Sertraline 50 Mg Tablet) 50 mg PO DAILY [facility] Sodium Chloride (0.9 % Sodium Chloride 10 Ml Syringe) 10 ml IV Q8 [facility] Last Admin: 04/13/22 05:31 Dose: Not Given Documented by: Tamsulosin HCl (Tamsulosin 0.4 Mg Capsule) 0.4 mg PO DAILY [facility] A/P Narrative A/P Narrative: A: *Metabolic encephalopathy, superimposed on underlying dementia: -CT brain w/atrophy, no acute *Hypernatremia, severe: -sodium 160 on admit *Dehydration/volume depletion: *Electrolyte d/o (Chloride/calcium): 2/2 above *SHAMA on CKD III: 104/30 on admit, 2/2 above *?Acute hypoxic respiratory failure: ?atelectasis and poor inspiratory effort, ?airway, cxr unremarkable - *Leukocytosis, mild: reactive vs ?infectious -no bandemia, afebrile, mildly elevated PCT *DM w/Hyperglycemia: Precipitant vs compounding the issue -A1c 6.5 *Anemia, chronic: Currently hemoconcentrated likely *Dementia, advanced: *Anxiety: *HTN: *Transaminitis: r/o GB pathology or source of infection P: -Hypotonic IVF to replete pure water stores, -monitor sodium closely, goal 10-12 per 24 hours -Neuro status monitoring -Follow-up renal function and monitor UOP -Follow-up electrolytes -GB u/s, if negative then CT chest looking for infection -check man diff/pct -SSI, metformin held for shama -hold ACEI for SHAMA, hold norvasc until BP rises -PT/OT -ppx: Heparin DNR Time Spent With Patient Time: Total time spent is greater than 50% in coordination of care (as documented) at patient's floor/unit and/or counseling patient: Total time spent with greater than 50% in coordination of care (as documented) at patient's floor/unit and/or counseling patient:: 35 - 50 minutes
[2022-04-13 08:17] LABS: ALT/SGPT 72 U/L (<40); AST/SGOT 77 U/L (<40); Albumin 2.4 gm/dL (3.2-5.2); Albumin/Globulin Ratio 0.7 (1.0-2.3); Alkaline Phosphatase 100 U/L (39-117); Bilirubin,Direct < 0.2 mg/dL (0-0.3); Bilirubin,Total 0.3 mg/dL (0.1-1.0); Blood Urea Nitrogen 98 mg/dL (8-23); Carbon Dioxide 26 mmol/L (22-30); Chloride 121 mmol/L (96-108); Globulin 3.5 gm/dL (2.2-3.7); Glomerular Filtration Rate 22; Glucose 248 mg/dL (70-105); Lactate Dehydrogenase 252 U/L (135-225); Phosphorous 3.9 mg/dL (2.5-4.5); Triglycerides 66 mg/dL (<150); Uric Acid 9.2 mg/dL (2.5-8.0)
[2022-04-13] MEDS: PANTOPRAZOLE 40 MG VIAL IV SCH (08:53)
[2022-04-13] MEDS: HEPARIN 5,000 UNIT/ML VIAL SQ SCH ×2 (08:53→20:58)
[2022-04-13 12:05] LABS: POC Calcium, Ionized 1.43 (1.16-1.32); POC Creatinine 2.6 (0.6-1.2); POC Potassium 4.4 (3.3-5.1)
[2022-04-13] MEDS: ASPIRIN 81 MG TAB.CHEW PO SCH (13:03)
[2022-04-13] MEDS: CHLORHEXIDINE GLUCONATE 1 ML ORAL.SOL SWABMOUTH SCH ×2 (13:03→20:58)
[2022-04-13] MEDS: SERTRALINE 50 MG TABLET PO SCH (13:03)
[2022-04-13] MEDS: DOCUSATE SODIUM 100 MG CAPSULE PO SCH ×2 (13:03→20:34)
[2022-04-13] MEDS: TAMSULOSIN 0.4 MG CAPSULE PO SCH (13:04)
--- NOTE | 2022-04-13 14:59 | Ultrasound Report ---
INDICATION: transaminitis, ?source of infection TECHNIQUE: Grayscale and color flow Doppler spectral imaging COMPARISON: Previous CT scan dated 07/18/2020. Previous gallbladder ultrasound dated 07/18/2020 FINDINGS: Gallbladder:Gallbladder is not well visualized. Previous examinations demonstrated cholecystitis but apparently the gallbladder has not been removed. Present examination is considered nondiagnostic. Partial visualization of the gallbladder suggests gallbladder wall thickening. No definite pericholecystic fluid Common bile duct:Poorly visualized. Common bile duct measures4 mm Liver:No solid or cystic hepatic mass. Liver contour is smooth. No ascites.. Liver [id number] cm Portal vein:Normal hepatopedal portal venous flow Pancreas:Entire pancreas is not visualized. No definite abnormality identified IMPRESSION: 1. Very limited examination 2. Poor visualization of the gallbladder. Gallbladder wall thickening is possible. Interpreted and Authenticated by: Shaun Johnson 04/13/22
[2022-04-13] MEDS ORDERED: OLANZapine 10 MG VIAL IM PRN (15:10)
[2022-04-13 15:59] LABS: POC Calcium, Ionized 1.41 (1.16-1.32); POC Creatinine 2.5 (0.6-1.2); POC Potassium 4.4 (3.3-5.1)
[2022-04-13 17:29] LABS: Lymphocytes % 10 % (15-49); Monocytes % (Manual) 2 % (1-12); Platelet Estimate NORMAL (Normal); RBC Morphology NORMAL (Normal); Segmented Neutrophils % 88 % (38-78)
[2022-04-13] MEDS ORDERED: VANCOMYCIN PER PHARMACY IV SCH (19:43)
[2022-04-13 20:05] LABS: POC Calcium, Ionized 1.43 (1.16-1.32); POC Creatinine 2.2 (0.6-1.2); POC Potassium 4.1 (3.3-5.1)
[2022-04-13] MEDS ORDERED: VANCOMYCIN 1,000 MG in 0.9 % SODIUM CHLORIDE 250 ML IV ONE (20:30)
[2022-04-13] MEDS: morphine 2 MG/ML VIAL IV PRN (20:31)
[2022-04-14] MEDS: INSULIN LISPRO 1 UNIT/0.01 ML UNIT SQ SCH ×6 (01:05→20:24)
[2022-04-14] MEDS: DEXTROSE 5% IN WATER 1,000 ML IV SCH ×4 (03:43→22:16)
[2022-04-14] MEDS: 0.9 % SODIUM CHLORIDE 10 ML SYRINGE IV SCH ×3 (05:35→22:16)
[2022-04-14 06:52] LABS: Hematocrit 40.1 % (40.1-51.0); Hemoglobin 12.5 g/dL (13.7-17.5); Mean Cell Volume 96.6 fL (80.0-100.0); Mean Corpuscular HGB Conc 31.2 g/dL (31.0-36.0); Mean Platelet Volume 12.2 fL (7.4-10.4); Platelet Count 242 K/mcL (140-440); RBC 4.15 M/mcL (4.63-6.08); Red Cell Distribution Width 16.2 % (11.5-14.5); WBC 13.4 K/mcL (4.5-11.0)
[2022-04-14 07:11] LABS: ALT/SGPT 58 U/L (<40); AST/SGOT 44 U/L (<40); Albumin 2.3 gm/dL (3.2-5.2); Albumin/Globulin Ratio 0.6 (1.0-2.3); Alkaline Phosphatase 103 U/L (39-117); Bilirubin,Direct < 0.2 mg/dL (0-0.3); Bilirubin,Total 0.4 mg/dL (0.1-1.0); Blood Urea Nitrogen 66 mg/dL (8-23); Calcium 9.8 mg/dL (8.6-10.4); Carbon Dioxide 23 mmol/L (22-30); Chloride 115 mmol/L (96-108); Globulin 3.6 gm/dL (2.2-3.7); Glomerular Filtration Rate 31; Glucose 260 mg/dL (70-105); Lactate Dehydrogenase 284 U/L (135-225); Phosphorous 2.3 mg/dL (2.5-4.5); Triglycerides 93 mg/dL (<150); Uric Acid 7.9 mg/dL (2.5-8.0)
[2022-04-14] MEDS: PANTOPRAZOLE 40 MG VIAL IV SCH (07:24)
--- NOTE | 2022-04-14 07:53 | Internal Med Progress Note ---
SUBJECTIVE Subjective Patient information: Note initiated : 04/14/22 at 7:46 am Service Date, if different from initiated Date: [] Patient: Kassidy Anthony 81 y/o M admitted on 04/12/22 for decreased LOC. Chief Complaint: [] Interval history: History of present illness: Mr. Anthony is a 81 year old M Presents to the ED from [place] for decreased level of consciousness and lethargy. Per the he did not [place] care on March 26 because his dementia was worsening and patient felt to be unsafe at home. He walked in with a walker. About a week later patient was not eating as much but was drinking and they were giving him nutritional shakes. He also started walking less. said last time she is able to have conversation with him was probably a week ago. Has increasing lethargy over the past couple days. In the ED he was minimally responsive. His sodium was 159 BUN/creatinine 104/3.0. Elevated glucose of 326. Lactic acid was within normal limits and bicarb was within normal limits. Urinalysis no ketones or infection signs. Chest x-ray unremarkable. Also complained of right wrist pain x-ray was unremarkable for anything acute but did show arthritis. 04/13 Patient is still drowsy with some lethargy but appears to have more energy and makes more eye contact today. Leukocytosis, no source of infection at this point monitor. Monitor sodium continue hypotonic solution. Creatinine slowly improving. Urine output now finally improving. Elevated mag and liver enzymes. proCalcitonin elevated. For source of infection. 04/14 at bedside. Patient more responsive to her and more verbalizations than previously. Review of systems: Unable to obtain as patient is mostly nonverbal and incomprehensible. Constitutional Vitals: Vital Signs Temp Pulse Resp BP Pulse Ox 97.8 F 94 H 14 145/92 92 04/14/22 07:34 04/14/22 06:01 04/14/22 06:01 04/14/22 06:01 04/14/22 06:01 Period Temp Pulse Resp BP Sys/Petty Pulse Ox Last 24 Hr 97.4 F-98.0 F 82-104 14-27 118-159/75-110 90-97 Intake and Output 04/13/22 04/14/22 04/14/22 21:59 05:59 13:59 Intake Total 1200 1250 Output Total 275 950 150 Balance 925 300 -150 Weight 75.478 kg Intake & Output: Intake & Output 04/13/22 04/14/22 04/14/22 21:59 05:59 13:59 Intake Total 1200 1250 Output Total 275 950 150 Balance 925 300 -150 Weight 75.478 kg Intake: IV 1000 1250 Dextrose 5% in Water 1,000 ml @ 1000 1000 150 mls/hr IV .Q6H40M [facility] Rx#: [id number] Vancomycin 1,000 mg In Sodium 250 Chloride 0.9% 250 ml @ 250 mls/ hr IV ONCE ONE Rx#:[id number] Oral 200 Output: Urine Catheter Amount 225 950 150 Void Amount 50 Other: Meal Dinner Percent of Meal Consumed 0% Feeding Ability Total Assistance Urine Appearance Clear Clear Clear Uretheral (Ty) Clear Clear Urine Color Light Rupa Pale Bright Yellow Uretheral (Ty) Pale Pale Urine Odor Normal Normal Exam: General: alert and awake, No acute Distress Eyes/N/T: EOMI, Head/Neck: neck supple, CV: RRR, No murmurs, Pulm: Clear b/l, no wheezing/rhonchi/rales Abd: soft, nontender, +BS x4 Ext: no clubbing/cyanosis/edema Neuro: Alert and awake, makes eye contact, tries to verbalize but incomprehensible. Skin: warm/dry OBJ DATA Labs CBC & Chem 7: 04/14/22 05:32 04/14/22 05:32 Labs: Abnormal Lab Results 04/14/22 04/14/22 04/14/22 05:32 05:32 05:32 WBC 13.4 H RBC 4.15 L Hgb 12.5 L POC Hct RDW 16.2 H MPV 12.2 H Neut % (Auto) Lymph % (Auto) Lymph # (Auto) Seg Neutrophils % Lymphocytes % Absolute Neutrophils POC Sodium Sodium 148 H POC Chloride Chloride 115 H POC BUN BUN 66 H Creatinine 2.0 H POC Creatinine Glucose 260 H POC Glucose Hemoglobin A1c Uric Acid Calcium POC WB Ioniz Calcium Phosphorus 2.3 L Magnesium AST 44 H ALT 58 H Lactate Dehydrogenase 284 H Albumin 2.3 L Globulin Albumin/Globulin Ratio 0.6 L Procalcitonin 0.21 H Urine Occult Blood Urine Mucus 04/13/22 04/13/2204/13/22 20:03 15:56 12:02 WBC RBC Hgb POC Hct 38.0 L 38.0 L 40.0 L RDW MPV Neut % (Auto) Lymph % (Auto) Lymph # (Auto) Seg Neutrophils % Lymphocytes % Absolute Neutrophils POC Sodium 153 H 155 H 157 H Sodium POC Chloride 117 H 119 H 121 H Chloride POC BUN 70 H 75 H 85 H BUN Creatinine POC Creatinine 2.2 H 2.5 H 2.6 H Glucose POC Glucose 219 H 213 H 123 H Hemoglobin A1c Uric Acid Calcium POC WB Ioniz Calcium 1.43 H 1.41 H 1.43 H Phosphorus Magnesium AST ALT Lactate Dehydrogenase Albumin Globulin Albumin/Globulin Ratio Procalcitonin Urine Occult Blood Urine Mucus 04/13/22 04/13/22 04/13/22 05:29 05:29 05:29 WBC 13.1 H RBC 4.21 L Hgb 12.6 L POC Hct RDW 17.1 H MPV 12.4 H Neut % (Auto) Lymph % (Auto) Lymph # (Auto) Seg Neutrophils % 88 H Lymphocytes % 10 L Absolute Neutrophils POC Sodium Sodium POC Chloride Chloride POC BUN BUN Creatinine POC Creatinine Glucose POC Glucose Hemoglobin A1c Uric Acid Calcium POC WB Ioniz Calcium Phosphorus Magnesium AST ALT Lactate Dehydrogenase Albumin Globulin Albumin/Globulin Ratio Procalcitonin 0.37 H Urine Occult Blood Urine Mucus 04/13/22 04/13/22 04/12/22 05:28 01:42 20:02 WBC RBC Hgb POC Hct 36.0 L 38.0 L RDW MPV Neut % (Auto) Lymph % (Auto) Lymph # (Auto) Seg Neutrophils % Lymphocytes % Absolute Neutrophils POC Sodium 160 H 160 H Sodium 156 H POC Chloride 123 H 125 H Chloride 121 H POC BUN 90 H 97 H BUN 98 H Creatinine 2.6 H POC Creatinine 2.9 H 2.9 H Glucose 248 H POC Glucose 196 H 253 H Hemoglobin A1c Uric Acid 9.2 H Calcium POC WB Ioniz Calcium 1.43 H 1.38 H Phosphorus Magnesium 2.9 H AST 77 H ALT 72 H Lactate Dehydrogenase 252 H Albumin 2.4 L Globulin Albumin/Globulin Ratio 0.7 L Procalcitonin Urine Occult Blood Urine Mucus 04/12/22 04/12/22 04/12/22 15:43 11:22 11:01 WBC RBC Hgb POC Hct 37.0 L RDW MPV Neut % (Auto) Lymph % (Auto) Lymph # (Auto) Seg Neutrophils % Lymphocytes % Absolute Neutrophils POC Sodium 161 H Sodium POC Chloride 126 H Chloride POC BUN 97 H BUN Creatinine POC Creatinine 3.0 H Glucose POC Glucose 199 H Hemoglobin A1c 6.5 H Uric Acid Calcium POC WB Ioniz Calcium Phosphorus Magnesium AST ALT Lactate Dehydrogenase Albumin Globulin Albumin/Globulin Ratio Procalcitonin Urine Occult Blood Trace-intact A Urine Mucus Few A 04/12/22 04/12/22 11:01 11:01 WBC 12.3 H RBC Hgb POC Hct RDW 16.8 H MPV 12.1 H Neut % (Auto) 85.5 H Lymph % (Auto) 7.9 L Lymph # (Auto) 0.97 L Seg Neutrophils % Lymphocytes % Absolute Neutrophils 10.53 H POC Sodium Sodium 159 H POC Chloride Chloride 121 H POC BUN BUN 104 H* Creatinine 3.0 H POC Creatinine Glucose 326 H POC Glucose Hemoglobin A1c Uric Acid Calcium 10.7 H POC WB Ioniz Calcium Phosphorus Magnesium AST ALT Lactate Dehydrogenase Albumin 2.7 L Globulin 4.1 H Albumin/Globulin Ratio 0.7 L Procalcitonin Urine Occult Blood Urine Mucus Meds: Medications Albuterol/Ipratropium (Ipratropium/Albuterol 3 Ml Ampul.Neb) 3 ml NEB Q4HP PRN PRN Reason: Shortness Of Breath Allopurinol (Allopurinol 100 Mg Tablet) 50 mg PO DAILY [facility] Aspirin (Aspirin 81 Mg Tab.Chew) 81 mg PO DAILY [facility] Last Admin: 04/13/22 13:03 Dose: Not Given Documented by: Chlorhexidine Gluconate (Chlorhexidine Gluconate 1 Ml Oral.Carlota) 15 ml SWABMOUTH BID [facility] Last Admin: 04/13/22 20:58 Dose: 15 ml Documented by: Dextrose (Dextrose 50% 50 Ml Vial) 0 ml IV UD PRN PRN Reason: Per Sliding Scale Diagnostic Test (Pha) (Accu-Chek 1 Each Strip) 1 each FS Q4 [facility] Last Admin: 04/14/22 07:31 Dose: 1 each Documented by: Docusate Sodium (Docusate Sodium 100 Mg Capsule) 100 mg PO BID [facility] Last Admin: 04/13/22 20:34 Dose: Not Given Documented by: Glucose (Dextrose 31 Gm Oral.Susp) 15 gm PO PRN PRN PRN Reason: Hypoglycemia Heparin Sodium (Porcine) (Heparin 5,000 Unit/Ml Vial) 5,000 unit SQ Q12 [facility] Last Admin: 04/13/22 20:58 Dose: 5,000 unit Documented by: Hydralazine HCl (Hydralazine 20 Mg/Ml Vial) 0 mg IV Q2HP PRN PRN Reason: Hypertension Potassium Chloride 40 meq/ (Dextrose) 520 mls @ 130 mls/hr IV UD PRN PRN Reason: K+ < 3.0 Magnesium Sulfate (Magnesium Sulfate) 2 gm in 50 mls @ 25 mls/hr IV UD PRN PRN Reason: Magnesium </= 1.6 Acetaminophen (Ofirmev) 650 mg in 65 mls @ 130 mls/hr IV Q6HP PRN; Protocol PRN Reason: PAIN/FEVER > 101 Last Infusion: 04/13/22 10:09 Dose: Infused Documented by: Dextrose (Dextrose 5% In Water) 1,000 mls @ 150 mls/hr IV .Q6H40M [facility] Last Admin: 04/14/22 03:43 Dose: 150 mls/hr Documented by: Vancomycin HCl 1,000 mg/ (Sodium Chloride) 250 mls @ 250 mls/hr IV Q24H [facility] Insulin Human Lispro (Insulin Lispro 1 Unit/0.01 Ml Unit) 0 unit SQ Q4 [facility]; Protocol Last Admin: 04/14/22 05:35 Dose: 9 units Documented by: Metoclopramide HCl (Metoclopramide 10 Mg/2 Ml Vial) 10 mg IV Q6HP PRN PRN Reason: Nausea Morphine Sulfate (Morphine 2 Mg/Ml Vial) 1 - 3 mg IV Q3HP PRN; Protocol PRN Reason: Per Pain Protocol Last Admin: 04/13/22 20:31 Dose: 1 mg Documented by: Olanzapine (Olanzapine 10 Mg Vial) 5 mg IM QHS PRN PRN Reason: Agitation Ondansetron HCl (Ondansetron 4 Mg/2 Ml Vial) 4 mg IV Q4-6HP PRN PRN Reason: Nausea And Vomiting Pantoprazole Sodium (Pantoprazole 40 Mg Vial) 40 mg IV QAMAC [facility] Last Admin: 04/14/22 07:24 Dose: 40 mg Documented by: Potassium Chloride (Potassium Chloride 20 Meq Tablet) 20 meq PO UD PRN PRN Reason: K+ < 3.0 Potassium Chloride (Potassium Chloride 20 Meq Tablet) 40 meq PO UD PRN PRN Reason: K+ = 3-3.5 Promethazine HCl (Promethazine 25 Mg/Ml Vial) 12.5 mg IV Q4-6HP PRN PRN Reason: Nausea And Vomiting Sertraline HCl (Sertraline 50 Mg Tablet) 50 mg PO DAILY [facility] Last Admin: 04/13/22 13:03 Dose: Not Given Documented by: Sodium Chloride (0.9 % Sodium Chloride 10 Ml Syringe) 10 ml IV Q8 [facility] Last Admin: 04/14/22 05:35 Dose: Not Given Documented by: Tamsulosin HCl (Tamsulosin 0.4 Mg Capsule) 0.4 mg PO DAILY [facility] Last Admin: 04/13/22 13:04 Dose: Not Given Documented by: Tramadol HCl (Tramadol 50 Mg Tablet) 50 mg PO Q4HP PRN; Protocol PRN Reason: Pain Vancomycin HCl (Vancomycin Per Pharmacy) 1 order IV UD [facility]; Protocol Last Admin: 04/13/22 20:30 Dose: Not Given Documented by: A/P Narrative A/P Narrative: A: *Metabolic encephalopathy, superimposed on underlying dementia: slowly improving -CT brain w/atrophy, no acute *Hypernatremia, severe: -sodium 160 on admit *Dehydration/volume depletion: improving *Electrolyte d/o (Chloride/calcium/sodium): 2/2 above *SHAMA on CKD III: 104/30 on admit, 2/2 above -improving *Leukocytosis, mild: reactive vs ?infectious -no bandemia, afebrile, mildly elevated PCT (but improved w/o abx) but no source identified *DM w/Hyperglycemia: Precipitant vs compounding the issue -A1c 6.5 *Anemia, chronic: Currently hemoconcentrated likely *Dementia, advanced: *Anxiety: *HTN: *Transaminitis: u/s unremarkable, improving *Staph epi in 11/14 bottles: likely contaminant, vanco until final cx results from all bottles. P: -Hypotonic IVF to replete pure water stores, -monitor sodium closely, goal 10-12 per 24 hours -Neuro status monitoring -Follow-up renal function and monitor UOP -Follow-up electrolytes -vanco until final BC return -SSI, metformin held for shama -hold ACEI for SHAMA, restart norvasc -PT/OT -ppx: Heparin DNR Time Spent With Patient Time: Total time spent is greater than 50% in coordination of care (as documented) at patient's floor/unit and/or counseling patient: Total time spent with greater than 50% in coordination of care (as documented) at patient's floor/unit and/or counseling patient:: 25 - 35 minutes
[2022-04-14 08:48] LABS: Eosinophils % (Manual) 4 % (0-7); Lymphocytes % 13 % (15-49); Monocytes % (Manual) 4 % (1-12); Platelet Estimate NORMAL (Normal); RBC Morphology NORMAL (Normal); Segmented Neutrophils % 79 % (38-78)
[2022-04-14] MEDS: HEPARIN 5,000 UNIT/ML VIAL SQ SCH ×2 (09:12→22:22)
[2022-04-14] MEDS: ALLOPURINOL 100 MG TABLET PO SCH (09:12)
[2022-04-14] MEDS: TAMSULOSIN 0.4 MG CAPSULE PO SCH (09:12)
[2022-04-14] MEDS: SERTRALINE 50 MG TABLET PO SCH (09:12)
[2022-04-14] MEDS: amLODIPine 5 MG TABLET PO SCH (09:12)
[2022-04-14] MEDS: morphine 2 MG/ML VIAL IV PRN ×4 (09:53→22:23)
[2022-04-14] MEDS: DOCUSATE SODIUM 100 MG CAPSULE PO SCH ×2 (09:53→22:22)
[2022-04-14] MEDS: ASPIRIN 81 MG TAB.CHEW PO SCH (09:53)
[2022-04-14] MEDS: CHLORHEXIDINE GLUCONATE 1 ML ORAL.SOL SWABMOUTH SCH ×2 (09:54→22:23)
[2022-04-14 12:03] LABS: POC Calcium, Ionized 1.27 (1.16-1.32); POC Creatinine 1.9 (0.6-1.2); POC Potassium 3.8 (3.3-5.1)
[2022-04-14 12:57] LABS: Vancomycin,Random 7.4 ug/mL
[2022-04-14] MEDS ORDERED: VANCOMYCIN 1,000 MG in 0.9 % SODIUM CHLORIDE 250 ML IV SCH (13:00)
[2022-04-14 18:22] LABS: POC Calcium, Ionized 1.31 (1.16-1.32); POC Creatinine 1.8 (0.6-1.2); POC Potassium 3.9 (3.3-5.1)
[2022-04-14 23:16] LABS: POC Calcium, Ionized 1.23 (1.16-1.32); POC Creatinine 1.8 (0.6-1.2); POC Potassium 4.2 (3.3-5.1)
[2022-04-14] MEDS ORDERED: 0.45 % SODIUM CHLORIDE 1,000 ML IV SCH (23:45)
[2022-04-15] MEDS: INSULIN LISPRO 1 UNIT/0.01 ML UNIT SQ SCH ×6 (00:25→21:27)
[2022-04-15] MEDS: morphine 2 MG/ML VIAL IV PRN ×2 (01:22→21:45)
[2022-04-15] MEDS: DEXTROSE 5% IN WATER 1,000 ML IV SCH ×3 (03:13→18:34)
[2022-04-15 06:24] LABS: Basophils # (Auto) 0.04 K/mcL (0.00-0.30); Basophils % (Auto) 0.4 % (0.0-2.0); Eosinophils # (Auto) 0.15 K/mcL (0.00-0.70); Eosinophils % (Auto) 1.7 % (0.0-7.0); Hematocrit 40.5 % (40.1-51.0); Hemoglobin 12.5 g/dL (13.7-17.5); Lymphocytes # (Auto) 1.34 K/mcL (1.50-4.80); Lymphocytes % (Auto) 14.9 % (15.5-49.0); Mean Cell Volume 97.1 fL (80.0-100.0); Mean Corpuscular HGB Conc 30.9 g/dL (31.0-36.0); Monocytes # (Auto) 0.63 K/mcL (0.10-0.90); Platelet Count 237 K/mcL (140-440); RBC 4.17 M/mcL (4.63-6.08); Red Cell Distribution Width 15.8 % (11.5-14.5)
[2022-04-15] MEDS: 0.9 % SODIUM CHLORIDE 10 ML SYRINGE IV SCH ×3 (06:37→21:35)
[2022-04-15 06:50] LABS: ALT/SGPT 248 U/L (<40); AST/SGOT 373 U/L (<40); Albumin 2.2 gm/dL (3.2-5.2); Albumin/Globulin Ratio 0.6 (1.0-2.3); Alkaline Phosphatase 414 U/L (39-117); Bilirubin,Direct < 0.2 mg/dL (0-0.3); Bilirubin,Total 0.5 mg/dL (0.1-1.0); Blood Urea Nitrogen 39 mg/dL (8-23); Calcium 9.2 mg/dL (8.6-10.4); Carbon Dioxide 22 mmol/L (22-30); Chloride 109 mmol/L (96-108); Globulin 3.4 gm/dL (2.2-3.7); Glomerular Filtration Rate 40; Glucose 223 mg/dL (70-105); Lactate Dehydrogenase 418 U/L (135-225); Phosphorous 2.8 mg/dL (2.5-4.5); Triglycerides 97 mg/dL (<150); Uric Acid 7.4 mg/dL (2.5-8.0)
[2022-04-15] MEDS: PANTOPRAZOLE 40 MG VIAL IV SCH (08:00)
--- NOTE | 2022-04-15 08:04 | Internal Med Progress Note ---
SUBJECTIVE Subjective Patient information: Note initiated : 04/15/22 at 7:57 am Service Date, if different from initiated Date: [] Patient: Kassidy Anthony 81 y/o M admitted on 04/12/22 for decreased LOC. Chief Complaint: [] Interval history: History of present illness: Mr. Anthony is a 81 year old M Presents to the ED from [facility] for decreased level of consciousness and lethargy. Per the he did not [facility] on March 26 because his dementia was worsening and patient felt to be unsafe at home. He walked in with a walker. About a week later patient was not eating as much but was drinking and they were giving him nutritional shakes. He also started walking less. said last time she is able to have conversation with him was probably a week ago. Has increasing lethargy over the past couple days. In the ED he was minimally responsive. His sodium was 159 BUN/creatinine 104/3.0. Elevated glucose of 326. Lactic acid was within normal limits and bicarb was within normal limits. Urinalysis no ketones or infection signs. Chest x-ray unremarkable. Also complained of right wrist pain x-ray was unremarkable for anything acute but did show arthritis. 6/3 Patient is still drowsy with some lethargy but appears to have more energy and makes more eye contact today. Leukocytosis, no source of infection at this point monitor. Monitor sodium continue hypotonic solution. Creatinine slowly improving. Urine output now finally improving. Elevated mag and liver enzymes. proCalcitonin elevated. For source of infection. 6/4 at bedside. Patient more responsive to her and more verbalizations than previously. 6/ Sodium now within normal range. Provide a liter of half-normal NS encourage oral intake. Continue to trend sodium and renal function. Liver enzymes worse today monitor closely. Review of systems: Unable to obtain as patient is mostly nonverbal and incomprehensible. Constitutional Vitals: Vital Signs Temp Pulse Resp BP Pulse Ox 97.8 F 97 H 17 139/95 99 04/15/22 04:00 04/15/22 07:01 04/15/22 07:01 04/15/22 07:01 04/15/22 07:01 Period Temp Pulse Resp BP Sys/Petty Pulse Ox Last 24 Hr 97.6 F-97.9 F 86-106 14-31 103-148/71-120 92-100 Intake and Output 04/14/22 04/15/22 04/15/22 21:59 05:59 13:59 Intake Total 2250 163 Output Total 250 675 35 Balance 1999 Weight 77.02 kg Intake & Output: Intake & Output 04/14/22 04/15/22 04/15/22 21:59 05:59 13:59 Intake Total 2250 163 Output Total 250 675 35 Balance 1999 Weight 77.02 kg Intake: IV 2250 163 Dextrose 5% in Water 1,000 ml @ 2000 163 125 mls/hr IV .Q8H MICHA[facility] Rx#: [id number] Vancomycin 1,000 mg In Sodium 250 Chloride 0.9% 250 ml @ 250 mls/ hr IV Q24H [facility] Rx#:[id number] Output: Urine Catheter Amount 250 675 Void Amount 35 Other: Urine Appearance Clear Clear Clear Urine Color Dark Yellow Pale Urine Odor Strong Stool Size Smear Stool Color Brown Stool Consistency Soft Exam: General: alert and awake, No acute Distress Eyes/N/T: EOMI, Head/Neck: neck supple, CV: RRR, No murmurs, Pulm: Clear b/l, no wheezing/rhonchi/rales Abd: soft, nontender, +BS x4 Ext: no clubbing/cyanosis/edema Neuro: Alert and awake, makes eye contact, tries to verbalize but incomprehensible. Skin: warm/dry OBJ DATA Labs CBC & Chem 7: 04/15/22 05:34 04/15/22 05:40 Labs: Abnormal Lab Results 04/15/22 04/15/22 04/14/22 05:40 05:34 23:11 WBC RBC 4.17 L Hgb 12.5 L POC Hct 35.0 L MCHC 30.9 L RDW 15.8 H MPV 12.0 H Neut % (Auto) Lymph % (Auto) 14.9 L Lymph # (Auto) 1.34 L Seg Neutrophils % Lymphocytes % Absolute Neutrophils POC Sodium Sodium POC Chloride 112 H Chloride 109 H POC BUN 51 H BUN 39 H Creatinine 1.6 H POC Creatinine 1.8 H Glucose 223 H POC Glucose 222 H Hemoglobin A1c Uric Acid Calcium POC WB Ioniz Calcium Phosphorus Magnesium GGT 310 H AST 373 H ALT 248 H Alkaline Phosphatase 414 H Lactate Dehydrogenase 418 H Total Protein 5.6 L Albumin 2.2 L Globulin Albumin/Globulin Ratio 0.6 L Procalcitonin Urine Occult Blood Urine Mucus 04/14/22 04/14/22 04/14/22 18:19 12:01 05:32 WBC RBC Hgb POC Hct 34.0 L 37.0 L MCHC RDW MPV Neut % (Auto) Lymph % (Auto) Lymph # (Auto) Seg Neutrophils % Lymphocytes % Absolute Neutrophils POC Sodium 146 H 147 H Sodium 148 H POC Chloride 113 H 116 H Chloride 115 H POC BUN 47 H 51 H BUN 66 H Creatinine 2.0 H POC Creatinine 1.8 H 1.9 H Glucose 260 H POC Glucose 185 H 168 H Hemoglobin A1c Uric Acid Calcium POC WB Ioniz Calcium Phosphorus 2.3 L Magnesium GGT AST 44 H ALT 58 H Alkaline Phosphatase Lactate Dehydrogenase 284 H Total Protein Albumin 2.3 L Globulin Albumin/Globulin Ratio 0.6 L Procalcitonin Urine Occult Blood Urine Mucus 04/14/22 04/14/22 04/13/22 05:32 05:32 20:03 WBC 13.4 H RBC 4.15 L Hgb 12.5 L POC Hct 38.0 L MCHC RDW 16.2 H MPV 12.2 H Neut % (Auto) Lymph % (Auto) Lymph # (Auto) Seg Neutrophils % 79 H Lymphocytes % 13 L Absolute Neutrophils POC Sodium 153 H Sodium POC Chloride 117 H Chloride POC BUN 70 H BUN Creatinine POC Creatinine 2.2 H Glucose POC Glucose 219 H Hemoglobin A1c Uric Acid Calcium POC WB Ioniz Calcium 1.43 H Phosphorus Magnesium GGT AST ALT Alkaline Phosphatase Lactate Dehydrogenase Total Protein Albumin Globulin Albumin/Globulin Ratio Procalcitonin 0.21 H Urine Occult Blood Urine Mucus 04/13/22 04/13/22 04/13/22 15:56 12:02 05:29 WBC RBC Hgb POC Hct 38.0 L 40.0 L MCHC RDW MPV Neut % (Auto) Lymph % (Auto) Lymph # (Auto) Seg Neutrophils % Lymphocytes % Absolute Neutrophils POC Sodium 155 H 157 H Sodium POC Chloride 119 H 121 H Chloride POC BUN 75 H 85 H BUN Creatinine POC Creatinine 2.5 H 2.6 H Glucose POC Glucose 213 H 123 H Hemoglobin A1c Uric Acid Calcium POC WB Ioniz Calcium 1.41 H 1.43 H Phosphorus Magnesium GGT AST ALT Alkaline Phosphatase Lactate Dehydrogenase Total Protein Albumin Globulin Albumin/Globulin Ratio Procalcitonin 0.37 H Urine Occult Blood Urine Mucus 04/13/22 04/13/22 04/13/22 05:29 05:29 05:28 WBC 13.1 H RBC 4.21 L Hgb 12.6 L POC Hct MCHC RDW 17.1 H MPV 12.4 H Neut % (Auto) Lymph % (Auto) Lymph # (Auto) Seg Neutrophils % 88 H Lymphocytes % 10 L Absolute Neutrophils POC Sodium Sodium 156 H POC Chloride Chloride 121 H POC BUN BUN 98 H Creatinine 2.6 H POC Creatinine Glucose 248 H POC Glucose Hemoglobin A1c Uric Acid 9.2 H Calcium POC WB Ioniz Calcium Phosphorus Magnesium 2.9 H GGT AST 77 H ALT 72 H Alkaline Phosphatase Lactate Dehydrogenase 252 H Total Protein Albumin 2.4 L Globulin Albumin/Globulin Ratio 0.7 L Procalcitonin Urine Occult Blood Urine Mucus 04/13/22 04/12/22 04/12/22 01:42 20:02 15:43 WBC RBC Hgb POC Hct 36.0 L 38.0 L 37.0 L MCHC RDW MPV Neut % (Auto) Lymph % (Auto) Lymph # (Auto) Seg Neutrophils % Lymphocytes % Absolute Neutrophils POC Sodium 160 H 160 H 161 H Sodium POC Chloride 123 H 125 H 126 H Chloride POC BUN 90 H 97 H 97 H BUN Creatinine POC Creatinine 2.9 H 2.9 H 3.0 H Glucose POC Glucose 196 H 253 H 199 H Hemoglobin A1c Uric Acid Calcium POC WB Ioniz Calcium 1.43 H 1.38 H Phosphorus Magnesium GGT AST ALT Alkaline Phosphatase Lactate Dehydrogenase Total Protein Albumin Globulin Albumin/Globulin Ratio Procalcitonin Urine Occult Blood Urine Mucus 04/12/22 04/12/22 04/12/22 11:22 11:01 11:01 WBC RBC Hgb POC Hct MCHC RDW MPV Neut % (Auto) Lymph % (Auto) Lymph # (Auto) Seg Neutrophils % Lymphocytes % Absolute Neutrophils POC Sodium Sodium 159 H POC Chloride Chloride 121 H POC BUN BUN 104 H* Creatinine 3.0 H POC Creatinine Glucose 326 H POC Glucose Hemoglobin A1c 6.5 H Uric Acid Calcium 10.7 H POC WB Ioniz Calcium Phosphorus Magnesium GGT AST ALT Alkaline Phosphatase Lactate Dehydrogenase Total Protein Albumin 2.7 L Globulin 4.1 H Albumin/Globulin Ratio 0.7 L Procalcitonin Urine Occult Blood Trace-intact A Urine Mucus Few A 04/12/22 11:01 WBC 12.3 H RBC Hgb POC Hct MCHC RDW 16.8 H MPV 12.1 H Neut % (Auto) 85.5 H Lymph % (Auto) 7.9 L Lymph # (Auto) 0.97 L Seg Neutrophils % Lymphocytes % Absolute Neutrophils 10.53 H POC Sodium Sodium POC Chloride Chloride POC BUN BUN Creatinine POC Creatinine Glucose POC Glucose Hemoglobin A1c Uric Acid Calcium POC WB Ioniz Calcium Phosphorus Magnesium GGT AST ALT Alkaline Phosphatase Lactate Dehydrogenase Total Protein Albumin Globulin Albumin/Globulin Ratio Procalcitonin Urine Occult Blood Urine Mucus Meds: Medications Albuterol/Ipratropium (Ipratropium/Albuterol 3 Ml Ampul.Neb) 3 ml NEB Q4HP PRN PRN Reason: Shortness Of Breath Allopurinol (Allopurinol 100 Mg Tablet) 50 mg PO DAILY [facility] Last Admin: 04/14/22 09:12 Dose: 50 mg Documented by: Amlodipine Besylate (Amlodipine 5 Mg Tablet) 5 mg PO DAILY [facility] Last Admin: 04/14/22 09:12 Dose: 5 mg Documented by: Aspirin (Aspirin 81 Mg Tab.Chew) 81 mg PO DAILY [facility] Last Admin: 04/14/22 09:53 Dose: 81 mg Documented by: Chlorhexidine Gluconate (Chlorhexidine Gluconate 1 Ml Oral.Carlota) 15 ml SWABMOUTH BID [facility] Last Admin: 04/14/22 22:23 Dose: 15 ml Documented by: Dextrose (Dextrose 50% 50 Ml Vial) 0 ml IV UD PRN PRN Reason: Per Sliding Scale Diagnostic Test (Pha) (Accu-Chek 1 Each Strip) 1 each FS ACHS [facility] Docusate Sodium (Docusate Sodium 100 Mg Capsule) 100 mg PO BID [facility] Last Admin: 04/14/22 22:22 Dose: 100 mg Documented by: Glucose (Dextrose 31 Gm Oral.Susp) 15 gm PO PRN PRN PRN Reason: Hypoglycemia Heparin Sodium (Porcine) (Heparin 5,000 Unit/Ml Vial) 5,000 unit SQ Q12 [facility] Last Admin: 04/14/22 22:22 Dose: 5,000 unit Documented by: Hydralazine HCl (Hydralazine 20 Mg/Ml Vial) 0 mg IV Q2HP PRN PRN Reason: Hypertension Potassium Chloride 40 meq/ (Dextrose) 520 mls @ 130 mls/hr IV UD PRN PRN Reason: K+ < 3.0 Magnesium Sulfate (Magnesium Sulfate) 2 gm in 50 mls @ 25 mls/hr IV UD PRN PRN Reason: Magnesium </= 1.6 Acetaminophen (Ofirmev) 650 mg in 65 mls @ 130 mls/hr IV Q6HP PRN; Protocol PRN Reason: PAIN/FEVER > 101 Last Infusion: 04/13/22 10:09 Dose: Infused Documented by: Vancomycin HCl 1,000 mg/ (Sodium Chloride) 250 mls @ 250 mls/hr IV Q24H [facility] Last Infusion: 04/14/22 17:52 Dose: Infused Documented by: Dextrose (Dextrose 5% In Water) 1,000 mls @ 125 mls/hr IV .Q8H [facility] Last Admin: 04/15/22 03:13 Dose: Not Given Documented by: Sodium Chloride (Sodium Chloride 0.45%) 1,000 mls @ 100 mls/hr IV .Q10H [facility] Stop: 04/15/22 09:44 Last Admin: 04/14/22 23:34 Dose: 100 mls/hr Documented by: Insulin Human Lispro (Insulin Lispro 1 Unit/0.01 Ml Unit) 0 unit SQ ACHS [facility]; Protocol Metoclopramide HCl (Metoclopramide 10 Mg/2 Ml Vial) 10 mg IV Q6HP PRN PRN Reason: Nausea Morphine Sulfate (Morphine 2 Mg/Ml Vial) 1 - 3 mg IV Q3HP PRN; Protocol PRN Reason: Per Pain Protocol Last Admin: 04/15/22 01:22 Dose: 2 mg Documented by: Olanzapine (Olanzapine 10 Mg Vial) 5 mg IM QHS PRN PRN Reason: Agitation Ondansetron HCl (Ondansetron 4 Mg/2 Ml Vial) 4 mg IV Q4-6HP PRN PRN Reason: Nausea And Vomiting Pantoprazole Sodium ([facility] 40 Mg Vial) [facility] Last Admin: 04/14/22 07:24 Dose: 40 mg Documented by: Potassium Chloride (Potassium Chloride 20 Meq Tablet) 20 meq PO UD PRN PRN Reason: K+ < 3.0 Potassium Chloride (Potassium Chloride 20 Meq Tablet) 40 meq PO UD PRN PRN Reason: K+ = 3-3.5 Promethazine HCl (Promethazine 25 Mg/Ml Vial) 12.5 mg IV Q4-6HP PRN PRN Reason: Nausea And Vomiting Sertraline HCl (Sertraline 50 Mg Tablet) 50 mg PO DAILY [facility] Last Admin: 04/14/22 09:12 Dose: 50 mg Documented by: Sodium Chloride (0.9 % Sodium Chloride 10 Ml Syringe) 10 ml IV Q8 [facility] Last Admin: 04/15/22 06:37 Dose: Not Given Documented by: Tamsulosin HCl (Tamsulosin 0.4 Mg Capsule) 0.4 mg PO DAILY [facility] Last Admin: 04/14/22 09:12 Dose: 0.4 mg Documented by: Tramadol HCl (Tramadol 50 Mg Tablet) 50 mg PO Q4HP PRN; Protocol PRN Reason: Pain Vancomycin HCl (Vancomycin Per Pharmacy) 1 order IV UD [facility]; Protocol Last Admin: 04/13/22 20:30 Dose: Not Given Documented by: A/P Narrative A/P Narrative: A: *Metabolic encephalopathy, superimposed on underlying dementia: improving -CT brain w/atrophy, no acute *Hypernatremia, severe: improving -sodium 160 on admit *Dehydration/volume depletion: improving *Electrolyte d/o (Chloride/calcium/sodium): 2/2 above *SHAMA on CKD III: 104/30 on admit, 2/2 above -improving *Leukocytosis, mild: reactive vs ?infectious -no bandemia, afebrile, mildly elevated PCT (but improved w/o abx) but no source identified *DM w/Hyperglycemia: Precipitant vs compounding the issue -A1c 6.5 *Anemia, chronic: *Dementia, advanced: *Anxiety: *HTN: *Transaminitis: u/s unremarkable, was improving but worsened today, monitor *Staph epi in 11/14 bottles: contaminant P: -d5w changed to 1/2NS , encourage oral intake -Follow-up renal function and monitor UOP -Follow-up LFT's -SSI, metformin held for shama -hold ACEI for SHAMA, restarted norvasc -PT/OT -ppx: Heparin DNR Time Spent With Patient Time: Total time spent is greater than 50% in coordination of care (as documented) at patient's floor/unit and/or counseling patient: Total time spent with greater than 50% in coordination of care (as documented) at patient's floor/unit and/or counseling patient:: 25 - 35 minutes
[2022-04-15] MEDS: ASPIRIN 81 MG TAB.CHEW PO SCH ×2 (08:40→08:47)
[2022-04-15] MEDS: CHLORHEXIDINE GLUCONATE 1 ML ORAL.SOL SWABMOUTH SCH ×2 (08:41→21:34)
[2022-04-15] MEDS: TAMSULOSIN 0.4 MG CAPSULE PO SCH ×2 (08:41→08:47)
[2022-04-15] MEDS: SERTRALINE 50 MG TABLET PO SCH ×2 (08:41→08:47)
[2022-04-15] MEDS: amLODIPine 5 MG TABLET PO SCH ×2 (08:41→08:47)
[2022-04-15] MEDS: HEPARIN 5,000 UNIT/ML VIAL SQ SCH ×2 (08:41→21:34)
[2022-04-15] MEDS: DOCUSATE SODIUM 100 MG CAPSULE PO SCH ×2 (08:41→21:27)
[2022-04-15] MEDS: ALLOPURINOL 100 MG TABLET PO SCH ×2 (08:41→08:47)
[2022-04-16] MEDS: DEXTROSE 5% IN WATER 1,000 ML IV SCH ×2 (04:10→12:46)
[2022-04-16] MEDS: morphine 2 MG/ML VIAL IV PRN ×3 (04:10→18:02)
[2022-04-16] MEDS: 0.9 % SODIUM CHLORIDE 10 ML SYRINGE IV SCH ×3 (05:28→21:15)
[2022-04-16 06:57] LABS: ALT/SGPT 141 U/L (<40); AST/SGOT 62 U/L (<40); Albumin/Globulin Ratio 0.5 (1.0-2.3); Alkaline Phosphatase 343 U/L (39-117); Bilirubin,Direct < 0.2 mg/dL (0-0.3); Bilirubin,Total 0.4 mg/dL (0.1-1.0); Blood Urea Nitrogen 39 mg/dL (8-23); Calcium 9.3 mg/dL (8.6-10.4); Carbon Dioxide 20 mmol/L (22-30); Chloride 109 mmol/L (96-108); Globulin 3.7 gm/dL (2.2-3.7); Glomerular Filtration Rate 47; Glucose 220 mg/dL (70-105); Lactate Dehydrogenase 236 U/L (135-225); Phosphorous 2.9 mg/dL (2.5-4.5); Triglycerides 91 mg/dL (<150); Uric Acid 7.7 mg/dL (2.5-8.0)
[2022-04-16] MEDS: INSULIN LISPRO 1 UNIT/0.01 ML UNIT SQ SCH ×4 (07:45→21:21)
[2022-04-16] MEDS: PANTOPRAZOLE 40 MG VIAL IV SCH (07:47)
[2022-04-16] MEDS: ALLOPURINOL 100 MG TABLET PO SCH (09:13)
[2022-04-16] MEDS: SERTRALINE 50 MG TABLET PO SCH (09:13)
[2022-04-16] MEDS: traMADol 50 MG TABLET PO PRN (09:13)
[2022-04-16] MEDS: amLODIPine 5 MG TABLET PO SCH (09:13)
[2022-04-16] MEDS: DOCUSATE SODIUM 100 MG CAPSULE PO SCH ×2 (09:14→21:15)
[2022-04-16] MEDS: TAMSULOSIN 0.4 MG CAPSULE PO SCH (09:14)
[2022-04-16] MEDS: HEPARIN 5,000 UNIT/ML VIAL SQ SCH (09:21)
[2022-04-16] MEDS: ASPIRIN 81 MG TAB.CHEW PO SCH (09:40)
[2022-04-16] MEDS: CHLORHEXIDINE GLUCONATE 1 ML ORAL.SOL SWABMOUTH SCH ×2 (12:45→21:21)
--- NOTE | 2022-04-16 13:33 | Internal Med Progress Note ---
SUBJECTIVE Subjective Patient information: Note initiated : 04/16/22 at 1:30 pm Service Date, if different from initiated Date: [as above] Patient: Kassidy Anthony 81 y/o M admitted on 04/12/22 for decreased LOC. Chief Complaint: [ALOC] Principal diagnosis: Hyponatremia, acute kidney injury Interval history: Today, the patient was nonverbal. He does open his eyes to name. His GCS is likely close to 10. 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 I will discuss goals of care with the . Constitutional Vitals: Vital Signs Temp Pulse Resp BP Pulse Ox 98.1 F 110 H 18 145/88 98 04/16/22 12:47 04/16/22 12:47 04/16/22 12:47 04/16/22 12:47 04/16/22 12:47 Period Temp Pulse Resp BP Sys/Petty Pulse Ox Last 24 Hr 97.6 F-98.2 F 96-114 14-26 135-154/75-115 93-99 Intake and Output 04/15/22 04/16/22 04/16/22 21:59 05:59 13:59 Output Total 150 551 Balance -150 -551 Weight 77.61 kg Intake & Output: Intake & Output 04/15/22 04/16/22 04/16/22 21:59 05:59 13:59 Output Total 150 551 Balance -150 -551 Weight 77.61 kg Output: Urine Catheter Amount 150 550 # of times incontinent of urine 1 Other: Urine Appearance Clear Clear Urine Color Bright Yellow Urine Odor Normal Head Head exam: Present atraumatic and normal inspection Eye Eye exam: Present normal appearance ENT ENT exam: Present mucous membranes moist, normal exam and normal external ear exam Neck Neck exam: Present normal inspection Respiratory Respiratory exam: Present normal respiratory exam Cardiovascular Cardiovascular exam: Present normal rate and rhythm GI/Abdominal GI/Abdominal exam: Present normal bowel sounds Back Exam Back exam: Present normal inspection Neurological Exam Neurological exam: Present alert and altered Skin Skin exam: Present intact and warm OBJ DATA Labs CBC & Chem 7: 04/15/22 05:34 04/16/22 05:34 Labs: Abnormal Lab Results 04/16/22 04/15/22 04/15/22 05:34 05:40 05:34 WBC RBC 4.17 L Hgb 12.5 L POC Hct MCHC 30.9 L RDW 15.8 H MPV 12.0 H Lymph % (Auto) 14.9 L Lymph # (Auto) 1.34 L Seg Neutrophils % Lymphocytes % POC Sodium Sodium POC Chloride Chloride 109 H 109 H Carbon Dioxide 20 L POC BUN BUN 39 H 39 H Creatinine 1.4 H 1.6 H POC Creatinine Glucose 220 H 223 H POC Glucose POC WB Ioniz Calcium Phosphorus GGT 230 H 310 H AST 62 H 373 H ALT 141 H 248 H Alkaline Phosphatase 343 H 414 H Lactate Dehydrogenase 236 H 418 H Total Protein 5.7 L 5.6 L Albumin 2.0 L 2.2 L Albumin/Globulin Ratio 0.5 L 0.6 L Procalcitonin 04/14/22 04/14/22 04/14/22 23:11 18:19 12:01 WBC RBC Hgb POC Hct 35.0 L 34.0 L 37.0 L MCHC RDW MPV Lymph % (Auto) Lymph # (Auto) Seg Neutrophils % Lymphocytes % POC Sodium 146 H 147 H Sodium POC Chloride 112 H 113 H 116 H Chloride Carbon Dioxide POC BUN 51 H 47 H 51 H BUN Creatinine POC Creatinine 1.8 H 1.8 H 1.9 H Glucose POC Glucose 222 H 185 H 168 H POC WB Ioniz Calcium Phosphorus GGT AST ALT Alkaline Phosphatase Lactate Dehydrogenase Total Protein Albumin Albumin/Globulin Ratio Procalcitonin 04/14/22 04/14/22 04/14/22 05:32 05:32 05:32 WBC 13.4 H RBC 4.15 L Hgb 12.5 L POC Hct MCHC RDW 16.2 H MPV 12.2 H Lymph % (Auto) Lymph # (Auto) Seg Neutrophils % 79 H Lymphocytes % 13 L POC Sodium Sodium 148 H POC Chloride Chloride 115 H Carbon Dioxide POC BUN BUN 66 H Creatinine 2.0 H POC Creatinine Glucose 260 H POC Glucose POC WB Ioniz Calcium Phosphorus 2.3 L GGT AST 44 H ALT 58 H Alkaline Phosphatase Lactate Dehydrogenase 284 H Total Protein Albumin 2.3 L Albumin/Globulin Ratio 0.6 L Procalcitonin 0.21 H 04/13/22 04/13/22 04/13/22 20:03 15:56 05:29 WBC RBC Hgb POC Hct 38.0 L 38.0 L MCHC RDW MPV Lymph % (Auto) Lymph # (Auto) Seg Neutrophils % 88 H Lymphocytes % 10 L POC Sodium 153 H 155 H Sodium POC Chloride 117 H 119 H Chloride Carbon Dioxide POC BUN 70 H 75 H BUN Creatinine POC Creatinine 2.2 H 2.5 H Glucose POC Glucose 219 H 213 H POC WB Ioniz Calcium 1.43 H 1.41 H Phosphorus GGT AST ALT Alkaline Phosphatase Lactate Dehydrogenase Total Protein Albumin Albumin/Globulin Ratio Procalcitonin Meds: Medications Albuterol/Ipratropium (Ipratropium/Albuterol 3 Ml Ampul.Neb) 3 ml NEB Q4HP PRN PRN Reason: Shortness Of Breath Allopurinol (Allopurinol 100 Mg Tablet) 50 mg PO DAILY [facility] Last Admin: 04/16/22 09:13 Dose: 50 mg Documented by: Amlodipine Besylate (Amlodipine 5 Mg Tablet) 5 mg PO DAILY [facility] Last Admin: 04/16/22 09:13 Dose: 5 mg Documented by: Aspirin (Aspirin 81 Mg Tab.Chew) 81 mg PO DAILY [facility] Last Admin: 04/16/22 09:40 Dose: Not Given Documented by: Chlorhexidine Gluconate (Chlorhexidine Gluconate 1 Ml Oral.Carlota) 15 ml SWABMOUTH BID [facility] Last Admin: 04/16/22 12:45 Dose: 15 ml Documented by: Dextrose (Dextrose 50% 50 Ml Vial) 0 ml IV UD PRN PRN Reason: Per Sliding Scale Diagnostic Test (Pha) (Accu-Chek 1 Each Strip) 1 each FS ACHS [facility] Last Admin: 04/16/22 12:45 Dose: 1 each Documented by: Docusate Sodium (Docusate Sodium 100 Mg Capsule) 100 mg PO BID [facility] Last Admin: 04/16/22 09:14 Dose: Not Given Documented by: Glucose (Dextrose 31 Gm Oral.Susp) 15 gm PO PRN PRN PRN Reason: Hypoglycemia Heparin Sodium (Porcine) (Heparin 5,000 Unit/Ml Vial) 5,000 unit SQ Q12 [facility] Last Admin: 04/16/22 09:21 Dose: 5,000 unit Documented by: Hydralazine HCl (Hydralazine 20 Mg/Ml Vial) 0 mg IV Q2HP PRN PRN Reason: Hypertension Potassium Chloride 40 meq/ (Dextrose) 520 mls @ 130 mls/hr IV UD PRN PRN Reason: K+ < 3.0 Magnesium Sulfate (Magnesium Sulfate) 2 gm in 50 mls @ 25 mls/hr IV UD PRN PRN Reason: Magnesium </= 1.6 Acetaminophen (Ofirmev) 650 mg in 65 mls @ 130 mls/hr IV Q6HP PRN; Protocol PRN Reason: PAIN/FEVER > 101 Last Infusion: 04/13/22 10:09 Dose: Infused Documented by: Dextrose (Dextrose 5% In Water) 1,000 mls @ 125 mls/hr IV .Q8H [facility] Last Admin: 04/16/22 12:46 Dose: Not Given Documented by: Insulin Human Lispro (Insulin Lispro 1 Unit/0.01 Ml Unit) 0 unit SQ ACHS [facility]; Protocol Last Admin: 04/16/22 12:45 Dose: 3 unit Documented by: Metoclopramide HCl (Metoclopramide 10 Mg/2 Ml Vial) 10 mg IV Q6HP PRN PRN Reason: Nausea Morphine Sulfate (Morphine 2 Mg/Ml Vial) 1 - 3 mg IV Q3HP PRN; Protocol PRN Reason: Per Pain Protocol Last Admin: 04/16/22 07:47 Dose: 2 mg Documented by: Olanzapine (Olanzapine 10 Mg Vial) 5 mg IM QHS PRN PRN Reason: Agitation Ondansetron HCl (Ondansetron 4 Mg/2 Ml Vial) 4 mg IV Q4-6HP PRN PRN Reason: Nausea And Vomiting Pantoprazole Sodium (Pantoprazole 40 Mg Vial) 40 mg IV QAMAC [facility] Last Admin: 04/16/22 07:47 Dose: 40 mg Documented by: Potassium Chloride (Potassium Chloride 20 Meq Tablet) 20 meq PO UD PRN PRN Reason: K+ < 3.0 Potassium Chloride (Potassium Chloride 20 Meq Tablet) 40 meq PO UD PRN PRN Reason: K+ = 3-3.5 Promethazine HCl (Promethazine 25 Mg/Ml Vial) 12.5 mg IV Q4-6HP PRN PRN Reason: Nausea And Vomiting Sertraline HCl (Sertraline 50 Mg Tablet) 50 mg PO DAILY [facility] Last Admin: 04/16/22 09:13 Dose: 50 mg Documented by: Sodium Chloride (0.9 % Sodium Chloride 10 Ml Syringe) 10 ml IV Q8 [facility] Last Admin: 04/16/22 05:28 Dose: 10 ml Documented by: Tamsulosin HCl (Tamsulosin 0.4 Mg Capsule) 0.4 mg PO DAILY [facility] Last Admin: 04/16/22 09:14 Dose: 0.4 mg Documented by: Tramadol HCl (Tramadol 50 Mg Tablet) 50 mg PO Q4HP PRN; Protocol PRN Reason: Pain Last Admin: 04/16/22 09:13 Dose: 50 mg Documented by: A/P Narrative A/P Narrative: A: *Metabolic encephalopathy, superimposed on underlying dementia: improving -CT brain w/atrophy, no acute *Hypernatremia, severe: improving -sodium 160 on admit *Dehydration/volume depletion: improving *Electrolyte d/o (Chloride/calcium/sodium): 2/2 above *SHAMA on CKD III: 104/30 on admit, 2/2 above -improving *Leukocytosis, mild: reactive vs ?infectious -no bandemia, afebrile, mildly elevated PCT (but improved w/o abx) but no source identified *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 intake is minimal, and he is dependent on IV fluids. He is bedbound and appears quite cachectic and spastic. At this point, he he would benefit from goals of care discussion. -d5w changed to 1/2NS , encourage oral intake -Follow-up renal function and monitor UOP -Follow-up LFT's -SSI, metformin held for shama -hold ACEI for SHAMA, restarted norvasc -PT/OT -ppx: Heparin DNR Time Spent With Patient Time: Total time spent is greater than 50% in coordination of care (as documented) at patient's floor/unit and/or counseling patient: Total time spent with greater than 50% in coordination of care (as documented) at patient's floor/unit and/or counseling patient:: 25 - 35 minutes
[2022-04-17] MEDS: 0.9 % SODIUM CHLORIDE 10 ML SYRINGE IV SCH (05:51)
[2022-04-17] MEDS: INSULIN LISPRO 1 UNIT/0.01 ML UNIT SQ SCH ×2 (06:58→11:06)
[2022-04-17] MEDS: DOCUSATE SODIUM 100 MG CAPSULE PO SCH ×2 (08:07→08:10)
[2022-04-17] MEDS: SERTRALINE 50 MG TABLET PO SCH (08:10)
[2022-04-17] MEDS: CHLORHEXIDINE GLUCONATE 1 ML ORAL.SOL SWABMOUTH SCH (08:10)
[2022-04-17] MEDS: traMADol 50 MG TABLET PO PRN (08:38)
--- NOTE | 2022-04-17 12:07 | Discharge Summary ---
Discharge Provider Provider IMPORTANT FOLLOW-UP INFORMATION FOR PCP: Patient information: Note initiated : 04/17/22 at 12:07 pm Service Date, if different from initiated Date: [as above] Patient: Kassidy Anthony 81 y/o M admitted on 04/12/22 for decreased LOC. Chief Complaint: [ALOC] Date of admission: 04/12/22 17:53 Discharge date: 04/17/22 Primary care physician: Suzie Duncan Admitting clinician: Sergio Ny Consults: 04/12/22 Consult to Physician [CONS] Stat Comment: dehydra. NA+ 159. Bun 104 CR= 3.0. Glu 326 Bed T3 Consulting Provider: Sergio Ny Reason For Exam: Physician to Consult Discharging clinician: Bear Napoles COURSE Hospital Course Hospital course: *Metabolic encephalopathy, superimposed on underlying dementia: improving -CT brain w/atrophy, no acute *Hypernatremia, severe: improving -sodium 160 on admit *Dehydration/volume depletion: improving *Electrolyte d/o (Chloride/calcium/sodium): 2/2 above *SHAMA on CKD III: 104/30 on admit, 2/2 above -improving *Leukocytosis, mild: reactive vs ?infectious -no bandemia, afebrile, mildly elevated PCT (but improved w/o abx) but no source identified *DM w/Hyperglycemia: Precipitant vs compounding the issue -A1c 6.5 *Anemia, chronic: *Dementia, advanced: *Anxiety: *HTN: *Transaminitis: u/s unremarkable, was improving but worsened today, monitor *Staph epi in 11/14 bottles: contaminant P: -04/17: After further goals of care discussion, it was agreed to transition the patient to hospice. He will return to his nursing facility today per my discussion with social work. -04/16: The patient's p.o. intake is minimal, and he is dependent on IV fluids. He is bedbound and appears quite cachectic and spastic. At this point, he he would benefit from goals of care discussion. -d5w changed to 1/2NS , encourage oral intake -Follow-up renal function and monitor UOP -Follow-up LFT's -SSI, metformin held for shama -hold ACEI for SHAMA, restarted norvasc -PT/OT -ppx: Heparin DNR Discharge diagnosis: HyperNa 160, Toxic metabolic encephalopathy, SHAMA, advanced dementia Time Spent with Patient Time attestation: Total time spent providing and/or coordinating discharge services: Time spent: Greater than 30 minutes EXAM Constitutional Vitals: Temp Pulse Resp BP Pulse Ox 97.2 F 117 H 24 H 128/83 93 04/17/22 12:01 04/17/22 12:01 04/17/22 12:01 04/17/22 12:01 04/17/22 12:01 General appearance: average body habitus Head Head exam: Present atraumatic and normal inspection Eye Eye exam: Present EOMI ENT ENT exam: Present mucous membranes dry Respiratory Respiratory exam: Present normal respiratory exam and CTAB Cardiovascular Cardiovascular exam: Present normal rate and rhythm and RRR GI/Abdominal GI/Abdominal exam: Present normal bowel sounds and soft; Absent distended Neurological Exam 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 Expanded Neurological Exam Coma Scale Motor Response: Localizes to Pain Psychiatric Psychiatric exam: Present anxious Expanded Psychiatric Exam Focused psych exam: Present delusional Discharge Plan Patient/Caregiver Discharge Instructions Activity: as per physical therapy Instructions: Acute Kidney Injury (GEN), Hypernatremia (GEN), Encephalopathy (GEN) Prescriptions: Continued sertraline 50 mg Tablet 50 mg PO BID 0RF clonazepam 0.5 mg Tablet 1 mg PO QHS Qty: 10 0RF quetiapine 25 mg tablet 25 mg PO BID 0RF quetiapine 100 MG tablet 100 mg PO HS 0RF Discontinued tamsulosin 0.4 MG capsule 0.4 mg PO DAILY 0RF metformin 750 mg tablet extended release 24 hr 750 mg PO BIDCC 0RF amlodipine-benazepril 10-20 mg capsule 1 cap PO DAILY 0RF allopurinol 100 mg Tablet 100 mg PO DAILY 0RF divalproex [Depakote] 250 mg Tablet,Delayed Release (Dr/Ec) 250 mg PO BID 0RF aspirin [Baby Aspirin] 81 mg Tablet,Chewable 81 mg PO DAILY 0RF magnesium oxide 84.5 mg mag (140 mg) Capsule 100 mg PO DAILY 0RF Ozempic 0.25 mg or 0.5 mg(2 mg/1.5 mL) Pen Injector 0.5 mg SUBCUT WEEKLY 0RF Rx Instructions: on Tuesdays Other Ambulatory Orders: Wound Care Instructions (CONT) Facility: [facility] - Location: [facility] Ordered By: Bear Napoles Follow Up Plan Follow up with: Suzie Duncan ARNP [Primary Care Provider] - 04/24/22 9:45 am (Please arrive 10 minutes early) Patient Disposition: Hospice - Medical Facility Rehab Potential: Fair I certify that the patient requires SNF services: Yes Overall status at discharge: patient is not back to baseline Discharge Orders: Discharge Order (Routine); Ordered 04/17/22 Ordered By: Bear Napoles
[2022-04-17] MEDS ORDERED: 0.9 % SODIUM CHLORIDE 10 ML SYRINGE IV SCH (14:00)
== END 2022-04-17 13:16 | disposition hospice, inpatient (51) | DRG 640 ==
LOC: ED 10:48 → ICU 17:53
PROVIDERS: ADMIT Internal Medicine; ATTEND Student in an Organized Health Care Education/Training Program